=== PATIENT | female | born 1990 | race Caucasian/White ===

== ENCOUNTER 2018-06-29 00:25 | Inpatient (IN) | payer MEDICAID, OTHER ==
[~2018-06-29] VITALS: Ht 165.1 cm; Wt 89.4 kg
[~2018-06-29 00:25] MED LIST: BENZ2TAB10 PO; HALO1 PO; LEVO100T13 PO; METF500T PO; SITA100 PO
[2018-06-29 00:38] LABS: GLUCOSE,POINT OF CARE 195 MG/DL (70-110)
[2018-06-29 01:06] LABS: BASOPHILS % (AUTO) 0.9 % (0.0-2.0); EOSINOPHILS % (AUTO) 0.9 % (1.0-6.0); HEMATOCRIT 42.6 % (36-46); HEMOGLOBIN 14.4 g/dL (12.0-16.0); LYMPHOCYTES # (AUTO) 4.5 K/uL (1.0-4.8); LYMPHOCYTES % (AUTO) 31.1 % (22.0-44.0); MEAN CORPUSCULAR HEMOGLOBIN 28.8 pg (26.0-34.0); MEAN CORPUSCULAR HGB CONC 33.8 G/dL (31.0-37.0); MEAN CORPUSCULAR VOLUME 85 fL (80-100); MONOCYTES # (AUTO) 0.7 K/uL (0.1-1.0); MONOCYTES % (AUTO) 4.6 % (2.0-9.0); NEUTROPHILS # (AUTO) 9.1 K/uL (1.8-7.7); NEUTROPHILS % (AUTO) 62.5 % (40.0-70.0); PLATELET COUNT (AUTO) 230 K/uL (150-450); RED BLOOD CELL COUNT(AUTO) 4.99 MIL/uL (4.00-5.20); RED CELL DISTRIBUTION WIDTH 12.2 % (11.5-14.5)
[2018-06-29 01:15] LABS: ANION GAP 10 mmol/L (8-16); CALCIUM, TOTAL 9.4 mg/dL (8.8-10.5); CARBON DIOXIDE 27 mmol/L (22-29); CHLORIDE 99 mmol/L (98-107); CREATININE 0.62 mg/dL (0.60-1.30); GLOMERULAR FILTR. RATE CALC > 60 mL/min (>60); GLUCOSE,RANDOM 208 mg/dL (70-110); POTASSIUM 3.9 mmol/L (3.5-5.1); SODIUM SERUM 136 mmol/L (136-145); UREA NITROGEN, BLOOD 10 mg/dL (7-18)
[2018-06-29 01:21] LABS: ALANINE AMINOTRANSFERASE 59 U/L (12-78); ALBUMIN 3.5 g/dL (3.4-5.0); ALKALINE PHOSPHATASE 83 U/L (46-116); ASPARTATE AMINOTRANSFERASE 26 U/L (15-37); BILIRUBIN,TOTAL 0.3 mg/dL (0.1-1.0); TOTAL PROTEIN, SERUM 8.1 g/dL (6.4-8.2)
[2018-06-29] MEDS ORDERED: HALOPERIDOL 5 MG TABLET PO PRN (04:00)
[2018-06-29 05:47] VITALS: BP 111/79
[2018-06-29] MEDS ORDERED: MAGNESIUM HYDROXIDE SUSPENSION 30 ML UDCUP PO PRN (06:45)
[2018-06-29] MEDS ORDERED: ALBUTEROL SULFATE HFA 90 MCG/PUFF 8 GM INHALER IH PRN (06:45)
[2018-06-29] MEDS ORDERED: PETROLATUM,WHITE 71 GM JELLY TP PRN (06:45)
[2018-06-29] MEDS ORDERED: IBUPROFEN 400 MG TABLET PO PRN (06:45)
[2018-06-29] MEDS ORDERED: MAG HYDROX/AL HYDROX/SIMETH ES 30 ML SUSPENSION UDCUP PO PRN (06:45)
[2018-06-29] MEDS ORDERED: CloNIDine HCL 0.1 MG TABLET PO PRN (06:45)
[2018-06-29] MEDS ORDERED: DOCUSATE SODIUM 100 MG CAPSULE PO PRN (06:45)
[2018-06-29] MEDS ORDERED: ONDANSETRON HCL 4 MG TABLET PO PRN (06:45)
[2018-06-29] MEDS ORDERED: ACETAMINOPHEN 325 MG TABLET PO PRN (06:45)
[2018-06-29] MEDS ORDERED: LOPERAMIDE HCL 2 MG CAPSULE PO PRN (06:45)
[2018-06-29] MEDS: MetFORMIN HCL 500 MG TABLET PO SCH ×2 (07:08→18:10)
[2018-06-29] MEDS: LEVOTHYROXINE SODIUM 100 MCG TABLET PO SCH (07:08)
[2018-06-29 07:23] LABS: GLUCOMETER DEV NAME(LOC) PVLAB139; GLUCOSE,POINT OF CARE 156 MG/DL (70-110)
[2018-06-29 09:00] VITALS: BP 115/69
[2018-06-29] MEDS: SitaGLIPtin PHOSPHATE 100 MG TABLET PO SCH (09:21)
[2018-06-29] MEDS ORDERED: PNEUMOCOCCAL VACCINE POLYVALENT 0.5 ML VIAL [PPSV23] IM ONE (12:15)
[2018-06-29 17:18] LABS: GLUCOMETER DEV NAME(LOC) PVLAB139; GLUCOSE,POINT OF CARE 138 MG/DL (70-110)
[2018-06-29] MEDS: BENZTROPINE MESYLATE 2 MG TABLET PO SCH (18:10)
[2018-06-29 19:38] VITALS: BP 119/77
[2018-06-29] MEDS: HALOPERIDOL 5 MG TABLET PO SCH (21:08)
[2018-06-30 05:44] LABS: GLUCOMETER DEV NAME(LOC) PVLAB139; GLUCOSE,POINT OF CARE 104 MG/DL (70-110)
[2018-06-30] MEDS: MetFORMIN HCL 500 MG TABLET PO SCH ×3 (06:35→17:13)
[2018-06-30] MEDS: LEVOTHYROXINE SODIUM 100 MCG TABLET PO SCH ×2 (06:35→06:58)
[2018-06-30 08:15] VITALS: BP 112/82
[2018-06-30 08:17] LABS: HEMOGLOBIN A1C 8.7 % (4.5-6.2)
[2018-06-30 08:33] LABS: ALANINE AMINOTRANSFERASE 69 U/L (12-78); ALBUMIN 3.4 g/dL (3.4-5.0); ALKALINE PHOSPHATASE 77 U/L (46-116); ANION GAP 11 mmol/L (8-16); ASPARTATE AMINOTRANSFERASE 44 U/L (15-37); BILIRUBIN,TOTAL 0.5 mg/dL (0.1-1.0); CALCIUM, TOTAL 8.8 mg/dL (8.8-10.5); CARBON DIOXIDE 26 mmol/L (22-29); CHLORIDE 102 mmol/L (98-107); CHOLESTEROL 149 mg/dL (131-200); GLOMERULAR FILTR. RATE CALC > 60 mL/min (>60); GLUCOSE,RANDOM 123 mg/dL (70-110); HDL CHOLESTEROL 25 mg/dL (40-60); LDL CHOL (CALC.) 99 mg/dL (0-130); POTASSIUM 4.2 mmol/L (3.5-5.1); SODIUM SERUM 139 mmol/L (136-145); THYROID STIMULATING HORMONE 3.96 uIU/mL (0.36-3.74); TOTAL PROTEIN, SERUM 6.8 g/dL (6.4-8.2); TRIGLYCERIDES 123 mg/dL (15-150); UREA NITROGEN, BLOOD 8 mg/dL (7-18)
[2018-06-30] MEDS: BENZTROPINE MESYLATE 2 MG TABLET PO SCH ×2 (08:41→17:13)
[2018-06-30] MEDS: SitaGLIPtin PHOSPHATE 100 MG TABLET PO SCH (08:41)
[2018-06-30 20:55] VITALS: BP 122/72
[2018-06-30] MEDS: HALOPERIDOL 5 MG TABLET PO SCH (21:11)
[2018-07-01 05:59] LABS: GLUCOMETER DEV NAME(LOC) PVLAB139; GLUCOSE,POINT OF CARE 136 MG/DL (70-110)
[2018-07-01] MEDS: MetFORMIN HCL 500 MG TABLET PO SCH ×2 (07:10→16:59)
[2018-07-01] MEDS: LEVOTHYROXINE SODIUM 100 MCG TABLET PO SCH (07:10)
[2018-07-01 08:30] VITALS: BP 124/68
[2018-07-01] MEDS: SitaGLIPtin PHOSPHATE 100 MG TABLET PO SCH (10:44)
[2018-07-01] MEDS: BENZTROPINE MESYLATE 2 MG TABLET PO SCH ×2 (10:44→16:59)
[2018-07-01 16:43] LABS: GLUCOMETER DEV NAME(LOC) 3EC; GLUCOSE,POINT OF CARE 176 MG/DL (70-110)
[2018-07-01 19:23] VITALS: BP 113/71
[2018-07-01] MEDS: HALOPERIDOL 10 MG TABLET PO SCH (20:23)
[2018-07-02 06:40] LABS: GLUCOMETER DEV NAME(LOC) 3EC; GLUCOSE,POINT OF CARE 195 MG/DL (70-110)
[2018-07-02] MEDS: MetFORMIN HCL 500 MG TABLET PO SCH ×2 (06:49→17:36)
[2018-07-02] MEDS: LEVOTHYROXINE SODIUM 100 MCG TABLET PO SCH (06:49)
[2018-07-02 08:39] VITALS: BP 108/75
[2018-07-02] MEDS: SitaGLIPtin PHOSPHATE 100 MG TABLET PO SCH (09:00)
[2018-07-02] MEDS: BENZTROPINE MESYLATE 2 MG TABLET PO SCH ×2 (09:00→17:36)
[2018-07-02 16:29] LABS: GLUCOMETER DEV NAME(LOC) 3EC; GLUCOSE,POINT OF CARE 129 MG/DL (70-110)
[2018-07-02 18:11] VITALS: BP 106/73
[2018-07-02] MEDS: HALOPERIDOL 10 MG TABLET PO SCH (21:09)
[2018-07-03 06:09] LABS: GLUCOMETER DEV NAME(LOC) 3EX 1; GLUCOSE,POINT OF CARE 125 MG/DL (70-110)
[2018-07-03 06:55] LABS: BASOPHILS % (AUTO) 0.3 % (0.0-2.0); EOSINOPHILS % (AUTO) 1.4 % (1.0-6.0); HEMATOCRIT 38.6 % (36-46); HEMOGLOBIN 13.1 g/dL (12.0-16.0); LYMPHOCYTES # (AUTO) 4.4 K/uL (1.0-4.8); LYMPHOCYTES % (AUTO) 33.2 % (22.0-44.0); MEAN CORPUSCULAR HGB CONC 33.9 G/dL (31.0-37.0); MEAN CORPUSCULAR VOLUME 86 fL (80-100); MONOCYTES # (AUTO) 0.7 K/uL (0.1-1.0); MONOCYTES % (AUTO) 4.9 % (2.0-9.0); NEUTROPHILS % (AUTO) 60.2 % (40.0-70.0); PLATELET COUNT (AUTO) 206 K/uL (150-450); RED BLOOD CELL COUNT(AUTO) 4.51 MIL/uL (4.00-5.20); RED CELL DISTRIBUTION WIDTH 12.4 % (11.5-14.5)
[2018-07-03] MEDS: LEVOTHYROXINE SODIUM 100 MCG TABLET PO SCH (07:00)
[2018-07-03] MEDS: MetFORMIN HCL 500 MG TABLET PO SCH ×2 (07:00→16:51)
[2018-07-03 08:30] VITALS: BP 110/59
[2018-07-03] MEDS: BENZTROPINE MESYLATE 2 MG TABLET PO SCH ×2 (09:00→16:51)
[2018-07-03] MEDS: SitaGLIPtin PHOSPHATE 100 MG TABLET PO SCH (09:00)
[2018-07-03] MEDS: LORazepam 2 MG TABLET PO PRN (12:46)
[2018-07-03 16:53] LABS: GLUCOMETER DEV NAME(LOC) 3EX 1; GLUCOSE,POINT OF CARE 179 MG/DL (70-110)
[2018-07-03 17:13] VITALS: BP 104/73
[2018-07-03] MEDS: HALOPERIDOL 10 MG TABLET PO SCH (20:42)
[2018-07-04] MEDS: ZOLPIDEM TARTRATE 10 MG TABLET PO PRN (00:35)
[2018-07-04 00:38] VITALS: BP 116/75
[2018-07-04] MEDS: LEVOTHYROXINE SODIUM 100 MCG TABLET PO SCH (06:39)
[2018-07-04] MEDS: MetFORMIN HCL 500 MG TABLET PO SCH ×2 (06:39→16:36)
[2018-07-04 08:30] VITALS: BP 104/46
[2018-07-04] MEDS: SitaGLIPtin PHOSPHATE 100 MG TABLET PO SCH (09:59)
[2018-07-04] MEDS: BENZTROPINE MESYLATE 2 MG TABLET PO SCH ×2 (09:59→16:36)
[2018-07-04 14:55] LABS: GLUCOMETER DEV NAME(LOC) 3EX 1; GLUCOSE,POINT OF CARE 149 MG/DL (70-110)
[2018-07-04 16:43] LABS: GLUCOMETER DEV NAME(LOC) 3EI C; GLUCOSE,POINT OF CARE 133 MG/DL (70-110)
[2018-07-04 20:01] VITALS: BP 106/68
[2018-07-04] MEDS: HALOPERIDOL 10 MG TABLET PO SCH (20:42)
[2018-07-05 05:39] LABS: GLUCOMETER DEV NAME(LOC) 3EI C; GLUCOSE,POINT OF CARE 100 MG/DL (70-110)
[2018-07-05] MEDS: LEVOTHYROXINE SODIUM 100 MCG TABLET PO SCH (06:58)
[2018-07-05] MEDS: MetFORMIN HCL 500 MG TABLET PO SCH ×2 (06:58→17:51)
[2018-07-05 08:05] VITALS: BP 108/73
[2018-07-05] MEDS: SitaGLIPtin PHOSPHATE 100 MG TABLET PO SCH (09:20)
[2018-07-05] MEDS: BENZTROPINE MESYLATE 2 MG TABLET PO SCH ×2 (09:20→16:16)
[2018-07-05 15:21] LABS: AMPHET/METH SCREEN,URINE NEGATIVE (NEGATIVE); BARBITURATE SCREEN, URINE NEGATIVE (NEGATIVE); BENZODIAZEPINES SCREEN,URINE NEGATIVE (NEGATIVE); CANNABINOID SCREEN,URINE NEGATIVE (NEGATIVE); COCAINE SCREEN,URINE NEGATIVE (NEGATIVE); METHADONE SCREEN, URINE NEGATIVE (NEGATIVE); OPIATE SCREEN,URINE NEGATIVE (NEGATIVE)
[2018-07-05 15:22] LABS: PHENCYCLIDINE SCREEN,URINE NEGATIVE (NEGATIVE)
[2018-07-05 16:23] LABS: GLUCOMETER DEV NAME(LOC) 3EI C; GLUCOSE,POINT OF CARE 131 MG/DL (70-110)
[2018-07-05 18:56] VITALS: BP 113/74
[2018-07-05] MEDS: HALOPERIDOL 10 MG TABLET PO SCH (20:29)
[2018-07-05] MEDS: ZOLPIDEM TARTRATE 10 MG TABLET PO PRN (22:31)
[2018-07-06 00:04] VITALS: BP 117/74
[2018-07-06] MEDS: LORazepam 2 MG TABLET PO PRN (00:08)
[2018-07-06 05:35] LABS: GLUCOMETER DEV NAME(LOC) 3EI C; GLUCOSE,POINT OF CARE 127 MG/DL (70-110)
[2018-07-06] MEDS: LEVOTHYROXINE SODIUM 100 MCG TABLET PO SCH (06:44)
[2018-07-06] MEDS: MetFORMIN HCL 500 MG TABLET PO SCH (06:44)
[2018-07-06 08:30] VITALS: BP 106/72
[2018-07-06] MEDS: SitaGLIPtin PHOSPHATE 100 MG TABLET PO SCH (09:05)
[2018-07-06] MEDS: BENZTROPINE MESYLATE 2 MG TABLET PO SCH (09:05)
[2018-07-06] MEDS ORDERED: HALO10 PO (12:14)
== END 2018-07-06 16:20 | disposition home or self-care (01) | DRG 750 ==
LOC: EMS 00:27 → 3EI 03:30
PROVIDERS: ADMIT Psychiatry & Neurology Psychiatry; ATTEND Psychiatry & Neurology Psychiatry
DX: F25.1 Schizoaffective disorder, depressive type (principal); R45.851 Suicidal ideations; E11.9 Type 2 diabetes mellitus without complications; F32.9 Major depressive disorder, single episode, unspecified; E03.9 Hypothyroidism, unspecified; D72.829 Elevated white blood cell count, unspecified; E78.5 Hyperlipidemia, unspecified; F41.9 Anxiety disorder, unspecified; E78.00 Pure hypercholesterolemia, unspecified; G47.00 Insomnia, unspecified; Z79.899 Other long term (current) drug therapy
CPT/HCPCS: 80307; 83036; 84439; 84443; 90471; 99285; G0480

== ENCOUNTER 2018-07-07 21:20 | Emergency (ER) | payer MEDICAID, OTHER ==
[~2018-07-07] VITALS: Ht 160 cm; Wt 100.0 kg
[~2018-07-07 21:20] MED LIST changes: +HALO10 PO
[2018-07-07 21:43] LABS: GLUCOSE,POINT OF CARE 202 MG/DL (70-110)
[2018-07-07] MEDS ORDERED: HYDROCODONE/ACETAMINOPHEN 5-325 MG TABLET PO ONE (22:15)
[2018-07-07 22:49] VITALS: BP 127/74
== END 2018-07-07 22:54 | disposition home or self-care (01) ==
LOC: EMS 21:21
DX: K01.1 Impacted teeth (principal); F25.9 Schizoaffective disorder, unspecified; E03.9 Hypothyroidism, unspecified; E78.00 Pure hypercholesterolemia, unspecified; E11.9 Type 2 diabetes mellitus without complications; F31.9 Bipolar disorder, unspecified; F41.9 Anxiety disorder, unspecified
CPT/HCPCS: 99283

== ENCOUNTER 2018-07-09 23:42 | Emergency (ER) | payer OTHER ==
[~2018-07-09] VITALS: Ht 165.1 cm; Wt 95.5 kg
[~2018-07-09 23:42] MED LIST changes: -HALO1 PO; -SITA100 PO
[2018-07-10 00:43] LABS: BASOPHILS % (AUTO) 0.6 % (0.0-2.0); EOSINOPHILS % (AUTO) 1.2 % (1.0-6.0); HEMATOCRIT 40.2 % (36-46); HEMOGLOBIN 13.6 g/dL (12.0-16.0); LYMPHOCYTES % (AUTO) 35.4 % (22.0-44.0); MEAN CORPUSCULAR HGB CONC 33.8 G/dL (31.0-37.0); MEAN CORPUSCULAR VOLUME 86 fL (80-100); MONOCYTES # (AUTO) 0.8 K/uL (0.1-1.0); MONOCYTES % (AUTO) 5.4 % (2.0-9.0); NEUTROPHILS # (AUTO) 8.1 K/uL (1.8-7.7); NEUTROPHILS % (AUTO) 57.4 % (40.0-70.0); PLATELET COUNT (AUTO) 249 K/uL (150-450); RED BLOOD CELL COUNT(AUTO) 4.69 MIL/uL (4.00-5.20); RED CELL DISTRIBUTION WIDTH 12.2 % (11.5-14.5)
[2018-07-10] MEDS ORDERED: LORazepam 2 MG TABLET PO ONE (00:45)
[2018-07-10 00:49] VITALS: BP 118/84
[2018-07-10 00:53] LABS: ANION GAP 9 mmol/L (8-16); CARBON DIOXIDE 27 mmol/L (22-29); CHLORIDE 102 mmol/L (98-107); CREATININE 0.55 mg/dL (0.60-1.30); GLOMERULAR FILTR. RATE CALC > 60 mL/min (>60); GLUCOSE,RANDOM 127 mg/dL (70-110); POTASSIUM 3.7 mmol/L (3.5-5.1); SODIUM SERUM 138 mmol/L (136-145); UREA NITROGEN, BLOOD 5 mg/dL (7-18)
[2018-07-10 00:59] LABS: ALANINE AMINOTRANSFERASE 72 U/L (12-78); ALBUMIN 3.6 g/dL (3.4-5.0); ALKALINE PHOSPHATASE 83 U/L (46-116); ASPARTATE AMINOTRANSFERASE 26 U/L (15-37); BILIRUBIN,TOTAL 0.2 mg/dL (0.1-1.0); TOTAL PROTEIN, SERUM 7.6 g/dL (6.4-8.2)
== END 2018-07-10 02:12 | disposition home or self-care (01) ==
LOC: EMS 23:43
DX: F41.9 Anxiety disorder, unspecified (principal); F25.9 Schizoaffective disorder, unspecified; K08.89 Other specified disorders of teeth and supporting structures; F31.9 Bipolar disorder, unspecified; E11.9 Type 2 diabetes mellitus without complications; E78.00 Pure hypercholesterolemia, unspecified; E03.9 Hypothyroidism, unspecified; Z79.84 Long term (current) use of oral hypoglycemic drugs
CPT/HCPCS: 36415; 80053; 82962; 84703; 85025; 99284; G0480

== ENCOUNTER 2018-07-11 21:32 | Emergency (ER) | payer OTHER | END 2018-07-11 22:00 | disposition left against medical advice (07) | LOC: EMS 21:32 | DX: F41.9 Anxiety disorder, unspecified (principal); Z53.21 Procedure and treatment not carried out due to patient leaving prior to being seen by health care provider ==

== ENCOUNTER 2018-07-11 22:36 | Emergency (ER) | payer OTHER ==
[~2018-07-11] VITALS: Ht 165.1 cm; Wt 95.5 kg
[2018-07-12 00:21] VITALS: BP 135/62
[2018-07-12] MEDS ORDERED: LORazepam 2 MG/ML VIAL IM ONE (00:30)
[2018-07-12] MEDS ORDERED: DiphenhydrAMINE HCL 50 MG/ML VIAL IM ONE (00:30)
[2018-07-13] MEDS ORDERED: AMOX1TAB15 PO (18:20)
[2018-07-13] MEDS ORDERED: TRAM50TA4 PO (18:20)
[2018-07-13] MEDS ORDERED: IBUP-2070 PO (18:20)
== END 2018-07-12 01:02 | disposition home or self-care (01) ==
LOC: EMS 22:38
DX: F41.9 Anxiety disorder, unspecified (principal); R51 Headache; E78.00 Pure hypercholesterolemia, unspecified; E03.9 Hypothyroidism, unspecified; E11.9 Type 2 diabetes mellitus without complications; F31.9 Bipolar disorder, unspecified; F20.9 Schizophrenia, unspecified; Z79.84 Long term (current) use of oral hypoglycemic drugs
CPT/HCPCS: 96372; 99284; J1200; J2060

== ENCOUNTER 2018-07-13 18:09 | Emergency (ER) | payer OTHER ==
[~2018-07-13] VITALS: Ht 170.2 cm; Wt 81.8 kg
[2018-07-13] MEDS ORDERED: TRAM50TA4 PO (18:20)
[2018-07-13] MEDS ORDERED: IBUP-2070 PO (18:20)
[2018-07-13] MEDS ORDERED: AMOX1TAB15 PO (18:20)
[2018-07-13 19:29] LABS: GLUCOSE,POINT OF CARE 112 MG/DL (70-110)
[2018-07-13 20:25] LABS: BASOPHILS % (AUTO) 0.9 % (0.0-2.0); EOSINOPHILS % (AUTO) 1.1 % (1.0-6.0); HEMATOCRIT 40.2 % (36-46); HEMOGLOBIN 13.5 g/dL (12.0-16.0); LYMPHOCYTES # (AUTO) 3.7 K/uL (1.0-4.8); LYMPHOCYTES % (AUTO) 25.9 % (22.0-44.0); MEAN CORPUSCULAR HEMOGLOBIN 28.9 pg (26.0-34.0); MEAN CORPUSCULAR HGB CONC 33.5 G/dL (31.0-37.0); MEAN CORPUSCULAR VOLUME 86 fL (80-100); MONOCYTES # (AUTO) 0.7 K/uL (0.1-1.0); MONOCYTES % (AUTO) 4.9 % (2.0-9.0); NEUTROPHILS # (AUTO) 9.6 K/uL (1.8-7.7); NEUTROPHILS % (AUTO) 67.2 % (40.0-70.0); PLATELET COUNT (AUTO) 250 K/uL (150-450); RED BLOOD CELL COUNT(AUTO) 4.67 MIL/uL (4.00-5.20); RED CELL DISTRIBUTION WIDTH 12.3 % (11.5-14.5)
[2018-07-13] MEDS ORDERED: LORazepam 1 MG TABLET PO ONE (20:30)
[2018-07-13 20:57] LABS: ANION GAP 15 mmol/L (8-16); CALCIUM, TOTAL 9.3 mg/dL (8.8-10.5); CARBON DIOXIDE 22 mmol/L (22-29); CHLORIDE 104 mmol/L (98-107); CREATININE 0.46 mg/dL (0.60-1.30); GLOMERULAR FILTR. RATE CALC > 60 mL/min (>60); GLUCOSE,RANDOM 121 mg/dL (70-110); POTASSIUM 3.7 mmol/L (3.5-5.1); SODIUM SERUM 141 mmol/L (136-145); UREA NITROGEN, BLOOD 7 mg/dL (7-18)
[2018-07-13 21:02] LABS: ALANINE AMINOTRANSFERASE 59 U/L (12-78); ALBUMIN 3.8 g/dL (3.4-5.0); ALKALINE PHOSPHATASE 79 U/L (46-116); ASPARTATE AMINOTRANSFERASE 28 U/L (15-37); BILIRUBIN,TOTAL 0.2 mg/dL (0.1-1.0); TOTAL PROTEIN, SERUM 7.6 g/dL (6.4-8.2)
[2018-07-13 21:17] VITALS: BP 139/82
== END 2018-07-13 21:05 | disposition home or self-care (01) ==
LOC: EMS 18:11
DX: F41.9 Anxiety disorder, unspecified (principal); F31.9 Bipolar disorder, unspecified; F20.9 Schizophrenia, unspecified; E11.9 Type 2 diabetes mellitus without complications; E03.9 Hypothyroidism, unspecified; E78.00 Pure hypercholesterolemia, unspecified; Z79.84 Long term (current) use of oral hypoglycemic drugs
CPT/HCPCS: 99284

== ENCOUNTER 2018-07-21 00:54 | Emergency (ER) | payer OTHER ==
[~2018-07-21] VITALS: Ht 165.1 cm; Wt 89.5 kg
[~2018-07-21 00:54] MED LIST changes: +AMOX1TAB15 PO; +IBUP-2070 PO; +TRAM50TA4 PO
[2018-07-21 01:47] LABS: BASOPHILS % (AUTO) 0.4 % (0.0-2.0); EOSINOPHILS % (AUTO) 1.3 % (1.0-6.0); HEMATOCRIT 40.3 % (36-46); HEMOGLOBIN 13.3 g/dL (12.0-16.0); LYMPHOCYTES # (AUTO) 4.7 K/uL (1.0-4.8); LYMPHOCYTES % (AUTO) 32.4 % (22.0-44.0); MEAN CORPUSCULAR HGB CONC 33.1 G/dL (31.0-37.0); MEAN CORPUSCULAR VOLUME 88 fL (80-100); MONOCYTES # (AUTO) 0.8 K/uL (0.1-1.0); MONOCYTES % (AUTO) 5.5 % (2.0-9.0); NEUTROPHILS # (AUTO) 8.8 K/uL (1.8-7.7); NEUTROPHILS % (AUTO) 60.4 % (40.0-70.0); PLATELET COUNT (AUTO) 227 K/uL (150-450); RED BLOOD CELL COUNT(AUTO) 4.61 MIL/uL (4.00-5.20); RED CELL DISTRIBUTION WIDTH 12.8 % (11.5-14.5)
[2018-07-21 02:00] LABS: ANION GAP 8 mmol/L (8-16); CALCIUM, TOTAL 8.7 mg/dL (8.8-10.5); CARBON DIOXIDE 28 mmol/L (22-29); CHLORIDE 102 mmol/L (98-107); CREATININE 0.56 mg/dL (0.60-1.30); GLOMERULAR FILTR. RATE CALC > 60 mL/min (>60); GLUCOSE,RANDOM 242 mg/dL (70-110); POTASSIUM 4.1 mmol/L (3.5-5.1); SODIUM SERUM 138 mmol/L (136-145); UREA NITROGEN, BLOOD 10 mg/dL (7-18)
[2018-07-21 02:08] LABS: ALANINE AMINOTRANSFERASE 50 U/L (12-78); ALBUMIN 3.5 g/dL (3.4-5.0); ALKALINE PHOSPHATASE 89 U/L (46-116); ASPARTATE AMINOTRANSFERASE 24 U/L (15-37); BILIRUBIN,TOTAL 0.2 mg/dL (0.1-1.0); TOTAL PROTEIN, SERUM 7.4 g/dL (6.4-8.2)
[2018-07-21 02:09] LABS: GLUCOSE,POINT OF CARE 224 MG/DL (70-110)
[2018-07-21 02:26] LABS: AMPHET/METH SCREEN,URINE NEGATIVE (NEGATIVE); BARBITURATE SCREEN, URINE NEGATIVE (NEGATIVE); BENZODIAZEPINES SCREEN,URINE NEGATIVE (NEGATIVE); CANNABINOID SCREEN,URINE NEGATIVE (NEGATIVE); COCAINE SCREEN,URINE NEGATIVE (NEGATIVE); METHADONE SCREEN, URINE NEGATIVE (NEGATIVE); OPIATE SCREEN,URINE NEGATIVE (NEGATIVE); PHENCYCLIDINE SCREEN,URINE NEGATIVE (NEGATIVE)
[2018-07-21] MEDS ORDERED: DiphenhydrAMINE HCL 25 MG CAPSULE PO ONE (02:45)
[2018-07-21] MEDS ORDERED: LORazepam 2 MG TABLET PO ONE (02:45)
[2018-07-21] MEDS ORDERED: QUEtiapine FUMARATE 100 MG TABLET PO ONE (02:45)
[2018-07-21 03:45] VITALS: BP 134/92
== END 2018-07-21 04:01 | disposition home or self-care (01) ==
LOC: EMS 00:54
DX: G47.00 Insomnia, unspecified (principal); E78.00 Pure hypercholesterolemia, unspecified; E03.9 Hypothyroidism, unspecified; E11.9 Type 2 diabetes mellitus without complications; F31.9 Bipolar disorder, unspecified; F41.9 Anxiety disorder, unspecified; F20.9 Schizophrenia, unspecified; Z79.84 Long term (current) use of oral hypoglycemic drugs
CPT/HCPCS: 36415; 80053; 80307; 82962; 84703; 85025; 99284; G0480

== ENCOUNTER 2019-06-14 09:59 | Inpatient (IN) | payer MEDICAID ==
[~2019-06-14] VITALS: Ht 162.6 cm; Wt 93.9 kg
[~2019-06-14 09:59] MED LIST changes: -AMOX1TAB15 PO; +FLUO-191 PO; -IBUP-2070 PO; +SITA100 PO; -TRAM50TA4 PO
[2019-06-14] MEDS: GABAPENTIN 300 MG CAPSULE PO SCH ×2 (14:22→16:57)
[2019-06-14 14:38] LABS: GLUCOMETER DEV NAME(LOC) BV2S.; GLUCOSE,POINT OF CARE 202 MG/DL (70-110)
[2019-06-14 14:39] VITALS: BP 105/70
[2019-06-14 16:30] VITALS: BP 114/78
[2019-06-14] MEDS: MetFORMIN HCL 500 MG TABLET PO SCH (16:57)
[2019-06-14] MEDS: ZIPRASIDONE HCL 20 MG CAPSULE PO SCH (16:57)
[2019-06-14] MEDS ORDERED: ONDANSETRON HCL 4 MG TABLET PO PRN ×2 (18:30→19:30)
[2019-06-14] MEDS ORDERED: DOCUSATE SODIUM 100 MG CAPSULE PO PRN (19:30)
[2019-06-14] MEDS ORDERED: LOPERAMIDE HCL 2 MG CAPSULE PO PRN (19:30)
[2019-06-14] MEDS ORDERED: MAGNESIUM HYDROXIDE SUSPENSION 30 ML UDCUP PO PRN (19:30)
[2019-06-14] MEDS ORDERED: CloNIDine HCL 0.1 MG TABLET PO PRN (19:30)
[2019-06-14] MEDS ORDERED: ALBUTEROL SULFATE HFA 90 MCG/PUFF 8 GM INHALER IH PRN (19:30)
[2019-06-14] MEDS ORDERED: ACETAMINOPHEN 325 MG TABLET PO PRN (19:30)
[2019-06-14] MEDS ORDERED: NICOTINE 14 MG/24 HOUR PATCH TD PRN (19:30)
[2019-06-14] MEDS ORDERED: MAG HYDROX/AL HYDROX/SIMETH ES 30 ML SUSPENSION UDCUP PO PRN (19:30)
[2019-06-14] MEDS ORDERED: PETROLATUM,WHITE 28 GM JELLY TP PRN (19:30)
[2019-06-14] MEDS ORDERED: GuaiFENesin/D-METHORPHAN [SUGAR-FREE] 200-20MG/10 ML SYRUP UDCUP PO PRN (19:30)
[2019-06-14] MEDS: HALOPERIDOL 5 MG TABLET PO PRN (22:35)
[2019-06-14] MEDS: LORazepam 2 MG TABLET PO PRN (22:35)
[2019-06-15 00:05] VITALS: BP 133/74
[2019-06-15] MEDS: ZIPRASIDONE HCL 20 MG CAPSULE PO SCH ×2 (06:23→16:47)
[2019-06-15] MEDS: LEVOTHYROXINE SODIUM 100 MCG TABLET PO SCH (06:23)
[2019-06-15] MEDS: MetFORMIN HCL 500 MG TABLET PO SCH ×2 (06:23→16:47)
[2019-06-15 08:19] VITALS: BP 122/66
[2019-06-15] MEDS: SitaGLIPtin PHOSPHATE 100 MG TABLET PO SCH (08:22)
[2019-06-15] MEDS: GABAPENTIN 300 MG CAPSULE PO SCH ×2 (08:22→16:47)
[2019-06-15 08:33] LABS: BASOPHILS % (AUTO) 0.5 % (0.0-2.0); EOSINOPHILS % (AUTO) 1.6 % (1.0-6.0); HEMATOCRIT 40.5 % (36-46); HEMOGLOBIN 13.1 g/dL (12.0-16.0); LYMPHOCYTES # (AUTO) 4.7 K/uL (1.0-4.8); LYMPHOCYTES % (AUTO) 35.6 % (22.0-44.0); MEAN CORPUSCULAR HEMOGLOBIN 28.5 pg (26.0-34.0); MEAN CORPUSCULAR HGB CONC 32.3 G/dL (31.0-37.0); MEAN CORPUSCULAR VOLUME 88 fL (80-100); MONOCYTES # (AUTO) 0.7 K/uL (0.1-1.0); MONOCYTES % (AUTO) 5.3 % (2.0-9.0); NEUTROPHILS # (AUTO) 7.5 K/uL (1.8-7.7); PLATELET COUNT (AUTO) 255 K/uL (150-450); RED BLOOD CELL COUNT(AUTO) 4.59 MIL/uL (4.00-5.20); RED CELL DISTRIBUTION WIDTH 13.2 % (11.5-14.5)
[2019-06-15 08:53] LABS: HEMOGLOBIN A1C 7.9 % (4.5-6.2)
[2019-06-15 09:20] LABS: ALANINE AMINOTRANSFERASE 37 U/L (12-78); ALBUMIN 3.4 g/dL (3.4-5.0); ALKALINE PHOSPHATASE 75 U/L (46-116); ANION GAP 12 mmol/L (8-16); ASPARTATE AMINOTRANSFERASE 24 U/L (15-37); BILIRUBIN,TOTAL 0.3 mg/dL (0.1-1.0); CALCIUM, TOTAL 9.6 mg/dL (8.8-10.5); CARBON DIOXIDE 25 mmol/L (22-29); CHLORIDE 100 mmol/L (98-107); CHOL/HDL RATIO 4.7 (3.9-5.7); CHOLESTEROL 155 mg/dL (131-200); CREATININE 0.54 mg/dL (0.60-1.30); FREE T4 (FREE THYROXINE) 1.14 ng/dL (0.76-1.46); GLOMERULAR FILTR. RATE CALC > 60 mL/min (>60); GLUCOSE,RANDOM 141 mg/dL (70-110); HCG,QUANTITATIVE < 1 mIU/mL (0-6); HDL CHOLESTEROL 33 mg/dL (40-60); LDL CHOL (CALC.) 102 mg/dL (0-130); POTASSIUM 4.3 mmol/L (3.5-5.1); SODIUM SERUM 137 mmol/L (136-145); THYROID STIMULATING HORMONE 5.57 uIU/mL (0.36-3.74); TOTAL PROTEIN, SERUM 7.1 g/dL (6.4-8.2); TRIGLYCERIDES 98 mg/dL (15-150); UREA NITROGEN, BLOOD 12 mg/dL (7-18)
[2019-06-15 16:13] VITALS: BP 106/61
[2019-06-16 05:08] VITALS: BP 112/65
[2019-06-16] MEDS: LEVOTHYROXINE SODIUM 100 MCG TABLET PO SCH (06:29)
[2019-06-16] MEDS: ZIPRASIDONE HCL 20 MG CAPSULE PO SCH ×2 (06:55→17:05)
[2019-06-16] MEDS: MetFORMIN HCL 500 MG TABLET PO SCH ×2 (06:55→17:05)
[2019-06-16] MEDS: GABAPENTIN 300 MG CAPSULE PO SCH ×2 (08:19→17:05)
[2019-06-16] MEDS: SitaGLIPtin PHOSPHATE 100 MG TABLET PO SCH (08:19)
[2019-06-16 08:46] VITALS: BP 130/77
[2019-06-16] MEDS: LORazepam 2 MG TABLET PO PRN (12:29)
[2019-06-16 16:18] VITALS: BP 107/62
[2019-06-16 16:34] LABS: GLUCOMETER DEV NAME(LOC) BV2S.; GLUCOSE,POINT OF CARE 122 MG/DL (70-110)
[2019-06-17 06:14] LABS: GLUCOMETER DEV NAME(LOC) BV2S.; GLUCOSE,POINT OF CARE 166 MG/DL (70-110)
[2019-06-17] MEDS: LEVOTHYROXINE SODIUM 100 MCG TABLET PO SCH (06:28)
[2019-06-17 06:38] VITALS: BP 114/67
[2019-06-17] MEDS: ZIPRASIDONE HCL 20 MG CAPSULE PO SCH ×2 (06:42→17:11)
[2019-06-17] MEDS: MetFORMIN HCL 500 MG TABLET PO SCH ×2 (06:42→17:11)
[2019-06-17 08:34] VITALS: BP 102/60
[2019-06-17] MEDS: GABAPENTIN 300 MG CAPSULE PO SCH ×2 (08:34→17:11)
[2019-06-17] MEDS: SitaGLIPtin PHOSPHATE 100 MG TABLET PO SCH (08:34)
[2019-06-17 16:22] VITALS: BP 110/72
[2019-06-17 16:40] LABS: GLUCOMETER DEV NAME(LOC) BV2S.; GLUCOSE,POINT OF CARE 184 MG/DL (70-110)
[2019-06-17] MEDS: LORazepam 2 MG TABLET PO PRN (20:59)
[2019-06-18 05:53] VITALS: BP 112/80
[2019-06-18 06:20] LABS: GLUCOMETER DEV NAME(LOC) BV2S.; GLUCOSE,POINT OF CARE 125 MG/DL (70-110)
[2019-06-18] MEDS: LEVOTHYROXINE SODIUM 100 MCG TABLET PO SCH (06:33)
[2019-06-18] MEDS: MetFORMIN HCL 500 MG TABLET PO SCH ×2 (06:33→16:42)
[2019-06-18] MEDS: ZIPRASIDONE HCL 20 MG CAPSULE PO SCH (06:33)
[2019-06-18 09:09] VITALS: BP 126/76
[2019-06-18] MEDS: GABAPENTIN 300 MG CAPSULE PO SCH ×2 (09:17→16:42)
[2019-06-18] MEDS: SitaGLIPtin PHOSPHATE 100 MG TABLET PO SCH (09:17)
[2019-06-18 11:35] LABS: GLUCOMETER DEV NAME(LOC) BV2S.; GLUCOSE,POINT OF CARE 120 MG/DL (70-110)
[2019-06-18] MEDS: ZIPRASIDONE HCL 40 MG CAPSULE PO SCH (16:42)
[2019-06-18 16:46] VITALS: BP 110/65
[2019-06-18 17:25] LABS: GLUCOMETER DEV NAME(LOC) BV2S.; GLUCOSE,POINT OF CARE 174 MG/DL (70-110)
[2019-06-18] MEDS: IBUPROFEN 400 MG TABLET PO PRN (22:11)
[2019-06-19 01:13] VITALS: BP 115/73
[2019-06-19] MEDS: HALOPERIDOL 5 MG TABLET PO PRN ×2 (01:44→17:20)
[2019-06-19] MEDS: LORazepam 2 MG TABLET PO PRN ×3 (01:44→17:20)
[2019-06-19] MEDS: LEVOTHYROXINE SODIUM 100 MCG TABLET PO SCH (06:30)
[2019-06-19] MEDS: MetFORMIN HCL 500 MG TABLET PO SCH ×2 (07:00→16:37)
[2019-06-19] MEDS: ZIPRASIDONE HCL 40 MG CAPSULE PO SCH ×2 (07:00→16:38)
[2019-06-19] MEDS: SitaGLIPtin PHOSPHATE 100 MG TABLET PO SCH (09:18)
[2019-06-19] MEDS: GABAPENTIN 300 MG CAPSULE PO SCH ×2 (09:18→16:38)
[2019-06-19 16:33] VITALS: BP 145/53
[2019-06-20 05:26] VITALS: BP 106/56
[2019-06-20 06:30] LABS: GLUCOMETER DEV NAME(LOC) BV3S.; GLUCOSE,POINT OF CARE 115 MG/DL (70-110)
[2019-06-20] MEDS: LEVOTHYROXINE SODIUM 100 MCG TABLET PO SCH (06:32)
[2019-06-20] MEDS: ZIPRASIDONE HCL 40 MG CAPSULE PO SCH ×2 (06:42→16:06)
[2019-06-20] MEDS: MetFORMIN HCL 500 MG TABLET PO SCH ×2 (06:42→16:06)
[2019-06-20] MEDS: GABAPENTIN 300 MG CAPSULE PO SCH ×2 (08:10→16:06)
[2019-06-20] MEDS: SitaGLIPtin PHOSPHATE 100 MG TABLET PO SCH (08:10)
[2019-06-20 08:19] VITALS: BP 111/64
[2019-06-20] MEDS: LORazepam 2 MG TABLET PO PRN ×3 (08:19→20:55)
[2019-06-20] MEDS: HALOPERIDOL 5 MG TABLET PO PRN ×2 (12:29→16:31)
[2019-06-20 16:03] VITALS: BP 132/79
[2019-06-20 16:34] LABS: GLUCOMETER DEV NAME(LOC) BV3S.; GLUCOSE,POINT OF CARE 211 MG/DL (70-110)
[2019-06-21] MEDS: LORazepam 2 MG TABLET PO PRN ×2 (03:30→08:53)
[2019-06-21 03:31] VITALS: BP 127/77
[2019-06-21] MEDS: IBUPROFEN 400 MG TABLET PO PRN (03:31)
[2019-06-21 06:59] LABS: GLUCOMETER DEV NAME(LOC) BV3S.; GLUCOSE,POINT OF CARE 143 MG/DL (70-110)
[2019-06-21] MEDS: MetFORMIN HCL 500 MG TABLET PO SCH (07:06)
[2019-06-21] MEDS: LEVOTHYROXINE SODIUM 100 MCG TABLET PO SCH (07:06)
[2019-06-21] MEDS: ZIPRASIDONE HCL 40 MG CAPSULE PO SCH (07:06)
[2019-06-21] MEDS: GABAPENTIN 300 MG CAPSULE PO SCH (08:52)
[2019-06-21] MEDS: SitaGLIPtin PHOSPHATE 100 MG TABLET PO SCH (08:52)
[2019-06-21] MEDS ORDERED: ZIPR40CA2 PO (09:56)
[2019-06-21] MEDS ORDERED: GABA-531 PO (09:56)
[2019-06-22] MEDS ORDERED: DIPH25 PO (23:58)
[2019-06-22] MEDS ORDERED: PIOG15TA6 PO (23:58)
[2019-06-22] MEDS ORDERED: LURA40 PO (23:58)
[2019-06-22] MEDS ORDERED: LORA10TA7 PO (23:58)
[2019-06-22] MEDS ORDERED: QUET25TA PO (23:58)
== END 2019-06-21 13:20 | disposition home or self-care (01) | DRG 750 ==
LOC: B2S 13:56 → B3A 06-19 12:54
PROVIDERS: ADMIT Psychiatry & Neurology Psychiatry; ATTEND Psychiatry & Neurology Psychiatry
DX: F25.1 Schizoaffective disorder, depressive type (principal); E11.9 Type 2 diabetes mellitus without complications; D72.829 Elevated white blood cell count, unspecified; E78.5 Hyperlipidemia, unspecified; I10 Essential (primary) hypertension; E03.9 Hypothyroidism, unspecified; F25.0 Schizoaffective disorder, bipolar type; Z79.82 Long term (current) use of aspirin; Z79.899 Other long term (current) drug therapy; Z79.890 Hormone replacement therapy
CPT/HCPCS: 83036; 84436; 84439; 84443; Q0162

== ENCOUNTER 2023-03-17 18:13 | Inpatient (IN) | payer MEDICAID, OTHER ==
[~2023-03-17] VITALS: Ht 157.5 cm; Wt 92.3 kg
[~2023-03-17 18:13] MED LIST changes: -BENZ2TAB10 PO; -FLUO-191 PO; +GABA-1181 PO; -HALO10 PO; +LEVO100 PO; -LEVO100T13 PO; +METF-1211 PO; -METF500T PO; +PIOG15TA6 PO; +ZIPR80CA2 PO
[2023-03-17 19:03] LABS: BASOPHILS % (AUTO) 0.6 % (0.0-2.0); EOSINOPHILS % (AUTO) 2.4 % (1.0-6.0); HEMATOCRIT 44.8 % (36-46); HEMOGLOBIN 14.6 g/dL (12.0-16.0); LYMPHOCYTES # (AUTO) 3.1 K/uL (1.0-4.8); MEAN CORPUSCULAR HEMOGLOBIN 28.2 pg (26.0-34.0); MEAN CORPUSCULAR HGB CONC 32.6 G/dL (31.0-37.0); MEAN CORPUSCULAR VOLUME 86 fL (80-100); MONOCYTES # (AUTO) 0.8 K/uL (0.1-1.0); NEUTROPHILS # (AUTO) 9.3 K/uL (1.8-7.7); PLATELET COUNT (AUTO) 193 K/uL (150-450); RED BLOOD CELL COUNT(AUTO) 5.18 MIL/uL (4.00-5.20); RED CELL DISTRIBUTION WIDTH 13.5 % (11.5-14.5)
[2023-03-17 19:10] LABS: ANION GAP 11 mmol/L (8-16); CALCIUM, TOTAL 9.3 mg/dL (8.8-10.5); CARBON DIOXIDE 27 mmol/L (22-29); CHLORIDE 101 mmol/L (98-107); GLOMERULAR FILTR. RATE CALC > 60 mL/min (>60); GLUCOSE,RANDOM 135 mg/dL (70-110); POTASSIUM 3.7 mmol/L (3.5-5.1); SODIUM SERUM 139 mmol/L (136-145)
[2023-03-17 19:17] LABS: ALANINE AMINOTRANSFERASE 46 U/L (12-78); ALKALINE PHOSPHATASE 100 U/L (46-116); ASPARTATE AMINOTRANSFERASE 22 U/L (15-37); BILIRUBIN,TOTAL 0.2 mg/dL (0.1-1.0); TOTAL PROTEIN, SERUM 8.4 g/dL (6.4-8.2)
[2023-03-17 20:20] LABS: AMPHET/METH SCREEN,URINE NEGATIVE (NEGATIVE); BARBITURATE SCREEN, URINE NEGATIVE (NEGATIVE); BENZODIAZEPINES SCREEN,URINE NEGATIVE (NEGATIVE); CANNABINOID SCREEN,URINE NEGATIVE (NEGATIVE); COCAINE SCREEN,URINE NEGATIVE (NEGATIVE); METHADONE SCREEN, URINE NEGATIVE (NEGATIVE); OPIATE SCREEN,URINE NEGATIVE (NEGATIVE); PHENCYCLIDINE SCREEN,URINE NEGATIVE (NEGATIVE)
[2023-03-17 20:35] LABS: COVID AG,FIA SOURCE NASOPHARYNGEAL
[2023-03-17] MEDS ORDERED: ZOLPIDEM TARTRATE 10 MG TABLET PO PRN (21:30)
[2023-03-17] MEDS ORDERED: LORazepam 2 MG TABLET PO PRN (21:30)
[2023-03-17 23:01] LABS: GLUCOMETER DEV NAME(LOC) BV2S.; GLUCOSE,POINT OF CARE 128 MG/DL (70-110)
[2023-03-18 08:08] LABS: HEMOGLOBIN A1C 7.8 % (3.8-5.6)
[2023-03-18 08:26] LABS: CHOL/HDL RATIO 4.9 (3.9-5.7); FREE T4 (FREE THYROXINE) 1.1 ng/dL (0.76-1.46); THYROID STIMULATING HORMONE 4.91 uIU/mL (0.36-3.74)
[2023-03-18 08:38] VITALS: BP 112/69
[2023-03-18] MEDS ORDERED: GLUCAGON,HUMAN RECOMBINANT 1 MG VIAL IM PRN (11:30)
[2023-03-18] MEDS ORDERED: ACETAMINOPHEN 325 MG TABLET PO PRN (11:45)
[2023-03-18] MEDS ORDERED: DOCUSATE SODIUM 100 MG CAPSULE PO PRN (11:45)
[2023-03-18] MEDS ORDERED: ONDANSETRON HCL 4 MG TABLET PO PRN (11:45)
[2023-03-18] MEDS ORDERED: ALBUTEROL SULFATE HFA 90 MCG/PUFF 8 GM INHALER IH PRN (11:45)
[2023-03-18] MEDS ORDERED: PETROLATUM,WHITE 28 GM JELLY TP PRN (11:45)
[2023-03-18] MEDS ORDERED: IBUPROFEN 400 MG TABLET PO PRN (11:45)
[2023-03-18] MEDS ORDERED: LOPERAMIDE HCL 2 MG CAPSULE PO PRN (11:45)
[2023-03-18] MEDS ORDERED: MAGNESIUM HYDROXIDE SUSPENSION 30 ML UDCUP PO PRN (11:45)
[2023-03-18] MEDS ORDERED: GuaiFENesin/D-METHORPHAN [SUGAR-FREE] 200-20MG/10 ML SYRUP UDCUP PO PRN (11:45)
[2023-03-18] MEDS ORDERED: MAG HYDROX/AL HYDROX/SIMETH ES 30 ML SUSPENSION UDCUP PO PRN (11:45)
[2023-03-18] MEDS ORDERED: NICOTINE 14 MG/24 HOUR PATCH TD PRN (11:45)
[2023-03-18] MEDS ORDERED: CloNIDine HCL 0.1 MG TABLET PO PRN (11:45)
[2023-03-18 11:56] LABS: GLUCOMETER DEV NAME(LOC) BV2S.; GLUCOSE,POINT OF CARE 133 MG/DL (70-110)
[2023-03-18] MEDS ORDERED: QUET25TA36 PO (13:00)
[2023-03-18] MEDS ORDERED: SERT-439 PO (13:00)
[2023-03-18] MEDS: SERTRALINE HCL 50 MG TABLET PO SCH (13:10)
[2023-03-18 16:46] LABS: GLUCOMETER DEV NAME(LOC) BV2S.; GLUCOSE,POINT OF CARE 110 MG/DL (70-110)
[2023-03-18 20:25] LABS: GLUCOMETER DEV NAME(LOC) BV2S.; GLUCOSE,POINT OF CARE 236 MG/DL (70-110)
[2023-03-18] MEDS: INSULIN LISPRO 100 UNITS/ML SQ PRN (20:30)
[2023-03-18] MEDS: QUEtiapine FUMARATE 25 MG TABLET PO SCH (20:31)
[2023-03-18 20:53] VITALS: BP 104/70
[2023-03-19 07:06] LABS: GLUCOMETER DEV NAME(LOC) BV2S.; GLUCOSE,POINT OF CARE 133 MG/DL (70-110)
[2023-03-19 07:44] LABS: HEMOGLOBIN A1C 7.8 % (3.8-5.6)
[2023-03-19 07:48] LABS: ALANINE AMINOTRANSFERASE 42 U/L (12-78); ALBUMIN 3.5 g/dL (3.4-5.0); ALKALINE PHOSPHATASE 80 U/L (46-116); ANION GAP 8 mmol/L (8-16); ASPARTATE AMINOTRANSFERASE 22 U/L (15-37); BILIRUBIN,TOTAL 0.4 mg/dL (0.1-1.0); CALCIUM, TOTAL 8.9 mg/dL (8.8-10.5); CARBON DIOXIDE 25 mmol/L (22-29); CHLORIDE 103 mmol/L (98-107); CHOL/HDL RATIO 5.5 (3.9-5.7); CHOLESTEROL 170 mg/dL (131-200); CREATININE 0.43 mg/dL (0.60-1.30); GLOMERULAR FILTR. RATE CALC > 60 mL/min (>60); GLUCOSE,RANDOM 129 mg/dL (70-110); HDL CHOLESTEROL 31 mg/dL (40-60); LDL CHOL (CALC.) 116 mg/dL (0-130); POTASSIUM 3.7 mmol/L (3.5-5.1); SODIUM SERUM 136 mmol/L (136-145); THYROID STIMULATING HORMONE 2.66 uIU/mL (0.36-3.74); TOTAL PROTEIN, SERUM 7.5 g/dL (6.4-8.2); TRIGLYCERIDES 116 mg/dL (15-150)
[2023-03-19 08:20] VITALS: BP 109/69
[2023-03-19] MEDS: SERTRALINE HCL 50 MG TABLET PO SCH (09:27)
[2023-03-19] MEDS: INSULIN LISPRO 100 UNITS/ML SQ PRN ×2 (11:22→20:41)
[2023-03-19 11:31] LABS: GLUCOMETER DEV NAME(LOC) BV2S.; GLUCOSE,POINT OF CARE 197 MG/DL (70-110)
[2023-03-19] MEDS ORDERED: EMPA25TA3 PO (12:05)
[2023-03-19 16:30] LABS: GLUCOMETER DEV NAME(LOC) BV2S.; GLUCOSE,POINT OF CARE 117 MG/DL (70-110)
[2023-03-19 20:09] VITALS: BP 110/69
[2023-03-19 20:26] LABS: GLUCOMETER DEV NAME(LOC) BV2S.; GLUCOSE,POINT OF CARE 155 MG/DL (70-110)
[2023-03-19] MEDS: QUEtiapine FUMARATE 25 MG TABLET PO SCH (20:31)
[2023-03-20 06:42] LABS: GLUCOMETER DEV NAME(LOC) BV2S.; GLUCOSE,POINT OF CARE 127 MG/DL (70-110)
[2023-03-20 08:44] VITALS: BP 116/72
[2023-03-20] MEDS: SERTRALINE HCL 50 MG TABLET PO SCH (08:51)
[2023-03-20] MEDS: INSULIN LISPRO 100 UNITS/ML SQ PRN ×3 (11:31→20:37)
[2023-03-20 15:56] LABS: GLUCOMETER DEV NAME(LOC) BV2S.; GLUCOSE,POINT OF CARE 162 MG/DL (70-110)
[2023-03-20 16:36] LABS: GLUCOMETER DEV NAME(LOC) BV2S.; GLUCOSE,POINT OF CARE 145 MG/DL (70-110)
[2023-03-20 20:26] LABS: GLUCOMETER DEV NAME(LOC) BV2S.; GLUCOSE,POINT OF CARE 180 MG/DL (70-110)
[2023-03-20 20:28] VITALS: BP 107/76
[2023-03-20] MEDS: QUEtiapine FUMARATE 25 MG TABLET PO SCH (20:30)
[2023-03-21 06:21] LABS: GLUCOMETER DEV NAME(LOC) BV2S.; GLUCOSE,POINT OF CARE 143 MG/DL (70-110)
[2023-03-21] MEDS: INSULIN LISPRO 100 UNITS/ML SQ PRN ×4 (06:33→20:27)
[2023-03-21 07:28] LABS: BASOPHILS % (AUTO) 0.3 % (0.0-2.0); EOSINOPHILS % (AUTO) 1.5 % (1.0-6.0); HEMATOCRIT 40.9 % (36-46); HEMOGLOBIN 13.5 g/dL (12.0-16.0); LYMPHOCYTES # (AUTO) 3.2 K/uL (1.0-4.8); LYMPHOCYTES % (AUTO) 26.9 % (22.0-44.0); MEAN CORPUSCULAR HEMOGLOBIN 28.5 pg (26.0-34.0); MEAN CORPUSCULAR VOLUME 87 fL (80-100); MONOCYTES # (AUTO) 0.7 K/uL (0.1-1.0); MONOCYTES % (AUTO) 5.6 % (2.0-9.0); NEUTROPHILS # (AUTO) 7.9 K/uL (1.8-7.7); NEUTROPHILS % (AUTO) 65.7 % (40.0-70.0); PLATELET COUNT (AUTO) 178 K/uL (150-450); RED BLOOD CELL COUNT(AUTO) 4.73 MIL/uL (4.00-5.20); RED CELL DISTRIBUTION WIDTH 13.3 % (11.5-14.5)
[2023-03-21 08:37] VITALS: BP 130/70
[2023-03-21] MEDS: SERTRALINE HCL 50 MG TABLET PO SCH (09:00)
[2023-03-21 11:21] LABS: GLUCOMETER DEV NAME(LOC) BV2S.; GLUCOSE,POINT OF CARE 147 MG/DL (70-110)
[2023-03-21 17:56] LABS: GLUCOMETER DEV NAME(LOC) BV2S.; GLUCOSE,POINT OF CARE 154 MG/DL (70-110)
[2023-03-21] MEDS: QUEtiapine FUMARATE 25 MG TABLET PO SCH (20:22)
[2023-03-21 20:27] VITALS: BP 107/72
[2023-03-21 20:41] LABS: GLUCOMETER DEV NAME(LOC) BV2S.; GLUCOSE,POINT OF CARE 194 MG/DL (70-110)
[2023-03-22] MEDS: INSULIN LISPRO 100 UNITS/ML SQ PRN ×4 (06:37→22:17)
[2023-03-22] MEDS: SERTRALINE HCL 50 MG TABLET PO SCH (08:21)
[2023-03-22 08:35] VITALS: BP 109/56
[2023-03-22 09:21] LABS: GLUCOMETER DEV NAME(LOC) BV2S.; GLUCOSE,POINT OF CARE 210 MG/DL (70-110)
[2023-03-22 09:21] LABS: GLUCOMETER DEV NAME(LOC) BV2S.; GLUCOSE,POINT OF CARE 186 MG/DL (70-110)
[2023-03-22 11:21] LABS: GLUCOMETER DEV NAME(LOC) BV2S.; GLUCOSE,POINT OF CARE 162 MG/DL (70-110)
[2023-03-22] MEDS: QUEtiapine FUMARATE 25 MG TABLET PO SCH (20:13)
[2023-03-22 20:16] LABS: GLUCOMETER DEV NAME(LOC) BV2S.; GLUCOSE,POINT OF CARE 232 MG/DL (70-110)
[2023-03-22 20:41] LABS: GLUCOMETER DEV NAME(LOC) BV2S.; GLUCOSE,POINT OF CARE 160 MG/DL (70-110)
[2023-03-22 20:44] VITALS: BP 106/72
[2023-03-23 06:42] LABS: GLUCOMETER DEV NAME(LOC) BV2S.; GLUCOSE,POINT OF CARE 124 MG/DL (70-110)
[2023-03-23] MEDS: SERTRALINE HCL 50 MG TABLET PO SCH (08:27)
[2023-03-23 08:49] VITALS: BP 116/72
[2023-03-23] MEDS: INSULIN LISPRO 100 UNITS/ML SQ PRN ×3 (11:16→20:30)
[2023-03-23 11:41] LABS: GLUCOMETER DEV NAME(LOC) BV2S.; GLUCOSE,POINT OF CARE 265 MG/DL (70-110)
[2023-03-23 16:11] LABS: GLUCOMETER DEV NAME(LOC) POC.BV
[2023-03-23 17:01] LABS: GLUCOMETER DEV NAME(LOC) BV2S.; GLUCOSE,POINT OF CARE 175 MG/DL (70-110)
[2023-03-23 20:19] VITALS: BP 128/99
[2023-03-23] MEDS: QUEtiapine FUMARATE 25 MG TABLET PO SCH (20:25)
[2023-03-23 20:31] LABS: GLUCOMETER DEV NAME(LOC) BV2S.; GLUCOSE,POINT OF CARE 201 MG/DL (70-110)
[2023-03-24 06:27] LABS: GLUCOMETER DEV NAME(LOC) BV2S.; GLUCOSE,POINT OF CARE 127 MG/DL (70-110)
[2023-03-24 08:18] LABS: BASOPHILS % (AUTO) 0.4 % (0.0-2.0); EOSINOPHILS % (AUTO) 2.1 % (1.0-6.0); HEMATOCRIT 39.9 % (36-46); HEMOGLOBIN 12.8 g/dL (12.0-16.0); LYMPHOCYTES # (AUTO) 3.4 K/uL (1.0-4.8); LYMPHOCYTES % (AUTO) 28.2 % (22.0-44.0); MEAN CORPUSCULAR HEMOGLOBIN 27.7 pg (26.0-34.0); MEAN CORPUSCULAR HGB CONC 32.1 G/dL (31.0-37.0); MEAN CORPUSCULAR VOLUME 86 fL (80-100); MONOCYTES # (AUTO) 0.7 K/uL (0.1-1.0); MONOCYTES % (AUTO) 5.8 % (2.0-9.0); NEUTROPHILS # (AUTO) 7.7 K/uL (1.8-7.7); NEUTROPHILS % (AUTO) 63.5 % (40.0-70.0); PLATELET COUNT (AUTO) 193 K/uL (150-450); RED BLOOD CELL COUNT(AUTO) 4.62 MIL/uL (4.00-5.20); RED CELL DISTRIBUTION WIDTH 13.1 % (11.5-14.5)
[2023-03-24 08:27] VITALS: BP 129/81
[2023-03-24] MEDS: SERTRALINE HCL 50 MG TABLET PO SCH (10:04)
[2023-03-24] MEDS: INSULIN LISPRO 100 UNITS/ML SQ PRN ×3 (11:29→20:52)
[2023-03-24 11:41] LABS: GLUCOMETER DEV NAME(LOC) BV2S.; GLUCOSE,POINT OF CARE 155 MG/DL (70-110)
[2023-03-24 16:31] LABS: GLUCOMETER DEV NAME(LOC) BV2S.; GLUCOSE,POINT OF CARE 221 MG/DL (70-110)
[2023-03-24 20:30] VITALS: BP 118/78
[2023-03-24] MEDS: QUEtiapine FUMARATE 25 MG TABLET PO SCH (20:45)
[2023-03-24 20:56] LABS: GLUCOMETER DEV NAME(LOC) BV2S.; GLUCOSE,POINT OF CARE 177 MG/DL (70-110)
[2023-03-25 06:11] LABS: GLUCOMETER DEV NAME(LOC) BV2S.; GLUCOSE,POINT OF CARE 124 MG/DL (70-110)
[2023-03-25 08:18] VITALS: BP 109/64
[2023-03-25] MEDS: SERTRALINE HCL 50 MG TABLET PO SCH (08:37)
[2023-03-25] MEDS: QUEtiapine FUMARATE 200 MG TABLET PO SCH ×2 (08:38→20:16)
[2023-03-25 11:21] LABS: GLUCOMETER DEV NAME(LOC) BV2S.; GLUCOSE,POINT OF CARE 139 MG/DL (70-110)
[2023-03-25 16:51] LABS: GLUCOMETER DEV NAME(LOC) BV2S.; GLUCOSE,POINT OF CARE 190 MG/DL (70-110)
[2023-03-25] MEDS: INSULIN LISPRO 100 UNITS/ML SQ PRN ×2 (16:58→21:12)
[2023-03-25 20:16] VITALS: BP 114/66
[2023-03-26 04:21] LABS: GLUCOMETER DEV NAME(LOC) BV2S.; GLUCOSE,POINT OF CARE 248 MG/DL (70-110)
[2023-03-26 06:31] LABS: GLUCOMETER DEV NAME(LOC) BV2S.; GLUCOSE,POINT OF CARE 133 MG/DL (70-110)
[2023-03-26] MEDS: QUEtiapine FUMARATE 200 MG TABLET PO SCH ×2 (08:13→20:11)
[2023-03-26] MEDS: SERTRALINE HCL 50 MG TABLET PO SCH (08:13)
[2023-03-26 08:17] VITALS: BP 106/65
[2023-03-26 11:36] LABS: GLUCOMETER DEV NAME(LOC) BV2S.; GLUCOSE,POINT OF CARE 139 MG/DL (70-110)
[2023-03-26] MEDS: INSULIN LISPRO 100 UNITS/ML SQ PRN ×2 (16:36→20:18)
[2023-03-26 16:46] LABS: GLUCOMETER DEV NAME(LOC) BV2S.; GLUCOSE,POINT OF CARE 191 MG/DL (70-110)
[2023-03-26 20:31] LABS: GLUCOMETER DEV NAME(LOC) BV2S.; GLUCOSE,POINT OF CARE 234 MG/DL (70-110)
[2023-03-27] MEDS: HALOPERIDOL 5 MG TABLET PO PRN (01:28)
[2023-03-27] MEDS: INSULIN LISPRO 100 UNITS/ML SQ PRN (06:25)
[2023-03-27 06:36] LABS: GLUCOMETER DEV NAME(LOC) BV2S.; GLUCOSE,POINT OF CARE 100 MG/DL (70-110)
[2023-03-27 08:17] VITALS: BP 108/60
[2023-03-27] MEDS: SERTRALINE HCL 50 MG TABLET PO SCH (08:21)
[2023-03-27] MEDS: QUEtiapine FUMARATE 200 MG TABLET PO SCH ×2 (08:21→20:09)
[2023-03-27 11:56] LABS: GLUCOMETER DEV NAME(LOC) BV2S.; GLUCOSE,POINT OF CARE 123 MG/DL (70-110)
[2023-03-27 16:46] LABS: GLUCOMETER DEV NAME(LOC) BV2S.; GLUCOSE,POINT OF CARE 102 MG/DL (70-110)
[2023-03-27 20:31] LABS: GLUCOMETER DEV NAME(LOC) BV2S.; GLUCOSE,POINT OF CARE 125 MG/DL (70-110)
[2023-03-27 20:38] VITALS: BP 110/62
[2023-03-28 06:21] LABS: GLUCOMETER DEV NAME(LOC) BV2S.; GLUCOSE,POINT OF CARE 126 MG/DL (70-110)
[2023-03-28 08:24] VITALS: BP 118/70
[2023-03-28] MEDS: QUEtiapine FUMARATE 200 MG TABLET PO SCH ×2 (09:16→20:38)
[2023-03-28] MEDS: SERTRALINE HCL 50 MG TABLET PO SCH (09:17)
[2023-03-28 11:31] LABS: GLUCOMETER DEV NAME(LOC) BV2S.; GLUCOSE,POINT OF CARE 117 MG/DL (70-110)
[2023-03-28 16:26] LABS: GLUCOMETER DEV NAME(LOC) BV2S.; GLUCOSE,POINT OF CARE 201 MG/DL (70-110)
[2023-03-28] MEDS: INSULIN LISPRO 100 UNITS/ML SQ PRN ×2 (17:05→21:08)
[2023-03-28] MEDS: HALOPERIDOL 5 MG TABLET PO PRN (18:17)
[2023-03-28 20:23] VITALS: BP 101/60
[2023-03-28 21:01] LABS: GLUCOMETER DEV NAME(LOC) BV2S.; GLUCOSE,POINT OF CARE 242 MG/DL (70-110)
[2023-03-29 06:31] LABS: GLUCOMETER DEV NAME(LOC) BV2S.; GLUCOSE,POINT OF CARE 143 MG/DL (70-110)
[2023-03-29] MEDS: INSULIN LISPRO 100 UNITS/ML SQ PRN ×2 (06:44→21:01)
[2023-03-29 08:29] VITALS: BP 100/62
[2023-03-29] MEDS: SERTRALINE HCL 50 MG TABLET PO SCH (08:41)
[2023-03-29] MEDS: QUEtiapine FUMARATE 200 MG TABLET PO SCH ×2 (08:41→21:04)
[2023-03-29 11:26] LABS: GLUCOMETER DEV NAME(LOC) BV2S.; GLUCOSE,POINT OF CARE 103 MG/DL (70-110)
[2023-03-29 16:47] LABS: GLUCOMETER DEV NAME(LOC) BV2S.; GLUCOSE,POINT OF CARE 124 MG/DL (70-110)
[2023-03-29 20:28] VITALS: BP 104/69
[2023-03-29 21:11] LABS: GLUCOMETER DEV NAME(LOC) BV2S.; GLUCOSE,POINT OF CARE 199 MG/DL (70-110)
[2023-03-30 08:20] VITALS: BP 105/56
[2023-03-30] MEDS: QUEtiapine FUMARATE 200 MG TABLET PO SCH ×2 (09:19→20:36)
[2023-03-30] MEDS: SERTRALINE HCL 50 MG TABLET PO SCH (09:19)
[2023-03-30] MEDS: INSULIN LISPRO 100 UNITS/ML SQ PRN ×2 (11:23→20:47)
[2023-03-30 16:00] LABS: GLUCOMETER DEV NAME(LOC) BV2S.; GLUCOSE,POINT OF CARE 146 MG/DL (70-110)
[2023-03-30 16:00] LABS: GLUCOMETER DEV NAME(LOC) BV2S.; GLUCOSE,POINT OF CARE 132 MG/DL (70-110)
[2023-03-30 16:26] LABS: GLUCOMETER DEV NAME(LOC) BV2S.; GLUCOSE,POINT OF CARE 111 MG/DL (70-110)
[2023-03-30 20:25] VITALS: BP 104/68
[2023-03-30 20:36] LABS: GLUCOMETER DEV NAME(LOC) BV2S.; GLUCOSE,POINT OF CARE 159 MG/DL (70-110)
[2023-03-30 23:21] LABS: GLUCOMETER DEV NAME(LOC) POC.BV
[2023-03-31 05:32] LABS: GLUCOMETER DEV NAME(LOC) BV2S.; GLUCOSE,POINT OF CARE 115 MG/DL (70-110)
[2023-03-31 08:29] VITALS: BP 107/58
[2023-03-31] MEDS: SERTRALINE HCL 50 MG TABLET PO SCH (09:29)
[2023-03-31] MEDS: QUEtiapine FUMARATE 200 MG TABLET PO SCH ×2 (09:29→21:21)
[2023-03-31 17:11] LABS: GLUCOMETER DEV NAME(LOC) BV2S.; GLUCOSE,POINT OF CARE 112 MG/DL (70-110)
[2023-03-31 17:11] LABS: GLUCOMETER DEV NAME(LOC) BV2S.; GLUCOSE,POINT OF CARE 133 MG/DL (70-110)
[2023-03-31 20:20] VITALS: BP 104/66
[2023-03-31 21:11] LABS: GLUCOMETER DEV NAME(LOC) BV2S.; GLUCOSE,POINT OF CARE 183 MG/DL (70-110)
[2023-03-31] MEDS: INSULIN LISPRO 100 UNITS/ML SQ PRN ×3 (21:21→21:28)
[2023-04-01 06:16] LABS: GLUCOMETER DEV NAME(LOC) BV2S.; GLUCOSE,POINT OF CARE 136 MG/DL (70-110)
[2023-04-01] MEDS: QUEtiapine FUMARATE 200 MG TABLET PO SCH ×2 (08:10→20:12)
[2023-04-01] MEDS: SERTRALINE HCL 50 MG TABLET PO SCH (08:10)
[2023-04-01 08:18] VITALS: BP 99/62
[2023-04-01 11:35] LABS: GLUCOMETER DEV NAME(LOC) BV2S.; GLUCOSE,POINT OF CARE 134 MG/DL (70-110)
[2023-04-01 16:55] LABS: GLUCOMETER DEV NAME(LOC) BV2S.; GLUCOSE,POINT OF CARE 99 MG/DL (70-110)
[2023-04-01] MEDS: INSULIN LISPRO 100 UNITS/ML SQ PRN (20:25)
[2023-04-01 20:46] LABS: GLUCOMETER DEV NAME(LOC) BV2S.; GLUCOSE,POINT OF CARE 225 MG/DL (70-110)
[2023-04-02 06:26] LABS: GLUCOMETER DEV NAME(LOC) BV2S.; GLUCOSE,POINT OF CARE 160 MG/DL (70-110)
[2023-04-02] MEDS: INSULIN LISPRO 100 UNITS/ML SQ PRN ×4 (06:43→20:45)
[2023-04-02] MEDS: SERTRALINE HCL 50 MG TABLET PO SCH (09:28)
[2023-04-02] MEDS: QUEtiapine FUMARATE 200 MG TABLET PO SCH ×2 (09:28→20:22)
[2023-04-02 11:56] LABS: GLUCOMETER DEV NAME(LOC) BV2S.; GLUCOSE,POINT OF CARE 208 MG/DL (70-110)
[2023-04-02 17:12] LABS: GLUCOMETER DEV NAME(LOC) BV2S.; GLUCOSE,POINT OF CARE 213 MG/DL (70-110)
[2023-04-02 20:21] VITALS: BP 107/64
[2023-04-02 22:16] LABS: GLUCOMETER DEV NAME(LOC) BV2S.; GLUCOSE,POINT OF CARE 211 MG/DL (70-110)
[2023-04-03 06:56] LABS: GLUCOMETER DEV NAME(LOC) BV2S.; GLUCOSE,POINT OF CARE 155 MG/DL (70-110)
[2023-04-03] MEDS: INSULIN LISPRO 100 UNITS/ML SQ PRN ×2 (07:51→20:58)
[2023-04-03 08:52] VITALS: BP 120/80
[2023-04-03] MEDS: QUEtiapine FUMARATE 200 MG TABLET PO SCH ×2 (09:20→20:51)
[2023-04-03] MEDS: SERTRALINE HCL 50 MG TABLET PO SCH (09:20)
[2023-04-03 11:32] LABS: GLUCOMETER DEV NAME(LOC) BV2S.; GLUCOSE,POINT OF CARE 139 MG/DL (70-110)
[2023-04-03 16:51] LABS: GLUCOMETER DEV NAME(LOC) BV2S.; GLUCOSE,POINT OF CARE 120 MG/DL (70-110)
[2023-04-03 20:11] VITALS: BP 103/55
[2023-04-03 20:36] LABS: GLUCOMETER DEV NAME(LOC) BV2S.; GLUCOSE,POINT OF CARE 235 MG/DL (70-110)
[2023-04-04 07:11] LABS: GLUCOMETER DEV NAME(LOC) BV2S.; GLUCOSE,POINT OF CARE 121 MG/DL (70-110)
[2023-04-04] MEDS: QUEtiapine FUMARATE 200 MG TABLET PO SCH ×2 (08:28→20:02)
[2023-04-04] MEDS: SERTRALINE HCL 50 MG TABLET PO SCH (08:28)
[2023-04-04 08:36] VITALS: BP 107/64
[2023-04-04 11:25] LABS: GLUCOMETER DEV NAME(LOC) BV2S.; GLUCOSE,POINT OF CARE 208 MG/DL (70-110)
[2023-04-04] MEDS: INSULIN LISPRO 100 UNITS/ML SQ PRN ×3 (11:28→20:13)
[2023-04-04 16:46] LABS: GLUCOMETER DEV NAME(LOC) BV2S.; GLUCOSE,POINT OF CARE 202 MG/DL (70-110)
[2023-04-04 20:10] VITALS: BP 104/58
[2023-04-04 20:51] LABS: GLUCOMETER DEV NAME(LOC) BV2S.; GLUCOSE,POINT OF CARE 185 MG/DL (70-110)
[2023-04-05 06:06] LABS: GLUCOMETER DEV NAME(LOC) BV2S.; GLUCOSE,POINT OF CARE 140 MG/DL (70-110)
[2023-04-05 08:20] VITALS: BP 104/60
[2023-04-05] MEDS: QUEtiapine FUMARATE 200 MG TABLET PO SCH ×2 (08:22→20:22)
[2023-04-05] MEDS: SERTRALINE HCL 50 MG TABLET PO SCH (08:22)
[2023-04-05 11:20] LABS: GLUCOMETER DEV NAME(LOC) BV2S.; GLUCOSE,POINT OF CARE 127 MG/DL (70-110)
[2023-04-05 16:55] LABS: GLUCOMETER DEV NAME(LOC) BV2S.; GLUCOSE,POINT OF CARE 135 MG/DL (70-110)
[2023-04-05 20:00] VITALS: BP 106/68
[2023-04-05] MEDS: INSULIN LISPRO 100 UNITS/ML SQ PRN (20:40)
[2023-04-05 21:12] LABS: GLUCOMETER DEV NAME(LOC) BV2S.; GLUCOSE,POINT OF CARE 231 MG/DL (70-110)
[2023-04-06] MEDS: SERTRALINE HCL 50 MG TABLET PO SCH (08:32)
[2023-04-06] MEDS: QUEtiapine FUMARATE 200 MG TABLET PO SCH (08:32)
[2023-04-06 08:34] VITALS: BP 106/73
[2023-04-06 11:21] LABS: GLUCOMETER DEV NAME(LOC) BV2S.; GLUCOSE,POINT OF CARE 118 MG/DL (70-110)
[2023-04-06] MEDS: INSULIN LISPRO 100 UNITS/ML SQ PRN ×2 (16:29→20:37)
[2023-04-06 16:51] LABS: GLUCOMETER DEV NAME(LOC) BV2S.; GLUCOSE,POINT OF CARE 174 MG/DL (70-110)
[2023-04-06] MEDS: QUEtiapine FUMARATE 300 MG TABLET PO SCH (20:09)
[2023-04-06 20:47] VITALS: BP 103/75
[2023-04-06 21:36] LABS: GLUCOMETER DEV NAME(LOC) BV2S.; GLUCOSE,POINT OF CARE 215 MG/DL (70-110)
[2023-04-07 06:21] LABS: GLUCOMETER DEV NAME(LOC) BV2S.; GLUCOSE,POINT OF CARE 147 MG/DL (70-110)
[2023-04-07] MEDS: INSULIN LISPRO 100 UNITS/ML SQ PRN ×4 (06:38→20:44)
[2023-04-07] MEDS: SERTRALINE HCL 50 MG TABLET PO SCH (08:28)
[2023-04-07] MEDS: QUEtiapine FUMARATE 300 MG TABLET PO SCH ×2 (08:28→20:21)
[2023-04-07 11:41] LABS: GLUCOMETER DEV NAME(LOC) BV2S.; GLUCOSE,POINT OF CARE 154 MG/DL (70-110)
[2023-04-07 17:17] LABS: GLUCOMETER DEV NAME(LOC) BV2S.; GLUCOSE,POINT OF CARE 167 MG/DL (70-110)
[2023-04-07 20:36] VITALS: BP 110/64
[2023-04-07 20:41] LABS: GLUCOMETER DEV NAME(LOC) BV2S.; GLUCOSE,POINT OF CARE 323 MG/DL (70-110)
[2023-04-08 06:21] LABS: GLUCOMETER DEV NAME(LOC) BV2S.; GLUCOSE,POINT OF CARE 164 MG/DL (70-110)
[2023-04-08] MEDS: INSULIN LISPRO 100 UNITS/ML SQ PRN ×2 (06:42→16:50)
[2023-04-08 08:37] VITALS: BP 106/59
[2023-04-08] MEDS: QUEtiapine FUMARATE 300 MG TABLET PO SCH ×2 (10:34→20:18)
[2023-04-08] MEDS: SERTRALINE HCL 50 MG TABLET PO SCH (10:34)
[2023-04-08 16:16] LABS: GLUCOMETER DEV NAME(LOC) BV2S.; GLUCOSE,POINT OF CARE 154 MG/DL (70-110)
[2023-04-08 20:26] LABS: GLUCOMETER DEV NAME(LOC) BV2S.; GLUCOSE,POINT OF CARE 129 MG/DL (70-110)
[2023-04-09 06:31] LABS: GLUCOMETER DEV NAME(LOC) BV2S.; GLUCOSE,POINT OF CARE 160 MG/DL (70-110)
[2023-04-09] MEDS: INSULIN LISPRO 100 UNITS/ML SQ PRN ×4 (06:44→20:37)
[2023-04-09 08:29] VITALS: BP 113/72
[2023-04-09] MEDS: SERTRALINE HCL 50 MG TABLET PO SCH (08:48)
[2023-04-09] MEDS: QUEtiapine FUMARATE 300 MG TABLET PO SCH ×2 (08:48→20:02)
[2023-04-09 11:56] LABS: GLUCOMETER DEV NAME(LOC) BV2S.; GLUCOSE,POINT OF CARE 156 MG/DL (70-110)
[2023-04-09 17:11] LABS: GLUCOMETER DEV NAME(LOC) BV2S.; GLUCOSE,POINT OF CARE 257 MG/DL (70-110)
[2023-04-09 20:25] VITALS: BP 101/62
[2023-04-09 21:16] LABS: GLUCOMETER DEV NAME(LOC) BV2S.; GLUCOSE,POINT OF CARE 238 MG/DL (70-110)
[2023-04-10] MEDS: INSULIN LISPRO 100 UNITS/ML SQ PRN ×3 (06:26→20:51)
[2023-04-10] MEDS: SERTRALINE HCL 50 MG TABLET PO SCH (08:17)
[2023-04-10] MEDS: QUEtiapine FUMARATE 300 MG TABLET PO SCH ×2 (08:17→20:19)
[2023-04-10 08:21] VITALS: BP 99/61
[2023-04-10 09:16] LABS: GLUCOMETER DEV NAME(LOC) BV2S.; GLUCOSE,POINT OF CARE 164 MG/DL (70-110)
[2023-04-10 11:30] LABS: GLUCOMETER DEV NAME(LOC) BV2S.; GLUCOSE,POINT OF CARE 158 MG/DL (70-110)
[2023-04-10 16:56] LABS: GLUCOMETER DEV NAME(LOC) BV2S.; GLUCOSE,POINT OF CARE 128 MG/DL (70-110)
[2023-04-10 21:17] LABS: GLUCOMETER DEV NAME(LOC) BV2S.; GLUCOSE,POINT OF CARE 326 MG/DL (70-110)
[2023-04-11 06:36] LABS: GLUCOMETER DEV NAME(LOC) BV2S.; GLUCOSE,POINT OF CARE 187 MG/DL (70-110)
[2023-04-11] MEDS: INSULIN LISPRO 100 UNITS/ML SQ PRN ×4 (06:43→20:38)
[2023-04-11] MEDS: QUEtiapine FUMARATE 300 MG TABLET PO SCH ×2 (08:23→20:11)
[2023-04-11] MEDS: SERTRALINE HCL 50 MG TABLET PO SCH (08:23)
[2023-04-11 11:25] LABS: GLUCOMETER DEV NAME(LOC) BV2S.; GLUCOSE,POINT OF CARE 265 MG/DL (70-110)
[2023-04-11 16:41] LABS: GLUCOMETER DEV NAME(LOC) BV2S.; GLUCOSE,POINT OF CARE 205 MG/DL (70-110)
[2023-04-11 20:41] VITALS: BP 108/72
[2023-04-11 20:41] LABS: GLUCOMETER DEV NAME(LOC) BV2S.; GLUCOSE,POINT OF CARE 310 MG/DL (70-110)
[2023-04-12] MEDS: INSULIN LISPRO 100 UNITS/ML SQ PRN ×3 (06:29→20:45)
[2023-04-12 06:51] LABS: GLUCOMETER DEV NAME(LOC) BV2S.; GLUCOSE,POINT OF CARE 148 MG/DL (70-110)
[2023-04-12 08:35] VITALS: BP 113/68
[2023-04-12] MEDS: SERTRALINE HCL 50 MG TABLET PO SCH (09:34)
[2023-04-12] MEDS: QUEtiapine FUMARATE 300 MG TABLET PO SCH ×2 (09:34→20:05)
[2023-04-12 11:21] LABS: GLUCOMETER DEV NAME(LOC) BV2S.; GLUCOSE,POINT OF CARE 132 MG/DL (70-110)
[2023-04-12 16:52] LABS: GLUCOMETER DEV NAME(LOC) BV2S.; GLUCOSE,POINT OF CARE 267 MG/DL (70-110)
[2023-04-12 20:18] VITALS: BP 126/75
[2023-04-12 22:06] LABS: GLUCOMETER DEV NAME(LOC) BV2S.; GLUCOSE,POINT OF CARE 169 MG/DL (70-110)
[2023-04-13] MEDS: INSULIN LISPRO 100 UNITS/ML SQ PRN ×3 (06:43→21:19)
[2023-04-13 06:46] LABS: GLUCOMETER DEV NAME(LOC) BV2S.; GLUCOSE,POINT OF CARE 148 MG/DL (70-110)
[2023-04-13] MEDS: QUEtiapine FUMARATE 300 MG TABLET PO SCH ×2 (09:03→20:26)
[2023-04-13] MEDS: SERTRALINE HCL 50 MG TABLET PO SCH (09:03)
[2023-04-13 11:46] LABS: GLUCOMETER DEV NAME(LOC) BV2S.; GLUCOSE,POINT OF CARE 154 MG/DL (70-110)
[2023-04-13 16:47] LABS: GLUCOMETER DEV NAME(LOC) BV2S.; GLUCOSE,POINT OF CARE 120 MG/DL (70-110)
[2023-04-13 22:01] LABS: GLUCOMETER DEV NAME(LOC) BV2S.; GLUCOSE,POINT OF CARE 240 MG/DL (70-110)
[2023-04-14 06:27] LABS: GLUCOMETER DEV NAME(LOC) BV2S.; GLUCOSE,POINT OF CARE 130 MG/DL (70-110)
[2023-04-14 08:20] VITALS: BP 113/67
[2023-04-14] MEDS: QUEtiapine FUMARATE 300 MG TABLET PO SCH ×2 (08:56→20:10)
[2023-04-14] MEDS: SERTRALINE HCL 50 MG TABLET PO SCH (08:56)
[2023-04-14 11:31] LABS: GLUCOMETER DEV NAME(LOC) BV2S.; GLUCOSE,POINT OF CARE 136 MG/DL (70-110)
[2023-04-14] MEDS: INSULIN LISPRO 100 UNITS/ML SQ PRN ×2 (16:26→20:39)
[2023-04-14] MEDS: HALOPERIDOL 5 MG TABLET PO PRN (16:29)
[2023-04-14 16:46] LABS: GLUCOMETER DEV NAME(LOC) BV2S.; GLUCOSE,POINT OF CARE 260 MG/DL (70-110)
[2023-04-14 20:29] VITALS: BP 122/73
[2023-04-14 21:01] LABS: GLUCOMETER DEV NAME(LOC) BV2S.; GLUCOSE,POINT OF CARE 224 MG/DL (70-110)
[2023-04-15 06:21] LABS: GLUCOMETER DEV NAME(LOC) BV2S.; GLUCOSE,POINT OF CARE 133 MG/DL (70-110)
[2023-04-15] MEDS: SERTRALINE HCL 50 MG TABLET PO SCH (08:26)
[2023-04-15] MEDS: QUEtiapine FUMARATE 300 MG TABLET PO SCH ×2 (08:26→20:15)
[2023-04-15 08:30] VITALS: BP 112/64
[2023-04-15] MEDS: INSULIN LISPRO 100 UNITS/ML SQ PRN ×3 (11:20→20:24)
[2023-04-15 11:37] LABS: GLUCOMETER DEV NAME(LOC) BV2S.; GLUCOSE,POINT OF CARE 199 MG/DL (70-110)
[2023-04-15 16:40] LABS: GLUCOMETER DEV NAME(LOC) BV2S.; GLUCOSE,POINT OF CARE 301 MG/DL (70-110)
[2023-04-15 20:40] LABS: GLUCOMETER DEV NAME(LOC) BV2S.; GLUCOSE,POINT OF CARE 300 MG/DL (70-110)
[2023-04-16 06:22] LABS: GLUCOMETER DEV NAME(LOC) BV2S.; GLUCOSE,POINT OF CARE 201 MG/DL (70-110)
[2023-04-16] MEDS: INSULIN LISPRO 100 UNITS/ML SQ PRN ×4 (06:42→20:55)
[2023-04-16] MEDS: QUEtiapine FUMARATE 300 MG TABLET PO SCH ×2 (08:12→20:37)
[2023-04-16] MEDS: SERTRALINE HCL 50 MG TABLET PO SCH (08:12)
[2023-04-16 08:22] VITALS: BP 110/66
[2023-04-16 11:26] LABS: GLUCOMETER DEV NAME(LOC) BV2S.; GLUCOSE,POINT OF CARE 278 MG/DL (70-110)
[2023-04-16 16:12] VITALS: BP 96/62
[2023-04-16 17:02] LABS: GLUCOMETER DEV NAME(LOC) BV2S.; GLUCOSE,POINT OF CARE 249 MG/DL (70-110)
[2023-04-16 20:33] LABS: GLUCOMETER DEV NAME(LOC) BV2S.; GLUCOSE,POINT OF CARE 255 MG/DL (70-110)
[2023-04-17 06:21] LABS: GLUCOMETER DEV NAME(LOC) BV2S.; GLUCOSE,POINT OF CARE 156 MG/DL (70-110)
[2023-04-17] MEDS: INSULIN LISPRO 100 UNITS/ML SQ PRN ×2 (06:29→22:23)
[2023-04-17 07:02] VITALS: BP 118/68
[2023-04-17] MEDS: QUEtiapine FUMARATE 300 MG TABLET PO SCH ×2 (09:27→21:26)
[2023-04-17] MEDS: SERTRALINE HCL 50 MG TABLET PO SCH (09:27)
[2023-04-17 11:26] LABS: GLUCOMETER DEV NAME(LOC) BV2S.; GLUCOSE,POINT OF CARE 138 MG/DL (70-110)
[2023-04-17 16:11] VITALS: BP 103/74
[2023-04-17 17:11] LABS: GLUCOMETER DEV NAME(LOC) BV2S.; GLUCOSE,POINT OF CARE 159 MG/DL (70-110)
[2023-04-17 22:21] LABS: GLUCOMETER DEV NAME(LOC) BV2S.; GLUCOSE,POINT OF CARE 234 MG/DL (70-110)
[2023-04-18 01:14] VITALS: BP 108/73
[2023-04-18 06:31] LABS: GLUCOMETER DEV NAME(LOC) BV2S.; GLUCOSE,POINT OF CARE 222 MG/DL (70-110)
[2023-04-18] MEDS: INSULIN LISPRO 100 UNITS/ML SQ PRN ×4 (06:45→20:43)
[2023-04-18] MEDS: QUEtiapine FUMARATE 300 MG TABLET PO SCH ×2 (08:30→20:02)
[2023-04-18] MEDS: SERTRALINE HCL 50 MG TABLET PO SCH (08:30)
[2023-04-18 11:56] LABS: GLUCOMETER DEV NAME(LOC) BV2S.; GLUCOSE,POINT OF CARE 207 MG/DL (70-110)
[2023-04-18 16:51] LABS: GLUCOMETER DEV NAME(LOC) BV2S.; GLUCOSE,POINT OF CARE 321 MG/DL (70-110)
[2023-04-18 21:10] LABS: GLUCOMETER DEV NAME(LOC) BV2S.; GLUCOSE,POINT OF CARE 240 MG/DL (70-110)
[2023-04-19 00:23] VITALS: BP 123/86
[2023-04-19 06:36] LABS: GLUCOMETER DEV NAME(LOC) BV2S.; GLUCOSE,POINT OF CARE 148 MG/DL (70-110)
[2023-04-19] MEDS: INSULIN LISPRO 100 UNITS/ML SQ PRN ×4 (06:39→20:24)
[2023-04-19] MEDS: QUEtiapine FUMARATE 300 MG TABLET PO SCH ×2 (08:24→20:40)
[2023-04-19] MEDS: SERTRALINE HCL 50 MG TABLET PO SCH (08:24)
[2023-04-19 10:18] VITALS: BP 115/80
[2023-04-19 11:31] LABS: GLUCOMETER DEV NAME(LOC) BV2S.; GLUCOSE,POINT OF CARE 184 MG/DL (70-110)
[2023-04-19 16:31] LABS: GLUCOMETER DEV NAME(LOC) BV2S.; GLUCOSE,POINT OF CARE 265 MG/DL (70-110)
[2023-04-19 20:31] LABS: GLUCOMETER DEV NAME(LOC) BV2S.; GLUCOSE,POINT OF CARE 235 MG/DL (70-110)
[2023-04-20 00:37] VITALS: BP 123/86
[2023-04-20 06:21] LABS: GLUCOMETER DEV NAME(LOC) BV2S.; GLUCOSE,POINT OF CARE 180 MG/DL (70-110)
[2023-04-20] MEDS: INSULIN LISPRO 100 UNITS/ML SQ PRN ×4 (06:38→20:39)
[2023-04-20] MEDS: QUEtiapine FUMARATE 300 MG TABLET PO SCH ×2 (08:31→20:22)
[2023-04-20] MEDS: SERTRALINE HCL 50 MG TABLET PO SCH (08:31)
[2023-04-20 11:35] LABS: GLUCOMETER DEV NAME(LOC) BV2S.; GLUCOSE,POINT OF CARE 168 MG/DL (70-110)
[2023-04-20 16:19] VITALS: BP 120/80
[2023-04-20 16:41] LABS: GLUCOMETER DEV NAME(LOC) BV2S.; GLUCOSE,POINT OF CARE 247 MG/DL (70-110)
[2023-04-20 20:36] LABS: GLUCOMETER DEV NAME(LOC) BV2S.; GLUCOSE,POINT OF CARE 293 MG/DL (70-110)
[2023-04-21] MEDS: INSULIN LISPRO 100 UNITS/ML SQ PRN ×4 (06:26→20:45)
[2023-04-21] MEDS: QUEtiapine FUMARATE 300 MG TABLET PO SCH ×2 (08:18→20:42)
[2023-04-21] MEDS: SERTRALINE HCL 50 MG TABLET PO SCH (08:18)
[2023-04-21 09:01] LABS: GLUCOMETER DEV NAME(LOC) BV2S.; GLUCOSE,POINT OF CARE 228 MG/DL (70-110)
[2023-04-21 11:41] LABS: GLUCOMETER DEV NAME(LOC) BV2S.; GLUCOSE,POINT OF CARE 197 MG/DL (70-110)
[2023-04-21 17:01] LABS: GLUCOMETER DEV NAME(LOC) BV2S.; GLUCOSE,POINT OF CARE 218 MG/DL (70-110)
[2023-04-21 20:41] LABS: GLUCOMETER DEV NAME(LOC) BV2S.; GLUCOSE,POINT OF CARE 212 MG/DL (70-110)
[2023-04-22 06:06] LABS: GLUCOMETER DEV NAME(LOC) BV2S.; GLUCOSE,POINT OF CARE 148 MG/DL (70-110)
[2023-04-22] MEDS: INSULIN LISPRO 100 UNITS/ML SQ PRN ×4 (06:27→20:31)
[2023-04-22] MEDS: SERTRALINE HCL 50 MG TABLET PO SCH (08:20)
[2023-04-22] MEDS: QUEtiapine FUMARATE 300 MG TABLET PO SCH ×2 (08:20→20:14)
[2023-04-22 08:30] VITALS: BP 109/66
[2023-04-22 11:25] LABS: GLUCOMETER DEV NAME(LOC) BV2S.; GLUCOSE,POINT OF CARE 161 MG/DL (70-110)
[2023-04-22 16:36] LABS: GLUCOMETER DEV NAME(LOC) BV2S.; GLUCOSE,POINT OF CARE 238 MG/DL (70-110)
[2023-04-22 20:26] LABS: GLUCOMETER DEV NAME(LOC) BV2S.; GLUCOSE,POINT OF CARE 283 MG/DL (70-110)
[2023-04-23 00:26] VITALS: BP 116/76
[2023-04-23 06:21] LABS: GLUCOMETER DEV NAME(LOC) BV2S.; GLUCOSE,POINT OF CARE 223 MG/DL (70-110)
[2023-04-23] MEDS: INSULIN LISPRO 100 UNITS/ML SQ PRN ×4 (06:30→20:40)
[2023-04-23] MEDS: SERTRALINE HCL 50 MG TABLET PO SCH (08:14)
[2023-04-23] MEDS: QUEtiapine FUMARATE 300 MG TABLET PO SCH ×2 (08:14→20:24)
[2023-04-23 11:31] LABS: GLUCOMETER DEV NAME(LOC) BV2S.; GLUCOSE,POINT OF CARE 263 MG/DL (70-110)
[2023-04-23 16:36] LABS: GLUCOMETER DEV NAME(LOC) BV2S.; GLUCOSE,POINT OF CARE 269 MG/DL (70-110)
[2023-04-23 20:26] LABS: GLUCOMETER DEV NAME(LOC) BV2S.; GLUCOSE,POINT OF CARE 282 MG/DL (70-110)
[2023-04-24 04:46] VITALS: BP 118/78
[2023-04-24 06:36] LABS: GLUCOMETER DEV NAME(LOC) BV2S.; GLUCOSE,POINT OF CARE 178 MG/DL (70-110)
[2023-04-24] MEDS: INSULIN LISPRO 100 UNITS/ML SQ PRN ×3 (06:49→20:34)
[2023-04-24 08:06] VITALS: BP 103/64
[2023-04-24] MEDS: SERTRALINE HCL 50 MG TABLET PO SCH (08:21)
[2023-04-24] MEDS: QUEtiapine FUMARATE 300 MG TABLET PO SCH ×2 (08:21→20:27)
[2023-04-24 11:41] LABS: GLUCOMETER DEV NAME(LOC) BV2S.; GLUCOSE,POINT OF CARE 175 MG/DL (70-110)
[2023-04-24 17:36] LABS: GLUCOMETER DEV NAME(LOC) BV2S.; GLUCOSE,POINT OF CARE 137 MG/DL (70-110)
[2023-04-24 20:21] LABS: GLUCOMETER DEV NAME(LOC) BV2S.; GLUCOSE,POINT OF CARE 266 MG/DL (70-110)
[2023-04-25 00:40] VITALS: BP 129/76
[2023-04-25 06:21] LABS: GLUCOMETER DEV NAME(LOC) BV2S.; GLUCOSE,POINT OF CARE 197 MG/DL (70-110)
[2023-04-25] MEDS: INSULIN LISPRO 100 UNITS/ML SQ PRN ×4 (06:38→20:45)
[2023-04-25] MEDS: QUEtiapine FUMARATE 300 MG TABLET PO SCH ×2 (08:24→20:34)
[2023-04-25] MEDS: SERTRALINE HCL 50 MG TABLET PO SCH (08:24)
[2023-04-25] MEDS ORDERED: SERTRALINE HCL 50 MG TABLET PO ONE (11:00)
[2023-04-25 11:16] LABS: GLUCOMETER DEV NAME(LOC) BV2S.; GLUCOSE,POINT OF CARE 300 MG/DL (70-110)
[2023-04-25 16:41] LABS: GLUCOMETER DEV NAME(LOC) BV2S.; GLUCOSE,POINT OF CARE 293 MG/DL (70-110)
[2023-04-25 20:36] VITALS: BP 124/68
[2023-04-25 20:36] LABS: GLUCOMETER DEV NAME(LOC) BV2S.; GLUCOSE,POINT OF CARE 264 MG/DL (70-110)
[2023-04-26 06:16] LABS: GLUCOMETER DEV NAME(LOC) BV2S.; GLUCOSE,POINT OF CARE 201 MG/DL (70-110)
[2023-04-26] MEDS: INSULIN LISPRO 100 UNITS/ML SQ PRN ×4 (06:44→20:56)
[2023-04-26] MEDS: QUEtiapine FUMARATE 300 MG TABLET PO SCH ×2 (08:57→21:37)
[2023-04-26] MEDS: SERTRALINE HCL 50 MG TABLET PO SCH (08:57)
[2023-04-26 11:11] LABS: GLUCOMETER DEV NAME(LOC) BV2S.; GLUCOSE,POINT OF CARE 322 MG/DL (70-110)
[2023-04-26 16:40] LABS: GLUCOMETER DEV NAME(LOC) BV2S.; GLUCOSE,POINT OF CARE 319 MG/DL (70-110)
[2023-04-26 20:23] VITALS: BP 139/83
[2023-04-26 20:35] LABS: GLUCOMETER DEV NAME(LOC) BV2S.; GLUCOSE,POINT OF CARE 257 MG/DL (70-110)
[2023-04-27 06:21] LABS: GLUCOMETER DEV NAME(LOC) BV2S.; GLUCOSE,POINT OF CARE 180 MG/DL (70-110)
[2023-04-27] MEDS: INSULIN LISPRO 100 UNITS/ML SQ PRN ×4 (06:45→20:52)
[2023-04-27] MEDS: QUEtiapine FUMARATE 300 MG TABLET PO SCH ×2 (08:37→20:35)
[2023-04-27] MEDS: SERTRALINE HCL 50 MG TABLET PO SCH (08:37)
[2023-04-27 11:51] LABS: GLUCOMETER DEV NAME(LOC) BV2S.; GLUCOSE,POINT OF CARE 188 MG/DL (70-110)
[2023-04-27 16:32] LABS: GLUCOMETER DEV NAME(LOC) BV2S.; GLUCOSE,POINT OF CARE 227 MG/DL (70-110)
[2023-04-27 20:45] LABS: GLUCOMETER DEV NAME(LOC) BV2S.; GLUCOSE,POINT OF CARE 239 MG/DL (70-110)
[2023-04-27 20:57] VITALS: BP 108/69
[2023-04-28 06:27] LABS: GLUCOMETER DEV NAME(LOC) BV2S.; GLUCOSE,POINT OF CARE 163 MG/DL (70-110)
[2023-04-28] MEDS: INSULIN LISPRO 100 UNITS/ML SQ PRN ×4 (06:54→21:25)
[2023-04-28] MEDS: QUEtiapine FUMARATE 300 MG TABLET PO SCH ×2 (08:13→21:12)
[2023-04-28] MEDS: SERTRALINE HCL 50 MG TABLET PO SCH (08:14)
[2023-04-28 11:20] LABS: GLUCOMETER DEV NAME(LOC) BV2S.; GLUCOSE,POINT OF CARE 268 MG/DL (70-110)
[2023-04-28 16:36] LABS: GLUCOMETER DEV NAME(LOC) BV2S.; GLUCOSE,POINT OF CARE 243 MG/DL (70-110)
[2023-04-28 20:15] VITALS: BP 120/75
[2023-04-28 21:31] LABS: GLUCOMETER DEV NAME(LOC) BV2S.; GLUCOSE,POINT OF CARE 217 MG/DL (70-110)
[2023-04-28] MEDS: HALOPERIDOL 5 MG TABLET PO PRN (23:03)
[2023-04-29] MEDS: SERTRALINE HCL 50 MG TABLET PO SCH (08:24)
[2023-04-29] MEDS: QUEtiapine FUMARATE 300 MG TABLET PO SCH ×2 (08:24→20:09)
[2023-04-29] MEDS: INSULIN LISPRO 100 UNITS/ML SQ PRN ×3 (11:18→20:13)
[2023-04-29 11:30] LABS: GLUCOMETER DEV NAME(LOC) BV2S.; GLUCOSE,POINT OF CARE 262 MG/DL (70-110)
[2023-04-29 16:26] LABS: GLUCOMETER DEV NAME(LOC) BV2S.; GLUCOSE,POINT OF CARE 290 MG/DL (70-110)
[2023-04-29 20:13] VITALS: BP 106/69
[2023-04-29 20:26] LABS: GLUCOMETER DEV NAME(LOC) BV2S.; GLUCOSE,POINT OF CARE 224 MG/DL (70-110)
[2023-04-30 06:22] LABS: GLUCOMETER DEV NAME(LOC) BV2S.; GLUCOSE,POINT OF CARE 209 MG/DL (70-110)
[2023-04-30] MEDS: INSULIN LISPRO 100 UNITS/ML SQ PRN ×4 (06:24→20:30)
[2023-04-30] MEDS: QUEtiapine FUMARATE 300 MG TABLET PO SCH ×2 (08:53→20:20)
[2023-04-30] MEDS: SERTRALINE HCL 50 MG TABLET PO SCH (08:53)
[2023-04-30 10:14] VITALS: BP 102/61
[2023-04-30 11:21] LABS: GLUCOMETER DEV NAME(LOC) BV2S.; GLUCOSE,POINT OF CARE 158 MG/DL (70-110)
[2023-04-30 16:41] LABS: GLUCOMETER DEV NAME(LOC) BV2S.; GLUCOSE,POINT OF CARE 197 MG/DL (70-110)
[2023-04-30 20:11] VITALS: BP 107/64
[2023-04-30 20:41] LABS: GLUCOMETER DEV NAME(LOC) BV2S.; GLUCOSE,POINT OF CARE 248 MG/DL (70-110)
[2023-05-01] MEDS: INSULIN LISPRO 100 UNITS/ML SQ PRN ×4 (06:13→20:14)
[2023-05-01 06:16] LABS: GLUCOMETER DEV NAME(LOC) BV2S.; GLUCOSE,POINT OF CARE 251 MG/DL (70-110)
[2023-05-01] MEDS: QUEtiapine FUMARATE 300 MG TABLET PO SCH ×2 (08:49→20:11)
[2023-05-01] MEDS: SERTRALINE HCL 50 MG TABLET PO SCH (08:49)
[2023-05-01 11:17] LABS: GLUCOMETER DEV NAME(LOC) BV2S.; GLUCOSE,POINT OF CARE 322 MG/DL (70-110)
[2023-05-01 16:36] LABS: GLUCOMETER DEV NAME(LOC) BV2S.; GLUCOSE,POINT OF CARE 187 MG/DL (70-110)
[2023-05-01 20:11] VITALS: BP 109/69
[2023-05-01 20:22] LABS: GLUCOMETER DEV NAME(LOC) BV2S.; GLUCOSE,POINT OF CARE 281 MG/DL (70-110)
[2023-05-02] MEDS: INSULIN LISPRO 100 UNITS/ML SQ PRN ×4 (06:45→20:40)
[2023-05-02 06:56] LABS: GLUCOMETER DEV NAME(LOC) BV2S.; GLUCOSE,POINT OF CARE 202 MG/DL (70-110)
[2023-05-02] MEDS: SERTRALINE HCL 50 MG TABLET PO SCH (08:56)
[2023-05-02] MEDS: QUEtiapine FUMARATE 300 MG TABLET PO SCH ×2 (08:57→20:31)
[2023-05-02 11:16] LABS: GLUCOMETER DEV NAME(LOC) BV2S.; GLUCOSE,POINT OF CARE 179 MG/DL (70-110)
[2023-05-02 20:21] LABS: GLUCOMETER DEV NAME(LOC) BV2S.; GLUCOSE,POINT OF CARE 284 MG/DL (70-110)
[2023-05-02 22:29] VITALS: BP 116/76
[2023-05-03 06:31] LABS: GLUCOMETER DEV NAME(LOC) BV2S.; GLUCOSE,POINT OF CARE 215 MG/DL (70-110)
[2023-05-03] MEDS: INSULIN LISPRO 100 UNITS/ML SQ PRN ×4 (06:40→20:40)
[2023-05-03 08:18] VITALS: BP 105/72
[2023-05-03] MEDS: QUEtiapine FUMARATE 300 MG TABLET PO SCH ×2 (08:58→20:31)
[2023-05-03] MEDS: SERTRALINE HCL 50 MG TABLET PO SCH (08:58)
[2023-05-03 16:36] LABS: GLUCOMETER DEV NAME(LOC) BV2S.; GLUCOSE,POINT OF CARE 232 MG/DL (70-110)
[2023-05-03 20:25] LABS: GLUCOMETER DEV NAME(LOC) BV2S.; GLUCOSE,POINT OF CARE 300 MG/DL (70-110)
[2023-05-03 20:32] VITALS: BP 122/82
[2023-05-04 06:26] LABS: GLUCOMETER DEV NAME(LOC) BV2S.; GLUCOSE,POINT OF CARE 193 MG/DL (70-110)
[2023-05-04] MEDS: INSULIN LISPRO 100 UNITS/ML SQ PRN ×2 (06:30→12:25)
[2023-05-04 08:13] VITALS: BP 113/60
[2023-05-04] MEDS: SERTRALINE HCL 50 MG TABLET PO SCH (09:52)
[2023-05-04] MEDS: QUEtiapine FUMARATE 300 MG TABLET PO SCH (09:52)
[2023-05-04] MEDS ORDERED: QUET300T19 PO (13:48)
[2023-05-04] MEDS ORDERED: SERT-439 PO (13:48)
== END 2023-05-04 16:30 | disposition home or self-care (01) | DRG 750 ==
LOC: EMS 18:28 → B2S 21:21
PROVIDERS: ADMIT Psychiatry & Neurology Psychiatry; ATTEND Psychiatry & Neurology Psychiatry
DX: F20.0 Paranoid schizophrenia (principal); R45.851 Suicidal ideations; E11.9 Type 2 diabetes mellitus without complications; D72.829 Elevated white blood cell count, unspecified; E03.9 Hypothyroidism, unspecified; E66.9 Obesity, unspecified; Z20.822 Contact with and (suspected) exposure to COVID-19; E78.00 Pure hypercholesterolemia, unspecified; F41.9 Anxiety disorder, unspecified; F10.10 Alcohol abuse, uncomplicated; F31.9 Bipolar disorder, unspecified; I10 Essential (primary) hypertension; K59.00 Constipation, unspecified; Z79.899 Other long term (current) drug therapy; Z68.37 Body mass index [BMI] 37.0-37.9, adult
CPT/HCPCS: 80053; 80061; 80307; 82962; 83036; 84439; 84443; 84703; 85025; 87081; 99285; G0480

== ENCOUNTER 2023-07-07 18:52 | Inpatient (IN) | payer MEDICAID, OTHER ==
[~2023-07-07] VITALS: Ht 165.1 cm; Wt 101.3 kg
[~2023-07-07 18:52] MED LIST changes: -GABA-1181 PO; -LEVO100 PO; -PIOG15TA6 PO; +QUET300T19 PO; +SERT-439 PO; -SITA100 PO; -ZIPR80CA2 PO
[2023-07-07] MEDS ORDERED: LORazepam 2 MG/ML VIAL ONE (19:14)
[2023-07-07] MEDS ORDERED: DiphenhydrAMINE HCL 50 MG/ML VIAL ONE (19:14)
[2023-07-07] MEDS ORDERED: DiphenhydrAMINE HCL 50 MG/ML VIAL IM ONE (19:15)
[2023-07-07] MEDS ORDERED: LORazepam 2 MG/ML VIAL IM ONE (19:15)
[2023-07-07] MEDS ORDERED: HALOPERIDOL LACTATE 5 MG/ML VIAL ONE (19:15)
[2023-07-07] MEDS ORDERED: HALOPERIDOL LACTATE 5 MG/ML VIAL IM ONE (19:15)
[2023-07-07] MEDS ORDERED: EMPA25TA3 PO (19:33)
[2023-07-07] MEDS ORDERED: SERT-440 PO (19:33)
[2023-07-07] MEDS ORDERED: LEVO112T7 PO (19:33)
[2023-07-07] MEDS ORDERED: LORA-999 PO (19:33)
[2023-07-07] MEDS ORDERED: QUET400T54 PO (19:33)
[2023-07-07] MEDS ORDERED: SITA100 PO (19:33)
[2023-07-07 20:22] LABS: COVID AG,FIA SOURCE NASAL SWAB
[2023-07-07 20:44] LABS: BASOPHILS % (AUTO) 0.3 % (0.0-2.0); EOSINOPHILS % (AUTO) 0.6 % (1.0-6.0); HEMATOCRIT 41.5 % (36-46); HEMOGLOBIN 13.8 g/dL (12.0-16.0); LYMPHOCYTES # (AUTO) 2.2 K/uL (1.0-4.8); LYMPHOCYTES % (AUTO) 12.4 % (22.0-44.0); MEAN CORPUSCULAR HEMOGLOBIN 28.2 pg (26.0-34.0); MEAN CORPUSCULAR HGB CONC 33.3 G/dL (31.0-37.0); MEAN CORPUSCULAR VOLUME 85 fL (80-100); MONOCYTES # (AUTO) 0.7 K/uL (0.1-1.0); MONOCYTES % (AUTO) 4.1 % (2.0-9.0); NEUTROPHILS # (AUTO) 14.3 K/uL (1.8-7.7); NEUTROPHILS % (AUTO) 82.6 % (40.0-70.0); PLATELET COUNT (AUTO) 211 K/uL (150-450); RED CELL DISTRIBUTION WIDTH 13.5 % (11.5-14.5); WHITE BLOOD COUNT (AUTO) 17.3 K/uL (4.5-11.0)
[2023-07-07 20:50] LABS: ANION GAP 14 mmol/L (8-16); CALCIUM, TOTAL 8.8 mg/dL (8.8-10.5); CARBON DIOXIDE 20 mmol/L (22-29); CHLORIDE 101 mmol/L (98-107); CREATININE 0.59 mg/dL (0.60-1.30); GLOMERULAR FILTR. RATE CALC > 60 mL/min (>60); GLUCOSE,RANDOM 260 mg/dL (70-110); POTASSIUM 3.9 mmol/L (3.5-5.1); SODIUM SERUM 135 mmol/L (136-145); UREA NITROGEN, BLOOD 15 mg/dL (7-18)
[2023-07-07 20:55] LABS: ALANINE AMINOTRANSFERASE 57 U/L (12-78); ALBUMIN 3.6 g/dL (3.4-5.0); ALKALINE PHOSPHATASE 132 U/L (46-116); ASPARTATE AMINOTRANSFERASE 29 U/L (15-37); BILIRUBIN,TOTAL 0.2 mg/dL (0.1-1.0); TOTAL PROTEIN, SERUM 7.4 g/dL (6.4-8.2)
[2023-07-07 20:57] LABS: ALCOHOL, BLOOD (SERUM) < 3 mg/dL (0-10)
[2023-07-07 21:01] LABS: SARS-COV2 (COVID) ANTIGEN,FIA Negative (Negative)
[2023-07-08 04:30] LABS: APPEARANCE,URINE CLEAR (CLEAR); BILIRUBIN,URINE NEGATIVE (NEGATIVE); COLOR,URINE LIGHT YELLOW (YELLOW); GLUCOSE, URINE (UA) >=1000 mg/dL (NEGATIVE); LEUKOCYTE ESTERASE ,URINE NEGATIVE (NEGATIVE); NITRATE,URINE NEGATIVE (NEGATIVE); OCCULT BLOOD,URINE LARGE (NEGATIVE); PROTEIN,URINE NEGATIVE (NEGATIVE); SPECIFIC GRAVITIY, URINE 1.045 (1.003-1.030); UROBILINOGEN,URINE <=1.0 mg/dL (<=1.0)
[2023-07-08 04:58] LABS: ALCOHOL, URINE DRUG SCREEN NEGATIVE (NEGATIVE); AMPHET/METH SCREEN,URINE NEGATIVE (NEGATIVE); BARBITURATE SCREEN, URINE NEGATIVE (NEGATIVE); BENZODIAZEPINES SCREEN,URINE NEGATIVE (NEGATIVE); CANNABINOID SCREEN,URINE NEGATIVE (NEGATIVE); COCAINE SCREEN,URINE NEGATIVE (NEGATIVE); METHADONE SCREEN, URINE NEGATIVE (NEGATIVE); OPIATE SCREEN,URINE NEGATIVE (NEGATIVE); PHENCYCLIDINE SCREEN,URINE NEGATIVE (NEGATIVE)
[2023-07-08 05:05] LABS: BACTERIA,URINE None Seen /HPF (None Seen); WBC,URINE 0-2 /HPF (0-5)
[2023-07-08 05:30] VITALS: BP 102/70; PULSE 98; RESP 18; TEMP 98.2
[2023-07-08 05:36] LABS: GLUCOMETER DEV NAME(LOC) BV3S.; GLUCOSE,POINT OF CARE 191 MG/DL (70-110)
[2023-07-08] MEDS ORDERED: GLUCAGON,HUMAN RECOMBINANT 1 MG VIAL IM PRN (05:45)
[2023-07-08] MEDS: INSULIN LISPRO 100 UNITS/ML SQ PRN ×3 (06:47→20:50)
[2023-07-08] MEDS ORDERED: ALBUTEROL SULFATE HFA 90 MCG/PUFF 8 GM INHALER IH PRN (07:00)
[2023-07-08] MEDS ORDERED: CloNIDine HCL 0.1 MG TABLET PO PRN (07:00)
[2023-07-08] MEDS ORDERED: ONDANSETRON HCL 4 MG TABLET PO PRN (07:00)
[2023-07-08] MEDS ORDERED: DOCUSATE SODIUM 100 MG CAPSULE PO PRN (07:00)
[2023-07-08] MEDS ORDERED: NICOTINE 14 MG/24 HOUR PATCH TD PRN (07:00)
[2023-07-08] MEDS ORDERED: PETROLATUM,WHITE 28 GM JELLY TP PRN (07:00)
[2023-07-08] MEDS ORDERED: IBUPROFEN 400 MG TABLET PO PRN (07:00)
[2023-07-08] MEDS ORDERED: MAG HYDROX/ALUMINUM HYD/SIMETH ES 30 ML SUSPENSION UDCUP PO PRN (07:00)
[2023-07-08] MEDS ORDERED: LOPERAMIDE HCL 2 MG CAPSULE PO PRN (07:00)
[2023-07-08] MEDS ORDERED: GuaiFENesin/D-METHORPHAN [SUGAR-FREE] 200-20MG/10 ML SYRUP UDCUP PO PRN (07:00)
[2023-07-08] MEDS ORDERED: MAGNESIUM HYDROXIDE SUSPENSION 30 ML UDCUP PO PRN (07:00)
[2023-07-08 08:11] VITALS: RESP 18
[2023-07-08] MEDS: SitaGLIPtin PHOSPHATE 100 MG TABLET PO SCH (08:14)
[2023-07-08] MEDS: EMPAGLIFLOZIN 25 MG TABLET PO SCH (09:00)
[2023-07-08] MEDS ORDERED: LEVOTHYROXINE SODIUM 112 MCG TABLET PO SCH (09:00)
[2023-07-08] MEDS: SERTRALINE HCL 100 MG TABLET PO SCH (10:45)
[2023-07-08] MEDS: QUEtiapine FUMARATE 200 MG TABLET PO SCH ×2 (10:46→20:07)
[2023-07-08 17:05] LABS: GLUCOMETER DEV NAME(LOC) BV3S.; GLUCOSE,POINT OF CARE 237 MG/DL (70-110)
[2023-07-08 20:03] VITALS: BP 132/78; PULSE 88; RESP 18; TEMP 97.8; O2SAT 98
[2023-07-08] MEDS: ZOLPIDEM TARTRATE 10 MG TABLET PO PRN (20:07)
[2023-07-08 20:31] LABS: GLUCOMETER DEV NAME(LOC) BV3S.; GLUCOSE,POINT OF CARE 255 MG/DL (70-110)
[2023-07-09] MEDS: LEVOTHYROXINE SODIUM 112 MCG TABLET PO SCH (05:59)
[2023-07-09 06:31] LABS: GLUCOMETER DEV NAME(LOC) BV3S.; GLUCOSE,POINT OF CARE 220 MG/DL (70-110)
[2023-07-09] MEDS: INSULIN LISPRO 100 UNITS/ML SQ PRN ×4 (06:31→20:30)
[2023-07-09 07:52] LABS: HEMOGLOBIN A1C 8.8 % (3.8-5.6)
[2023-07-09 08:02] LABS: CHOL/HDL RATIO 5.7 (3.9-5.7); THYROID STIMULATING HORMONE 4.64 uIU/mL (0.36-3.74)
[2023-07-09] MEDS: EMPAGLIFLOZIN 25 MG TABLET PO SCH (08:07)
[2023-07-09] MEDS: SitaGLIPtin PHOSPHATE 100 MG TABLET PO SCH (08:08)
[2023-07-09] MEDS: THIAMINE 100 MG TABLET PO SCH (08:08)
[2023-07-09] MEDS: FOLIC ACID 1 MG TABLET PO SCH (08:08)
[2023-07-09] MEDS: SERTRALINE HCL 100 MG TABLET PO SCH (08:08)
[2023-07-09] MEDS: MULTIVITAMINS WITH MINERALS, THERAPEUTIC TABLET PO SCH (08:08)
[2023-07-09] MEDS: QUEtiapine FUMARATE 200 MG TABLET PO SCH ×2 (08:08→20:05)
[2023-07-09 08:26] VITALS: RESP 18
[2023-07-09] MEDS ORDERED: MULTIVITAMINS, THERAPEUTIC TABLET PO SCH (09:00)
[2023-07-09 12:06] LABS: GLUCOMETER DEV NAME(LOC) BV3S.; GLUCOSE,POINT OF CARE 182 MG/DL (70-110)
[2023-07-09 16:41] LABS: GLUCOMETER DEV NAME(LOC) BV3S.; GLUCOSE,POINT OF CARE 294 MG/DL (70-110)
[2023-07-09 20:09] VITALS: BP 137/78; PULSE 91; RESP 16; TEMP 96.4; O2SAT 98
[2023-07-09 20:28] VITALS: RESP 16
[2023-07-09] MEDS: ACETAMINOPHEN 325 MG TABLET PO PRN (20:28)
[2023-07-09 20:51] LABS: GLUCOMETER DEV NAME(LOC) BV3S.; GLUCOSE,POINT OF CARE 305 MG/DL (70-110)
[2023-07-09 21:28] VITALS: RESP 17
[2023-07-10 06:21] LABS: GLUCOMETER DEV NAME(LOC) BV3S.; GLUCOSE,POINT OF CARE 195 MG/DL (70-110)
[2023-07-10] MEDS: INSULIN LISPRO 100 UNITS/ML SQ PRN ×4 (06:27→20:20)
[2023-07-10] MEDS: LEVOTHYROXINE SODIUM 112 MCG TABLET PO SCH (06:39)
[2023-07-10] MEDS: FOLIC ACID 1 MG TABLET PO SCH (08:19)
[2023-07-10] MEDS: SERTRALINE HCL 100 MG TABLET PO SCH (08:19)
[2023-07-10] MEDS: EMPAGLIFLOZIN 25 MG TABLET PO SCH (08:20)
[2023-07-10] MEDS: SitaGLIPtin PHOSPHATE 100 MG TABLET PO SCH (08:20)
[2023-07-10] MEDS: THIAMINE 100 MG TABLET PO SCH (08:20)
[2023-07-10] MEDS: QUEtiapine FUMARATE 200 MG TABLET PO SCH ×2 (08:20→20:15)
[2023-07-10] MEDS: MULTIVITAMINS WITH MINERALS, THERAPEUTIC TABLET PO SCH (08:30)
[2023-07-10 09:00] VITALS: RESP 18
[2023-07-10 10:28] VITALS: BP 128/77; PULSE 64; RESP 18; TEMP 97.7
[2023-07-10 11:32] LABS: GLUCOMETER DEV NAME(LOC) BV3S.; GLUCOSE,POINT OF CARE 178 MG/DL (70-110)
[2023-07-10 16:46] LABS: GLUCOMETER DEV NAME(LOC) BV3S.; GLUCOSE,POINT OF CARE 220 MG/DL (70-110)
[2023-07-10 20:22] VITALS: BP 129/72; PULSE 60; RESP 17; TEMP 97.8
[2023-07-10 20:31] LABS: GLUCOMETER DEV NAME(LOC) BV3S.; GLUCOSE,POINT OF CARE 269 MG/DL (70-110)
[2023-07-11] MEDS: INSULIN LISPRO 100 UNITS/ML SQ PRN ×4 (06:21→21:04)
[2023-07-11 06:26] LABS: GLUCOMETER DEV NAME(LOC) POC.BV; POC SARS-COV2 AG, FIA NEGATIVE (NEGATIVE)
[2023-07-11] MEDS: LEVOTHYROXINE SODIUM 112 MCG TABLET PO SCH ×2 (06:30→06:40)
[2023-07-11 06:31] LABS: GLUCOMETER DEV NAME(LOC) BV3S.; GLUCOSE,POINT OF CARE 160 MG/DL (70-110)
[2023-07-11] MEDS: FOLIC ACID 1 MG TABLET PO SCH (08:15)
[2023-07-11] MEDS: SitaGLIPtin PHOSPHATE 100 MG TABLET PO SCH (08:15)
[2023-07-11] MEDS: MULTIVITAMINS WITH MINERALS, THERAPEUTIC TABLET PO SCH (08:15)
[2023-07-11] MEDS: SERTRALINE HCL 100 MG TABLET PO SCH (08:15)
[2023-07-11] MEDS: THIAMINE 100 MG TABLET PO SCH (08:15)
[2023-07-11] MEDS: QUEtiapine FUMARATE 200 MG TABLET PO SCH ×2 (08:15→20:41)
[2023-07-11] MEDS: EMPAGLIFLOZIN 25 MG TABLET PO SCH (08:15)
[2023-07-11 08:19] VITALS: BP 119/73; PULSE 76; RESP 16; TEMP 97.9; O2SAT 98
[2023-07-11 11:26] LABS: GLUCOMETER DEV NAME(LOC) BV3S.; GLUCOSE,POINT OF CARE 201 MG/DL (70-110)
[2023-07-11] MEDS: LORazepam 2 MG TABLET PO PRN ×2 (16:30→20:41)
[2023-07-11 17:21] LABS: GLUCOMETER DEV NAME(LOC) BV3S.; GLUCOSE,POINT OF CARE 249 MG/DL (70-110)
[2023-07-11 20:00] VITALS: BP 116/72; PULSE 70; RESP 18; TEMP 98.1
[2023-07-11] MEDS: ZOLPIDEM TARTRATE 10 MG TABLET PO PRN (20:41)
[2023-07-11 20:51] LABS: GLUCOMETER DEV NAME(LOC) BV3S.; GLUCOSE,POINT OF CARE 216 MG/DL (70-110)
[2023-07-12] MEDS: LEVOTHYROXINE SODIUM 112 MCG TABLET PO SCH (06:35)
[2023-07-12] MEDS: INSULIN LISPRO 100 UNITS/ML SQ PRN ×2 (06:48→11:13)
[2023-07-12 06:57] LABS: GLUCOMETER DEV NAME(LOC) BV3S.; GLUCOSE,POINT OF CARE 187 MG/DL (70-110)
[2023-07-12] MEDS: SitaGLIPtin PHOSPHATE 100 MG TABLET PO SCH (08:12)
[2023-07-12] MEDS: EMPAGLIFLOZIN 25 MG TABLET PO SCH (08:12)
[2023-07-12] MEDS: SERTRALINE HCL 100 MG TABLET PO SCH (08:12)
[2023-07-12] MEDS: FOLIC ACID 1 MG TABLET PO SCH (08:12)
[2023-07-12] MEDS: QUEtiapine FUMARATE 200 MG TABLET PO SCH ×2 (08:12→21:00)
[2023-07-12] MEDS: THIAMINE 100 MG TABLET PO SCH (08:12)
[2023-07-12] MEDS: MULTIVITAMINS WITH MINERALS, THERAPEUTIC TABLET PO SCH (08:12)
[2023-07-12 11:00] VITALS: BP 90/58; PULSE 62; RESP 18; TEMP 97.4; O2SAT 97
[2023-07-12 11:25] LABS: GLUCOMETER DEV NAME(LOC) BV3S.; GLUCOSE,POINT OF CARE 179 MG/DL (70-110)
[2023-07-13 00:20] VITALS: RESP 18
[2023-07-13 04:08] VITALS: BP 120/78; PULSE 70; RESP 18; TEMP 98
[2023-07-13] MEDS: LEVOTHYROXINE SODIUM 112 MCG TABLET PO SCH (06:54)
[2023-07-13] MEDS: THIAMINE 100 MG TABLET PO SCH (08:07)
[2023-07-13] MEDS: EMPAGLIFLOZIN 25 MG TABLET PO SCH (08:07)
[2023-07-13] MEDS: SitaGLIPtin PHOSPHATE 100 MG TABLET PO SCH (08:07)
[2023-07-13] MEDS: FOLIC ACID 1 MG TABLET PO SCH (08:07)
[2023-07-13] MEDS: QUEtiapine FUMARATE 200 MG TABLET PO SCH ×2 (08:07→21:00)
[2023-07-13] MEDS: SERTRALINE HCL 100 MG TABLET PO SCH (08:07)
[2023-07-13] MEDS: MULTIVITAMINS WITH MINERALS, THERAPEUTIC TABLET PO SCH (08:07)
[2023-07-13 08:23] VITALS: RESP 18
[2023-07-13] MEDS: LORazepam 2 MG TABLET PO PRN (11:17)
[2023-07-13 16:54] VITALS: TEMP 98.6
[2023-07-13 20:09] VITALS: BP_SYST 110; BP_SYST 121; BP_DIAS 65; BP_DIAS 77; PULSE 102; RESP 17; TEMP 96.7; O2SAT 96
[2023-07-13 21:03] VITALS: TEMP 96.7
[2023-07-14] VITALS (8 sets, daily range): BP systolic 125; BP diastolic 82; PULSE 99; RESP 18–20; TEMP 97.5–98.2; O2SAT 97
[2023-07-14] MEDS: LEVOTHYROXINE SODIUM 112 MCG TABLET PO SCH (06:30)
[2023-07-14] MEDS: SERTRALINE HCL 100 MG TABLET PO SCH (07:57)
[2023-07-14] MEDS: THIAMINE 100 MG TABLET PO SCH (07:57)
[2023-07-14] MEDS: SitaGLIPtin PHOSPHATE 100 MG TABLET PO SCH (07:57)
[2023-07-14] MEDS: FOLIC ACID 1 MG TABLET PO SCH (07:57)
[2023-07-14] MEDS: QUEtiapine FUMARATE 200 MG TABLET PO SCH ×2 (07:57→20:19)
[2023-07-14] MEDS: EMPAGLIFLOZIN 25 MG TABLET PO SCH (07:57)
[2023-07-14] MEDS: MULTIVITAMINS WITH MINERALS, THERAPEUTIC TABLET PO SCH (07:57)
[2023-07-15 01:01] VITALS: TEMP 97.1
[2023-07-15] MEDS: LEVOTHYROXINE SODIUM 112 MCG TABLET PO SCH (06:19)
[2023-07-15 08:16] VITALS: RESP 16
[2023-07-15] MEDS: FOLIC ACID 1 MG TABLET PO SCH (09:57)
[2023-07-15] MEDS: EMPAGLIFLOZIN 25 MG TABLET PO SCH (09:57)
[2023-07-15] MEDS: THIAMINE 100 MG TABLET PO SCH (09:57)
[2023-07-15] MEDS: SERTRALINE HCL 100 MG TABLET PO SCH (09:57)
[2023-07-15] MEDS: QUEtiapine FUMARATE 200 MG TABLET PO SCH ×2 (09:57→20:31)
[2023-07-15] MEDS: SitaGLIPtin PHOSPHATE 100 MG TABLET PO SCH (09:57)
[2023-07-15] MEDS: MULTIVITAMINS WITH MINERALS, THERAPEUTIC TABLET PO SCH (09:59)
[2023-07-15] MEDS: INSULIN LISPRO 100 UNITS/ML SQ PRN ×2 (11:28→20:39)
[2023-07-15 11:36] LABS: GLUCOMETER DEV NAME(LOC) BV3S.; GLUCOSE,POINT OF CARE 192 MG/DL (70-110)
[2023-07-15 20:00] VITALS: BP 106/63; PULSE 89; RESP 18; TEMP 97.8; O2SAT 97
[2023-07-15 20:56] LABS: GLUCOMETER DEV NAME(LOC) BV3S.; GLUCOSE,POINT OF CARE 157 MG/DL (70-110)
[2023-07-16] MEDS: LEVOTHYROXINE SODIUM 112 MCG TABLET PO SCH (06:32)
[2023-07-16] MEDS: INSULIN LISPRO 100 UNITS/ML SQ PRN ×3 (06:46→20:55)
[2023-07-16 06:56] LABS: GLUCOMETER DEV NAME(LOC) BV3S.; GLUCOSE,POINT OF CARE 159 MG/DL (70-110)
[2023-07-16] MEDS: THIAMINE 100 MG TABLET PO SCH (09:00)
[2023-07-16] MEDS: MULTIVITAMINS WITH MINERALS, THERAPEUTIC TABLET PO SCH (09:00)
[2023-07-16] MEDS: QUEtiapine FUMARATE 200 MG TABLET PO SCH ×2 (09:00→20:16)
[2023-07-16] MEDS: EMPAGLIFLOZIN 25 MG TABLET PO SCH (09:00)
[2023-07-16] MEDS: SERTRALINE HCL 100 MG TABLET PO SCH (09:00)
[2023-07-16] MEDS: SitaGLIPtin PHOSPHATE 100 MG TABLET PO SCH (09:00)
[2023-07-16] MEDS: FOLIC ACID 1 MG TABLET PO SCH (09:00)
[2023-07-16 09:14] VITALS: RESP 20
[2023-07-16 17:46] LABS: GLUCOMETER DEV NAME(LOC) BV3S.; GLUCOSE,POINT OF CARE 188 MG/DL (70-110)
[2023-07-16 20:26] VITALS: RESP 19; TEMP 97.9
[2023-07-16 21:01] LABS: GLUCOMETER DEV NAME(LOC) BV3S.; GLUCOSE,POINT OF CARE 292 MG/DL (70-110)
[2023-07-17] MEDS: LEVOTHYROXINE SODIUM 112 MCG TABLET PO SCH (06:48)
[2023-07-17] MEDS: INSULIN LISPRO 100 UNITS/ML SQ PRN ×2 (06:59→11:34)
[2023-07-17 07:06] LABS: GLUCOMETER DEV NAME(LOC) BV3S.; GLUCOSE,POINT OF CARE 199 MG/DL (70-110)
[2023-07-17] MEDS: QUEtiapine FUMARATE 200 MG TABLET PO SCH ×2 (08:06→20:08)
[2023-07-17] MEDS: FOLIC ACID 1 MG TABLET PO SCH (08:06)
[2023-07-17] MEDS: MULTIVITAMINS WITH MINERALS, THERAPEUTIC TABLET PO SCH (08:06)
[2023-07-17] MEDS: THIAMINE 100 MG TABLET PO SCH (08:06)
[2023-07-17] MEDS: SitaGLIPtin PHOSPHATE 100 MG TABLET PO SCH (08:06)
[2023-07-17] MEDS: SERTRALINE HCL 100 MG TABLET PO SCH (08:06)
[2023-07-17] MEDS: EMPAGLIFLOZIN 25 MG TABLET PO SCH (08:08)
[2023-07-17] MEDS: LORazepam 2 MG TABLET PO PRN (09:07)
[2023-07-17 11:52] LABS: GLUCOMETER DEV NAME(LOC) BV3S.; GLUCOSE,POINT OF CARE 169 MG/DL (70-110)
[2023-07-17 12:44] VITALS: RESP 18
[2023-07-17 16:45] LABS: GLUCOMETER DEV NAME(LOC) BV3S.; GLUCOSE,POINT OF CARE 122 MG/DL (70-110)
[2023-07-17] MEDS: ZOLPIDEM TARTRATE 10 MG TABLET PO PRN (20:08)
[2023-07-18 02:28] VITALS: RESP 18
[2023-07-18] MEDS: LEVOTHYROXINE SODIUM 112 MCG TABLET PO SCH (06:09)
[2023-07-18] MEDS: INSULIN LISPRO 100 UNITS/ML SQ PRN ×3 (06:13→16:35)
[2023-07-18 06:16] LABS: GLUCOMETER DEV NAME(LOC) BV3S.; GLUCOSE,POINT OF CARE 182 MG/DL (70-110)
[2023-07-18] MEDS: SitaGLIPtin PHOSPHATE 100 MG TABLET PO SCH (08:18)
[2023-07-18] MEDS: SERTRALINE HCL 100 MG TABLET PO SCH (08:18)
[2023-07-18] MEDS: THIAMINE 100 MG TABLET PO SCH (08:18)
[2023-07-18] MEDS: EMPAGLIFLOZIN 25 MG TABLET PO SCH (08:18)
[2023-07-18] MEDS: FOLIC ACID 1 MG TABLET PO SCH (08:18)
[2023-07-18] MEDS: QUEtiapine FUMARATE 200 MG TABLET PO SCH ×2 (08:18→20:34)
[2023-07-18] MEDS: MULTIVITAMINS WITH MINERALS, THERAPEUTIC TABLET PO SCH (08:18)
[2023-07-18] MEDS: LORazepam 2 MG TABLET PO PRN (08:19)
[2023-07-18 08:33] VITALS: BP 119/78; PULSE 94; RESP 18; TEMP 98; O2SAT 98
[2023-07-18 12:36] LABS: GLUCOMETER DEV NAME(LOC) BV3S.; GLUCOSE,POINT OF CARE 169 MG/DL (70-110)
[2023-07-18 16:51] LABS: GLUCOMETER DEV NAME(LOC) BV3S.; GLUCOSE,POINT OF CARE 332 MG/DL (70-110)
[2023-07-18 20:04] VITALS: BP 105/72; PULSE 104; RESP 18; TEMP 98.3; O2SAT 97
[2023-07-19] MEDS: LEVOTHYROXINE SODIUM 112 MCG TABLET PO SCH (06:26)
[2023-07-19] MEDS: INSULIN LISPRO 100 UNITS/ML SQ PRN ×3 (06:29→16:51)
[2023-07-19 06:36] LABS: GLUCOMETER DEV NAME(LOC) BV3S.; GLUCOSE,POINT OF CARE 182 MG/DL (70-110)
[2023-07-19] MEDS: SitaGLIPtin PHOSPHATE 100 MG TABLET PO SCH (08:09)
[2023-07-19] MEDS: THIAMINE 100 MG TABLET PO SCH (08:09)
[2023-07-19] MEDS: QUEtiapine FUMARATE 200 MG TABLET PO SCH ×2 (08:09→20:30)
[2023-07-19] MEDS: MULTIVITAMINS WITH MINERALS, THERAPEUTIC TABLET PO SCH (08:09)
[2023-07-19] MEDS: EMPAGLIFLOZIN 25 MG TABLET PO SCH (08:09)
[2023-07-19] MEDS: SERTRALINE HCL 100 MG TABLET PO SCH (08:09)
[2023-07-19] MEDS: FOLIC ACID 1 MG TABLET PO SCH (08:09)
[2023-07-19 08:19] VITALS: BP 119/78; PULSE 82; RESP 16; TEMP 98; O2SAT 98
[2023-07-19 11:36] LABS: GLUCOMETER DEV NAME(LOC) BV3S.; GLUCOSE,POINT OF CARE 216 MG/DL (70-110)
[2023-07-19 17:01] LABS: GLUCOMETER DEV NAME(LOC) BV3S.; GLUCOSE,POINT OF CARE 260 MG/DL (70-110)
[2023-07-19 20:04] VITALS: BP 118/77; PULSE 101; RESP 18; TEMP 97.8; O2SAT 97
[2023-07-20] MEDS: LEVOTHYROXINE SODIUM 112 MCG TABLET PO SCH (06:59)
[2023-07-20] MEDS: FOLIC ACID 1 MG TABLET PO SCH (08:14)
[2023-07-20] MEDS: MULTIVITAMINS WITH MINERALS, THERAPEUTIC TABLET PO SCH (08:14)
[2023-07-20] MEDS: QUEtiapine FUMARATE 200 MG TABLET PO SCH ×2 (08:14→20:31)
[2023-07-20] MEDS: EMPAGLIFLOZIN 25 MG TABLET PO SCH (08:14)
[2023-07-20] MEDS: THIAMINE 100 MG TABLET PO SCH (08:15)
[2023-07-20] MEDS: SERTRALINE HCL 100 MG TABLET PO SCH (08:15)
[2023-07-20 08:23] VITALS: BP 119/78; PULSE 79; RESP 16; TEMP 98; O2SAT 98
[2023-07-20] MEDS: SitaGLIPtin PHOSPHATE 100 MG TABLET PO SCH (08:24)
[2023-07-20 11:21] LABS: GLUCOMETER DEV NAME(LOC) BV3S.; GLUCOSE,POINT OF CARE 194 MG/DL (70-110)
[2023-07-20] MEDS: INSULIN LISPRO 100 UNITS/ML SQ PRN (16:54)
[2023-07-20 17:26] LABS: GLUCOMETER DEV NAME(LOC) BV3S.; GLUCOSE,POINT OF CARE 237 MG/DL (70-110)
[2023-07-20] MEDS: LORazepam 2 MG TABLET PO PRN (20:31)
[2023-07-20] MEDS: ZOLPIDEM TARTRATE 10 MG TABLET PO PRN (20:31)
[2023-07-21] MEDS: LEVOTHYROXINE SODIUM 112 MCG TABLET PO SCH (06:32)
[2023-07-21] MEDS: FOLIC ACID 1 MG TABLET PO SCH (08:11)
[2023-07-21] MEDS: MULTIVITAMINS WITH MINERALS, THERAPEUTIC TABLET PO SCH (08:11)
[2023-07-21] MEDS: SitaGLIPtin PHOSPHATE 100 MG TABLET PO SCH (08:12)
[2023-07-21] MEDS: THIAMINE 100 MG TABLET PO SCH (08:12)
[2023-07-21] MEDS: QUEtiapine FUMARATE 200 MG TABLET PO SCH ×2 (08:12→20:29)
[2023-07-21] MEDS: SERTRALINE HCL 100 MG TABLET PO SCH (08:12)
[2023-07-21] MEDS: EMPAGLIFLOZIN 25 MG TABLET PO SCH (08:12)
[2023-07-21 08:25] VITALS: BP 118/73; PULSE 82; RESP 16; TEMP 97.9; O2SAT 98
[2023-07-21] MEDS: INSULIN LISPRO 100 UNITS/ML SQ PRN (11:36)
[2023-07-21 11:41] LABS: GLUCOMETER DEV NAME(LOC) BV3S.; GLUCOSE,POINT OF CARE 183 MG/DL (70-110)
[2023-07-21 20:09] VITALS: BP 100/63; PULSE 95; RESP 18; TEMP 97.6; O2SAT 95
[2023-07-21] MEDS: ZOLPIDEM TARTRATE 10 MG TABLET PO PRN (20:29)
[2023-07-22] MEDS: LEVOTHYROXINE SODIUM 112 MCG TABLET PO SCH (06:14)
[2023-07-22 06:36] LABS: GLUCOMETER DEV NAME(LOC) BV3S.; GLUCOSE,POINT OF CARE 140 MG/DL (70-110)
[2023-07-22] MEDS: THIAMINE 100 MG TABLET PO SCH (08:44)
[2023-07-22] MEDS: MULTIVITAMINS WITH MINERALS, THERAPEUTIC TABLET PO SCH (08:44)
[2023-07-22] MEDS: FOLIC ACID 1 MG TABLET PO SCH (08:44)
[2023-07-22] MEDS: SitaGLIPtin PHOSPHATE 100 MG TABLET PO SCH (08:44)
[2023-07-22] MEDS: EMPAGLIFLOZIN 25 MG TABLET PO SCH (08:44)
[2023-07-22] MEDS: SERTRALINE HCL 100 MG TABLET PO SCH (08:45)
[2023-07-22] MEDS: QUEtiapine FUMARATE 200 MG TABLET PO SCH ×2 (08:45→20:37)
[2023-07-22] MEDS: INSULIN LISPRO 100 UNITS/ML SQ PRN (20:46)
[2023-07-22 20:56] LABS: GLUCOMETER DEV NAME(LOC) BV3S.; GLUCOSE,POINT OF CARE 211 MG/DL (70-110)
[2023-07-22 22:59] VITALS: BP 125/79; PULSE 82; RESP 18; TEMP 98; O2SAT 97
[2023-07-23] MEDS: LEVOTHYROXINE SODIUM 112 MCG TABLET PO SCH (06:11)
[2023-07-23 08:19] VITALS: RESP 18
[2023-07-23] MEDS: FOLIC ACID 1 MG TABLET PO SCH (08:39)
[2023-07-23] MEDS: QUEtiapine FUMARATE 200 MG TABLET PO SCH ×2 (08:39→20:35)
[2023-07-23] MEDS: SitaGLIPtin PHOSPHATE 100 MG TABLET PO SCH (08:39)
[2023-07-23] MEDS: THIAMINE 100 MG TABLET PO SCH (08:39)
[2023-07-23] MEDS: MULTIVITAMINS WITH MINERALS, THERAPEUTIC TABLET PO SCH (08:39)
[2023-07-23] MEDS: EMPAGLIFLOZIN 25 MG TABLET PO SCH (08:39)
[2023-07-23] MEDS: SERTRALINE HCL 100 MG TABLET PO SCH (08:40)
[2023-07-23] MEDS: INSULIN LISPRO 100 UNITS/ML SQ PRN (16:37)
[2023-07-23 16:51] LABS: GLUCOMETER DEV NAME(LOC) BV3S.; GLUCOSE,POINT OF CARE 278 MG/DL (70-110)
[2023-07-23 23:21] VITALS: RESP 18; TEMP 97.9
[2023-07-24] MEDS: LEVOTHYROXINE SODIUM 112 MCG TABLET PO SCH (06:35)
[2023-07-24 08:13] VITALS: RESP 18
[2023-07-24] MEDS: SERTRALINE HCL 100 MG TABLET PO SCH (09:00)
[2023-07-24] MEDS: SitaGLIPtin PHOSPHATE 100 MG TABLET PO SCH (09:03)
[2023-07-24] MEDS: FOLIC ACID 1 MG TABLET PO SCH (09:04)
[2023-07-24] MEDS: EMPAGLIFLOZIN 25 MG TABLET PO SCH (09:04)
[2023-07-24] MEDS: MULTIVITAMINS WITH MINERALS, THERAPEUTIC TABLET PO SCH (09:04)
[2023-07-24] MEDS: QUEtiapine FUMARATE 200 MG TABLET PO SCH ×2 (09:04→20:35)
[2023-07-24] MEDS: THIAMINE 100 MG TABLET PO SCH (09:04)
[2023-07-24 20:31] VITALS: BP 104/66; PULSE 100; RESP 18; TEMP 98; O2SAT 97
[2023-07-24] MEDS: ZOLPIDEM TARTRATE 10 MG TABLET PO PRN (20:36)
[2023-07-24 21:26] LABS: GLUCOMETER DEV NAME(LOC) BV3S.; GLUCOSE,POINT OF CARE 240 MG/DL (70-110)
[2023-07-24] MEDS: INSULIN LISPRO 100 UNITS/ML SQ PRN (21:36)
[2023-07-25] MEDS: LEVOTHYROXINE SODIUM 112 MCG TABLET PO SCH (06:44)
[2023-07-25] MEDS: EMPAGLIFLOZIN 25 MG TABLET PO SCH (08:14)
[2023-07-25] MEDS: LORazepam 2 MG TABLET PO PRN (08:14)
[2023-07-25] MEDS: SERTRALINE HCL 100 MG TABLET PO SCH (08:15)
[2023-07-25] MEDS: MULTIVITAMINS WITH MINERALS, THERAPEUTIC TABLET PO SCH (08:15)
[2023-07-25] MEDS: FOLIC ACID 1 MG TABLET PO SCH (08:15)
[2023-07-25] MEDS: THIAMINE 100 MG TABLET PO SCH (08:15)
[2023-07-25] MEDS: QUEtiapine FUMARATE 200 MG TABLET PO SCH ×2 (08:15→20:03)
[2023-07-25] MEDS: SitaGLIPtin PHOSPHATE 100 MG TABLET PO SCH (08:15)
[2023-07-25 08:20] VITALS: RESP 18
[2023-07-25 11:22] LABS: GLUCOMETER DEV NAME(LOC) BV3S.; GLUCOSE,POINT OF CARE 167 MG/DL (70-110)
[2023-07-25] MEDS: INSULIN LISPRO 100 UNITS/ML SQ PRN ×2 (11:46→20:52)
[2023-07-25 20:28] VITALS: RESP 17
[2023-07-25 21:01] LABS: GLUCOMETER DEV NAME(LOC) BV3S.; GLUCOSE,POINT OF CARE 302 MG/DL (70-110)
[2023-07-26] MEDS: LEVOTHYROXINE SODIUM 112 MCG TABLET PO SCH (06:39)
[2023-07-26] MEDS: THIAMINE 100 MG TABLET PO SCH (08:15)
[2023-07-26] MEDS: MULTIVITAMINS WITH MINERALS, THERAPEUTIC TABLET PO SCH (08:15)
[2023-07-26] MEDS: SitaGLIPtin PHOSPHATE 100 MG TABLET PO SCH (08:15)
[2023-07-26] MEDS: EMPAGLIFLOZIN 25 MG TABLET PO SCH (08:15)
[2023-07-26] MEDS: SERTRALINE HCL 100 MG TABLET PO SCH (08:15)
[2023-07-26] MEDS: FOLIC ACID 1 MG TABLET PO SCH (08:15)
[2023-07-26] MEDS: QUEtiapine FUMARATE 200 MG TABLET PO SCH ×2 (08:15→20:06)
[2023-07-26] MEDS: HALOPERIDOL 5 MG TABLET PO PRN (08:16)
[2023-07-26 08:23] VITALS: BP 114/60; PULSE 90; RESP 18; TEMP 97.8; O2SAT 96
[2023-07-26] MEDS: INSULIN LISPRO 100 UNITS/ML SQ PRN ×2 (16:18→20:21)
[2023-07-26 16:26] LABS: GLUCOMETER DEV NAME(LOC) BV3S.; GLUCOSE,POINT OF CARE 235 MG/DL (70-110)
[2023-07-26 20:30] VITALS: BP 106/67; PULSE 100; RESP 18; TEMP 97.8; O2SAT 97
[2023-07-26 20:31] LABS: GLUCOMETER DEV NAME(LOC) BV3S.; GLUCOSE,POINT OF CARE 279 MG/DL (70-110)
[2023-07-27] MEDS: LEVOTHYROXINE SODIUM 112 MCG TABLET PO SCH (06:49)
[2023-07-27 08:20] VITALS: BP 110/69; PULSE 80; RESP 18; TEMP 98; O2SAT 98
[2023-07-27] MEDS: FOLIC ACID 1 MG TABLET PO SCH (08:53)
[2023-07-27] MEDS: MULTIVITAMINS WITH MINERALS, THERAPEUTIC TABLET PO SCH (08:53)
[2023-07-27] MEDS: THIAMINE 100 MG TABLET PO SCH (08:53)
[2023-07-27] MEDS: QUEtiapine FUMARATE 200 MG TABLET PO SCH ×2 (08:53→20:12)
[2023-07-27] MEDS: SitaGLIPtin PHOSPHATE 100 MG TABLET PO SCH (08:53)
[2023-07-27] MEDS: SERTRALINE HCL 100 MG TABLET PO SCH (08:53)
[2023-07-27] MEDS: EMPAGLIFLOZIN 25 MG TABLET PO SCH (08:53)
[2023-07-27 14:16] LABS: GLUCOMETER DEV NAME(LOC) POC.BV; POC SARS-COV2 AG, FIA NEGATIVE (NEGATIVE)
[2023-07-27] MEDS: INSULIN LISPRO 100 UNITS/ML SQ PRN ×2 (16:30→20:15)
[2023-07-27 16:42] LABS: GLUCOMETER DEV NAME(LOC) BV3S.; GLUCOSE,POINT OF CARE 219 MG/DL (70-110)
[2023-07-27 20:08] VITALS: RESP 18
[2023-07-27 20:41] LABS: GLUCOMETER DEV NAME(LOC) BV3S.; GLUCOSE,POINT OF CARE 171 MG/DL (70-110)
[2023-07-28] MEDS: LEVOTHYROXINE SODIUM 112 MCG TABLET PO SCH (06:17)
[2023-07-28 06:21] LABS: GLUCOMETER DEV NAME(LOC) BV3S.; GLUCOSE,POINT OF CARE 154 MG/DL (70-110)
[2023-07-28] MEDS: INSULIN LISPRO 100 UNITS/ML SQ PRN ×4 (06:25→21:39)
[2023-07-28 08:19] VITALS: BP 118/78; PULSE 83; RESP 18; TEMP 98; O2SAT 97
[2023-07-28] MEDS: QUEtiapine FUMARATE 200 MG TABLET PO SCH ×2 (08:33→21:29)
[2023-07-28] MEDS: EMPAGLIFLOZIN 25 MG TABLET PO SCH (08:33)
[2023-07-28] MEDS: THIAMINE 100 MG TABLET PO SCH (08:33)
[2023-07-28] MEDS: SERTRALINE HCL 100 MG TABLET PO SCH (08:33)
[2023-07-28] MEDS: SitaGLIPtin PHOSPHATE 100 MG TABLET PO SCH (08:33)
[2023-07-28] MEDS: FOLIC ACID 1 MG TABLET PO SCH (08:33)
[2023-07-28] MEDS: MULTIVITAMINS WITH MINERALS, THERAPEUTIC TABLET PO SCH (08:35)
[2023-07-28 12:16] LABS: GLUCOMETER DEV NAME(LOC) BV3S.; GLUCOSE,POINT OF CARE 185 MG/DL (70-110)
[2023-07-28] MEDS ORDERED: TUBERCULIN, PURIFIED PROTEIN DERIVATIVE 5 TU/0.1 ML SYRINGE ID ONE (13:30)
[2023-07-28 16:51] LABS: GLUCOMETER DEV NAME(LOC) BV3S.; GLUCOSE,POINT OF CARE 354 MG/DL (70-110)
[2023-07-28 20:52] VITALS: BP 130/72; PULSE 100; RESP 18; TEMP 97.9; O2SAT 98
[2023-07-28 22:06] LABS: GLUCOMETER DEV NAME(LOC) BV3S.; GLUCOSE,POINT OF CARE 332 MG/DL (70-110)
[2023-07-29] MEDS: LEVOTHYROXINE SODIUM 112 MCG TABLET PO SCH (06:27)
[2023-07-29 08:09] VITALS: RESP 18
[2023-07-29] MEDS: SitaGLIPtin PHOSPHATE 100 MG TABLET PO SCH (08:23)
[2023-07-29] MEDS: SERTRALINE HCL 100 MG TABLET PO SCH (08:23)
[2023-07-29] MEDS: EMPAGLIFLOZIN 25 MG TABLET PO SCH (08:24)
[2023-07-29] MEDS: FOLIC ACID 1 MG TABLET PO SCH (08:24)
[2023-07-29] MEDS: MULTIVITAMINS WITH MINERALS, THERAPEUTIC TABLET PO SCH (08:24)
[2023-07-29] MEDS: THIAMINE 100 MG TABLET PO SCH (08:24)
[2023-07-29] MEDS: QUEtiapine FUMARATE 200 MG TABLET PO SCH ×2 (08:24→20:31)
[2023-07-29] MEDS: HALOPERIDOL 5 MG TABLET PO PRN (08:25)
[2023-07-29 20:12] VITALS: BP 118/70; PULSE 100; RESP 18; TEMP 98.1; O2SAT 97
[2023-07-29] MEDS: INSULIN LISPRO 100 UNITS/ML SQ PRN (20:59)
[2023-07-29 21:01] LABS: GLUCOMETER DEV NAME(LOC) BV3S.; GLUCOSE,POINT OF CARE 192 MG/DL (70-110)
[2023-07-30] MEDS: LEVOTHYROXINE SODIUM 112 MCG TABLET PO SCH (06:45)
[2023-07-30] MEDS: INSULIN LISPRO 100 UNITS/ML SQ PRN ×2 (06:47→22:05)
[2023-07-30 07:01] LABS: GLUCOMETER DEV NAME(LOC) BV3S.; GLUCOSE,POINT OF CARE 172 MG/DL (70-110)
[2023-07-30] MEDS: EMPAGLIFLOZIN 25 MG TABLET PO SCH (08:01)
[2023-07-30] MEDS: MULTIVITAMINS WITH MINERALS, THERAPEUTIC TABLET PO SCH (08:01)
[2023-07-30] MEDS: THIAMINE 100 MG TABLET PO SCH (08:01)
[2023-07-30] MEDS: QUEtiapine FUMARATE 200 MG TABLET PO SCH ×2 (08:02→21:00)
[2023-07-30] MEDS: FOLIC ACID 1 MG TABLET PO SCH (08:02)
[2023-07-30] MEDS: SERTRALINE HCL 100 MG TABLET PO SCH (08:02)
[2023-07-30] MEDS: SitaGLIPtin PHOSPHATE 100 MG TABLET PO SCH (08:02)
[2023-07-30 09:20] VITALS: BP 116/64; PULSE 74; RESP 18; TEMP 97.9; O2SAT 96
[2023-07-30 20:00] VITALS: BP 112/56; PULSE 93; RESP 18; TEMP 97.6; O2SAT 96
[2023-07-30 22:26] LABS: GLUCOMETER DEV NAME(LOC) BV3S.; GLUCOSE,POINT OF CARE 281 MG/DL (70-110)
[2023-07-31] MEDS: LEVOTHYROXINE SODIUM 112 MCG TABLET PO SCH (06:36)
[2023-07-31] MEDS: SERTRALINE HCL 100 MG TABLET PO SCH (08:16)
[2023-07-31] MEDS: SitaGLIPtin PHOSPHATE 100 MG TABLET PO SCH (08:16)
[2023-07-31] MEDS: THIAMINE 100 MG TABLET PO SCH (08:16)
[2023-07-31] MEDS: MULTIVITAMINS WITH MINERALS, THERAPEUTIC TABLET PO SCH (08:16)
[2023-07-31] MEDS: QUEtiapine FUMARATE 200 MG TABLET PO SCH ×2 (08:16→20:13)
[2023-07-31] MEDS: FOLIC ACID 1 MG TABLET PO SCH (08:16)
[2023-07-31] MEDS: HALOPERIDOL 5 MG TABLET PO PRN (08:16)
[2023-07-31 08:19] VITALS: RESP 17
[2023-07-31] MEDS: EMPAGLIFLOZIN 25 MG TABLET PO SCH (08:21)
[2023-07-31 22:52] VITALS: RESP 18
[2023-08-01 06:21] LABS: GLUCOMETER DEV NAME(LOC) BV3S.; GLUCOSE,POINT OF CARE 161 MG/DL (70-110)
[2023-08-01] MEDS: LEVOTHYROXINE SODIUM 112 MCG TABLET PO SCH (06:38)
[2023-08-01] MEDS: INSULIN LISPRO 100 UNITS/ML SQ PRN (06:42)
[2023-08-01] MEDS: SitaGLIPtin PHOSPHATE 100 MG TABLET PO SCH (08:10)
[2023-08-01] MEDS: EMPAGLIFLOZIN 25 MG TABLET PO SCH (08:10)
[2023-08-01] MEDS: MULTIVITAMINS WITH MINERALS, THERAPEUTIC TABLET PO SCH (08:10)
[2023-08-01] MEDS: FOLIC ACID 1 MG TABLET PO SCH (08:10)
[2023-08-01] MEDS: QUEtiapine FUMARATE 200 MG TABLET PO SCH ×2 (08:10→20:07)
[2023-08-01] MEDS: SERTRALINE HCL 100 MG TABLET PO SCH (08:11)
[2023-08-01] MEDS: THIAMINE 100 MG TABLET PO SCH (08:12)
[2023-08-01 08:21] VITALS: RESP 18
[2023-08-01] MEDS ORDERED: DiphenhydrAMINE HCL 50 MG/ML VIAL IM ONE (10:00)
[2023-08-01] MEDS ORDERED: HALOPERIDOL LACTATE 5 MG/ML VIAL IM ONE (10:00)
[2023-08-01] MEDS ORDERED: LORazepam 2 MG/ML VIAL IM ONE (10:00)
[2023-08-01 20:37] VITALS: BP 118/77; PULSE 100; RESP 19; TEMP 97.9; O2SAT 97
[2023-08-02] MEDS: LEVOTHYROXINE SODIUM 112 MCG TABLET PO SCH (06:52)
[2023-08-02 08:10] VITALS: RESP 18
[2023-08-02] MEDS: THIAMINE 100 MG TABLET PO SCH (08:18)
[2023-08-02] MEDS: FOLIC ACID 1 MG TABLET PO SCH (08:18)
[2023-08-02] MEDS: EMPAGLIFLOZIN 25 MG TABLET PO SCH (08:18)
[2023-08-02] MEDS: QUEtiapine FUMARATE 200 MG TABLET PO SCH ×2 (08:18→21:06)
[2023-08-02] MEDS: SERTRALINE HCL 100 MG TABLET PO SCH (08:18)
[2023-08-02] MEDS: HALOPERIDOL 5 MG TABLET PO PRN (08:18)
[2023-08-02] MEDS: SitaGLIPtin PHOSPHATE 100 MG TABLET PO SCH (08:19)
[2023-08-02] MEDS: MULTIVITAMINS WITH MINERALS, THERAPEUTIC TABLET PO SCH (08:21)
[2023-08-02 17:01] LABS: GLUCOMETER DEV NAME(LOC) BV3S.; GLUCOSE,POINT OF CARE 306 MG/DL (70-110)
[2023-08-02] MEDS: INSULIN LISPRO 100 UNITS/ML SQ PRN (17:19)
[2023-08-02 20:00] VITALS: BP 130/77; PULSE 100; RESP 18; TEMP 98; O2SAT 96
[2023-08-03 06:25] LABS: GLUCOMETER DEV NAME(LOC) BV3S.; GLUCOSE,POINT OF CARE 226 MG/DL (70-110)
[2023-08-03] MEDS: INSULIN LISPRO 100 UNITS/ML SQ PRN ×2 (06:25→16:44)
[2023-08-03] MEDS: LEVOTHYROXINE SODIUM 112 MCG TABLET PO SCH (06:26)
[2023-08-03 08:09] VITALS: RESP 18; TEMP 98
[2023-08-03] MEDS: QUEtiapine FUMARATE 200 MG TABLET PO SCH ×2 (08:18→21:14)
[2023-08-03] MEDS: FOLIC ACID 1 MG TABLET PO SCH (08:19)
[2023-08-03] MEDS: SERTRALINE HCL 100 MG TABLET PO SCH (08:19)
[2023-08-03] MEDS: SitaGLIPtin PHOSPHATE 100 MG TABLET PO SCH (08:19)
[2023-08-03] MEDS: EMPAGLIFLOZIN 25 MG TABLET PO SCH (08:19)
[2023-08-03] MEDS: HALOPERIDOL 5 MG TABLET PO PRN (08:19)
[2023-08-03] MEDS: MULTIVITAMINS WITH MINERALS, THERAPEUTIC TABLET PO SCH (08:19)
[2023-08-03] MEDS: THIAMINE 100 MG TABLET PO SCH (08:19)
[2023-08-03 16:56] LABS: GLUCOMETER DEV NAME(LOC) BV3S.; GLUCOSE,POINT OF CARE 224 MG/DL (70-110)
[2023-08-03 23:54] VITALS: RESP 18; TEMP 97.6
[2023-08-04] MEDS: LEVOTHYROXINE SODIUM 112 MCG TABLET PO SCH (06:45)
[2023-08-04] MEDS: EMPAGLIFLOZIN 25 MG TABLET PO SCH (08:16)
[2023-08-04] MEDS: FOLIC ACID 1 MG TABLET PO SCH (08:16)
[2023-08-04] MEDS: QUEtiapine FUMARATE 200 MG TABLET PO SCH ×2 (08:16→20:47)
[2023-08-04] MEDS: SERTRALINE HCL 100 MG TABLET PO SCH (08:16)
[2023-08-04] MEDS: THIAMINE 100 MG TABLET PO SCH (08:16)
[2023-08-04] MEDS: SitaGLIPtin PHOSPHATE 100 MG TABLET PO SCH (08:16)
[2023-08-04] MEDS: HALOPERIDOL 5 MG TABLET PO PRN (08:16)
[2023-08-04] MEDS: MULTIVITAMINS WITH MINERALS, THERAPEUTIC TABLET PO SCH (08:16)
[2023-08-04 08:41] VITALS: RESP 18
[2023-08-04] MEDS ORDERED: TUBERCULIN, PURIFIED PROTEIN DERIVATIVE 5 TU/0.1 ML SYRINGE ID ONE (10:00)
[2023-08-04] MEDS: INSULIN LISPRO 100 UNITS/ML SQ PRN ×3 (11:31→21:04)
[2023-08-04 11:41] LABS: GLUCOMETER DEV NAME(LOC) BV3S.; GLUCOSE,POINT OF CARE 270 MG/DL (70-110)
[2023-08-04 17:26] LABS: GLUCOMETER DEV NAME(LOC) BV3S.; GLUCOSE,POINT OF CARE 315 MG/DL (70-110)
[2023-08-04 20:00] VITALS: BP 112/76; PULSE 100; RESP 18; TEMP 97.8; O2SAT 96
[2023-08-04 21:26] LABS: GLUCOMETER DEV NAME(LOC) BV3S.; GLUCOSE,POINT OF CARE 308 MG/DL (70-110)
[2023-08-05] MEDS: LEVOTHYROXINE SODIUM 112 MCG TABLET PO SCH (06:24)
[2023-08-05] MEDS: INSULIN LISPRO 100 UNITS/ML SQ PRN (06:34)
[2023-08-05 06:56] LABS: GLUCOMETER DEV NAME(LOC) BV3S.; GLUCOSE,POINT OF CARE 174 MG/DL (70-110)
[2023-08-05] MEDS: THIAMINE 100 MG TABLET PO SCH (08:10)
[2023-08-05] MEDS: FOLIC ACID 1 MG TABLET PO SCH (08:10)
[2023-08-05] MEDS: EMPAGLIFLOZIN 25 MG TABLET PO SCH (08:10)
[2023-08-05] MEDS: MULTIVITAMINS WITH MINERALS, THERAPEUTIC TABLET PO SCH (08:10)
[2023-08-05] MEDS: QUEtiapine FUMARATE 200 MG TABLET PO SCH ×2 (08:10→21:55)
[2023-08-05] MEDS: SitaGLIPtin PHOSPHATE 100 MG TABLET PO SCH (08:10)
[2023-08-05] MEDS: SERTRALINE HCL 100 MG TABLET PO SCH (08:31)
[2023-08-05 13:04] VITALS: BP 127/70; PULSE 88; RESP 17; TEMP 98; O2SAT 97
[2023-08-05 20:17] VITALS: BP 106/63; PULSE 96; RESP 19; TEMP 97.9; O2SAT 96
[2023-08-06] MEDS: LEVOTHYROXINE SODIUM 112 MCG TABLET PO SCH (06:37)
[2023-08-06 08:22] VITALS: BP 130/83; PULSE 96; RESP 16; TEMP 98.2; O2SAT 96
[2023-08-06] MEDS: MULTIVITAMINS WITH MINERALS, THERAPEUTIC TABLET PO SCH (08:30)
[2023-08-06] MEDS: QUEtiapine FUMARATE 200 MG TABLET PO SCH ×2 (08:30→20:31)
[2023-08-06] MEDS: THIAMINE 100 MG TABLET PO SCH (08:30)
[2023-08-06] MEDS: EMPAGLIFLOZIN 25 MG TABLET PO SCH (08:30)
[2023-08-06] MEDS: HALOPERIDOL 5 MG TABLET PO PRN (08:30)
[2023-08-06] MEDS: FOLIC ACID 1 MG TABLET PO SCH (08:30)
[2023-08-06] MEDS: SitaGLIPtin PHOSPHATE 100 MG TABLET PO SCH (08:30)
[2023-08-06] MEDS: SERTRALINE HCL 100 MG TABLET PO SCH (08:31)
[2023-08-06] MEDS ORDERED: DiphenhydrAMINE HCL 50 MG/ML VIAL ONE (08:56)
[2023-08-06] MEDS ORDERED: ARIPiprazole 10 MG TABLET ONE (08:56)
[2023-08-06] MEDS ORDERED: DiphenhydrAMINE HCL 50 MG/ML VIAL IM ONE (09:00)
[2023-08-06] MEDS ORDERED: HALOPERIDOL LACTATE 5 MG/ML VIAL IM ONE (09:00)
[2023-08-06] MEDS ORDERED: LORazepam 2 MG/ML VIAL IM ONE (09:00)
[2023-08-06] MEDS: INSULIN LISPRO 100 UNITS/ML SQ PRN ×3 (11:09→21:13)
[2023-08-06 11:16] LABS: GLUCOMETER DEV NAME(LOC) BV3S.; GLUCOSE,POINT OF CARE 217 MG/DL (70-110)
[2023-08-06 16:41] LABS: GLUCOMETER DEV NAME(LOC) BV3S.; GLUCOSE,POINT OF CARE 190 MG/DL (70-110)
[2023-08-06 20:07] VITALS: BP 104/60; PULSE 88; RESP 18; TEMP 97.9; O2SAT 98
[2023-08-06 20:36] LABS: GLUCOMETER DEV NAME(LOC) BV3S.; GLUCOSE,POINT OF CARE 191 MG/DL (70-110)
[2023-08-07] MEDS: LEVOTHYROXINE SODIUM 112 MCG TABLET PO SCH (06:29)
[2023-08-07 08:44] VITALS: RESP 16
[2023-08-07] MEDS: THIAMINE 100 MG TABLET PO SCH (09:49)
[2023-08-07] MEDS: QUEtiapine FUMARATE 200 MG TABLET PO SCH ×2 (09:49→20:50)
[2023-08-07] MEDS: EMPAGLIFLOZIN 25 MG TABLET PO SCH (09:49)
[2023-08-07] MEDS: MULTIVITAMINS WITH MINERALS, THERAPEUTIC TABLET PO SCH (09:49)
[2023-08-07] MEDS: SERTRALINE HCL 100 MG TABLET PO SCH (09:49)
[2023-08-07] MEDS: SitaGLIPtin PHOSPHATE 100 MG TABLET PO SCH (09:49)
[2023-08-07] MEDS: FOLIC ACID 1 MG TABLET PO SCH (09:49)
[2023-08-07 20:30] LABS: GLUCOMETER DEV NAME(LOC) BV3S.; GLUCOSE,POINT OF CARE 278 MG/DL (70-110)
[2023-08-07] MEDS: INSULIN LISPRO 100 UNITS/ML SQ PRN (21:01)
[2023-08-07 22:33] VITALS: BP 97/65; PULSE 54; RESP 16; TEMP 97.6; O2SAT 97
[2023-08-08] MEDS: LEVOTHYROXINE SODIUM 112 MCG TABLET PO SCH (06:41)
[2023-08-08] MEDS: SERTRALINE HCL 100 MG TABLET PO SCH (08:04)
[2023-08-08] MEDS: FOLIC ACID 1 MG TABLET PO SCH (08:04)
[2023-08-08] MEDS: EMPAGLIFLOZIN 25 MG TABLET PO SCH (08:04)
[2023-08-08] MEDS: THIAMINE 100 MG TABLET PO SCH (08:04)
[2023-08-08] MEDS: MULTIVITAMINS WITH MINERALS, THERAPEUTIC TABLET PO SCH (08:04)
[2023-08-08] MEDS: QUEtiapine FUMARATE 200 MG TABLET PO SCH ×2 (08:04→21:23)
[2023-08-08] MEDS: SitaGLIPtin PHOSPHATE 100 MG TABLET PO SCH (08:04)
[2023-08-08 08:20] VITALS: BP 105/69; PULSE 101; RESP 18; TEMP 97.7; O2SAT 97
[2023-08-08 20:26] VITALS: RESP 17; TEMP 97.8
[2023-08-09 06:11] LABS: GLUCOMETER DEV NAME(LOC) BV3S.; GLUCOSE,POINT OF CARE 181 MG/DL (70-110)
[2023-08-09] MEDS: LEVOTHYROXINE SODIUM 112 MCG TABLET PO SCH (06:35)
[2023-08-09] MEDS: INSULIN LISPRO 100 UNITS/ML SQ PRN ×4 (06:54→20:33)
[2023-08-09] MEDS: THIAMINE 100 MG TABLET PO SCH (08:05)
[2023-08-09] MEDS: QUEtiapine FUMARATE 200 MG TABLET PO SCH ×2 (08:05→20:10)
[2023-08-09] MEDS: EMPAGLIFLOZIN 25 MG TABLET PO SCH (08:05)
[2023-08-09] MEDS: MULTIVITAMINS WITH MINERALS, THERAPEUTIC TABLET PO SCH (08:05)
[2023-08-09] MEDS: SitaGLIPtin PHOSPHATE 100 MG TABLET PO SCH (08:05)
[2023-08-09] MEDS: FOLIC ACID 1 MG TABLET PO SCH (08:05)
[2023-08-09] MEDS: HALOPERIDOL 5 MG TABLET PO PRN (08:05)
[2023-08-09] MEDS: SERTRALINE HCL 100 MG TABLET PO SCH (08:05)
[2023-08-09] MEDS ORDERED: PEG 400/HYPROMELLOSE/GLYCERIN 15 ML OPHTHALMIC SOLUTION OU PRN (08:15)
[2023-08-09 11:22] LABS: GLUCOMETER DEV NAME(LOC) BV3S.; GLUCOSE,POINT OF CARE 242 MG/DL (70-110)
[2023-08-09 13:32] LABS: GLUCOMETER DEV NAME(LOC) POC.BV; POC SARS-COV2 AG, FIA NEGATIVE (NEGATIVE)
[2023-08-09 16:16] LABS: GLUCOMETER DEV NAME(LOC) BV3S.; GLUCOSE,POINT OF CARE 159 MG/DL (70-110)
[2023-08-09 17:16] LABS: GLUCOMETER DEV NAME(LOC) POC.BV; POC SARS-COV2 AG, FIA NEGATIVE (NEGATIVE)
[2023-08-09 20:41] LABS: GLUCOMETER DEV NAME(LOC) BV3S.; GLUCOSE,POINT OF CARE 203 MG/DL (70-110)
[2023-08-10] MEDS: LEVOTHYROXINE SODIUM 112 MCG TABLET PO SCH (06:26)
[2023-08-10 08:13] VITALS: BP 118/72; PULSE 82; RESP 16; TEMP 98; O2SAT 97
[2023-08-10] MEDS: FOLIC ACID 1 MG TABLET PO SCH (08:32)
[2023-08-10] MEDS: THIAMINE 100 MG TABLET PO SCH (08:33)
[2023-08-10] MEDS: SitaGLIPtin PHOSPHATE 100 MG TABLET PO SCH (08:33)
[2023-08-10] MEDS: EMPAGLIFLOZIN 25 MG TABLET PO SCH (08:33)
[2023-08-10] MEDS: QUEtiapine FUMARATE 200 MG TABLET PO SCH ×2 (08:33→20:31)
[2023-08-10] MEDS: SERTRALINE HCL 100 MG TABLET PO SCH (08:33)
[2023-08-10] MEDS: MULTIVITAMINS WITH MINERALS, THERAPEUTIC TABLET PO SCH (08:33)
[2023-08-10 11:26] LABS: GLUCOMETER DEV NAME(LOC) BV3S.; GLUCOSE,POINT OF CARE 198 MG/DL (70-110)
[2023-08-10] MEDS ORDERED: DiphenhydrAMINE HCL 50 MG/ML VIAL ONE (13:18)
[2023-08-10] MEDS ORDERED: HALOPERIDOL LACTATE 5 MG/ML VIAL ONE (13:18)
[2023-08-10] MEDS ORDERED: LORazepam 2 MG/ML VIAL ONE (13:18)
[2023-08-10] MEDS ORDERED: HALOPERIDOL LACTATE 5 MG/ML VIAL IM ONE (13:30)
[2023-08-10] MEDS ORDERED: LORazepam 2 MG/ML VIAL IM ONE (13:30)
[2023-08-10] MEDS ORDERED: DiphenhydrAMINE HCL 50 MG/ML VIAL IM ONE (13:30)
[2023-08-10] MEDS: INSULIN LISPRO 100 UNITS/ML SQ PRN ×2 (17:17→20:51)
[2023-08-10 17:36] LABS: GLUCOMETER DEV NAME(LOC) BV3S.; GLUCOSE,POINT OF CARE 184 MG/DL (70-110)
[2023-08-10 20:03] VITALS: BP 112/62; PULSE 78; RESP 17; TEMP 97.8; O2SAT 98
[2023-08-10 22:46] LABS: GLUCOMETER DEV NAME(LOC) BV3S.; GLUCOSE,POINT OF CARE 226 MG/DL (70-110)
[2023-08-11] MEDS: LEVOTHYROXINE SODIUM 112 MCG TABLET PO SCH (06:32)
[2023-08-11] MEDS: INSULIN LISPRO 100 UNITS/ML SQ PRN ×2 (06:45→20:21)
[2023-08-11 06:51] LABS: GLUCOMETER DEV NAME(LOC) BV3S.; GLUCOSE,POINT OF CARE 176 MG/DL (70-110)
[2023-08-11] MEDS: FOLIC ACID 1 MG TABLET PO SCH (08:20)
[2023-08-11] MEDS: EMPAGLIFLOZIN 25 MG TABLET PO SCH (08:20)
[2023-08-11] MEDS: THIAMINE 100 MG TABLET PO SCH (08:20)
[2023-08-11] MEDS: QUEtiapine FUMARATE 200 MG TABLET PO SCH ×2 (08:20→20:09)
[2023-08-11] MEDS: SERTRALINE HCL 100 MG TABLET PO SCH (08:20)
[2023-08-11] MEDS: SitaGLIPtin PHOSPHATE 100 MG TABLET PO SCH (08:20)
[2023-08-11] MEDS: MULTIVITAMINS WITH MINERALS, THERAPEUTIC TABLET PO SCH (08:20)
[2023-08-11] MEDS: HALOPERIDOL 5 MG TABLET PO PRN (08:21)
[2023-08-11 08:34] VITALS: BP 123/72; PULSE 84; RESP 16; TEMP 98.3; O2SAT 98
[2023-08-11 20:26] LABS: GLUCOMETER DEV NAME(LOC) BV3S.; GLUCOSE,POINT OF CARE 224 MG/DL (70-110)
[2023-08-11 22:27] VITALS: BP 108/72; PULSE 107; RESP 18; TEMP 97.7; O2SAT 97
[2023-08-12] MEDS: LEVOTHYROXINE SODIUM 112 MCG TABLET PO SCH (06:26)
[2023-08-12] MEDS: INSULIN LISPRO 100 UNITS/ML SQ PRN ×2 (06:36→17:12)
[2023-08-12 06:56] LABS: GLUCOMETER DEV NAME(LOC) BV3S.; GLUCOSE,POINT OF CARE 161 MG/DL (70-110)
[2023-08-12 08:10] VITALS: BP 164/93; PULSE 77; RESP 17; TEMP 97.7; O2SAT 95
[2023-08-12] MEDS: QUEtiapine FUMARATE 200 MG TABLET PO SCH ×2 (08:24→20:34)
[2023-08-12] MEDS: MULTIVITAMINS WITH MINERALS, THERAPEUTIC TABLET PO SCH (08:24)
[2023-08-12] MEDS: THIAMINE 100 MG TABLET PO SCH (08:24)
[2023-08-12] MEDS: SitaGLIPtin PHOSPHATE 100 MG TABLET PO SCH (08:24)
[2023-08-12] MEDS: FOLIC ACID 1 MG TABLET PO SCH (08:24)
[2023-08-12] MEDS: SERTRALINE HCL 100 MG TABLET PO SCH (08:24)
[2023-08-12] MEDS: EMPAGLIFLOZIN 25 MG TABLET PO SCH (08:24)
[2023-08-12 17:06] LABS: GLUCOMETER DEV NAME(LOC) BV3S.; GLUCOSE,POINT OF CARE 232 MG/DL (70-110)
[2023-08-12 21:08] VITALS: BP 103/68; PULSE 97; RESP 18; TEMP 98.2; O2SAT 99
[2023-08-13] MEDS: LEVOTHYROXINE SODIUM 112 MCG TABLET PO SCH (06:27)
[2023-08-13] MEDS: INSULIN LISPRO 100 UNITS/ML SQ PRN ×2 (06:39→20:49)
[2023-08-13 06:46] LABS: GLUCOMETER DEV NAME(LOC) BV3S.; GLUCOSE,POINT OF CARE 180 MG/DL (70-110)
[2023-08-13] MEDS: THIAMINE 100 MG TABLET PO SCH (08:12)
[2023-08-13] MEDS: FOLIC ACID 1 MG TABLET PO SCH (08:12)
[2023-08-13] MEDS: MULTIVITAMINS WITH MINERALS, THERAPEUTIC TABLET PO SCH (08:12)
[2023-08-13] MEDS: HALOPERIDOL 5 MG TABLET PO PRN (08:12)
[2023-08-13] MEDS: SitaGLIPtin PHOSPHATE 100 MG TABLET PO SCH (08:12)
[2023-08-13] MEDS: SERTRALINE HCL 100 MG TABLET PO SCH (08:12)
[2023-08-13] MEDS: EMPAGLIFLOZIN 25 MG TABLET PO SCH (08:12)
[2023-08-13] MEDS: QUEtiapine FUMARATE 200 MG TABLET PO SCH ×2 (08:13→20:42)
[2023-08-13 09:07] VITALS: BP 117/79; PULSE 98; RESP 18; TEMP 97.2; O2SAT 98
[2023-08-13 20:25] VITALS: BP 100/66; PULSE 100; RESP 18; TEMP 97.9; O2SAT 96
[2023-08-13 21:11] LABS: GLUCOMETER DEV NAME(LOC) BV3S.; GLUCOSE,POINT OF CARE 232 MG/DL (70-110)
[2023-08-14] MEDS: LEVOTHYROXINE SODIUM 112 MCG TABLET PO SCH (06:55)
[2023-08-14] MEDS: INSULIN LISPRO 100 UNITS/ML SQ PRN (07:13)
[2023-08-14 07:16] LABS: GLUCOMETER DEV NAME(LOC) BV3S.; GLUCOSE,POINT OF CARE 156 MG/DL (70-110)
[2023-08-14] MEDS: SERTRALINE HCL 100 MG TABLET PO SCH (08:37)
[2023-08-14] MEDS: THIAMINE 100 MG TABLET PO SCH (08:37)
[2023-08-14] MEDS: HALOPERIDOL 5 MG TABLET PO PRN (08:37)
[2023-08-14] MEDS: QUEtiapine FUMARATE 200 MG TABLET PO SCH ×2 (08:37→20:03)
[2023-08-14] MEDS: MULTIVITAMINS WITH MINERALS, THERAPEUTIC TABLET PO SCH (08:37)
[2023-08-14] MEDS: FOLIC ACID 1 MG TABLET PO SCH (08:37)
[2023-08-14] MEDS: SitaGLIPtin PHOSPHATE 100 MG TABLET PO SCH (08:37)
[2023-08-14] MEDS: EMPAGLIFLOZIN 25 MG TABLET PO SCH (08:38)
[2023-08-14 20:03] VITALS: BP 123/68; PULSE 98; RESP 18; TEMP 97.8; O2SAT 97
[2023-08-15] MEDS: LEVOTHYROXINE SODIUM 112 MCG TABLET PO SCH (06:37)
[2023-08-15] MEDS: QUEtiapine FUMARATE 200 MG TABLET PO SCH ×2 (08:27→20:28)
[2023-08-15] MEDS: EMPAGLIFLOZIN 25 MG TABLET PO SCH (08:27)
[2023-08-15] MEDS: MULTIVITAMINS WITH MINERALS, THERAPEUTIC TABLET PO SCH (08:27)
[2023-08-15] MEDS: THIAMINE 100 MG TABLET PO SCH (08:27)
[2023-08-15] MEDS: SERTRALINE HCL 100 MG TABLET PO SCH (08:27)
[2023-08-15] MEDS: SitaGLIPtin PHOSPHATE 100 MG TABLET PO SCH (08:27)
[2023-08-15 08:32] VITALS: BP 102/70; PULSE 100; RESP 17; TEMP 97.6; O2SAT 98
[2023-08-15] MEDS: HALOPERIDOL 5 MG TABLET PO PRN (08:57)
[2023-08-15] MEDS: FOLIC ACID 1 MG TABLET PO SCH (09:28)
[2023-08-15] MEDS: INSULIN LISPRO 100 UNITS/ML SQ PRN ×3 (11:51→20:55)
[2023-08-15 12:16] LABS: GLUCOMETER DEV NAME(LOC) BV3S.; GLUCOSE,POINT OF CARE 187 MG/DL (70-110)
[2023-08-15 17:11] LABS: GLUCOMETER DEV NAME(LOC) BV3S.; GLUCOSE,POINT OF CARE 190 MG/DL (70-110)
[2023-08-15 20:56] LABS: GLUCOMETER DEV NAME(LOC) BV3S.; GLUCOSE,POINT OF CARE 218 MG/DL (70-110)
[2023-08-16] MEDS: LEVOTHYROXINE SODIUM 112 MCG TABLET PO SCH (06:32)
[2023-08-16 08:37] VITALS: BP 109/75; PULSE 82; RESP 16; TEMP 98; O2SAT 98
[2023-08-16] MEDS: FOLIC ACID 1 MG TABLET PO SCH (08:55)
[2023-08-16] MEDS: EMPAGLIFLOZIN 25 MG TABLET PO SCH (08:55)
[2023-08-16] MEDS: QUEtiapine FUMARATE 200 MG TABLET PO SCH ×2 (08:56→20:59)
[2023-08-16] MEDS: MULTIVITAMINS WITH MINERALS, THERAPEUTIC TABLET PO SCH (08:58)
[2023-08-16] MEDS: THIAMINE 100 MG TABLET PO SCH (08:59)
[2023-08-16] MEDS: SERTRALINE HCL 100 MG TABLET PO SCH (09:00)
[2023-08-16] MEDS: SitaGLIPtin PHOSPHATE 100 MG TABLET PO SCH (09:02)
[2023-08-16 11:41] LABS: GLUCOMETER DEV NAME(LOC) BV3S.; GLUCOSE,POINT OF CARE 199 MG/DL (70-110)
[2023-08-16] MEDS: INSULIN LISPRO 100 UNITS/ML SQ PRN ×2 (17:09→20:54)
[2023-08-16 17:21] LABS: GLUCOMETER DEV NAME(LOC) BV3S.; GLUCOSE,POINT OF CARE 318 MG/DL (70-110)
[2023-08-16 20:26] LABS: GLUCOMETER DEV NAME(LOC) BV3S.; GLUCOSE,POINT OF CARE 186 MG/DL (70-110)
[2023-08-16 20:40] VITALS: BP 129/83; PULSE 93; RESP 18; TEMP 97.7; O2SAT 97
[2023-08-17] MEDS: LEVOTHYROXINE SODIUM 112 MCG TABLET PO SCH (06:33)
[2023-08-17 08:15] VITALS: BP 122/79; PULSE 82; RESP 18; TEMP 98
[2023-08-17] MEDS: EMPAGLIFLOZIN 25 MG TABLET PO SCH (08:17)
[2023-08-17] MEDS: QUEtiapine FUMARATE 200 MG TABLET PO SCH ×2 (08:17→20:04)
[2023-08-17] MEDS: SitaGLIPtin PHOSPHATE 100 MG TABLET PO SCH (08:17)
[2023-08-17] MEDS: FOLIC ACID 1 MG TABLET PO SCH (08:18)
[2023-08-17] MEDS: MULTIVITAMINS WITH MINERALS, THERAPEUTIC TABLET PO SCH (08:18)
[2023-08-17] MEDS: THIAMINE 100 MG TABLET PO SCH (08:18)
[2023-08-17] MEDS: SERTRALINE HCL 100 MG TABLET PO SCH (08:18)
[2023-08-17 20:03] VITALS: RESP 18
[2023-08-17] MEDS: INSULIN LISPRO 100 UNITS/ML SQ PRN (20:31)
[2023-08-17 20:56] LABS: GLUCOMETER DEV NAME(LOC) BV3S.; GLUCOSE,POINT OF CARE 236 MG/DL (70-110)
[2023-08-18 06:01] LABS: GLUCOMETER DEV NAME(LOC) BV3S.; GLUCOSE,POINT OF CARE 183 MG/DL (70-110)
[2023-08-18] MEDS: LEVOTHYROXINE SODIUM 112 MCG TABLET PO SCH (06:29)
[2023-08-18] MEDS: INSULIN LISPRO 100 UNITS/ML SQ PRN ×4 (06:35→21:03)
[2023-08-18 08:05] VITALS: BP 118/84; PULSE 83; RESP 16; TEMP 98; O2SAT 97
[2023-08-18] MEDS: SitaGLIPtin PHOSPHATE 100 MG TABLET PO SCH (09:30)
[2023-08-18] MEDS: QUEtiapine FUMARATE 200 MG TABLET PO SCH ×2 (09:30→20:20)
[2023-08-18] MEDS: FOLIC ACID 1 MG TABLET PO SCH (09:30)
[2023-08-18] MEDS: THIAMINE 100 MG TABLET PO SCH (09:30)
[2023-08-18] MEDS: MULTIVITAMINS WITH MINERALS, THERAPEUTIC TABLET PO SCH (09:30)
[2023-08-18] MEDS: SERTRALINE HCL 100 MG TABLET PO SCH (09:30)
[2023-08-18] MEDS: EMPAGLIFLOZIN 25 MG TABLET PO SCH (09:31)
[2023-08-18 11:51] LABS: GLUCOMETER DEV NAME(LOC) BV3S.; GLUCOSE,POINT OF CARE 157 MG/DL (70-110)
[2023-08-18 17:01] LABS: GLUCOMETER DEV NAME(LOC) BV3S.; GLUCOSE,POINT OF CARE 147 MG/DL (70-110)
[2023-08-18 20:00] VITALS: BP 112/84; PULSE 96; RESP 18; TEMP 97.5; O2SAT 98
[2023-08-18 21:11] LABS: GLUCOMETER DEV NAME(LOC) BV3S.; GLUCOSE,POINT OF CARE 202 MG/DL (70-110)
[2023-08-19] MEDS: LEVOTHYROXINE SODIUM 112 MCG TABLET PO SCH (06:26)
[2023-08-19] MEDS: INSULIN LISPRO 100 UNITS/ML SQ PRN ×4 (06:38→20:20)
[2023-08-19 06:46] LABS: GLUCOMETER DEV NAME(LOC) BV3S.; GLUCOSE,POINT OF CARE 191 MG/DL (70-110)
[2023-08-19 08:00] VITALS: BP 113/73; PULSE 96; RESP 16; TEMP 97.4; O2SAT 99
[2023-08-19] MEDS: SitaGLIPtin PHOSPHATE 100 MG TABLET PO SCH (08:30)
[2023-08-19] MEDS: SERTRALINE HCL 100 MG TABLET PO SCH (08:30)
[2023-08-19] MEDS: QUEtiapine FUMARATE 200 MG TABLET PO SCH ×2 (08:30→20:05)
[2023-08-19] MEDS: MULTIVITAMINS WITH MINERALS, THERAPEUTIC TABLET PO SCH (08:30)
[2023-08-19] MEDS: EMPAGLIFLOZIN 25 MG TABLET PO SCH (08:30)
[2023-08-19] MEDS: FOLIC ACID 1 MG TABLET PO SCH (08:30)
[2023-08-19] MEDS: THIAMINE 100 MG TABLET PO SCH (08:30)
[2023-08-19 11:36] LABS: GLUCOMETER DEV NAME(LOC) BV3S.; GLUCOSE,POINT OF CARE 173 MG/DL (70-110)
[2023-08-19 16:46] LABS: GLUCOMETER DEV NAME(LOC) BV3S.; GLUCOSE,POINT OF CARE 254 MG/DL (70-110)
[2023-08-19 20:26] LABS: GLUCOMETER DEV NAME(LOC) BV3S.; GLUCOSE,POINT OF CARE 180 MG/DL (70-110)
[2023-08-19 23:20] VITALS: BP 127/63; PULSE 71; RESP 18; TEMP 98; O2SAT 96
[2023-08-20] MEDS: LEVOTHYROXINE SODIUM 112 MCG TABLET PO SCH (06:32)
[2023-08-20 06:46] LABS: GLUCOMETER DEV NAME(LOC) BV3S.; GLUCOSE,POINT OF CARE 160 MG/DL (70-110)
[2023-08-20] MEDS: INSULIN LISPRO 100 UNITS/ML SQ PRN ×2 (06:53→20:59)
[2023-08-20 08:21] VITALS: RESP 16
[2023-08-20] MEDS: SitaGLIPtin PHOSPHATE 100 MG TABLET PO SCH (08:37)
[2023-08-20] MEDS: THIAMINE 100 MG TABLET PO SCH (08:37)
[2023-08-20] MEDS: MULTIVITAMINS WITH MINERALS, THERAPEUTIC TABLET PO SCH (08:37)
[2023-08-20] MEDS: EMPAGLIFLOZIN 25 MG TABLET PO SCH (08:37)
[2023-08-20] MEDS: QUEtiapine FUMARATE 200 MG TABLET PO SCH ×2 (08:38→20:26)
[2023-08-20] MEDS: FOLIC ACID 1 MG TABLET PO SCH (08:38)
[2023-08-20] MEDS: SERTRALINE HCL 100 MG TABLET PO SCH (08:38)
[2023-08-20 20:37] VITALS: BP 101/63; PULSE 95; RESP 17; TEMP 98; O2SAT 97
[2023-08-20 20:40] LABS: GLUCOMETER DEV NAME(LOC) BV3S.; GLUCOSE,POINT OF CARE 146 MG/DL (70-110)
[2023-08-21] MEDS: LEVOTHYROXINE SODIUM 112 MCG TABLET PO SCH (06:34)
[2023-08-21] MEDS: INSULIN LISPRO 100 UNITS/ML SQ PRN ×3 (06:42→16:34)
[2023-08-21 06:46] LABS: GLUCOMETER DEV NAME(LOC) BV3S.; GLUCOSE,POINT OF CARE 217 MG/DL (70-110)
[2023-08-21 08:08] VITALS: BP 118/93; PULSE 84; RESP 16; TEMP 97.9; O2SAT 99
[2023-08-21] MEDS: EMPAGLIFLOZIN 25 MG TABLET PO SCH (08:42)
[2023-08-21] MEDS: SitaGLIPtin PHOSPHATE 100 MG TABLET PO SCH (08:42)
[2023-08-21] MEDS: FOLIC ACID 1 MG TABLET PO SCH (08:42)
[2023-08-21] MEDS: MULTIVITAMINS WITH MINERALS, THERAPEUTIC TABLET PO SCH (08:42)
[2023-08-21] MEDS: THIAMINE 100 MG TABLET PO SCH (08:42)
[2023-08-21] MEDS: SERTRALINE HCL 100 MG TABLET PO SCH (08:42)
[2023-08-21] MEDS: QUEtiapine FUMARATE 200 MG TABLET PO SCH ×2 (08:42→20:39)
[2023-08-21 11:41] LABS: GLUCOMETER DEV NAME(LOC) BV3S.; GLUCOSE,POINT OF CARE 204 MG/DL (70-110)
[2023-08-21 16:31] LABS: GLUCOMETER DEV NAME(LOC) BV3S.; GLUCOSE,POINT OF CARE 306 MG/DL (70-110)
[2023-08-21 21:00] VITALS: RESP 18
[2023-08-22 01:38] VITALS: RESP 18
[2023-08-22] MEDS: LEVOTHYROXINE SODIUM 112 MCG TABLET PO SCH (06:30)
[2023-08-22 08:30] VITALS: BP 120/79; PULSE 78; RESP 18; TEMP 97.9; O2SAT 98
[2023-08-22] MEDS: SERTRALINE HCL 100 MG TABLET PO SCH (08:56)
[2023-08-22] MEDS: MULTIVITAMINS WITH MINERALS, THERAPEUTIC TABLET PO SCH (08:56)
[2023-08-22] MEDS: QUEtiapine FUMARATE 200 MG TABLET PO SCH ×2 (08:56→21:52)
[2023-08-22] MEDS: EMPAGLIFLOZIN 25 MG TABLET PO SCH (08:56)
[2023-08-22] MEDS: SitaGLIPtin PHOSPHATE 100 MG TABLET PO SCH (08:56)
[2023-08-22] MEDS: THIAMINE 100 MG TABLET PO SCH (08:57)
[2023-08-22] MEDS: FOLIC ACID 1 MG TABLET PO SCH (08:57)
[2023-08-22 11:41] LABS: GLUCOMETER DEV NAME(LOC) BV3S.; GLUCOSE,POINT OF CARE 195 MG/DL (70-110)
[2023-08-22] MEDS: INSULIN LISPRO 100 UNITS/ML SQ PRN ×3 (11:46→22:09)
[2023-08-22 17:51] LABS: GLUCOMETER DEV NAME(LOC) BV3S.; GLUCOSE,POINT OF CARE 286 MG/DL (70-110)
[2023-08-22 20:30] VITALS: BP 101/67; PULSE 99; RESP 17; TEMP 97.7; O2SAT 100
[2023-08-22 21:51] LABS: GLUCOMETER DEV NAME(LOC) BV3S.; GLUCOSE,POINT OF CARE 241 MG/DL (70-110)
[2023-08-23 07:01] LABS: GLUCOMETER DEV NAME(LOC) BV3S.; GLUCOSE,POINT OF CARE 189 MG/DL (70-110)
[2023-08-23] MEDS: INSULIN LISPRO 100 UNITS/ML SQ PRN ×3 (07:11→20:53)
[2023-08-23] MEDS: LEVOTHYROXINE SODIUM 112 MCG TABLET PO SCH (07:12)
[2023-08-23 08:05] VITALS: RESP 18
[2023-08-23] MEDS: SERTRALINE HCL 100 MG TABLET PO SCH (08:26)
[2023-08-23] MEDS: SitaGLIPtin PHOSPHATE 100 MG TABLET PO SCH (08:26)
[2023-08-23] MEDS: FOLIC ACID 1 MG TABLET PO SCH (08:26)
[2023-08-23] MEDS: MULTIVITAMINS WITH MINERALS, THERAPEUTIC TABLET PO SCH (08:26)
[2023-08-23] MEDS: THIAMINE 100 MG TABLET PO SCH (08:26)
[2023-08-23] MEDS: QUEtiapine FUMARATE 200 MG TABLET PO SCH ×2 (08:26→20:08)
[2023-08-23] MEDS: EMPAGLIFLOZIN 25 MG TABLET PO SCH (08:26)
[2023-08-23 16:41] LABS: GLUCOMETER DEV NAME(LOC) BV3S.; GLUCOSE,POINT OF CARE 170 MG/DL (70-110)
[2023-08-23] MEDS: HALOPERIDOL 5 MG TABLET PO PRN (20:08)
[2023-08-23 20:22] VITALS: BP 110/74; PULSE 110; RESP 18; TEMP 98; O2SAT 97
[2023-08-23 21:06] LABS: GLUCOMETER DEV NAME(LOC) BV3S.; GLUCOSE,POINT OF CARE 184 MG/DL (70-110)
[2023-08-24] MEDS: LEVOTHYROXINE SODIUM 112 MCG TABLET PO SCH (06:23)
[2023-08-24] MEDS: MULTIVITAMINS WITH MINERALS, THERAPEUTIC TABLET PO SCH (08:11)
[2023-08-24] MEDS: EMPAGLIFLOZIN 25 MG TABLET PO SCH (08:11)
[2023-08-24] MEDS: SERTRALINE HCL 100 MG TABLET PO SCH (08:11)
[2023-08-24] MEDS: THIAMINE 100 MG TABLET PO SCH (08:11)
[2023-08-24] MEDS: QUEtiapine FUMARATE 200 MG TABLET PO SCH ×2 (08:11→20:44)
[2023-08-24] MEDS: SitaGLIPtin PHOSPHATE 100 MG TABLET PO SCH (08:11)
[2023-08-24] MEDS: FOLIC ACID 1 MG TABLET PO SCH (08:12)
[2023-08-24 08:17] VITALS: BP 108/61; PULSE 93; RESP 18; TEMP 98; O2SAT 100
[2023-08-24 20:05] VITALS: BP 108/65; PULSE 98; RESP 18; TEMP 98.1; O2SAT 97
[2023-08-24] MEDS: INSULIN LISPRO 100 UNITS/ML SQ PRN (20:56)
[2023-08-24 21:16] LABS: GLUCOMETER DEV NAME(LOC) BV3S.; GLUCOSE,POINT OF CARE 236 MG/DL (70-110)
[2023-08-25] MEDS: LEVOTHYROXINE SODIUM 112 MCG TABLET PO SCH (06:19)
[2023-08-25] MEDS: INSULIN LISPRO 100 UNITS/ML SQ PRN ×3 (06:25→20:28)
[2023-08-25 06:31] LABS: GLUCOMETER DEV NAME(LOC) BV3S.; GLUCOSE,POINT OF CARE 174 MG/DL (70-110)
[2023-08-25] MEDS: MULTIVITAMINS WITH MINERALS, THERAPEUTIC TABLET PO SCH (08:15)
[2023-08-25] MEDS: EMPAGLIFLOZIN 25 MG TABLET PO SCH (08:15)
[2023-08-25] MEDS: SitaGLIPtin PHOSPHATE 100 MG TABLET PO SCH (08:15)
[2023-08-25] MEDS: THIAMINE 100 MG TABLET PO SCH (08:15)
[2023-08-25] MEDS: SERTRALINE HCL 100 MG TABLET PO SCH (08:15)
[2023-08-25] MEDS: FOLIC ACID 1 MG TABLET PO SCH (08:15)
[2023-08-25] MEDS: QUEtiapine FUMARATE 200 MG TABLET PO SCH ×2 (08:15→20:20)
[2023-08-25 11:36] LABS: GLUCOMETER DEV NAME(LOC) BV3S.; GLUCOSE,POINT OF CARE 155 MG/DL (70-110)
[2023-08-25 17:12] LABS: GLUCOMETER DEV NAME(LOC) BV3S.; GLUCOSE,POINT OF CARE 223 MG/DL (70-110)
[2023-08-25 20:41] LABS: GLUCOMETER DEV NAME(LOC) BV3S.; GLUCOSE,POINT OF CARE 237 MG/DL (70-110)
[2023-08-25 22:33] VITALS: BP 149/90; PULSE 103; RESP 18; TEMP 97.5; O2SAT 100
[2023-08-26 06:16] LABS: GLUCOMETER DEV NAME(LOC) BV3S.; GLUCOSE,POINT OF CARE 177 MG/DL (70-110)
[2023-08-26] MEDS: INSULIN LISPRO 100 UNITS/ML SQ PRN ×3 (06:29→16:43)
[2023-08-26] MEDS: LEVOTHYROXINE SODIUM 112 MCG TABLET PO SCH (06:32)
[2023-08-26 08:12] VITALS: BP 130/68; PULSE 98; RESP 18; TEMP 97.3; O2SAT 96
[2023-08-26] MEDS: MULTIVITAMINS WITH MINERALS, THERAPEUTIC TABLET PO SCH (08:33)
[2023-08-26] MEDS: EMPAGLIFLOZIN 25 MG TABLET PO SCH (08:33)
[2023-08-26] MEDS: SitaGLIPtin PHOSPHATE 100 MG TABLET PO SCH (08:33)
[2023-08-26] MEDS: THIAMINE 100 MG TABLET PO SCH (08:34)
[2023-08-26] MEDS: FOLIC ACID 1 MG TABLET PO SCH (08:34)
[2023-08-26] MEDS: QUEtiapine FUMARATE 200 MG TABLET PO SCH ×2 (08:34→20:27)
[2023-08-26] MEDS: SERTRALINE HCL 100 MG TABLET PO SCH (08:34)
[2023-08-26 11:26] LABS: GLUCOMETER DEV NAME(LOC) BV3S.; GLUCOSE,POINT OF CARE 164 MG/DL (70-110)
[2023-08-26 16:46] LABS: GLUCOMETER DEV NAME(LOC) BV3S.; GLUCOSE,POINT OF CARE 314 MG/DL (70-110)
[2023-08-26 20:14] VITALS: BP 102/71; PULSE 97; RESP 18; TEMP 97.8; O2SAT 97
[2023-08-27 06:11] LABS: GLUCOMETER DEV NAME(LOC) BV3S.; GLUCOSE,POINT OF CARE 147 MG/DL (70-110)
[2023-08-27] MEDS: LEVOTHYROXINE SODIUM 112 MCG TABLET PO SCH (07:05)
[2023-08-27] MEDS: INSULIN LISPRO 100 UNITS/ML SQ PRN ×2 (07:07→11:35)
[2023-08-27] MEDS: SERTRALINE HCL 100 MG TABLET PO SCH (08:08)
[2023-08-27] MEDS: THIAMINE 100 MG TABLET PO SCH (08:08)
[2023-08-27] MEDS: SitaGLIPtin PHOSPHATE 100 MG TABLET PO SCH (08:08)
[2023-08-27] MEDS: EMPAGLIFLOZIN 25 MG TABLET PO SCH (08:08)
[2023-08-27] MEDS: FOLIC ACID 1 MG TABLET PO SCH (08:08)
[2023-08-27] MEDS: MULTIVITAMINS WITH MINERALS, THERAPEUTIC TABLET PO SCH (08:08)
[2023-08-27] MEDS: QUEtiapine FUMARATE 200 MG TABLET PO SCH ×2 (08:10→20:11)
[2023-08-27 08:22] VITALS: RESP 18
[2023-08-27 11:46] LABS: GLUCOMETER DEV NAME(LOC) BV3S.; GLUCOSE,POINT OF CARE 211 MG/DL (70-110)
[2023-08-27 20:00] VITALS: BP 115/70; PULSE 86; RESP 18; TEMP 97.7; O2SAT 97
[2023-08-27 21:40] LABS: GLUCOMETER DEV NAME(LOC) BV3S.; GLUCOSE,POINT OF CARE 173 MG/DL (70-110)
[2023-08-28] MEDS: LEVOTHYROXINE SODIUM 112 MCG TABLET PO SCH (06:23)
[2023-08-28] MEDS: INSULIN LISPRO 100 UNITS/ML SQ PRN (06:30)
[2023-08-28 06:41] LABS: GLUCOMETER DEV NAME(LOC) BV3S.; GLUCOSE,POINT OF CARE 145 MG/DL (70-110)
[2023-08-28] MEDS: QUEtiapine FUMARATE 200 MG TABLET PO SCH ×2 (08:06→20:09)
[2023-08-28] MEDS: SitaGLIPtin PHOSPHATE 100 MG TABLET PO SCH (08:06)
[2023-08-28] MEDS: EMPAGLIFLOZIN 25 MG TABLET PO SCH (08:06)
[2023-08-28] MEDS: FOLIC ACID 1 MG TABLET PO SCH (08:06)
[2023-08-28] MEDS: SERTRALINE HCL 100 MG TABLET PO SCH (08:06)
[2023-08-28] MEDS: MULTIVITAMINS WITH MINERALS, THERAPEUTIC TABLET PO SCH (08:06)
[2023-08-28] MEDS: THIAMINE 100 MG TABLET PO SCH (08:06)
[2023-08-28 08:18] VITALS: BP 121/60; PULSE 87; RESP 20; TEMP 97.5; O2SAT 98
[2023-08-28] MEDS: HALOPERIDOL 5 MG TABLET PO PRN (19:03)
[2023-08-28 20:54] VITALS: BP 117/68; PULSE 107; RESP 19; TEMP 97.6; O2SAT 100
[2023-08-29 05:46] LABS: GLUCOMETER DEV NAME(LOC) BV3S.; GLUCOSE,POINT OF CARE 157 MG/DL (70-110)
[2023-08-29] MEDS: LEVOTHYROXINE SODIUM 112 MCG TABLET PO SCH (06:58)
[2023-08-29] MEDS: INSULIN LISPRO 100 UNITS/ML SQ PRN ×2 (07:06→11:32)
[2023-08-29] MEDS: EMPAGLIFLOZIN 25 MG TABLET PO SCH (08:25)
[2023-08-29] MEDS: FOLIC ACID 1 MG TABLET PO SCH (08:25)
[2023-08-29] MEDS: THIAMINE 100 MG TABLET PO SCH (08:25)
[2023-08-29] MEDS: QUEtiapine FUMARATE 200 MG TABLET PO SCH ×2 (08:25→21:25)
[2023-08-29] MEDS: MULTIVITAMINS WITH MINERALS, THERAPEUTIC TABLET PO SCH (08:25)
[2023-08-29] MEDS: SitaGLIPtin PHOSPHATE 100 MG TABLET PO SCH (08:25)
[2023-08-29] MEDS: SERTRALINE HCL 100 MG TABLET PO SCH (08:26)
[2023-08-29 08:57] VITALS: RESP 18
[2023-08-29] MEDS: HALOPERIDOL 5 MG TABLET PO PRN (09:10)
[2023-08-29 11:46] LABS: GLUCOMETER DEV NAME(LOC) BV3S.; GLUCOSE,POINT OF CARE 177 MG/DL (70-110)
[2023-08-29 21:54] VITALS: BP 120/84; PULSE 99; RESP 18; TEMP 98.5; O2SAT 95
[2023-08-30 06:11] LABS: GLUCOMETER DEV NAME(LOC) BV3S.; GLUCOSE,POINT OF CARE 205 MG/DL (70-110)
[2023-08-30] MEDS: INSULIN LISPRO 100 UNITS/ML SQ PRN ×2 (06:14→20:41)
[2023-08-30] MEDS: LEVOTHYROXINE SODIUM 112 MCG TABLET PO SCH (06:16)
[2023-08-30 08:00] VITALS: RESP 18
[2023-08-30] MEDS: SERTRALINE HCL 100 MG TABLET PO SCH (09:26)
[2023-08-30] MEDS: QUEtiapine FUMARATE 200 MG TABLET PO SCH ×2 (09:26→20:35)
[2023-08-30] MEDS: SitaGLIPtin PHOSPHATE 100 MG TABLET PO SCH (09:26)
[2023-08-30] MEDS: MULTIVITAMINS WITH MINERALS, THERAPEUTIC TABLET PO SCH (09:27)
[2023-08-30] MEDS: THIAMINE 100 MG TABLET PO SCH (09:27)
[2023-08-30] MEDS: EMPAGLIFLOZIN 25 MG TABLET PO SCH (09:27)
[2023-08-30] MEDS: FOLIC ACID 1 MG TABLET PO SCH (09:27)
[2023-08-30] MEDS: HALOPERIDOL 5 MG TABLET PO PRN (10:18)
[2023-08-30 20:56] LABS: GLUCOMETER DEV NAME(LOC) BV3S.; GLUCOSE,POINT OF CARE 214 MG/DL (70-110)
[2023-08-31 06:05] VITALS: RESP 16
[2023-08-31 06:51] LABS: GLUCOMETER DEV NAME(LOC) BV3S.; GLUCOSE,POINT OF CARE 176 MG/DL (70-110)
[2023-08-31] MEDS: LEVOTHYROXINE SODIUM 112 MCG TABLET PO SCH (06:59)
[2023-08-31] MEDS: INSULIN LISPRO 100 UNITS/ML SQ PRN ×3 (07:05→20:18)
[2023-08-31] MEDS: EMPAGLIFLOZIN 25 MG TABLET PO SCH (08:09)
[2023-08-31] MEDS: SERTRALINE HCL 100 MG TABLET PO SCH (08:09)
[2023-08-31] MEDS: SitaGLIPtin PHOSPHATE 100 MG TABLET PO SCH (08:09)
[2023-08-31] MEDS: THIAMINE 100 MG TABLET PO SCH (08:09)
[2023-08-31] MEDS: MULTIVITAMINS WITH MINERALS, THERAPEUTIC TABLET PO SCH (08:09)
[2023-08-31] MEDS: QUEtiapine FUMARATE 200 MG TABLET PO SCH ×2 (08:10→20:03)
[2023-08-31] MEDS: FOLIC ACID 1 MG TABLET PO SCH (08:10)
[2023-08-31 09:26] VITALS: RESP 18
[2023-08-31 11:51] LABS: GLUCOMETER DEV NAME(LOC) BV3S.; GLUCOSE,POINT OF CARE 157 MG/DL (70-110)
[2023-08-31 20:21] VITALS: BP 109/77; PULSE 83; RESP 17; TEMP 97.7; O2SAT 97
[2023-08-31 20:51] LABS: GLUCOMETER DEV NAME(LOC) BV3S.; GLUCOSE,POINT OF CARE 314 MG/DL (70-110)
[2023-09-01] MEDS: INSULIN LISPRO 100 UNITS/ML SQ PRN ×4 (06:38→20:25)
[2023-09-01] MEDS: LEVOTHYROXINE SODIUM 112 MCG TABLET PO SCH (06:40)
[2023-09-01 06:46] LABS: GLUCOMETER DEV NAME(LOC) BV3S.; GLUCOSE,POINT OF CARE 284 MG/DL (70-110)
[2023-09-01 08:04] VITALS: BP 114/60; PULSE 105; RESP 18; TEMP 97.5; O2SAT 97
[2023-09-01] MEDS: THIAMINE 100 MG TABLET PO SCH (08:10)
[2023-09-01] MEDS: MULTIVITAMINS WITH MINERALS, THERAPEUTIC TABLET PO SCH (08:10)
[2023-09-01] MEDS: SERTRALINE HCL 100 MG TABLET PO SCH (08:11)
[2023-09-01] MEDS: FOLIC ACID 1 MG TABLET PO SCH (08:11)
[2023-09-01] MEDS: EMPAGLIFLOZIN 25 MG TABLET PO SCH (08:11)
[2023-09-01] MEDS: QUEtiapine FUMARATE 200 MG TABLET PO SCH ×2 (08:12→20:19)
[2023-09-01] MEDS: SitaGLIPtin PHOSPHATE 100 MG TABLET PO SCH (08:12)
[2023-09-01] MEDS: HALOPERIDOL 5 MG TABLET PO PRN (08:12)
[2023-09-01 11:21] LABS: GLUCOMETER DEV NAME(LOC) BV3S.; GLUCOSE,POINT OF CARE 160 MG/DL (70-110)
[2023-09-01 16:51] LABS: GLUCOMETER DEV NAME(LOC) BV3S.; GLUCOSE,POINT OF CARE 290 MG/DL (70-110)
[2023-09-01 20:18] VITALS: BP 108/80; PULSE 94; RESP 17; TEMP 97.7; O2SAT 98
[2023-09-01 20:36] LABS: GLUCOMETER DEV NAME(LOC) BV3S.; GLUCOSE,POINT OF CARE 282 MG/DL (70-110)
[2023-09-02 06:21] LABS: GLUCOMETER DEV NAME(LOC) BV3S.; GLUCOSE,POINT OF CARE 230 MG/DL (70-110)
[2023-09-02] MEDS: LEVOTHYROXINE SODIUM 112 MCG TABLET PO SCH (06:24)
[2023-09-02] MEDS: INSULIN LISPRO 100 UNITS/ML SQ PRN ×4 (06:27→20:19)
[2023-09-02] MEDS: MULTIVITAMINS WITH MINERALS, THERAPEUTIC TABLET PO SCH (08:05)
[2023-09-02] MEDS: THIAMINE 100 MG TABLET PO SCH (08:05)
[2023-09-02] MEDS: EMPAGLIFLOZIN 25 MG TABLET PO SCH (08:05)
[2023-09-02] MEDS: SERTRALINE HCL 100 MG TABLET PO SCH (08:05)
[2023-09-02] MEDS: FOLIC ACID 1 MG TABLET PO SCH (08:08)
[2023-09-02] MEDS: QUEtiapine FUMARATE 200 MG TABLET PO SCH ×2 (08:08→20:02)
[2023-09-02] MEDS: SitaGLIPtin PHOSPHATE 100 MG TABLET PO SCH (08:08)
[2023-09-02 08:12] VITALS: BP 106/68; PULSE 98; RESP 18; TEMP 97.8; O2SAT 97
[2023-09-02 11:51] LABS: GLUCOMETER DEV NAME(LOC) BV3S.; GLUCOSE,POINT OF CARE 192 MG/DL (70-110)
[2023-09-02 16:41] LABS: GLUCOMETER DEV NAME(LOC) BV3S.; GLUCOSE,POINT OF CARE 265 MG/DL (70-110)
[2023-09-02 20:35] VITALS: BP 116/59; PULSE 89; RESP 17; TEMP 97.6
[2023-09-02 20:41] LABS: GLUCOMETER DEV NAME(LOC) BV3S.; GLUCOSE,POINT OF CARE 256 MG/DL (70-110)
[2023-09-03 05:01] LABS: GLUCOMETER DEV NAME(LOC) BV3S.; GLUCOSE,POINT OF CARE 166 MG/DL (70-110)
[2023-09-03] MEDS: LEVOTHYROXINE SODIUM 112 MCG TABLET PO SCH (06:36)
[2023-09-03] MEDS: INSULIN LISPRO 100 UNITS/ML SQ PRN ×4 (06:36→20:45)
[2023-09-03] MEDS: EMPAGLIFLOZIN 25 MG TABLET PO SCH (08:36)
[2023-09-03] MEDS: FOLIC ACID 1 MG TABLET PO SCH (08:36)
[2023-09-03] MEDS: QUEtiapine FUMARATE 200 MG TABLET PO SCH ×2 (08:36→20:30)
[2023-09-03] MEDS: THIAMINE 100 MG TABLET PO SCH (08:36)
[2023-09-03] MEDS: SERTRALINE HCL 100 MG TABLET PO SCH (08:37)
[2023-09-03] MEDS: HALOPERIDOL 5 MG TABLET PO PRN (08:37)
[2023-09-03] MEDS: SitaGLIPtin PHOSPHATE 100 MG TABLET PO SCH (08:37)
[2023-09-03] MEDS: MULTIVITAMINS WITH MINERALS, THERAPEUTIC TABLET PO SCH (08:37)
[2023-09-03 09:01] VITALS: BP 108/65; PULSE 92; RESP 2; TEMP 97.3; O2SAT 98
[2023-09-03 11:11] LABS: GLUCOMETER DEV NAME(LOC) BV3S.; GLUCOSE,POINT OF CARE 174 MG/DL (70-110)
[2023-09-03 16:36] LABS: GLUCOMETER DEV NAME(LOC) BV3S.; GLUCOSE,POINT OF CARE 174 MG/DL (70-110)
[2023-09-03 20:26] LABS: GLUCOMETER DEV NAME(LOC) BV3S.; GLUCOSE,POINT OF CARE 229 MG/DL (70-110)
[2023-09-03 21:23] VITALS: BP 124/80; PULSE 90; RESP 17; TEMP 98; O2SAT 98
[2023-09-04] MEDS: LEVOTHYROXINE SODIUM 112 MCG TABLET PO SCH (06:44)
[2023-09-04] MEDS: INSULIN LISPRO 100 UNITS/ML SQ PRN ×4 (07:06→20:20)
[2023-09-04 07:16] LABS: GLUCOMETER DEV NAME(LOC) BV3S.; GLUCOSE,POINT OF CARE 152 MG/DL (70-110)
[2023-09-04 08:00] VITALS: BP 115/75; PULSE 90; RESP 18; TEMP 97.8; O2SAT 96
[2023-09-04] MEDS: THIAMINE 100 MG TABLET PO SCH (08:07)
[2023-09-04] MEDS: QUEtiapine FUMARATE 200 MG TABLET PO SCH ×2 (08:07→20:14)
[2023-09-04] MEDS: SERTRALINE HCL 100 MG TABLET PO SCH (08:07)
[2023-09-04] MEDS: MULTIVITAMINS WITH MINERALS, THERAPEUTIC TABLET PO SCH (08:07)
[2023-09-04] MEDS: EMPAGLIFLOZIN 25 MG TABLET PO SCH (08:07)
[2023-09-04] MEDS: FOLIC ACID 1 MG TABLET PO SCH (08:07)
[2023-09-04] MEDS: SitaGLIPtin PHOSPHATE 100 MG TABLET PO SCH (08:07)
[2023-09-04] MEDS: HALOPERIDOL 5 MG TABLET PO PRN ×2 (09:07→14:23)
[2023-09-04 12:16] LABS: GLUCOMETER DEV NAME(LOC) BV3S.; GLUCOSE,POINT OF CARE 154 MG/DL (70-110)
[2023-09-04 17:17] LABS: GLUCOMETER DEV NAME(LOC) BV3S.; GLUCOSE,POINT OF CARE 151 MG/DL (70-110)
[2023-09-04 20:17] LABS: GLUCOMETER DEV NAME(LOC) BV3S.; GLUCOSE,POINT OF CARE 302 MG/DL (70-110)
[2023-09-04 20:44] VITALS: BP 121/78; PULSE 100; RESP 17; TEMP 97.1; O2SAT 97
[2023-09-05 06:33] LABS: GLUCOMETER DEV NAME(LOC) BV3S.; GLUCOSE,POINT OF CARE 142 MG/DL (70-110)
[2023-09-05] MEDS: LEVOTHYROXINE SODIUM 112 MCG TABLET PO SCH (06:42)
[2023-09-05] MEDS: INSULIN LISPRO 100 UNITS/ML SQ PRN (06:43)
[2023-09-05] MEDS: MULTIVITAMINS WITH MINERALS, THERAPEUTIC TABLET PO SCH (08:11)
[2023-09-05] MEDS: QUEtiapine FUMARATE 200 MG TABLET PO SCH ×2 (08:11→20:04)
[2023-09-05] MEDS: SERTRALINE HCL 100 MG TABLET PO SCH (08:11)
[2023-09-05] MEDS: THIAMINE 100 MG TABLET PO SCH (08:11)
[2023-09-05] MEDS: SitaGLIPtin PHOSPHATE 100 MG TABLET PO SCH (08:11)
[2023-09-05] MEDS: FOLIC ACID 1 MG TABLET PO SCH (08:11)
[2023-09-05] MEDS: EMPAGLIFLOZIN 25 MG TABLET PO SCH (08:12)
[2023-09-05 20:10] VITALS: BP 114/65; PULSE 100; RESP 18; TEMP 97.9; O2SAT 98
[2023-09-06] MEDS: LEVOTHYROXINE SODIUM 112 MCG TABLET PO SCH (06:55)
[2023-09-06] MEDS: QUEtiapine FUMARATE 200 MG TABLET PO SCH ×2 (08:04→20:10)
[2023-09-06] MEDS: SERTRALINE HCL 100 MG TABLET PO SCH (08:05)
[2023-09-06] MEDS: SitaGLIPtin PHOSPHATE 100 MG TABLET PO SCH (08:05)
[2023-09-06] MEDS: EMPAGLIFLOZIN 25 MG TABLET PO SCH (08:05)
[2023-09-06] MEDS: FOLIC ACID 1 MG TABLET PO SCH (08:05)
[2023-09-06] MEDS: MULTIVITAMINS WITH MINERALS, THERAPEUTIC TABLET PO SCH (08:05)
[2023-09-06] MEDS: THIAMINE 100 MG TABLET PO SCH (08:05)
[2023-09-06 08:27] VITALS: BP 128/76; PULSE 76; RESP 17; TEMP 98.2; O2SAT 99
[2023-09-06] MEDS: INSULIN LISPRO 100 UNITS/ML SQ PRN ×2 (11:39→20:06)
[2023-09-06 11:41] LABS: GLUCOMETER DEV NAME(LOC) BV3S.; GLUCOSE,POINT OF CARE 157 MG/DL (70-110)
[2023-09-06 16:21] LABS: GLUCOMETER DEV NAME(LOC) BV3S.; GLUCOSE,POINT OF CARE 117 MG/DL (70-110)
[2023-09-06 20:00] LABS: GLUCOMETER DEV NAME(LOC) BV3S.; GLUCOSE,POINT OF CARE 219 MG/DL (70-110)
[2023-09-06 20:05] VITALS: BP 119/85; PULSE 100; RESP 18; TEMP 97.7; O2SAT 98
[2023-09-07] MEDS: LEVOTHYROXINE SODIUM 112 MCG TABLET PO SCH (06:20)
[2023-09-07] MEDS: INSULIN LISPRO 100 UNITS/ML SQ PRN ×4 (06:40→21:23)
[2023-09-07 06:41] LABS: GLUCOMETER DEV NAME(LOC) BV3S.; GLUCOSE,POINT OF CARE 141 MG/DL (70-110)
[2023-09-07] MEDS: FOLIC ACID 1 MG TABLET PO SCH (08:03)
[2023-09-07] MEDS: SitaGLIPtin PHOSPHATE 100 MG TABLET PO SCH (08:03)
[2023-09-07] MEDS: MULTIVITAMINS WITH MINERALS, THERAPEUTIC TABLET PO SCH (08:03)
[2023-09-07] MEDS: SERTRALINE HCL 100 MG TABLET PO SCH (08:03)
[2023-09-07] MEDS: QUEtiapine FUMARATE 200 MG TABLET PO SCH ×2 (08:03→20:20)
[2023-09-07] MEDS: THIAMINE 100 MG TABLET PO SCH (08:03)
[2023-09-07] MEDS: EMPAGLIFLOZIN 25 MG TABLET PO SCH (08:04)
[2023-09-07 08:25] LABS: APPEARANCE,URINE CLEAR (CLEAR); BILIRUBIN,URINE NEGATIVE (NEGATIVE); COLOR,URINE LIGHT YELLOW (YELLOW); GLUCOSE, URINE (UA) >=1000 mg/dL (NEGATIVE); LEUKOCYTE ESTERASE ,URINE MODERATE (NEGATIVE); NITRATE,URINE NEGATIVE (NEGATIVE); OCCULT BLOOD,URINE NEGATIVE (NEGATIVE); PROTEIN,URINE NEGATIVE (NEGATIVE); SPECIFIC GRAVITIY, URINE 1.044 (1.003-1.030); UROBILINOGEN,URINE <=1.0 mg/dL (<=1.0)
[2023-09-07 08:40] LABS: BACTERIA,URINE Few /HPF (None Seen); RBC,URINE None Seen /HPF (0-2); SQUAMOUS EPITHELIAL CELL,UR Few /LPF (None Seen); YEAST,URINE Few /HPF (None Seen)
[2023-09-07 11:51] VITALS: BP 124/76; PULSE 89; RESP 18; TEMP 97.3; O2SAT 98
[2023-09-07 11:51] LABS: GLUCOMETER DEV NAME(LOC) BV3S.; GLUCOSE,POINT OF CARE 184 MG/DL (70-110)
[2023-09-07] MEDS ORDERED: FLUCONAZOLE 150 MG TABLET PO ONE (13:15)
[2023-09-07] MEDS: CEPHALEXIN MONOHYDRATE 500 MG CAPSULE PO SCH ×2 (13:22→16:06)
[2023-09-07 16:46] LABS: GLUCOMETER DEV NAME(LOC) BV3S.; GLUCOSE,POINT OF CARE 222 MG/DL (70-110)
[2023-09-07 20:14] VITALS: BP 109/85; PULSE 98; RESP 18; TEMP 97.9; O2SAT 99
[2023-09-07 21:16] LABS: GLUCOMETER DEV NAME(LOC) BV3S.; GLUCOSE,POINT OF CARE 230 MG/DL (70-110)
[2023-09-08] MEDS: LEVOTHYROXINE SODIUM 112 MCG TABLET PO SCH (06:13)
[2023-09-08] MEDS: INSULIN LISPRO 100 UNITS/ML SQ PRN ×3 (06:24→20:10)
[2023-09-08 06:37] LABS: GLUCOMETER DEV NAME(LOC) BV3S.; GLUCOSE,POINT OF CARE 192 MG/DL (70-110)
[2023-09-08] MEDS: QUEtiapine FUMARATE 200 MG TABLET PO SCH ×2 (08:44→20:00)
[2023-09-08] MEDS: SERTRALINE HCL 100 MG TABLET PO SCH (08:44)
[2023-09-08] MEDS: FOLIC ACID 1 MG TABLET PO SCH (08:44)
[2023-09-08] MEDS: SitaGLIPtin PHOSPHATE 100 MG TABLET PO SCH (08:44)
[2023-09-08] MEDS: EMPAGLIFLOZIN 25 MG TABLET PO SCH (08:44)
[2023-09-08] MEDS: THIAMINE 100 MG TABLET PO SCH (08:44)
[2023-09-08] MEDS: CEPHALEXIN MONOHYDRATE 500 MG CAPSULE PO SCH ×3 (08:45→16:31)
[2023-09-08] MEDS: MULTIVITAMINS WITH MINERALS, THERAPEUTIC TABLET PO SCH (08:45)
[2023-09-08 08:50] VITALS: BP 105/62; PULSE 96; RESP 18; TEMP 97.8; O2SAT 97
[2023-09-08 16:56] LABS: GLUCOMETER DEV NAME(LOC) BV3S.; GLUCOSE,POINT OF CARE 176 MG/DL (70-110)
[2023-09-08 20:21] LABS: GLUCOMETER DEV NAME(LOC) BV3S.; GLUCOSE,POINT OF CARE 215 MG/DL (70-110)
[2023-09-08 21:13] VITALS: BP 106/63; PULSE 89; RESP 18; TEMP 97.5; O2SAT 97
[2023-09-09] MEDS: LEVOTHYROXINE SODIUM 112 MCG TABLET PO SCH (06:39)
[2023-09-09] MEDS: INSULIN LISPRO 100 UNITS/ML SQ PRN ×3 (06:46→20:28)
[2023-09-09 06:56] LABS: GLUCOMETER DEV NAME(LOC) BV3S.; GLUCOSE,POINT OF CARE 144 MG/DL (70-110)
[2023-09-09] MEDS: FOLIC ACID 1 MG TABLET PO SCH (08:42)
[2023-09-09] MEDS: EMPAGLIFLOZIN 25 MG TABLET PO SCH (08:42)
[2023-09-09] MEDS: SitaGLIPtin PHOSPHATE 100 MG TABLET PO SCH (08:42)
[2023-09-09] MEDS: QUEtiapine FUMARATE 200 MG TABLET PO SCH ×2 (08:42→20:04)
[2023-09-09] MEDS: MULTIVITAMINS WITH MINERALS, THERAPEUTIC TABLET PO SCH (08:42)
[2023-09-09] MEDS: CEPHALEXIN MONOHYDRATE 500 MG CAPSULE PO SCH ×3 (08:42→16:20)
[2023-09-09] MEDS: THIAMINE 100 MG TABLET PO SCH (08:43)
[2023-09-09] MEDS: SERTRALINE HCL 100 MG TABLET PO SCH (09:26)
[2023-09-09 16:21] LABS: GLUCOMETER DEV NAME(LOC) BV3S.; GLUCOSE,POINT OF CARE 320 MG/DL (70-110)
[2023-09-09 17:00] VITALS: BP 122/81; PULSE 78; RESP 18; TEMP 97.8
[2023-09-09 20:03] VITALS: BP 125/77; PULSE 77; RESP 18; TEMP 97.7
[2023-09-09 20:36] LABS: GLUCOMETER DEV NAME(LOC) BV3S.; GLUCOSE,POINT OF CARE 265 MG/DL (70-110)
[2023-09-10] MEDS: INSULIN LISPRO 100 UNITS/ML SQ PRN ×2 (06:56→20:48)
[2023-09-10 07:06] LABS: GLUCOMETER DEV NAME(LOC) BV3S.; GLUCOSE,POINT OF CARE 175 MG/DL (70-110)
[2023-09-10] MEDS: THIAMINE 100 MG TABLET PO SCH (08:09)
[2023-09-10] MEDS: FOLIC ACID 1 MG TABLET PO SCH (08:09)
[2023-09-10] MEDS: CEPHALEXIN MONOHYDRATE 500 MG CAPSULE PO SCH ×3 (08:09→16:04)
[2023-09-10] MEDS: SitaGLIPtin PHOSPHATE 100 MG TABLET PO SCH (08:09)
[2023-09-10] MEDS: QUEtiapine FUMARATE 200 MG TABLET PO SCH ×2 (08:09→20:40)
[2023-09-10] MEDS: LEVOTHYROXINE SODIUM 112 MCG TABLET PO SCH (08:09)
[2023-09-10] MEDS: EMPAGLIFLOZIN 25 MG TABLET PO SCH (08:09)
[2023-09-10] MEDS: SERTRALINE HCL 100 MG TABLET PO SCH (08:10)
[2023-09-10] MEDS: MULTIVITAMINS WITH MINERALS, THERAPEUTIC TABLET PO SCH (08:10)
[2023-09-10 08:30] VITALS: BP 94/61; PULSE 90; RESP 18; TEMP 97.7
[2023-09-10 21:01] LABS: GLUCOMETER DEV NAME(LOC) BV3S.; GLUCOSE,POINT OF CARE 263 MG/DL (70-110)
[2023-09-10 22:06] VITALS: BP 129/72; PULSE 98; RESP 18; TEMP 98; O2SAT 97
[2023-09-11 06:21] LABS: GLUCOMETER DEV NAME(LOC) BV3S.; GLUCOSE,POINT OF CARE 168 MG/DL (70-110)
[2023-09-11] MEDS: INSULIN LISPRO 100 UNITS/ML SQ PRN (06:23)
[2023-09-11] MEDS: LEVOTHYROXINE SODIUM 112 MCG TABLET PO SCH (06:24)
[2023-09-11] MEDS: MULTIVITAMINS WITH MINERALS, THERAPEUTIC TABLET PO SCH (08:12)
[2023-09-11] MEDS: EMPAGLIFLOZIN 25 MG TABLET PO SCH (08:12)
[2023-09-11] MEDS: THIAMINE 100 MG TABLET PO SCH (08:13)
[2023-09-11] MEDS: CEPHALEXIN MONOHYDRATE 500 MG CAPSULE PO SCH ×3 (08:13→16:15)
[2023-09-11] MEDS: QUEtiapine FUMARATE 200 MG TABLET PO SCH ×2 (08:13→20:06)
[2023-09-11] MEDS: FOLIC ACID 1 MG TABLET PO SCH (08:13)
[2023-09-11] MEDS: SERTRALINE HCL 100 MG TABLET PO SCH (08:13)
[2023-09-11] MEDS: SitaGLIPtin PHOSPHATE 100 MG TABLET PO SCH (08:13)
[2023-09-11 10:09] VITALS: BP 124/75; PULSE 89; RESP 17; TEMP 97.8; O2SAT 98
[2023-09-11 21:59] VITALS: BP 118/71; PULSE 94; RESP 18; TEMP 97.7; O2SAT 95
[2023-09-12] MEDS: LEVOTHYROXINE SODIUM 112 MCG TABLET PO SCH (06:27)
[2023-09-12] MEDS: MULTIVITAMINS WITH MINERALS, THERAPEUTIC TABLET PO SCH (08:37)
[2023-09-12] MEDS: SitaGLIPtin PHOSPHATE 100 MG TABLET PO SCH (08:38)
[2023-09-12] MEDS: CEPHALEXIN MONOHYDRATE 500 MG CAPSULE PO SCH ×2 (08:38→12:47)
[2023-09-12] MEDS: THIAMINE 100 MG TABLET PO SCH (08:38)
[2023-09-12] MEDS: QUEtiapine FUMARATE 200 MG TABLET PO SCH ×2 (08:38→20:22)
[2023-09-12] MEDS: SERTRALINE HCL 100 MG TABLET PO SCH (08:38)
[2023-09-12] MEDS: FOLIC ACID 1 MG TABLET PO SCH (08:38)
[2023-09-12] MEDS: EMPAGLIFLOZIN 25 MG TABLET PO SCH (08:39)
[2023-09-12 09:40] VITALS: BP 128/74; PULSE 82; RESP 18; TEMP 97.5; O2SAT 97
[2023-09-12 17:21] LABS: GLUCOMETER DEV NAME(LOC) BV3S.; GLUCOSE,POINT OF CARE 254 MG/DL (70-110)
[2023-09-12] MEDS: INSULIN LISPRO 100 UNITS/ML SQ PRN ×2 (18:59→23:12)
[2023-09-12 20:41] VITALS: BP 128/75; PULSE 90; RESP 16; TEMP 97.3
[2023-09-12 23:16] LABS: GLUCOMETER DEV NAME(LOC) BV3S.; GLUCOSE,POINT OF CARE 186 MG/DL (70-110)
[2023-09-13] MEDS: LEVOTHYROXINE SODIUM 112 MCG TABLET PO SCH (06:35)
[2023-09-13] MEDS: INSULIN LISPRO 100 UNITS/ML SQ PRN ×2 (06:47→16:35)
[2023-09-13] MEDS: THIAMINE 100 MG TABLET PO SCH (08:23)
[2023-09-13] MEDS: MULTIVITAMINS WITH MINERALS, THERAPEUTIC TABLET PO SCH (08:23)
[2023-09-13] MEDS: SitaGLIPtin PHOSPHATE 100 MG TABLET PO SCH (08:23)
[2023-09-13] MEDS: QUEtiapine FUMARATE 200 MG TABLET PO SCH ×2 (08:23→21:39)
[2023-09-13] MEDS: FOLIC ACID 1 MG TABLET PO SCH (08:23)
[2023-09-13] MEDS: SERTRALINE HCL 100 MG TABLET PO SCH (08:24)
[2023-09-13] MEDS: EMPAGLIFLOZIN 25 MG TABLET PO SCH (08:24)
[2023-09-13 09:00] VITALS: BP 128/78; PULSE 82; RESP 18; TEMP 97.8; O2SAT 97
[2023-09-13 16:46] LABS: GLUCOMETER DEV NAME(LOC) BV3S.; GLUCOSE,POINT OF CARE 226 MG/DL (70-110)
[2023-09-13 21:25] VITALS: BP 120/75; PULSE 89; RESP 17; TEMP 97.8
[2023-09-14] MEDS: LEVOTHYROXINE SODIUM 112 MCG TABLET PO SCH (06:34)
[2023-09-14] MEDS: MULTIVITAMINS WITH MINERALS, THERAPEUTIC TABLET PO SCH (08:42)
[2023-09-14] MEDS: THIAMINE 100 MG TABLET PO SCH (08:42)
[2023-09-14] MEDS: QUEtiapine FUMARATE 200 MG TABLET PO SCH ×2 (08:42→20:26)
[2023-09-14] MEDS: FOLIC ACID 1 MG TABLET PO SCH (08:42)
[2023-09-14] MEDS: EMPAGLIFLOZIN 25 MG TABLET PO SCH (08:42)
[2023-09-14] MEDS: SitaGLIPtin PHOSPHATE 100 MG TABLET PO SCH (08:42)
[2023-09-14] MEDS: SERTRALINE HCL 100 MG TABLET PO SCH (08:43)
[2023-09-14 10:00] VITALS: BP 121/72; PULSE 77; RESP 16; TEMP 98; O2SAT 97
[2023-09-14] MEDS: INSULIN LISPRO 100 UNITS/ML SQ PRN ×2 (16:34→20:11)
[2023-09-14 16:56] LABS: GLUCOMETER DEV NAME(LOC) BV3S.; GLUCOSE,POINT OF CARE 202 MG/DL (70-110)
[2023-09-14 20:03] VITALS: BP 111/75; PULSE 79; RESP 17; TEMP 97.8; O2SAT 96
[2023-09-14 20:41] LABS: GLUCOMETER DEV NAME(LOC) BV3S.; GLUCOSE,POINT OF CARE 152 MG/DL (70-110)
[2023-09-15 06:01] LABS: GLUCOMETER DEV NAME(LOC) BV3S.; GLUCOSE,POINT OF CARE 195 MG/DL (70-110)
[2023-09-15] MEDS: INSULIN LISPRO 100 UNITS/ML SQ PRN ×3 (06:43→20:32)
[2023-09-15] MEDS: LEVOTHYROXINE SODIUM 112 MCG TABLET PO SCH (06:57)
[2023-09-15] MEDS: THIAMINE 100 MG TABLET PO SCH (08:16)
[2023-09-15] MEDS: MULTIVITAMINS WITH MINERALS, THERAPEUTIC TABLET PO SCH (08:16)
[2023-09-15] MEDS: SitaGLIPtin PHOSPHATE 100 MG TABLET PO SCH (08:16)
[2023-09-15] MEDS: QUEtiapine FUMARATE 200 MG TABLET PO SCH ×2 (08:16→20:03)
[2023-09-15] MEDS: FOLIC ACID 1 MG TABLET PO SCH (08:16)
[2023-09-15] MEDS: EMPAGLIFLOZIN 25 MG TABLET PO SCH (08:16)
[2023-09-15] MEDS: SERTRALINE HCL 100 MG TABLET PO SCH (08:17)
[2023-09-15 08:23] VITALS: RESP 16
[2023-09-15 16:57] LABS: GLUCOMETER DEV NAME(LOC) BV3S.; GLUCOSE,POINT OF CARE 151 MG/DL (70-110)
[2023-09-15 20:31] VITALS: BP 124/71; PULSE 76; RESP 18; TEMP 97.5
[2023-09-15 20:31] LABS: GLUCOMETER DEV NAME(LOC) BV3S.; GLUCOSE,POINT OF CARE 232 MG/DL (70-110)
[2023-09-16] MEDS: LEVOTHYROXINE SODIUM 112 MCG TABLET PO SCH (06:37)
[2023-09-16] MEDS: SitaGLIPtin PHOSPHATE 100 MG TABLET PO SCH (08:21)
[2023-09-16] MEDS: THIAMINE 100 MG TABLET PO SCH (08:21)
[2023-09-16] MEDS: FOLIC ACID 1 MG TABLET PO SCH (08:21)
[2023-09-16] MEDS: QUEtiapine FUMARATE 200 MG TABLET PO SCH ×2 (08:22→20:11)
[2023-09-16] MEDS: SERTRALINE HCL 100 MG TABLET PO SCH (08:22)
[2023-09-16] MEDS: MULTIVITAMINS WITH MINERALS, THERAPEUTIC TABLET PO SCH (08:22)
[2023-09-16] MEDS: EMPAGLIFLOZIN 25 MG TABLET PO SCH (08:22)
[2023-09-16] MEDS: INSULIN LISPRO 100 UNITS/ML SQ PRN ×3 (11:40→20:18)
[2023-09-16 11:41] LABS: GLUCOMETER DEV NAME(LOC) BV3S.; GLUCOSE,POINT OF CARE 157 MG/DL (70-110)
[2023-09-16 12:00] VITALS: RESP 18
[2023-09-16 16:46] LABS: GLUCOMETER DEV NAME(LOC) BV3S.; GLUCOSE,POINT OF CARE 149 MG/DL (70-110)
[2023-09-16 20:31] LABS: GLUCOMETER DEV NAME(LOC) BV3S.; GLUCOSE,POINT OF CARE 198 MG/DL (70-110)
[2023-09-17 00:23] VITALS: RESP 18; TEMP 97.8
[2023-09-17] MEDS: LEVOTHYROXINE SODIUM 112 MCG TABLET PO SCH (06:32)
[2023-09-17 08:26] VITALS: RESP 16
[2023-09-17] MEDS: QUEtiapine FUMARATE 200 MG TABLET PO SCH ×2 (09:21→20:04)
[2023-09-17] MEDS: EMPAGLIFLOZIN 25 MG TABLET PO SCH (09:22)
[2023-09-17] MEDS: FOLIC ACID 1 MG TABLET PO SCH (09:22)
[2023-09-17] MEDS: MULTIVITAMINS WITH MINERALS, THERAPEUTIC TABLET PO SCH (09:22)
[2023-09-17] MEDS: SERTRALINE HCL 100 MG TABLET PO SCH (09:22)
[2023-09-17] MEDS: SitaGLIPtin PHOSPHATE 100 MG TABLET PO SCH (09:22)
[2023-09-17] MEDS: THIAMINE 100 MG TABLET PO SCH (09:22)
[2023-09-17] MEDS: INSULIN LISPRO 100 UNITS/ML SQ PRN ×2 (11:26→17:25)
[2023-09-17 11:31] LABS: GLUCOMETER DEV NAME(LOC) BV3S.; GLUCOSE,POINT OF CARE 256 MG/DL (70-110)
[2023-09-17 17:11] LABS: GLUCOMETER DEV NAME(LOC) BV3S.; GLUCOSE,POINT OF CARE 160 MG/DL (70-110)
[2023-09-17 20:35] VITALS: RESP 18
[2023-09-18] MEDS: LEVOTHYROXINE SODIUM 112 MCG TABLET PO SCH (06:36)
[2023-09-18] MEDS: INSULIN LISPRO 100 UNITS/ML SQ PRN ×4 (06:45→20:42)
[2023-09-18 06:56] LABS: GLUCOMETER DEV NAME(LOC) BV3S.; GLUCOSE,POINT OF CARE 171 MG/DL (70-110)
[2023-09-18 08:09] VITALS: BP 135/70; PULSE 90; RESP 16; TEMP 97.9; O2SAT 97
[2023-09-18] MEDS: SitaGLIPtin PHOSPHATE 100 MG TABLET PO SCH (09:37)
[2023-09-18] MEDS: MULTIVITAMINS WITH MINERALS, THERAPEUTIC TABLET PO SCH (09:38)
[2023-09-18] MEDS: THIAMINE 100 MG TABLET PO SCH (09:38)
[2023-09-18] MEDS: FOLIC ACID 1 MG TABLET PO SCH (09:38)
[2023-09-18] MEDS: SERTRALINE HCL 100 MG TABLET PO SCH (09:38)
[2023-09-18] MEDS: QUEtiapine FUMARATE 200 MG TABLET PO SCH ×2 (09:40→20:28)
[2023-09-18] MEDS: EMPAGLIFLOZIN 25 MG TABLET PO SCH (09:46)
[2023-09-18 11:21] LABS: GLUCOMETER DEV NAME(LOC) BV3S.; GLUCOSE,POINT OF CARE 166 MG/DL (70-110)
[2023-09-18 17:01] LABS: GLUCOMETER DEV NAME(LOC) BV3S.; GLUCOSE,POINT OF CARE 259 MG/DL (70-110)
[2023-09-18 20:46] LABS: GLUCOMETER DEV NAME(LOC) BV3S.; GLUCOSE,POINT OF CARE 269 MG/DL (70-110)
[2023-09-18 22:50] VITALS: BP 118/78; PULSE 101; RESP 18; TEMP 97.7
[2023-09-19] MEDS: LEVOTHYROXINE SODIUM 112 MCG TABLET PO SCH (06:49)
[2023-09-19] MEDS: INSULIN LISPRO 100 UNITS/ML SQ PRN ×2 (06:58→12:05)
[2023-09-19 07:01] LABS: GLUCOMETER DEV NAME(LOC) BV3S.; GLUCOSE,POINT OF CARE 182 MG/DL (70-110)
[2023-09-19] MEDS: FOLIC ACID 1 MG TABLET PO SCH (08:27)
[2023-09-19] MEDS: MULTIVITAMINS WITH MINERALS, THERAPEUTIC TABLET PO SCH (08:27)
[2023-09-19] MEDS: THIAMINE 100 MG TABLET PO SCH (08:27)
[2023-09-19] MEDS: QUEtiapine FUMARATE 200 MG TABLET PO SCH ×2 (08:27→20:07)
[2023-09-19] MEDS: SERTRALINE HCL 100 MG TABLET PO SCH (08:27)
[2023-09-19] MEDS: EMPAGLIFLOZIN 25 MG TABLET PO SCH (08:27)
[2023-09-19] MEDS: SitaGLIPtin PHOSPHATE 100 MG TABLET PO SCH (08:27)
[2023-09-19 08:29] VITALS: BP 123/79; PULSE 88; RESP 18; TEMP 98; O2SAT 98
[2023-09-19 12:11] LABS: GLUCOMETER DEV NAME(LOC) BV3S.; GLUCOSE,POINT OF CARE 172 MG/DL (70-110)
[2023-09-19 20:34] VITALS: RESP 18
[2023-09-20] MEDS: LEVOTHYROXINE SODIUM 112 MCG TABLET PO SCH (06:50)
[2023-09-20] MEDS: INSULIN LISPRO 100 UNITS/ML SQ PRN ×3 (07:14→20:38)
[2023-09-20 07:21] LABS: GLUCOMETER DEV NAME(LOC) BV3S.; GLUCOSE,POINT OF CARE 166 MG/DL (70-110)
[2023-09-20] MEDS: EMPAGLIFLOZIN 25 MG TABLET PO SCH (08:12)
[2023-09-20] MEDS: THIAMINE 100 MG TABLET PO SCH (08:12)
[2023-09-20] MEDS: MULTIVITAMINS WITH MINERALS, THERAPEUTIC TABLET PO SCH (08:12)
[2023-09-20] MEDS: FOLIC ACID 1 MG TABLET PO SCH (08:13)
[2023-09-20] MEDS: SitaGLIPtin PHOSPHATE 100 MG TABLET PO SCH (08:13)
[2023-09-20] MEDS: QUEtiapine FUMARATE 200 MG TABLET PO SCH ×2 (08:13→20:06)
[2023-09-20] MEDS: SERTRALINE HCL 100 MG TABLET PO SCH (08:13)
[2023-09-20 11:26] LABS: GLUCOMETER DEV NAME(LOC) BV3S.; GLUCOSE,POINT OF CARE 139 MG/DL (70-110)
[2023-09-20 17:06] LABS: GLUCOMETER DEV NAME(LOC) BV3S.; GLUCOSE,POINT OF CARE 184 MG/DL (70-110)
[2023-09-20 20:46] LABS: GLUCOMETER DEV NAME(LOC) BV3S.; GLUCOSE,POINT OF CARE 219 MG/DL (70-110)
[2023-09-20 21:08] VITALS: BP 103/52; PULSE 96; RESP 18; TEMP 98; O2SAT 98
[2023-09-21 06:00] LABS: GLUCOMETER DEV NAME(LOC) BV3S.; GLUCOSE,POINT OF CARE 171 MG/DL (70-110)
[2023-09-21] MEDS: LEVOTHYROXINE SODIUM 112 MCG TABLET PO SCH (06:46)
[2023-09-21] MEDS: INSULIN LISPRO 100 UNITS/ML SQ PRN ×3 (06:53→21:09)
[2023-09-21 08:25] VITALS: BP 124/76; PULSE 84; RESP 16; TEMP 98; O2SAT 99
[2023-09-21] MEDS: THIAMINE 100 MG TABLET PO SCH (08:35)
[2023-09-21] MEDS: MULTIVITAMINS WITH MINERALS, THERAPEUTIC TABLET PO SCH (08:35)
[2023-09-21] MEDS: SitaGLIPtin PHOSPHATE 100 MG TABLET PO SCH (08:35)
[2023-09-21] MEDS: FOLIC ACID 1 MG TABLET PO SCH (08:35)
[2023-09-21] MEDS: SERTRALINE HCL 100 MG TABLET PO SCH (08:35)
[2023-09-21] MEDS: QUEtiapine FUMARATE 200 MG TABLET PO SCH ×2 (08:35→20:08)
[2023-09-21] MEDS: EMPAGLIFLOZIN 25 MG TABLET PO SCH (08:35)
[2023-09-21 17:16] LABS: GLUCOMETER DEV NAME(LOC) BV3S.; GLUCOSE,POINT OF CARE 282 MG/DL (70-110)
[2023-09-21 20:27] VITALS: BP 94/58; PULSE 97; RESP 18; TEMP 98.7; O2SAT 97
[2023-09-21 21:16] LABS: GLUCOMETER DEV NAME(LOC) BV3S.; GLUCOSE,POINT OF CARE 201 MG/DL (70-110)
[2023-09-22] MEDS: LEVOTHYROXINE SODIUM 112 MCG TABLET PO SCH (07:00)
[2023-09-22] MEDS: INSULIN LISPRO 100 UNITS/ML SQ PRN ×3 (07:01→16:44)
[2023-09-22 07:02] LABS: GLUCOMETER DEV NAME(LOC) BV3S.; GLUCOSE,POINT OF CARE 159 MG/DL (70-110)
[2023-09-22 08:21] VITALS: BP 116/69; PULSE 79; RESP 16; TEMP 98; O2SAT 97
[2023-09-22] MEDS: SitaGLIPtin PHOSPHATE 100 MG TABLET PO SCH (08:47)
[2023-09-22] MEDS: EMPAGLIFLOZIN 25 MG TABLET PO SCH (08:48)
[2023-09-22] MEDS: FOLIC ACID 1 MG TABLET PO SCH (08:48)
[2023-09-22] MEDS: SERTRALINE HCL 100 MG TABLET PO SCH (08:48)
[2023-09-22] MEDS: QUEtiapine FUMARATE 200 MG TABLET PO SCH ×2 (08:48→21:20)
[2023-09-22] MEDS: MULTIVITAMINS WITH MINERALS, THERAPEUTIC TABLET PO SCH (08:48)
[2023-09-22] MEDS: THIAMINE 100 MG TABLET PO SCH (08:48)
[2023-09-22 11:56] LABS: GLUCOMETER DEV NAME(LOC) BV3S.; GLUCOSE,POINT OF CARE 150 MG/DL (70-110)
[2023-09-22 16:31] LABS: GLUCOMETER DEV NAME(LOC) BV3S.; GLUCOSE,POINT OF CARE 155 MG/DL (70-110)
[2023-09-22 21:07] VITALS: BP 116/78; PULSE 89; RESP 17; TEMP 97.8; O2SAT 97
[2023-09-22 21:16] LABS: GLUCOMETER DEV NAME(LOC) BV3S.; GLUCOSE,POINT OF CARE 215 MG/DL (70-110)
[2023-09-23] MEDS: LEVOTHYROXINE SODIUM 112 MCG TABLET PO SCH (06:55)
[2023-09-23] MEDS: INSULIN LISPRO 100 UNITS/ML SQ PRN ×2 (06:56→20:34)
[2023-09-23 07:01] LABS: GLUCOMETER DEV NAME(LOC) BV3S.; GLUCOSE,POINT OF CARE 152 MG/DL (70-110)
[2023-09-23] MEDS: SitaGLIPtin PHOSPHATE 100 MG TABLET PO SCH (08:32)
[2023-09-23] MEDS: SERTRALINE HCL 100 MG TABLET PO SCH (08:32)
[2023-09-23] MEDS: THIAMINE 100 MG TABLET PO SCH (08:32)
[2023-09-23] MEDS: QUEtiapine FUMARATE 200 MG TABLET PO SCH ×2 (08:33→20:12)
[2023-09-23] MEDS: FOLIC ACID 1 MG TABLET PO SCH (08:33)
[2023-09-23 08:56] VITALS: BP 119/73; PULSE 84; RESP 18; TEMP 98.2; O2SAT 99
[2023-09-23] MEDS: EMPAGLIFLOZIN 25 MG TABLET PO SCH (09:06)
[2023-09-23] MEDS: MULTIVITAMINS WITH MINERALS, THERAPEUTIC TABLET PO SCH (13:08)
[2023-09-23 16:51] LABS: GLUCOMETER DEV NAME(LOC) BV3S.; GLUCOSE,POINT OF CARE 160 MG/DL (70-110)
[2023-09-23 20:46] LABS: GLUCOMETER DEV NAME(LOC) BV3S.; GLUCOSE,POINT OF CARE 220 MG/DL (70-110)
[2023-09-23 20:54] VITALS: BP 102/66; PULSE 93; RESP 18; TEMP 97.4; O2SAT 98
[2023-09-24 05:51] LABS: GLUCOMETER DEV NAME(LOC) BV3S.; GLUCOSE,POINT OF CARE 146 MG/DL (70-110)
[2023-09-24] MEDS: INSULIN LISPRO 100 UNITS/ML SQ PRN ×4 (06:20→20:56)
[2023-09-24] MEDS: LEVOTHYROXINE SODIUM 112 MCG TABLET PO SCH (06:28)
[2023-09-24] MEDS: MULTIVITAMINS WITH MINERALS, THERAPEUTIC TABLET PO SCH (08:01)
[2023-09-24] MEDS: QUEtiapine FUMARATE 200 MG TABLET PO SCH ×2 (08:01→20:46)
[2023-09-24] MEDS: SitaGLIPtin PHOSPHATE 100 MG TABLET PO SCH (08:01)
[2023-09-24] MEDS: FOLIC ACID 1 MG TABLET PO SCH (08:01)
[2023-09-24] MEDS: EMPAGLIFLOZIN 25 MG TABLET PO SCH (08:01)
[2023-09-24] MEDS: THIAMINE 100 MG TABLET PO SCH (08:01)
[2023-09-24] MEDS: SERTRALINE HCL 100 MG TABLET PO SCH (08:01)
[2023-09-24 08:21] VITALS: BP 105/65; PULSE 88; RESP 18; TEMP 97.8; O2SAT 98
[2023-09-24 11:36] LABS: GLUCOMETER DEV NAME(LOC) BV3S.; GLUCOSE,POINT OF CARE 263 MG/DL (70-110)
[2023-09-24 17:01] LABS: GLUCOMETER DEV NAME(LOC) BV3S.; GLUCOSE,POINT OF CARE 201 MG/DL (70-110)
[2023-09-24 20:34] VITALS: BP 143/85; PULSE 102; RESP 18; TEMP 97.4; O2SAT 95
[2023-09-24 21:06] LABS: GLUCOMETER DEV NAME(LOC) BV3S.; GLUCOSE,POINT OF CARE 246 MG/DL (70-110)
[2023-09-25] MEDS: LEVOTHYROXINE SODIUM 112 MCG TABLET PO SCH (06:24)
[2023-09-25] MEDS: INSULIN LISPRO 100 UNITS/ML SQ PRN ×2 (06:35→21:05)
[2023-09-25 06:46] LABS: GLUCOMETER DEV NAME(LOC) BV3S.; GLUCOSE,POINT OF CARE 169 MG/DL (70-110)
[2023-09-25 08:05] VITALS: BP 109/79; PULSE 88; RESP 18; TEMP 97.7; O2SAT 98
[2023-09-25] MEDS: EMPAGLIFLOZIN 25 MG TABLET PO SCH (08:12)
[2023-09-25] MEDS: SitaGLIPtin PHOSPHATE 100 MG TABLET PO SCH (08:12)
[2023-09-25] MEDS: THIAMINE 100 MG TABLET PO SCH (08:12)
[2023-09-25] MEDS: FOLIC ACID 1 MG TABLET PO SCH (08:12)
[2023-09-25] MEDS: QUEtiapine FUMARATE 200 MG TABLET PO SCH ×2 (08:12→20:10)
[2023-09-25] MEDS: MULTIVITAMINS WITH MINERALS, THERAPEUTIC TABLET PO SCH (08:12)
[2023-09-25] MEDS: SERTRALINE HCL 100 MG TABLET PO SCH (08:12)
[2023-09-25 11:45] LABS: GLUCOMETER DEV NAME(LOC) BV3S.; GLUCOSE,POINT OF CARE 137 MG/DL (70-110)
[2023-09-25 16:52] LABS: GLUCOMETER DEV NAME(LOC) BV3S.; GLUCOSE,POINT OF CARE 131 MG/DL (70-110)
[2023-09-25 20:49] VITALS: BP 103/68; PULSE 89; RESP 18; TEMP 97.8; O2SAT 96
[2023-09-25 21:16] LABS: GLUCOMETER DEV NAME(LOC) BV3S.; GLUCOSE,POINT OF CARE 294 MG/DL (70-110)
[2023-09-26] MEDS: LEVOTHYROXINE SODIUM 112 MCG TABLET PO SCH (06:53)
[2023-09-26 08:18] VITALS: BP 112/69; PULSE 95; RESP 17; TEMP 98; O2SAT 97
[2023-09-26] MEDS: FOLIC ACID 1 MG TABLET PO SCH (08:56)
[2023-09-26] MEDS: SitaGLIPtin PHOSPHATE 100 MG TABLET PO SCH (08:56)
[2023-09-26] MEDS: THIAMINE 100 MG TABLET PO SCH (08:56)
[2023-09-26] MEDS: QUEtiapine FUMARATE 200 MG TABLET PO SCH ×2 (08:56→20:10)
[2023-09-26] MEDS: MULTIVITAMINS WITH MINERALS, THERAPEUTIC TABLET PO SCH (08:56)
[2023-09-26] MEDS: SERTRALINE HCL 100 MG TABLET PO SCH (08:57)
[2023-09-26] MEDS: EMPAGLIFLOZIN 25 MG TABLET PO SCH (08:58)
[2023-09-26] MEDS: INSULIN LISPRO 100 UNITS/ML SQ PRN ×2 (11:35→16:50)
[2023-09-26 11:41] LABS: GLUCOMETER DEV NAME(LOC) BV3S.; GLUCOSE,POINT OF CARE 191 MG/DL (70-110)
[2023-09-26 17:06] LABS: GLUCOMETER DEV NAME(LOC) BV3S.; GLUCOSE,POINT OF CARE 257 MG/DL (70-110)
[2023-09-26 20:34] VITALS: BP 129/69; PULSE 75; RESP 18; TEMP 97.9; O2SAT 97
[2023-09-27] MEDS: LEVOTHYROXINE SODIUM 112 MCG TABLET PO SCH (06:19)
[2023-09-27 06:26] LABS: GLUCOMETER DEV NAME(LOC) BV3S.; GLUCOSE,POINT OF CARE 163 MG/DL (70-110)
[2023-09-27] MEDS: INSULIN LISPRO 100 UNITS/ML SQ PRN ×4 (06:41→20:14)
[2023-09-27] MEDS: SERTRALINE HCL 100 MG TABLET PO SCH (08:27)
[2023-09-27] MEDS: MULTIVITAMINS WITH MINERALS, THERAPEUTIC TABLET PO SCH (08:27)
[2023-09-27] MEDS: FOLIC ACID 1 MG TABLET PO SCH (08:27)
[2023-09-27] MEDS: SitaGLIPtin PHOSPHATE 100 MG TABLET PO SCH (08:28)
[2023-09-27] MEDS: THIAMINE 100 MG TABLET PO SCH (08:28)
[2023-09-27] MEDS: QUEtiapine FUMARATE 200 MG TABLET PO SCH ×2 (08:28→20:09)
[2023-09-27] MEDS: EMPAGLIFLOZIN 25 MG TABLET PO SCH (08:29)
[2023-09-27 08:43] VITALS: BP 121/74; PULSE 79; RESP 16; TEMP 98; O2SAT 99
[2023-09-27 11:52] LABS: GLUCOMETER DEV NAME(LOC) BV3S.; GLUCOSE,POINT OF CARE 179 MG/DL (70-110)
[2023-09-27 17:46] LABS: GLUCOMETER DEV NAME(LOC) BV3S.; GLUCOSE,POINT OF CARE 286 MG/DL (70-110)
[2023-09-27 20:00] VITALS: BP 121/87; PULSE 9; PULSE 94; RESP 18; TEMP 97.7
[2023-09-27 20:05] LABS: GLUCOMETER DEV NAME(LOC) BV3S.; GLUCOSE,POINT OF CARE 233 MG/DL (70-110)
[2023-09-28] MEDS: INSULIN LISPRO 100 UNITS/ML SQ PRN ×4 (06:43→20:22)
[2023-09-28 06:51] LABS: GLUCOMETER DEV NAME(LOC) BV3S.; GLUCOSE,POINT OF CARE 185 MG/DL (70-110)
[2023-09-28] MEDS: LEVOTHYROXINE SODIUM 112 MCG TABLET PO SCH (07:05)
[2023-09-28] MEDS: SitaGLIPtin PHOSPHATE 100 MG TABLET PO SCH (08:18)
[2023-09-28] MEDS: THIAMINE 100 MG TABLET PO SCH (08:19)
[2023-09-28] MEDS: MULTIVITAMINS WITH MINERALS, THERAPEUTIC TABLET PO SCH (08:19)
[2023-09-28] MEDS: QUEtiapine FUMARATE 200 MG TABLET PO SCH ×2 (08:19→21:00)
[2023-09-28] MEDS: SERTRALINE HCL 100 MG TABLET PO SCH (08:19)
[2023-09-28] MEDS: EMPAGLIFLOZIN 25 MG TABLET PO SCH (08:19)
[2023-09-28] MEDS: FOLIC ACID 1 MG TABLET PO SCH (08:19)
[2023-09-28 08:20] VITALS: RESP 18
[2023-09-28 11:42] LABS: GLUCOMETER DEV NAME(LOC) BV3S.; GLUCOSE,POINT OF CARE 151 MG/DL (70-110)
[2023-09-28 17:11] LABS: GLUCOMETER DEV NAME(LOC) BV3S.; GLUCOSE,POINT OF CARE 166 MG/DL (70-110)
[2023-09-28 20:32] LABS: GLUCOMETER DEV NAME(LOC) BV3S.; GLUCOSE,POINT OF CARE 278 MG/DL (70-110)
[2023-09-29 03:58] VITALS: BP 118/72; RESP 18; TEMP 97.6
[2023-09-29 06:46] LABS: GLUCOMETER DEV NAME(LOC) BV3S.; GLUCOSE,POINT OF CARE 150 MG/DL (70-110)
[2023-09-29] MEDS: INSULIN LISPRO 100 UNITS/ML SQ PRN ×4 (06:47→20:57)
[2023-09-29] MEDS: LEVOTHYROXINE SODIUM 112 MCG TABLET PO SCH (06:48)
[2023-09-29] MEDS: SERTRALINE HCL 100 MG TABLET PO SCH (08:12)
[2023-09-29] MEDS: FOLIC ACID 1 MG TABLET PO SCH (08:12)
[2023-09-29] MEDS: THIAMINE 100 MG TABLET PO SCH (08:12)
[2023-09-29] MEDS: QUEtiapine FUMARATE 200 MG TABLET PO SCH ×2 (08:12→20:05)
[2023-09-29] MEDS: SitaGLIPtin PHOSPHATE 100 MG TABLET PO SCH (08:12)
[2023-09-29] MEDS: MULTIVITAMINS WITH MINERALS, THERAPEUTIC TABLET PO SCH (08:14)
[2023-09-29] MEDS: EMPAGLIFLOZIN 25 MG TABLET PO SCH (08:16)
[2023-09-29 08:21] VITALS: RESP 16
[2023-09-29 11:36] LABS: GLUCOMETER DEV NAME(LOC) BV3S.; GLUCOSE,POINT OF CARE 158 MG/DL (70-110)
[2023-09-29 16:45] LABS: GLUCOMETER DEV NAME(LOC) BV3S.; GLUCOSE,POINT OF CARE 252 MG/DL (70-110)
[2023-09-29 20:16] VITALS: BP 108/69; PULSE 98; RESP 19; TEMP 97.6
[2023-09-29 21:06] LABS: GLUCOMETER DEV NAME(LOC) BV3S.; GLUCOSE,POINT OF CARE 233 MG/DL (70-110)
[2023-09-30] MEDS: INSULIN LISPRO 100 UNITS/ML SQ PRN ×3 (06:24→20:46)
[2023-09-30] MEDS: LEVOTHYROXINE SODIUM 112 MCG TABLET PO SCH (06:26)
[2023-09-30 06:36] LABS: GLUCOMETER DEV NAME(LOC) BV3S.; GLUCOSE,POINT OF CARE 154 MG/DL (70-110)
[2023-09-30 08:08] VITALS: BP 117/70; PULSE 98; RESP 16; TEMP 97.6; O2SAT 97
[2023-09-30] MEDS: SitaGLIPtin PHOSPHATE 100 MG TABLET PO SCH (08:26)
[2023-09-30] MEDS: MULTIVITAMINS WITH MINERALS, THERAPEUTIC TABLET PO SCH (08:26)
[2023-09-30] MEDS: FOLIC ACID 1 MG TABLET PO SCH (08:26)
[2023-09-30] MEDS: SERTRALINE HCL 100 MG TABLET PO SCH (08:26)
[2023-09-30] MEDS: THIAMINE 100 MG TABLET PO SCH (08:26)
[2023-09-30] MEDS: QUEtiapine FUMARATE 200 MG TABLET PO SCH ×2 (08:26→20:01)
[2023-09-30] MEDS: EMPAGLIFLOZIN 25 MG TABLET PO SCH (08:32)
[2023-09-30 11:36] LABS: GLUCOMETER DEV NAME(LOC) BV3S.; GLUCOSE,POINT OF CARE 128 MG/DL (70-110)
[2023-09-30 17:26] LABS: GLUCOMETER DEV NAME(LOC) BV3S.; GLUCOSE,POINT OF CARE 316 MG/DL (70-110)
[2023-09-30 20:09] VITALS: BP 104/69; PULSE 100; RESP 18; TEMP 97.6; O2SAT 98
[2023-09-30 21:11] LABS: GLUCOMETER DEV NAME(LOC) BV3S.; GLUCOSE,POINT OF CARE 316 MG/DL (70-110)
[2023-10-01] MEDS: LEVOTHYROXINE SODIUM 112 MCG TABLET PO SCH (06:28)
[2023-10-01] MEDS: INSULIN LISPRO 100 UNITS/ML SQ PRN ×4 (06:41→20:22)
[2023-10-01 06:51] LABS: GLUCOMETER DEV NAME(LOC) BV3S.; GLUCOSE,POINT OF CARE 191 MG/DL (70-110)
[2023-10-01] MEDS: THIAMINE 100 MG TABLET PO SCH (08:06)
[2023-10-01] MEDS: SitaGLIPtin PHOSPHATE 100 MG TABLET PO SCH (08:06)
[2023-10-01] MEDS: MULTIVITAMINS WITH MINERALS, THERAPEUTIC TABLET PO SCH (08:06)
[2023-10-01] MEDS: SERTRALINE HCL 100 MG TABLET PO SCH (08:06)
[2023-10-01] MEDS: FOLIC ACID 1 MG TABLET PO SCH (08:07)
[2023-10-01] MEDS: QUEtiapine FUMARATE 200 MG TABLET PO SCH ×2 (08:07→20:14)
[2023-10-01 08:13] VITALS: BP 104/61; PULSE 99; RESP 16; TEMP 98.7; O2SAT 96
[2023-10-01] MEDS: EMPAGLIFLOZIN 25 MG TABLET PO SCH (09:46)
[2023-10-01 11:56] LABS: GLUCOMETER DEV NAME(LOC) BV3S.; GLUCOSE,POINT OF CARE 167 MG/DL (70-110)
[2023-10-01 16:56] LABS: GLUCOMETER DEV NAME(LOC) BV3S.; GLUCOSE,POINT OF CARE 277 MG/DL (70-110)
[2023-10-01 16:59] VITALS: BP 115/72; PULSE 105; RESP 18; TEMP 97.7; O2SAT 95
[2023-10-01 19:56] LABS: GLUCOMETER DEV NAME(LOC) BV3S.; GLUCOSE,POINT OF CARE 251 MG/DL (70-110)
[2023-10-01 20:15] VITALS: BP 113/70; PULSE 95; RESP 18; TEMP 97.4; O2SAT 97
[2023-10-02] MEDS: LEVOTHYROXINE SODIUM 112 MCG TABLET PO SCH (06:38)
[2023-10-02] MEDS: INSULIN LISPRO 100 UNITS/ML SQ PRN ×4 (06:45→20:42)
[2023-10-02 06:46] LABS: GLUCOMETER DEV NAME(LOC) BV3S.; GLUCOSE,POINT OF CARE 174 MG/DL (70-110)
[2023-10-02] MEDS: SitaGLIPtin PHOSPHATE 100 MG TABLET PO SCH (08:20)
[2023-10-02] MEDS: SERTRALINE HCL 100 MG TABLET PO SCH (08:21)
[2023-10-02] MEDS: FOLIC ACID 1 MG TABLET PO SCH (08:21)
[2023-10-02] MEDS: QUEtiapine FUMARATE 200 MG TABLET PO SCH ×2 (08:21→20:39)
[2023-10-02] MEDS: MULTIVITAMINS WITH MINERALS, THERAPEUTIC TABLET PO SCH (08:21)
[2023-10-02] MEDS: THIAMINE 100 MG TABLET PO SCH (08:21)
[2023-10-02] MEDS: EMPAGLIFLOZIN 25 MG TABLET PO SCH (08:24)
[2023-10-02 11:36] LABS: GLUCOMETER DEV NAME(LOC) BV3S.; GLUCOSE,POINT OF CARE 169 MG/DL (70-110)
[2023-10-02 16:41] LABS: GLUCOMETER DEV NAME(LOC) BV3S.; GLUCOSE,POINT OF CARE 241 MG/DL (70-110)
[2023-10-02 20:07] VITALS: BP 123/82; PULSE 95; RESP 18; TEMP 96.7; O2SAT 97
[2023-10-02 20:41] LABS: GLUCOMETER DEV NAME(LOC) BV3S.; GLUCOSE,POINT OF CARE 193 MG/DL (70-110)
[2023-10-03 06:16] LABS: GLUCOMETER DEV NAME(LOC) BV3S.; GLUCOSE,POINT OF CARE 192 MG/DL (70-110)
[2023-10-03] MEDS: LEVOTHYROXINE SODIUM 112 MCG TABLET PO SCH (06:17)
[2023-10-03] MEDS: INSULIN LISPRO 100 UNITS/ML SQ PRN ×3 (06:19→21:50)
[2023-10-03 08:10] VITALS: BP 108/73; PULSE 100; RESP 16; TEMP 97.8; O2SAT 96
[2023-10-03] MEDS: QUEtiapine FUMARATE 200 MG TABLET PO SCH ×2 (08:11→20:16)
[2023-10-03] MEDS: SERTRALINE HCL 100 MG TABLET PO SCH (08:11)
[2023-10-03] MEDS: FOLIC ACID 1 MG TABLET PO SCH (08:11)
[2023-10-03] MEDS: EMPAGLIFLOZIN 25 MG TABLET PO SCH (08:11)
[2023-10-03] MEDS: SitaGLIPtin PHOSPHATE 100 MG TABLET PO SCH (08:11)
[2023-10-03] MEDS: THIAMINE 100 MG TABLET PO SCH (08:11)
[2023-10-03] MEDS: MULTIVITAMINS WITH MINERALS, THERAPEUTIC TABLET PO SCH (10:14)
[2023-10-03 17:06] LABS: GLUCOMETER DEV NAME(LOC) BV3S.; GLUCOSE,POINT OF CARE 202 MG/DL (70-110)
[2023-10-03 21:33] VITALS: BP 128/79; PULSE 106; RESP 17; TEMP 97.6; O2SAT 97
[2023-10-03 22:01] LABS: GLUCOMETER DEV NAME(LOC) BV3S.; GLUCOSE,POINT OF CARE 268 MG/DL (70-110)
[2023-10-04 06:36] LABS: GLUCOMETER DEV NAME(LOC) BV3S.; GLUCOSE,POINT OF CARE 245 MG/DL (70-110)
[2023-10-04] MEDS: LEVOTHYROXINE SODIUM 112 MCG TABLET PO SCH (06:36)
[2023-10-04] MEDS: INSULIN LISPRO 100 UNITS/ML SQ PRN ×4 (06:41→21:33)
[2023-10-04] MEDS: FOLIC ACID 1 MG TABLET PO SCH (08:29)
[2023-10-04] MEDS: EMPAGLIFLOZIN 25 MG TABLET PO SCH (08:30)
[2023-10-04] MEDS: QUEtiapine FUMARATE 200 MG TABLET PO SCH ×2 (08:30→20:19)
[2023-10-04] MEDS: SitaGLIPtin PHOSPHATE 100 MG TABLET PO SCH (08:30)
[2023-10-04] MEDS: MULTIVITAMINS WITH MINERALS, THERAPEUTIC TABLET PO SCH (08:30)
[2023-10-04] MEDS: SERTRALINE HCL 100 MG TABLET PO SCH (08:30)
[2023-10-04] MEDS: THIAMINE 100 MG TABLET PO SCH (08:30)
[2023-10-04 08:49] VITALS: BP 99/61; PULSE 100; RESP 17; TEMP 97.3; O2SAT 96
[2023-10-04 12:06] LABS: GLUCOMETER DEV NAME(LOC) BV3S.; GLUCOSE,POINT OF CARE 164 MG/DL (70-110)
[2023-10-04 16:46] LABS: GLUCOMETER DEV NAME(LOC) BV3S.; GLUCOSE,POINT OF CARE 288 MG/DL (70-110)
[2023-10-04 20:07] VITALS: BP 102/68; PULSE 90; RESP 18; TEMP 98.5; O2SAT 97
[2023-10-04 20:32] LABS: GLUCOMETER DEV NAME(LOC) BV3S.; GLUCOSE,POINT OF CARE 214 MG/DL (70-110)
[2023-10-05 06:02] LABS: GLUCOMETER DEV NAME(LOC) BV3S.; GLUCOSE,POINT OF CARE 181 MG/DL (70-110)
[2023-10-05] MEDS: INSULIN LISPRO 100 UNITS/ML SQ PRN ×4 (06:24→20:13)
[2023-10-05] MEDS: LEVOTHYROXINE SODIUM 112 MCG TABLET PO SCH (06:59)
[2023-10-05 07:55] LABS: PH,URINE DRUG SCREEN 6.5 (5.0-8.0)
[2023-10-05 08:02] LABS: ALCOHOL, URINE DRUG SCREEN NEGATIVE (NEGATIVE); AMPHET/METH SCREEN,URINE NEGATIVE (NEGATIVE); BARBITURATE SCREEN, URINE NEGATIVE (NEGATIVE); BENZODIAZEPINES SCREEN,URINE NEGATIVE (NEGATIVE); CANNABINOID SCREEN,URINE NEGATIVE (NEGATIVE); COCAINE SCREEN,URINE NEGATIVE (NEGATIVE); METHADONE SCREEN, URINE NEGATIVE (NEGATIVE); OPIATE SCREEN,URINE NEGATIVE (NEGATIVE); PHENCYCLIDINE SCREEN,URINE NEGATIVE (NEGATIVE)
[2023-10-05 08:28] VITALS: BP 123/81; PULSE 84; RESP 16; TEMP 98.2; O2SAT 97
[2023-10-05] MEDS: SitaGLIPtin PHOSPHATE 100 MG TABLET PO SCH (08:39)
[2023-10-05] MEDS: MULTIVITAMINS WITH MINERALS, THERAPEUTIC TABLET PO SCH (08:39)
[2023-10-05] MEDS: EMPAGLIFLOZIN 25 MG TABLET PO SCH (08:39)
[2023-10-05] MEDS: SERTRALINE HCL 100 MG TABLET PO SCH (08:39)
[2023-10-05] MEDS: QUEtiapine FUMARATE 200 MG TABLET PO SCH ×2 (08:39→20:30)
[2023-10-05] MEDS: THIAMINE 100 MG TABLET PO SCH (08:39)
[2023-10-05] MEDS: FOLIC ACID 1 MG TABLET PO SCH (08:39)
[2023-10-05 12:06] LABS: GLUCOMETER DEV NAME(LOC) BV3S.; GLUCOSE,POINT OF CARE 186 MG/DL (70-110)
[2023-10-05 17:01] LABS: GLUCOMETER DEV NAME(LOC) BV3S.; GLUCOSE,POINT OF CARE 232 MG/DL (70-110)
[2023-10-05] MEDS: HALOPERIDOL 5 MG TABLET PO PRN (17:42)
[2023-10-05 20:03] VITALS: BP 118/78; PULSE 89; RESP 17; TEMP 97.8
[2023-10-06] MEDS: LEVOTHYROXINE SODIUM 112 MCG TABLET PO SCH (06:18)
[2023-10-06] MEDS: INSULIN LISPRO 100 UNITS/ML SQ PRN ×4 (06:31→20:20)
[2023-10-06 06:36] LABS: GLUCOMETER DEV NAME(LOC) BV3S.; GLUCOSE,POINT OF CARE 238 MG/DL (70-110)
[2023-10-06] MEDS: SitaGLIPtin PHOSPHATE 100 MG TABLET PO SCH (08:10)
[2023-10-06] MEDS: QUEtiapine FUMARATE 200 MG TABLET PO SCH ×2 (08:10→20:11)
[2023-10-06] MEDS: EMPAGLIFLOZIN 25 MG TABLET PO SCH (08:10)
[2023-10-06] MEDS: THIAMINE 100 MG TABLET PO SCH (08:10)
[2023-10-06] MEDS: FOLIC ACID 1 MG TABLET PO SCH (08:10)
[2023-10-06] MEDS: MULTIVITAMINS WITH MINERALS, THERAPEUTIC TABLET PO SCH (08:10)
[2023-10-06] MEDS: SERTRALINE HCL 100 MG TABLET PO SCH (08:10)
[2023-10-06 10:09] VITALS: BP 120/79; PULSE 82; RESP 16; TEMP 98; O2SAT 98
[2023-10-06 11:36] LABS: GLUCOMETER DEV NAME(LOC) BV3S.; GLUCOSE,POINT OF CARE 196 MG/DL (70-110)
[2023-10-06 16:31] LABS: GLUCOMETER DEV NAME(LOC) BV3S.; GLUCOSE,POINT OF CARE 264 MG/DL (70-110)
[2023-10-06 20:25] VITALS: BP 128/84; PULSE 105; RESP 18; TEMP 97.6; O2SAT 97
[2023-10-06 20:32] LABS: GLUCOMETER DEV NAME(LOC) BV3S.; GLUCOSE,POINT OF CARE 221 MG/DL (70-110)
[2023-10-07] MEDS: LEVOTHYROXINE SODIUM 112 MCG TABLET PO SCH (06:26)
[2023-10-07 06:31] LABS: GLUCOMETER DEV NAME(LOC) BV3S.; GLUCOSE,POINT OF CARE 217 MG/DL (70-110)
[2023-10-07] MEDS: INSULIN LISPRO 100 UNITS/ML SQ PRN ×4 (06:35→20:30)
[2023-10-07] MEDS: SERTRALINE HCL 100 MG TABLET PO SCH (08:15)
[2023-10-07] MEDS: FOLIC ACID 1 MG TABLET PO SCH (08:15)
[2023-10-07] MEDS: THIAMINE 100 MG TABLET PO SCH (08:15)
[2023-10-07] MEDS: MULTIVITAMINS WITH MINERALS, THERAPEUTIC TABLET PO SCH (08:15)
[2023-10-07] MEDS: SitaGLIPtin PHOSPHATE 100 MG TABLET PO SCH (08:15)
[2023-10-07] MEDS: QUEtiapine FUMARATE 200 MG TABLET PO SCH ×2 (08:15→20:20)
[2023-10-07] MEDS: EMPAGLIFLOZIN 25 MG TABLET PO SCH (08:15)
[2023-10-07 08:32] VITALS: BP 123/78; PULSE 92; RESP 16; TEMP 98; O2SAT 98
[2023-10-07 11:46] LABS: GLUCOMETER DEV NAME(LOC) BV3S.; GLUCOSE,POINT OF CARE 182 MG/DL (70-110)
[2023-10-07 16:56] LABS: GLUCOMETER DEV NAME(LOC) BV3S.; GLUCOSE,POINT OF CARE 213 MG/DL (70-110)
[2023-10-07 20:00] VITALS: BP 123/79; PULSE 100; RESP 18; TEMP 97.6; O2SAT 98
[2023-10-07 20:41] LABS: GLUCOMETER DEV NAME(LOC) BV3S.; GLUCOSE,POINT OF CARE 213 MG/DL (70-110)
[2023-10-08] MEDS: LEVOTHYROXINE SODIUM 112 MCG TABLET PO SCH (06:43)
[2023-10-08] MEDS: INSULIN LISPRO 100 UNITS/ML SQ PRN ×4 (06:44→21:37)
[2023-10-08 07:26] LABS: GLUCOMETER DEV NAME(LOC) BV3S.; GLUCOSE,POINT OF CARE 185 MG/DL (70-110)
[2023-10-08] MEDS: SERTRALINE HCL 100 MG TABLET PO SCH (08:28)
[2023-10-08] MEDS: EMPAGLIFLOZIN 25 MG TABLET PO SCH (08:28)
[2023-10-08] MEDS: QUEtiapine FUMARATE 200 MG TABLET PO SCH ×2 (08:28→20:06)
[2023-10-08] MEDS: SitaGLIPtin PHOSPHATE 100 MG TABLET PO SCH (08:28)
[2023-10-08] MEDS: THIAMINE 100 MG TABLET PO SCH (08:28)
[2023-10-08] MEDS: FOLIC ACID 1 MG TABLET PO SCH (08:28)
[2023-10-08] MEDS: MULTIVITAMINS WITH MINERALS, THERAPEUTIC TABLET PO SCH (08:28)
[2023-10-08 08:38] VITALS: BP 123/81; PULSE 100; RESP 17; TEMP 97; O2SAT 97
[2023-10-08 11:36] LABS: GLUCOMETER DEV NAME(LOC) BV3S.; GLUCOSE,POINT OF CARE 280 MG/DL (70-110)
[2023-10-08 17:01] LABS: GLUCOMETER DEV NAME(LOC) BV3S.; GLUCOSE,POINT OF CARE 247 MG/DL (70-110)
[2023-10-08 20:30] VITALS: BP 100/64; PULSE 100; RESP 18; TEMP 97.7; O2SAT 98
[2023-10-08 21:36] LABS: GLUCOMETER DEV NAME(LOC) BV3S.; GLUCOSE,POINT OF CARE 194 MG/DL (70-110)
[2023-10-09] MEDS: LEVOTHYROXINE SODIUM 112 MCG TABLET PO SCH (06:27)
[2023-10-09 06:36] LABS: GLUCOMETER DEV NAME(LOC) BV3S.; GLUCOSE,POINT OF CARE 179 MG/DL (70-110)
[2023-10-09] MEDS: INSULIN LISPRO 100 UNITS/ML SQ PRN ×4 (06:40→21:46)
[2023-10-09] MEDS: QUEtiapine FUMARATE 200 MG TABLET PO SCH ×2 (08:27→20:09)
[2023-10-09] MEDS: THIAMINE 100 MG TABLET PO SCH (08:27)
[2023-10-09] MEDS: FOLIC ACID 1 MG TABLET PO SCH (08:27)
[2023-10-09] MEDS: EMPAGLIFLOZIN 25 MG TABLET PO SCH (08:27)
[2023-10-09] MEDS: SERTRALINE HCL 100 MG TABLET PO SCH (08:27)
[2023-10-09] MEDS: MULTIVITAMINS WITH MINERALS, THERAPEUTIC TABLET PO SCH (08:27)
[2023-10-09] MEDS: SitaGLIPtin PHOSPHATE 100 MG TABLET PO SCH (08:27)
[2023-10-09 08:58] VITALS: BP 131/93; PULSE 79; RESP 16; TEMP 97.5; O2SAT 96
[2023-10-09 12:16] LABS: GLUCOMETER DEV NAME(LOC) BV3S.; GLUCOSE,POINT OF CARE 144 MG/DL (70-110)
[2023-10-09 17:01] LABS: GLUCOMETER DEV NAME(LOC) BV3S.; GLUCOSE,POINT OF CARE 144 MG/DL (70-110)
[2023-10-09 20:15] VITALS: BP 117/80; PULSE 73; RESP 18; TEMP 97.2; O2SAT 99
[2023-10-09 21:56] LABS: GLUCOMETER DEV NAME(LOC) BV3S.; GLUCOSE,POINT OF CARE 316 MG/DL (70-110)
[2023-10-10] MEDS: LEVOTHYROXINE SODIUM 112 MCG TABLET PO SCH (06:22)
[2023-10-10 06:26] LABS: GLUCOMETER DEV NAME(LOC) BV3S.; GLUCOSE,POINT OF CARE 177 MG/DL (70-110)
[2023-10-10] MEDS: INSULIN LISPRO 100 UNITS/ML SQ PRN ×4 (06:34→20:34)
[2023-10-10 08:19] VITALS: BP 110/76; PULSE 86; RESP 16; TEMP 97.9; O2SAT 97
[2023-10-10 08:34] LABS: APPEARANCE,URINE CLEAR (CLEAR); BILIRUBIN,URINE NEGATIVE (NEGATIVE); COLOR,URINE LIGHT YELLOW (YELLOW); GLUCOSE, URINE (UA) >=1000 mg/dL (NEGATIVE); KETONES,URINE NEGATIVE (NEGATIVE); LEUKOCYTE ESTERASE ,URINE SMALL (NEGATIVE); NITRATE,URINE NEGATIVE (NEGATIVE); OCCULT BLOOD,URINE SMALL (NEGATIVE); PH,URINE 5.5 (5.0-8.0); PROTEIN,URINE NEGATIVE (NEGATIVE); SPECIFIC GRAVITIY, URINE 1.036 (1.003-1.030); UROBILINOGEN,URINE <=1.0 mg/dL (<=1.0)
[2023-10-10 08:56] LABS: BACTERIA,URINE None Seen /HPF (None Seen); SQUAMOUS EPITHELIAL CELL,UR Few /LPF (None Seen); WBC,URINE 0-2 /HPF (0-5)
[2023-10-10] MEDS: SERTRALINE HCL 100 MG TABLET PO SCH (10:42)
[2023-10-10] MEDS: FOLIC ACID 1 MG TABLET PO SCH (10:43)
[2023-10-10] MEDS: QUEtiapine FUMARATE 200 MG TABLET PO SCH ×2 (10:43→20:13)
[2023-10-10] MEDS: SitaGLIPtin PHOSPHATE 100 MG TABLET PO SCH (10:43)
[2023-10-10] MEDS: MULTIVITAMINS WITH MINERALS, THERAPEUTIC TABLET PO SCH (10:43)
[2023-10-10] MEDS: EMPAGLIFLOZIN 25 MG TABLET PO SCH (10:43)
[2023-10-10] MEDS: THIAMINE 100 MG TABLET PO SCH (10:43)
[2023-10-10 11:21] LABS: GLUCOMETER DEV NAME(LOC) BV3S.; GLUCOSE,POINT OF CARE 212 MG/DL (70-110)
[2023-10-10 17:06] LABS: GLUCOMETER DEV NAME(LOC) BV3S.; GLUCOSE,POINT OF CARE 299 MG/DL (70-110)
[2023-10-10 20:26] LABS: GLUCOMETER DEV NAME(LOC) BV3S.; GLUCOSE,POINT OF CARE 334 MG/DL (70-110)
[2023-10-10 22:25] VITALS: RESP 18; TEMP 98
[2023-10-11] MEDS: LEVOTHYROXINE SODIUM 112 MCG TABLET PO SCH (06:50)
[2023-10-11] MEDS: INSULIN LISPRO 100 UNITS/ML SQ PRN ×4 (06:53→20:56)
[2023-10-11 06:56] LABS: GLUCOMETER DEV NAME(LOC) BV3S.; GLUCOSE,POINT OF CARE 214 MG/DL (70-110)
[2023-10-11 08:17] VITALS: BP 137/89; PULSE 100; RESP 18; TEMP 98; O2SAT 96
[2023-10-11] MEDS: EMPAGLIFLOZIN 25 MG TABLET PO SCH (08:26)
[2023-10-11] MEDS: QUEtiapine FUMARATE 200 MG TABLET PO SCH ×2 (08:26→20:03)
[2023-10-11] MEDS: MULTIVITAMINS WITH MINERALS, THERAPEUTIC TABLET PO SCH (08:26)
[2023-10-11] MEDS: SitaGLIPtin PHOSPHATE 100 MG TABLET PO SCH (08:26)
[2023-10-11] MEDS: FOLIC ACID 1 MG TABLET PO SCH (08:26)
[2023-10-11] MEDS: THIAMINE 100 MG TABLET PO SCH (08:26)
[2023-10-11] MEDS: SERTRALINE HCL 100 MG TABLET PO SCH (08:26)
[2023-10-11 11:42] LABS: GLUCOMETER DEV NAME(LOC) BV3S.; GLUCOSE,POINT OF CARE 191 MG/DL (70-110)
[2023-10-11 16:26] LABS: GLUCOMETER DEV NAME(LOC) BV3S.; GLUCOSE,POINT OF CARE 255 MG/DL (70-110)
[2023-10-11 21:01] LABS: GLUCOMETER DEV NAME(LOC) BV3S.; GLUCOSE,POINT OF CARE 211 MG/DL (70-110)
[2023-10-11 22:11] VITALS: BP 107/66; PULSE 96; RESP 18; TEMP 97.8
[2023-10-12] MEDS: LEVOTHYROXINE SODIUM 112 MCG TABLET PO SCH (06:33)
[2023-10-12] MEDS: SitaGLIPtin PHOSPHATE 100 MG TABLET PO SCH (08:26)
[2023-10-12] MEDS: THIAMINE 100 MG TABLET PO SCH (08:27)
[2023-10-12] MEDS: MULTIVITAMINS WITH MINERALS, THERAPEUTIC TABLET PO SCH (08:27)
[2023-10-12] MEDS: SERTRALINE HCL 100 MG TABLET PO SCH (08:27)
[2023-10-12] MEDS: FOLIC ACID 1 MG TABLET PO SCH (08:27)
[2023-10-12] MEDS: QUEtiapine FUMARATE 200 MG TABLET PO SCH ×2 (08:27→20:54)
[2023-10-12 08:28] VITALS: BP 106/67; PULSE 96; RESP 17; TEMP 97.4; O2SAT 97
[2023-10-12] MEDS: EMPAGLIFLOZIN 25 MG TABLET PO SCH (08:29)
[2023-10-12] MEDS: INSULIN LISPRO 100 UNITS/ML SQ PRN ×3 (11:49→21:35)
[2023-10-12 11:55] LABS: GLUCOMETER DEV NAME(LOC) BV3S.; GLUCOSE,POINT OF CARE 264 MG/DL (70-110)
[2023-10-12 17:40] LABS: GLUCOMETER DEV NAME(LOC) BV3S.; GLUCOSE,POINT OF CARE 315 MG/DL (70-110)
[2023-10-12 20:46] VITALS: BP 102/53; PULSE 110; RESP 18; TEMP 97.7; O2SAT 96
[2023-10-12 21:41] LABS: GLUCOMETER DEV NAME(LOC) BV3S.; GLUCOSE,POINT OF CARE 209 MG/DL (70-110)
[2023-10-13] MEDS: LEVOTHYROXINE SODIUM 112 MCG TABLET PO SCH (06:52)
[2023-10-13] MEDS: INSULIN LISPRO 100 UNITS/ML SQ PRN ×4 (06:53→20:29)
[2023-10-13 07:06] LABS: GLUCOMETER DEV NAME(LOC) BV3S.; GLUCOSE,POINT OF CARE 186 MG/DL (70-110)
[2023-10-13] MEDS: FOLIC ACID 1 MG TABLET PO SCH (08:51)
[2023-10-13] MEDS: MULTIVITAMINS WITH MINERALS, THERAPEUTIC TABLET PO SCH (08:51)
[2023-10-13] MEDS: SERTRALINE HCL 100 MG TABLET PO SCH (08:51)
[2023-10-13] MEDS: THIAMINE 100 MG TABLET PO SCH (08:51)
[2023-10-13] MEDS: SitaGLIPtin PHOSPHATE 100 MG TABLET PO SCH (08:51)
[2023-10-13] MEDS: QUEtiapine FUMARATE 200 MG TABLET PO SCH ×2 (08:51→20:26)
[2023-10-13] MEDS: EMPAGLIFLOZIN 25 MG TABLET PO SCH (08:51)
[2023-10-13 11:51] LABS: GLUCOMETER DEV NAME(LOC) BV3S.; GLUCOSE,POINT OF CARE 171 MG/DL (70-110)
[2023-10-13] MEDS ORDERED: INFLUENZA VIRUS VACCINE QVS 2023-24 (6MO+)/PF 60 MCG/0.5 ML SYRINGE IM. ONE (14:00)
[2023-10-13 16:46] LABS: GLUCOMETER DEV NAME(LOC) BV3S.; GLUCOSE,POINT OF CARE 156 MG/DL (70-110)
[2023-10-13 20:11] LABS: GLUCOMETER DEV NAME(LOC) BV3S.; GLUCOSE,POINT OF CARE 232 MG/DL (70-110)
[2023-10-13 21:02] VITALS: BP 102/69; PULSE 100; RESP 18; TEMP 96.7; O2SAT 98
[2023-10-14] MEDS: LEVOTHYROXINE SODIUM 112 MCG TABLET PO SCH (06:23)
[2023-10-14 06:26] LABS: GLUCOMETER DEV NAME(LOC) BV3S.; GLUCOSE,POINT OF CARE 168 MG/DL (70-110)
[2023-10-14] MEDS: INSULIN LISPRO 100 UNITS/ML SQ PRN ×4 (06:28→20:21)
[2023-10-14] MEDS: SitaGLIPtin PHOSPHATE 100 MG TABLET PO SCH (07:56)
[2023-10-14] MEDS: THIAMINE 100 MG TABLET PO SCH (07:56)
[2023-10-14] MEDS: FOLIC ACID 1 MG TABLET PO SCH (07:56)
[2023-10-14] MEDS: EMPAGLIFLOZIN 25 MG TABLET PO SCH (07:56)
[2023-10-14] MEDS: MULTIVITAMINS WITH MINERALS, THERAPEUTIC TABLET PO SCH (07:58)
[2023-10-14] MEDS: SERTRALINE HCL 100 MG TABLET PO SCH (07:58)
[2023-10-14] MEDS: QUEtiapine FUMARATE 200 MG TABLET PO SCH ×2 (07:58→20:20)
[2023-10-14 08:06] VITALS: BP 101/67; PULSE 90; RESP 17; TEMP 97.6; O2SAT 97
[2023-10-14 11:22] LABS: GLUCOMETER DEV NAME(LOC) BV3S.; GLUCOSE,POINT OF CARE 192 MG/DL (70-110)
[2023-10-14 16:25] LABS: GLUCOMETER DEV NAME(LOC) BV3S.; GLUCOSE,POINT OF CARE 278 MG/DL (70-110)
[2023-10-14 20:32] VITALS: BP 133/88; PULSE 93; RESP 17; TEMP 97.9; O2SAT 95
[2023-10-14 20:36] LABS: GLUCOMETER DEV NAME(LOC) BV3S.; GLUCOSE,POINT OF CARE 190 MG/DL (70-110)
[2023-10-15] MEDS: INSULIN LISPRO 100 UNITS/ML SQ PRN ×4 (06:15→20:20)
[2023-10-15] MEDS: LEVOTHYROXINE SODIUM 112 MCG TABLET PO SCH (06:16)
[2023-10-15 06:21] LABS: GLUCOMETER DEV NAME(LOC) BV3S.; GLUCOSE,POINT OF CARE 165 MG/DL (70-110)
[2023-10-15 08:07] VITALS: BP 102/68; PULSE 84; RESP 18; TEMP 98; O2SAT 97
[2023-10-15] MEDS: SitaGLIPtin PHOSPHATE 100 MG TABLET PO SCH (08:18)
[2023-10-15] MEDS: MULTIVITAMINS WITH MINERALS, THERAPEUTIC TABLET PO SCH (08:18)
[2023-10-15] MEDS: FOLIC ACID 1 MG TABLET PO SCH (08:18)
[2023-10-15] MEDS: QUEtiapine FUMARATE 200 MG TABLET PO SCH ×2 (08:18→20:11)
[2023-10-15] MEDS: THIAMINE 100 MG TABLET PO SCH (08:19)
[2023-10-15] MEDS: SERTRALINE HCL 100 MG TABLET PO SCH (08:19)
[2023-10-15] MEDS: EMPAGLIFLOZIN 25 MG TABLET PO SCH (08:21)
[2023-10-15 11:46] LABS: GLUCOMETER DEV NAME(LOC) BV3S.; GLUCOSE,POINT OF CARE 151 MG/DL (70-110)
[2023-10-15 17:01] LABS: GLUCOMETER DEV NAME(LOC) BV3S.; GLUCOSE,POINT OF CARE 227 MG/DL (70-110)
[2023-10-15 20:00] VITALS: BP 109/70; PULSE 99; RESP 18; TEMP 97.5; O2SAT 97
[2023-10-15 20:31] LABS: GLUCOMETER DEV NAME(LOC) BV3S.; GLUCOSE,POINT OF CARE 181 MG/DL (70-110)
[2023-10-16] MEDS: LEVOTHYROXINE SODIUM 112 MCG TABLET PO SCH (06:01)
[2023-10-16] MEDS: INSULIN LISPRO 100 UNITS/ML SQ PRN ×4 (06:10→20:39)
[2023-10-16 06:21] LABS: GLUCOMETER DEV NAME(LOC) BV3S.; GLUCOSE,POINT OF CARE 182 MG/DL (70-110)
[2023-10-16] MEDS: QUEtiapine FUMARATE 200 MG TABLET PO SCH ×2 (08:05→20:32)
[2023-10-16] MEDS: FOLIC ACID 1 MG TABLET PO SCH (08:05)
[2023-10-16 08:06] VITALS: BP 100/65; PULSE 70; RESP 16; TEMP 98; O2SAT 96
[2023-10-16] MEDS: SERTRALINE HCL 100 MG TABLET PO SCH (08:06)
[2023-10-16] MEDS: SitaGLIPtin PHOSPHATE 100 MG TABLET PO SCH (08:06)
[2023-10-16] MEDS: EMPAGLIFLOZIN 25 MG TABLET PO SCH (08:06)
[2023-10-16] MEDS: MULTIVITAMINS WITH MINERALS, THERAPEUTIC TABLET PO SCH (08:09)
[2023-10-16] MEDS: THIAMINE 100 MG TABLET PO SCH (08:09)
[2023-10-16 11:16] LABS: GLUCOMETER DEV NAME(LOC) BV3S.; GLUCOSE,POINT OF CARE 200 MG/DL (70-110)
[2023-10-16 16:46] LABS: GLUCOMETER DEV NAME(LOC) BV3S.; GLUCOSE,POINT OF CARE 242 MG/DL (70-110)
[2023-10-16 20:27] LABS: GLUCOMETER DEV NAME(LOC) BV3S.; GLUCOSE,POINT OF CARE 184 MG/DL (70-110)
[2023-10-17 05:06] VITALS: RESP 18; TEMP 98
[2023-10-17] MEDS: LEVOTHYROXINE SODIUM 112 MCG TABLET PO SCH (06:39)
[2023-10-17 06:51] LABS: GLUCOMETER DEV NAME(LOC) BV3S.; GLUCOSE,POINT OF CARE 169 MG/DL (70-110)
[2023-10-17] MEDS: INSULIN LISPRO 100 UNITS/ML SQ PRN ×4 (06:51→20:29)
[2023-10-17 08:15] VITALS: BP 118/73; PULSE 84; RESP 16; TEMP 98; O2SAT 97
[2023-10-17] MEDS: QUEtiapine FUMARATE 200 MG TABLET PO SCH ×2 (08:37→20:13)
[2023-10-17] MEDS: SitaGLIPtin PHOSPHATE 100 MG TABLET PO SCH (08:37)
[2023-10-17] MEDS: MULTIVITAMINS WITH MINERALS, THERAPEUTIC TABLET PO SCH (08:37)
[2023-10-17] MEDS: SERTRALINE HCL 100 MG TABLET PO SCH (08:37)
[2023-10-17] MEDS: EMPAGLIFLOZIN 25 MG TABLET PO SCH (08:38)
[2023-10-17] MEDS: FOLIC ACID 1 MG TABLET PO SCH (08:38)
[2023-10-17] MEDS: THIAMINE 100 MG TABLET PO SCH (08:38)
[2023-10-17 11:36] LABS: GLUCOMETER DEV NAME(LOC) BV3S.; GLUCOSE,POINT OF CARE 251 MG/DL (70-110)
[2023-10-17 17:06] LABS: GLUCOMETER DEV NAME(LOC) BV3S.; GLUCOSE,POINT OF CARE 246 MG/DL (70-110)
[2023-10-17 20:03] VITALS: BP 116/67; PULSE 99; RESP 17; TEMP 98; O2SAT 98
[2023-10-17 23:11] LABS: GLUCOMETER DEV NAME(LOC) BV3S.; GLUCOSE,POINT OF CARE 279 MG/DL (70-110)
[2023-10-18] MEDS: LEVOTHYROXINE SODIUM 112 MCG TABLET PO SCH (06:19)
[2023-10-18 06:26] LABS: GLUCOMETER DEV NAME(LOC) BV3S.; GLUCOSE,POINT OF CARE 199 MG/DL (70-110)
[2023-10-18] MEDS: INSULIN LISPRO 100 UNITS/ML SQ PRN ×4 (06:33→21:32)
[2023-10-18] MEDS: SERTRALINE HCL 100 MG TABLET PO SCH (08:10)
[2023-10-18] MEDS: THIAMINE 100 MG TABLET PO SCH (08:10)
[2023-10-18] MEDS: QUEtiapine FUMARATE 200 MG TABLET PO SCH ×2 (08:10→20:02)
[2023-10-18] MEDS: SitaGLIPtin PHOSPHATE 100 MG TABLET PO SCH (08:10)
[2023-10-18] MEDS: EMPAGLIFLOZIN 25 MG TABLET PO SCH (08:10)
[2023-10-18] MEDS: FOLIC ACID 1 MG TABLET PO SCH (08:10)
[2023-10-18] MEDS: MULTIVITAMINS WITH MINERALS, THERAPEUTIC TABLET PO SCH (08:10)
[2023-10-18 09:11] VITALS: BP 115/71; PULSE 96; RESP 18; TEMP 97.6; O2SAT 97
[2023-10-18 11:41] LABS: GLUCOMETER DEV NAME(LOC) BV3S.; GLUCOSE,POINT OF CARE 226 MG/DL (70-110)
[2023-10-18 17:11] LABS: GLUCOMETER DEV NAME(LOC) BV3S.; GLUCOSE,POINT OF CARE 194 MG/DL (70-110)
[2023-10-18 20:18] VITALS: BP 115/71; PULSE 97; RESP 18; TEMP 98.4; O2SAT 97
[2023-10-18 22:01] LABS: GLUCOMETER DEV NAME(LOC) BV3S.; GLUCOSE,POINT OF CARE 303 MG/DL (70-110)
[2023-10-19 05:36] LABS: GLUCOMETER DEV NAME(LOC) BV3S.; GLUCOSE,POINT OF CARE 211 MG/DL (70-110)
[2023-10-19] MEDS: LEVOTHYROXINE SODIUM 112 MCG TABLET PO SCH (06:23)
[2023-10-19] MEDS: INSULIN LISPRO 100 UNITS/ML SQ PRN ×4 (06:48→20:17)
[2023-10-19 08:09] VITALS: BP 111/68; PULSE 100; RESP 18; TEMP 98; O2SAT 95
[2023-10-19 08:11] VITALS: BP 111/68; PULSE 100; RESP 18; TEMP 98; O2SAT 95
[2023-10-19] MEDS: FOLIC ACID 1 MG TABLET PO SCH (08:19)
[2023-10-19] MEDS: MULTIVITAMINS WITH MINERALS, THERAPEUTIC TABLET PO SCH (08:19)
[2023-10-19] MEDS: THIAMINE 100 MG TABLET PO SCH (08:19)
[2023-10-19] MEDS: QUEtiapine FUMARATE 200 MG TABLET PO SCH ×2 (08:19→20:36)
[2023-10-19] MEDS: SERTRALINE HCL 100 MG TABLET PO SCH (08:19)
[2023-10-19] MEDS: EMPAGLIFLOZIN 25 MG TABLET PO SCH (08:20)
[2023-10-19] MEDS: SitaGLIPtin PHOSPHATE 100 MG TABLET PO SCH (08:25)
[2023-10-19 11:36] LABS: GLUCOMETER DEV NAME(LOC) BV3S.; GLUCOSE,POINT OF CARE 232 MG/DL (70-110)
[2023-10-19 16:46] LABS: GLUCOMETER DEV NAME(LOC) BV3S.; GLUCOSE,POINT OF CARE 214 MG/DL (70-110)
[2023-10-19 20:21] LABS: GLUCOMETER DEV NAME(LOC) BV3S.; GLUCOSE,POINT OF CARE 229 MG/DL (70-110)
[2023-10-19 20:42] VITALS: BP 110/74; PULSE 102; RESP 18; TEMP 97.4; O2SAT 98
[2023-10-20] MEDS: LEVOTHYROXINE SODIUM 112 MCG TABLET PO SCH (06:29)
[2023-10-20 06:36] LABS: GLUCOMETER DEV NAME(LOC) BV3S.; GLUCOSE,POINT OF CARE 183 MG/DL (70-110)
[2023-10-20] MEDS: INSULIN LISPRO 100 UNITS/ML SQ PRN ×3 (06:40→20:40)
[2023-10-20] MEDS: SitaGLIPtin PHOSPHATE 100 MG TABLET PO SCH (08:13)
[2023-10-20] MEDS: THIAMINE 100 MG TABLET PO SCH (08:13)
[2023-10-20] MEDS: SERTRALINE HCL 100 MG TABLET PO SCH (08:13)
[2023-10-20] MEDS: MULTIVITAMINS WITH MINERALS, THERAPEUTIC TABLET PO SCH (08:13)
[2023-10-20] MEDS: FOLIC ACID 1 MG TABLET PO SCH (08:13)
[2023-10-20] MEDS: QUEtiapine FUMARATE 200 MG TABLET PO SCH ×2 (08:13→20:33)
[2023-10-20] MEDS: EMPAGLIFLOZIN 25 MG TABLET PO SCH (08:14)
[2023-10-20 08:23] VITALS: BP 111/67; PULSE 100; RESP 16; TEMP 98.3; O2SAT 96
[2023-10-20 11:56] LABS: GLUCOMETER DEV NAME(LOC) BV3S.; GLUCOSE,POINT OF CARE 183 MG/DL (70-110)
[2023-10-20 16:36] LABS: GLUCOMETER DEV NAME(LOC) BV3S.; GLUCOSE,POINT OF CARE 247 MG/DL (70-110)
[2023-10-20 20:05] VITALS: BP 136/84; PULSE 97; RESP 20; TEMP 98.2; O2SAT 95
[2023-10-20 20:31] LABS: GLUCOMETER DEV NAME(LOC) BV3S.; GLUCOSE,POINT OF CARE 226 MG/DL (70-110)
[2023-10-21 06:21] LABS: GLUCOMETER DEV NAME(LOC) BV3S.; GLUCOSE,POINT OF CARE 193 MG/DL (70-110)
[2023-10-21] MEDS: LEVOTHYROXINE SODIUM 112 MCG TABLET PO SCH (06:31)
[2023-10-21] MEDS: INSULIN LISPRO 100 UNITS/ML SQ PRN ×4 (06:35→20:47)
[2023-10-21] MEDS: MULTIVITAMINS WITH MINERALS, THERAPEUTIC TABLET PO SCH (08:12)
[2023-10-21] MEDS: SitaGLIPtin PHOSPHATE 100 MG TABLET PO SCH (08:12)
[2023-10-21] MEDS: FOLIC ACID 1 MG TABLET PO SCH (08:12)
[2023-10-21] MEDS: QUEtiapine FUMARATE 200 MG TABLET PO SCH ×2 (08:12→20:04)
[2023-10-21] MEDS: THIAMINE 100 MG TABLET PO SCH (08:12)
[2023-10-21] MEDS: SERTRALINE HCL 100 MG TABLET PO SCH (08:12)
[2023-10-21] MEDS: EMPAGLIFLOZIN 25 MG TABLET PO SCH (08:14)
[2023-10-21 08:17] VITALS: BP 101/67; PULSE 93; RESP 18; TEMP 96.2; O2SAT 95
[2023-10-21 12:01] LABS: GLUCOMETER DEV NAME(LOC) BV3S.; GLUCOSE,POINT OF CARE 289 MG/DL (70-110)
[2023-10-21 17:01] LABS: GLUCOMETER DEV NAME(LOC) BV3S.; GLUCOSE,POINT OF CARE 225 MG/DL (70-110)
[2023-10-21 20:16] VITALS: BP 133/67; PULSE 100; RESP 16; TEMP 98.3; O2SAT 98
[2023-10-21 20:51] LABS: GLUCOMETER DEV NAME(LOC) BV3S.; GLUCOSE,POINT OF CARE 273 MG/DL (70-110)
[2023-10-22] MEDS: LEVOTHYROXINE SODIUM 112 MCG TABLET PO SCH (05:50)
[2023-10-22 06:51] LABS: GLUCOMETER DEV NAME(LOC) BV3S.; GLUCOSE,POINT OF CARE 186 MG/DL (70-110)
[2023-10-22] MEDS: MULTIVITAMINS WITH MINERALS, THERAPEUTIC TABLET PO SCH (08:05)
[2023-10-22] MEDS: SERTRALINE HCL 100 MG TABLET PO SCH (08:05)
[2023-10-22] MEDS: SitaGLIPtin PHOSPHATE 100 MG TABLET PO SCH (08:05)
[2023-10-22] MEDS: THIAMINE 100 MG TABLET PO SCH (08:05)
[2023-10-22] MEDS: EMPAGLIFLOZIN 25 MG TABLET PO SCH (08:06)
[2023-10-22] MEDS: QUEtiapine FUMARATE 200 MG TABLET PO SCH ×2 (08:06→20:06)
[2023-10-22] MEDS: FOLIC ACID 1 MG TABLET PO SCH (08:06)
[2023-10-22 08:38] VITALS: BP 102/65; PULSE 86; RESP 16; TEMP 98.2; O2SAT 98
[2023-10-22] MEDS: INSULIN LISPRO 100 UNITS/ML SQ PRN ×3 (11:59→20:48)
[2023-10-22 12:06] LABS: GLUCOMETER DEV NAME(LOC) BV3S.; GLUCOSE,POINT OF CARE 228 MG/DL (70-110)
[2023-10-22 16:47] LABS: GLUCOMETER DEV NAME(LOC) BV3S.; GLUCOSE,POINT OF CARE 176 MG/DL (70-110)
[2023-10-22 20:03] VITALS: BP 110/74; PULSE 100; RESP 18; TEMP 97.9; O2SAT 98
[2023-10-22 21:01] LABS: GLUCOMETER DEV NAME(LOC) BV3S.; GLUCOSE,POINT OF CARE 307 MG/DL (70-110)
[2023-10-23 06:01] LABS: GLUCOMETER DEV NAME(LOC) BV3S.; GLUCOSE,POINT OF CARE 191 MG/DL (70-110)
[2023-10-23] MEDS: LEVOTHYROXINE SODIUM 112 MCG TABLET PO SCH (06:38)
[2023-10-23] MEDS: INSULIN LISPRO 100 UNITS/ML SQ PRN ×4 (06:48→21:02)
[2023-10-23 08:08] VITALS: BP 95/58; PULSE 88; RESP 16; TEMP 97.1; O2SAT 96
[2023-10-23] MEDS: SitaGLIPtin PHOSPHATE 100 MG TABLET PO SCH (08:08)
[2023-10-23] MEDS: SERTRALINE HCL 100 MG TABLET PO SCH (08:08)
[2023-10-23] MEDS: EMPAGLIFLOZIN 25 MG TABLET PO SCH (08:08)
[2023-10-23] MEDS: FOLIC ACID 1 MG TABLET PO SCH (08:08)
[2023-10-23] MEDS: QUEtiapine FUMARATE 200 MG TABLET PO SCH ×2 (08:08→20:09)
[2023-10-23] MEDS: THIAMINE 100 MG TABLET PO SCH (08:09)
[2023-10-23] MEDS: MULTIVITAMINS WITH MINERALS, THERAPEUTIC TABLET PO SCH (08:11)
[2023-10-23 12:21] LABS: GLUCOMETER DEV NAME(LOC) BV3S.; GLUCOSE,POINT OF CARE 161 MG/DL (70-110)
[2023-10-23 16:46] LABS: GLUCOMETER DEV NAME(LOC) BV3S.; GLUCOSE,POINT OF CARE 182 MG/DL (70-110)
[2023-10-23 21:06] LABS: GLUCOMETER DEV NAME(LOC) BV3S.; GLUCOSE,POINT OF CARE 258 MG/DL (70-110)
[2023-10-23 23:03] VITALS: BP 121/75; PULSE 99; RESP 18; TEMP 98; O2SAT 98
[2023-10-24] MEDS: LEVOTHYROXINE SODIUM 112 MCG TABLET PO SCH (06:40)
[2023-10-24 06:46] LABS: GLUCOMETER DEV NAME(LOC) BV3S.; GLUCOSE,POINT OF CARE 109 MG/DL (70-110)
[2023-10-24 08:15] VITALS: BP 111/73; PULSE 99; RESP 16; TEMP 98; O2SAT 97
[2023-10-24] MEDS: SitaGLIPtin PHOSPHATE 100 MG TABLET PO SCH (08:15)
[2023-10-24] MEDS: QUEtiapine FUMARATE 200 MG TABLET PO SCH ×2 (08:15→20:16)
[2023-10-24] MEDS: THIAMINE 100 MG TABLET PO SCH (08:15)
[2023-10-24] MEDS: FOLIC ACID 1 MG TABLET PO SCH (08:15)
[2023-10-24] MEDS: MULTIVITAMINS WITH MINERALS, THERAPEUTIC TABLET PO SCH (08:15)
[2023-10-24] MEDS: EMPAGLIFLOZIN 25 MG TABLET PO SCH (08:16)
[2023-10-24] MEDS: SERTRALINE HCL 100 MG TABLET PO SCH (08:32)
[2023-10-24] MEDS: INSULIN LISPRO 100 UNITS/ML SQ PRN ×3 (11:58→21:12)
[2023-10-24 12:11] LABS: GLUCOMETER DEV NAME(LOC) BV3S.; GLUCOSE,POINT OF CARE 147 MG/DL (70-110)
[2023-10-24 16:36] LABS: GLUCOMETER DEV NAME(LOC) BV3S.; GLUCOSE,POINT OF CARE 200 MG/DL (70-110)
[2023-10-24 21:10] VITALS: BP 123/85; PULSE 102; RESP 18; TEMP 98; O2SAT 100
[2023-10-24 21:21] LABS: GLUCOMETER DEV NAME(LOC) BV3S.; GLUCOSE,POINT OF CARE 214 MG/DL (70-110)
[2023-10-25] MEDS: LEVOTHYROXINE SODIUM 112 MCG TABLET PO SCH (05:40)
[2023-10-25] MEDS: INSULIN LISPRO 100 UNITS/ML SQ PRN ×3 (05:46→20:39)
[2023-10-25 05:51] LABS: GLUCOMETER DEV NAME(LOC) BV3S.; GLUCOSE,POINT OF CARE 170 MG/DL (70-110)
[2023-10-25] MEDS: SERTRALINE HCL 100 MG TABLET PO SCH (08:15)
[2023-10-25] MEDS: QUEtiapine FUMARATE 200 MG TABLET PO SCH ×2 (08:15→20:05)
[2023-10-25] MEDS: SitaGLIPtin PHOSPHATE 100 MG TABLET PO SCH (08:15)
[2023-10-25] MEDS: FOLIC ACID 1 MG TABLET PO SCH (08:15)
[2023-10-25] MEDS: EMPAGLIFLOZIN 25 MG TABLET PO SCH (08:16)
[2023-10-25] MEDS: MULTIVITAMINS WITH MINERALS, THERAPEUTIC TABLET PO SCH (08:17)
[2023-10-25] MEDS: THIAMINE 100 MG TABLET PO SCH (08:17)
[2023-10-25 08:32] VITALS: BP 132/83; PULSE 96; RESP 16; TEMP 98.6; O2SAT 95
[2023-10-25 12:11] LABS: GLUCOMETER DEV NAME(LOC) BV3S.; GLUCOSE,POINT OF CARE 134 MG/DL (70-110)
[2023-10-25 17:16] LABS: GLUCOMETER DEV NAME(LOC) BV3S.; GLUCOSE,POINT OF CARE 231 MG/DL (70-110)
[2023-10-25 21:01] LABS: GLUCOMETER DEV NAME(LOC) BV3S.; GLUCOSE,POINT OF CARE 262 MG/DL (70-110)
[2023-10-25 23:53] VITALS: BP 126/80; PULSE 106; RESP 18; TEMP 98.2; O2SAT 98
[2023-10-26] MEDS: LEVOTHYROXINE SODIUM 112 MCG TABLET PO SCH (05:45)
[2023-10-26] MEDS: INSULIN LISPRO 100 UNITS/ML SQ PRN ×4 (05:47→20:15)
[2023-10-26 06:16] LABS: GLUCOMETER DEV NAME(LOC) BV3S.; GLUCOSE,POINT OF CARE 219 MG/DL (70-110)
[2023-10-26 08:03] VITALS: BP 126/74; PULSE 99; RESP 17; TEMP 98; O2SAT 97
[2023-10-26] MEDS: THIAMINE 100 MG TABLET PO SCH (08:06)
[2023-10-26] MEDS: QUEtiapine FUMARATE 200 MG TABLET PO SCH ×2 (08:06→20:08)
[2023-10-26] MEDS: EMPAGLIFLOZIN 25 MG TABLET PO SCH (08:06)
[2023-10-26] MEDS: FOLIC ACID 1 MG TABLET PO SCH (08:07)
[2023-10-26] MEDS: MULTIVITAMINS WITH MINERALS, THERAPEUTIC TABLET PO SCH (08:07)
[2023-10-26] MEDS: SitaGLIPtin PHOSPHATE 100 MG TABLET PO SCH (08:07)
[2023-10-26] MEDS: SERTRALINE HCL 100 MG TABLET PO SCH (08:07)
[2023-10-26 11:56] LABS: GLUCOMETER DEV NAME(LOC) BV3S.; GLUCOSE,POINT OF CARE 196 MG/DL (70-110)
[2023-10-26 16:21] LABS: GLUCOMETER DEV NAME(LOC) BV3S.; GLUCOSE,POINT OF CARE 174 MG/DL (70-110)
[2023-10-26 20:51] LABS: GLUCOMETER DEV NAME(LOC) BV3S.; GLUCOSE,POINT OF CARE 349 MG/DL (70-110)
[2023-10-26 20:55] VITALS: BP 119/75; PULSE 71; RESP 18; TEMP 98; O2SAT 99
[2023-10-27] MEDS: LEVOTHYROXINE SODIUM 112 MCG TABLET PO SCH (06:02)
[2023-10-27] MEDS: INSULIN LISPRO 100 UNITS/ML SQ PRN ×3 (06:17→20:33)
[2023-10-27 06:31] LABS: GLUCOMETER DEV NAME(LOC) BV3S.; GLUCOSE,POINT OF CARE 193 MG/DL (70-110)
[2023-10-27] MEDS: FOLIC ACID 1 MG TABLET PO SCH (08:22)
[2023-10-27] MEDS: SitaGLIPtin PHOSPHATE 100 MG TABLET PO SCH (08:22)
[2023-10-27] MEDS: THIAMINE 100 MG TABLET PO SCH (08:22)
[2023-10-27] MEDS: MULTIVITAMINS WITH MINERALS, THERAPEUTIC TABLET PO SCH (08:22)
[2023-10-27] MEDS: SERTRALINE HCL 100 MG TABLET PO SCH (08:22)
[2023-10-27 08:23] VITALS: BP 109/70; PULSE 99; RESP 16; TEMP 98; O2SAT 96
[2023-10-27] MEDS: QUEtiapine FUMARATE 200 MG TABLET PO SCH ×2 (08:23→20:04)
[2023-10-27] MEDS: EMPAGLIFLOZIN 25 MG TABLET PO SCH (08:23)
[2023-10-27 11:51] LABS: GLUCOMETER DEV NAME(LOC) BV3S.; GLUCOSE,POINT OF CARE 299 MG/DL (70-110)
[2023-10-27 16:56] LABS: GLUCOMETER DEV NAME(LOC) BV3S.; GLUCOSE,POINT OF CARE 216 MG/DL (70-110)
[2023-10-27 21:21] LABS: GLUCOMETER DEV NAME(LOC) BV3S.; GLUCOSE,POINT OF CARE 303 MG/DL (70-110)
[2023-10-27 23:40] VITALS: BP 112/72; PULSE 78; RESP 18; TEMP 98; O2SAT 98
[2023-10-28 06:22] LABS: GLUCOMETER DEV NAME(LOC) BV3S.; GLUCOSE,POINT OF CARE 186 MG/DL (70-110)
[2023-10-28] MEDS: LEVOTHYROXINE SODIUM 112 MCG TABLET PO SCH (06:34)
[2023-10-28] MEDS: INSULIN LISPRO 100 UNITS/ML SQ PRN ×4 (06:41→20:22)
[2023-10-28] MEDS: MULTIVITAMINS WITH MINERALS, THERAPEUTIC TABLET PO SCH (08:02)
[2023-10-28] MEDS: FOLIC ACID 1 MG TABLET PO SCH (08:02)
[2023-10-28] MEDS: QUEtiapine FUMARATE 200 MG TABLET PO SCH ×2 (08:02→20:02)
[2023-10-28] MEDS: SitaGLIPtin PHOSPHATE 100 MG TABLET PO SCH (08:02)
[2023-10-28] MEDS: SERTRALINE HCL 100 MG TABLET PO SCH (08:02)
[2023-10-28] MEDS: EMPAGLIFLOZIN 25 MG TABLET PO SCH (08:02)
[2023-10-28] MEDS: THIAMINE 100 MG TABLET PO SCH (08:03)
[2023-10-28 08:09] VITALS: BP 100/65; PULSE 93; RESP 17; TEMP 97.6; O2SAT 96
[2023-10-28 12:16] LABS: GLUCOMETER DEV NAME(LOC) BV3S.; GLUCOSE,POINT OF CARE 226 MG/DL (70-110)
[2023-10-28 17:11] LABS: GLUCOMETER DEV NAME(LOC) BV3S.; GLUCOSE,POINT OF CARE 346 MG/DL (70-110)
[2023-10-28 20:01] VITALS: BP 111/74; PULSE 98; RESP 18; TEMP 97.3; O2SAT 98
[2023-10-28 20:41] LABS: GLUCOMETER DEV NAME(LOC) BV3S.; GLUCOSE,POINT OF CARE 251 MG/DL (70-110)
[2023-10-29] MEDS: LEVOTHYROXINE SODIUM 112 MCG TABLET PO SCH (06:16)
[2023-10-29] MEDS: INSULIN LISPRO 100 UNITS/ML SQ PRN ×4 (06:43→20:01)
[2023-10-29 06:51] LABS: GLUCOMETER DEV NAME(LOC) BV3S.; GLUCOSE,POINT OF CARE 197 MG/DL (70-110)
[2023-10-29] MEDS: MULTIVITAMINS WITH MINERALS, THERAPEUTIC TABLET PO SCH (08:08)
[2023-10-29] MEDS: THIAMINE 100 MG TABLET PO SCH (08:08)
[2023-10-29] MEDS: SitaGLIPtin PHOSPHATE 100 MG TABLET PO SCH (08:08)
[2023-10-29] MEDS: SERTRALINE HCL 100 MG TABLET PO SCH (08:08)
[2023-10-29] MEDS: FOLIC ACID 1 MG TABLET PO SCH (08:08)
[2023-10-29] MEDS: QUEtiapine FUMARATE 200 MG TABLET PO SCH ×2 (08:08→20:00)
[2023-10-29] MEDS: EMPAGLIFLOZIN 25 MG TABLET PO SCH (08:10)
[2023-10-29 08:14] VITALS: BP 100/62; PULSE 89; RESP 16; TEMP 98; O2SAT 98
[2023-10-29 12:12] LABS: GLUCOMETER DEV NAME(LOC) BV3S.; GLUCOSE,POINT OF CARE 192 MG/DL (70-110)
[2023-10-29] MEDS: HALOPERIDOL 5 MG TABLET PO PRN (13:49)
[2023-10-29 16:21] LABS: GLUCOMETER DEV NAME(LOC) BV3S.; GLUCOSE,POINT OF CARE 185 MG/DL (70-110)
[2023-10-29 20:16] LABS: GLUCOMETER DEV NAME(LOC) BV3S.; GLUCOSE,POINT OF CARE 290 MG/DL (70-110)
[2023-10-29 21:00] VITALS: BP 104/67; PULSE 99; RESP 18; TEMP 97; O2SAT 99
[2023-10-30] MEDS: LEVOTHYROXINE SODIUM 112 MCG TABLET PO SCH (05:44)
[2023-10-30] MEDS: INSULIN LISPRO 100 UNITS/ML SQ PRN ×4 (05:45→21:10)
[2023-10-30 05:51] LABS: GLUCOMETER DEV NAME(LOC) BV3S.; GLUCOSE,POINT OF CARE 182 MG/DL (70-110)
[2023-10-30] MEDS: THIAMINE 100 MG TABLET PO SCH (08:04)
[2023-10-30] MEDS: FOLIC ACID 1 MG TABLET PO SCH (08:04)
[2023-10-30] MEDS: QUEtiapine FUMARATE 200 MG TABLET PO SCH ×2 (08:05→20:46)
[2023-10-30] MEDS: SERTRALINE HCL 100 MG TABLET PO SCH (08:05)
[2023-10-30] MEDS: SitaGLIPtin PHOSPHATE 100 MG TABLET PO SCH (08:05)
[2023-10-30] MEDS: EMPAGLIFLOZIN 25 MG TABLET PO SCH (08:05)
[2023-10-30] MEDS: MULTIVITAMINS WITH MINERALS, THERAPEUTIC TABLET PO SCH (08:05)
[2023-10-30 08:41] VITALS: BP 121/79; PULSE 79; RESP 16; TEMP 98; O2SAT 99
[2023-10-30 11:21] LABS: GLUCOMETER DEV NAME(LOC) BV3S.; GLUCOSE,POINT OF CARE 176 MG/DL (70-110)
[2023-10-30 17:12] LABS: GLUCOMETER DEV NAME(LOC) BV3S.; GLUCOSE,POINT OF CARE 151 MG/DL (70-110)
[2023-10-30 21:01] LABS: GLUCOMETER DEV NAME(LOC) BV3S.; GLUCOSE,POINT OF CARE 141 MG/DL (70-110)
[2023-10-30 22:09] VITALS: BP 117/70; PULSE 100; RESP 18; TEMP 97.2
[2023-10-31] MEDS: LEVOTHYROXINE SODIUM 112 MCG TABLET PO SCH (05:57)
[2023-10-31] MEDS: INSULIN LISPRO 100 UNITS/ML SQ PRN ×4 (05:59→21:30)
[2023-10-31 06:01] LABS: GLUCOMETER DEV NAME(LOC) BV3S.; GLUCOSE,POINT OF CARE 206 MG/DL (70-110)
[2023-10-31 08:12] VITALS: BP 99/60; PULSE 96; RESP 18; TEMP 97.6; O2SAT 96
[2023-10-31] MEDS: EMPAGLIFLOZIN 25 MG TABLET PO SCH (08:16)
[2023-10-31] MEDS: SERTRALINE HCL 100 MG TABLET PO SCH (08:16)
[2023-10-31] MEDS: MULTIVITAMINS WITH MINERALS, THERAPEUTIC TABLET PO SCH (08:16)
[2023-10-31] MEDS: SitaGLIPtin PHOSPHATE 100 MG TABLET PO SCH (08:16)
[2023-10-31] MEDS: QUEtiapine FUMARATE 200 MG TABLET PO SCH ×2 (08:16→20:07)
[2023-10-31] MEDS: THIAMINE 100 MG TABLET PO SCH (08:16)
[2023-10-31] MEDS: FOLIC ACID 1 MG TABLET PO SCH (08:16)
[2023-10-31 11:36] LABS: GLUCOMETER DEV NAME(LOC) BV3S.; GLUCOSE,POINT OF CARE 180 MG/DL (70-110)
[2023-10-31 17:11] LABS: GLUCOMETER DEV NAME(LOC) BV3S.; GLUCOSE,POINT OF CARE 354 MG/DL (70-110)
[2023-10-31 21:41] LABS: GLUCOMETER DEV NAME(LOC) BV3S.; GLUCOSE,POINT OF CARE 194 MG/DL (70-110)
[2023-10-31 21:56] VITALS: BP 123/82; PULSE 97; RESP 18; TEMP 98.6; O2SAT 96
[2023-11-01] MEDS: LEVOTHYROXINE SODIUM 112 MCG TABLET PO SCH (06:22)
[2023-11-01 06:31] LABS: GLUCOMETER DEV NAME(LOC) BV3S.; GLUCOSE,POINT OF CARE 193 MG/DL (70-110)
[2023-11-01] MEDS: INSULIN LISPRO 100 UNITS/ML SQ PRN ×4 (06:31→20:23)
[2023-11-01 08:20] VITALS: BP 128/83; PULSE 100; RESP 18; TEMP 98; O2SAT 97
[2023-11-01] MEDS: FOLIC ACID 1 MG TABLET PO SCH (08:30)
[2023-11-01] MEDS: SitaGLIPtin PHOSPHATE 100 MG TABLET PO SCH (08:31)
[2023-11-01] MEDS: MULTIVITAMINS WITH MINERALS, THERAPEUTIC TABLET PO SCH (08:31)
[2023-11-01] MEDS: THIAMINE 100 MG TABLET PO SCH (08:31)
[2023-11-01] MEDS: SERTRALINE HCL 100 MG TABLET PO SCH (08:31)
[2023-11-01] MEDS: QUEtiapine FUMARATE 200 MG TABLET PO SCH ×2 (08:31→20:15)
[2023-11-01] MEDS: EMPAGLIFLOZIN 25 MG TABLET PO SCH (08:31)
[2023-11-01 12:06] LABS: GLUCOMETER DEV NAME(LOC) BV3S.; GLUCOSE,POINT OF CARE 272 MG/DL (70-110)
[2023-11-01 16:51] LABS: GLUCOMETER DEV NAME(LOC) BV3S.; GLUCOSE,POINT OF CARE 167 MG/DL (70-110)
[2023-11-01 20:01] VITALS: BP 116/71; PULSE 92; RESP 16; TEMP 97.8; O2SAT 96
[2023-11-01 20:41] LABS: GLUCOMETER DEV NAME(LOC) BV3S.; GLUCOSE,POINT OF CARE 260 MG/DL (70-110)
[2023-11-02] MEDS: LEVOTHYROXINE SODIUM 112 MCG TABLET PO SCH (06:21)
[2023-11-02 06:31] LABS: GLUCOMETER DEV NAME(LOC) BV3S.; GLUCOSE,POINT OF CARE 182 MG/DL (70-110)
[2023-11-02] MEDS: INSULIN LISPRO 100 UNITS/ML SQ PRN ×3 (06:33→16:20)
[2023-11-02] MEDS: SitaGLIPtin PHOSPHATE 100 MG TABLET PO SCH (08:09)
[2023-11-02] MEDS: FOLIC ACID 1 MG TABLET PO SCH (08:09)
[2023-11-02] MEDS: SERTRALINE HCL 100 MG TABLET PO SCH (08:09)
[2023-11-02] MEDS: MULTIVITAMINS WITH MINERALS, THERAPEUTIC TABLET PO SCH (08:09)
[2023-11-02] MEDS: QUEtiapine FUMARATE 200 MG TABLET PO SCH ×2 (08:09→20:05)
[2023-11-02] MEDS: THIAMINE 100 MG TABLET PO SCH (08:09)
[2023-11-02] MEDS: EMPAGLIFLOZIN 25 MG TABLET PO SCH (08:14)
[2023-11-02 08:30] VITALS: BP 112/70; PULSE 97; RESP 17; TEMP 97.7; O2SAT 98
[2023-11-02 11:06] LABS: GLUCOMETER DEV NAME(LOC) BV3S.; GLUCOSE,POINT OF CARE 198 MG/DL (70-110)
[2023-11-02 17:26] LABS: GLUCOMETER DEV NAME(LOC) BV3S.; GLUCOSE,POINT OF CARE 217 MG/DL (70-110)
[2023-11-02 20:20] LABS: GLUCOMETER DEV NAME(LOC) BV3S.; GLUCOSE,POINT OF CARE 96 MG/DL (70-110)
[2023-11-02 21:41] VITALS: BP 128/71; PULSE 81; RESP 18; TEMP 98; O2SAT 98
[2023-11-03] MEDS: LEVOTHYROXINE SODIUM 112 MCG TABLET PO SCH (06:20)
[2023-11-03 06:26] LABS: GLUCOMETER DEV NAME(LOC) BV3S.; GLUCOSE,POINT OF CARE 197 MG/DL (70-110)
[2023-11-03] MEDS: INSULIN LISPRO 100 UNITS/ML SQ PRN ×4 (06:38→20:16)
[2023-11-03] MEDS: THIAMINE 100 MG TABLET PO SCH (08:05)
[2023-11-03] MEDS: EMPAGLIFLOZIN 25 MG TABLET PO SCH (08:05)
[2023-11-03] MEDS: QUEtiapine FUMARATE 200 MG TABLET PO SCH ×2 (08:05→20:11)
[2023-11-03] MEDS: MULTIVITAMINS WITH MINERALS, THERAPEUTIC TABLET PO SCH (08:06)
[2023-11-03] MEDS: SitaGLIPtin PHOSPHATE 100 MG TABLET PO SCH (08:06)
[2023-11-03] MEDS: SERTRALINE HCL 100 MG TABLET PO SCH (08:06)
[2023-11-03] MEDS: FOLIC ACID 1 MG TABLET PO SCH (08:06)
[2023-11-03 08:08] VITALS: BP 108/65; PULSE 69; RESP 16; TEMP 97.6; O2SAT 95
[2023-11-03 11:36] LABS: GLUCOMETER DEV NAME(LOC) BV3S.; GLUCOSE,POINT OF CARE 182 MG/DL (70-110)
[2023-11-03 16:31] LABS: GLUCOMETER DEV NAME(LOC) BV3S.; GLUCOSE,POINT OF CARE 196 MG/DL (70-110)
[2023-11-03] MEDS ORDERED: FLUCONAZOLE 150 MG TABLET PO ONE (17:30)
[2023-11-03 20:31] LABS: GLUCOMETER DEV NAME(LOC) BV3S.; GLUCOSE,POINT OF CARE 226 MG/DL (70-110)
[2023-11-04 05:51] LABS: GLUCOMETER DEV NAME(LOC) BV3S.; GLUCOSE,POINT OF CARE 146 MG/DL (70-110)
[2023-11-04] MEDS: LEVOTHYROXINE SODIUM 112 MCG TABLET PO SCH (05:53)
[2023-11-04] MEDS: INSULIN LISPRO 100 UNITS/ML SQ PRN ×4 (06:01→21:31)
[2023-11-04 08:29] VITALS: BP 113/79; PULSE 83; RESP 16; TEMP 97.8; O2SAT 96
[2023-11-04] MEDS: SitaGLIPtin PHOSPHATE 100 MG TABLET PO SCH (08:33)
[2023-11-04] MEDS: EMPAGLIFLOZIN 25 MG TABLET PO SCH (08:33)
[2023-11-04] MEDS: MULTIVITAMINS WITH MINERALS, THERAPEUTIC TABLET PO SCH (08:33)
[2023-11-04] MEDS: SERTRALINE HCL 100 MG TABLET PO SCH (08:33)
[2023-11-04] MEDS: THIAMINE 100 MG TABLET PO SCH (08:33)
[2023-11-04] MEDS: FOLIC ACID 1 MG TABLET PO SCH (08:33)
[2023-11-04] MEDS: HALOPERIDOL 5 MG TABLET PO PRN (08:34)
[2023-11-04] MEDS: QUEtiapine FUMARATE 200 MG TABLET PO SCH ×2 (08:34→20:15)
[2023-11-04 11:46] LABS: GLUCOMETER DEV NAME(LOC) BV3S.; GLUCOSE,POINT OF CARE 280 MG/DL (70-110)
[2023-11-04 16:56] LABS: GLUCOMETER DEV NAME(LOC) BV3S.; GLUCOSE,POINT OF CARE 204 MG/DL (70-110)
[2023-11-04 20:52] VITALS: BP 114/73; PULSE 92; RESP 18; TEMP 97.3
[2023-11-04 21:42] LABS: GLUCOMETER DEV NAME(LOC) BV3S.; GLUCOSE,POINT OF CARE 172 MG/DL (70-110)
[2023-11-05] MEDS: LEVOTHYROXINE SODIUM 112 MCG TABLET PO SCH (05:39)
[2023-11-05] MEDS: INSULIN LISPRO 100 UNITS/ML SQ PRN ×4 (05:42→20:34)
[2023-11-05 06:12] LABS: GLUCOMETER DEV NAME(LOC) BV3S.; GLUCOSE,POINT OF CARE 169 MG/DL (70-110)
[2023-11-05] MEDS: QUEtiapine FUMARATE 200 MG TABLET PO SCH ×2 (08:05→20:40)
[2023-11-05] MEDS: HALOPERIDOL 5 MG TABLET PO PRN (08:05)
[2023-11-05] MEDS: FOLIC ACID 1 MG TABLET PO SCH (08:06)
[2023-11-05] MEDS: SERTRALINE HCL 100 MG TABLET PO SCH (08:06)
[2023-11-05] MEDS: MULTIVITAMINS WITH MINERALS, THERAPEUTIC TABLET PO SCH (08:06)
[2023-11-05] MEDS: SitaGLIPtin PHOSPHATE 100 MG TABLET PO SCH (08:06)
[2023-11-05] MEDS: THIAMINE 100 MG TABLET PO SCH (08:06)
[2023-11-05] MEDS: EMPAGLIFLOZIN 25 MG TABLET PO SCH (08:06)
[2023-11-05 08:47] VITALS: BP 101/64; PULSE 90; RESP 17; TEMP 97.6
[2023-11-05 12:06] LABS: GLUCOMETER DEV NAME(LOC) BV3S.; GLUCOSE,POINT OF CARE 193 MG/DL (70-110)
[2023-11-05 17:01] LABS: GLUCOMETER DEV NAME(LOC) BV3S.; GLUCOSE,POINT OF CARE 255 MG/DL (70-110)
[2023-11-05 20:20] LABS: GLUCOMETER DEV NAME(LOC) BV3S.; GLUCOSE,POINT OF CARE 262 MG/DL (70-110)
[2023-11-05 23:10] VITALS: BP 130/88; PULSE 96; RESP 18; TEMP 97.5
[2023-11-06] MEDS: LEVOTHYROXINE SODIUM 112 MCG TABLET PO SCH (06:35)
[2023-11-06 06:36] LABS: GLUCOMETER DEV NAME(LOC) BV3S.; GLUCOSE,POINT OF CARE 161 MG/DL (70-110)
[2023-11-06] MEDS: INSULIN LISPRO 100 UNITS/ML SQ PRN ×3 (06:47→22:55)
[2023-11-06] MEDS: FOLIC ACID 1 MG TABLET PO SCH (08:23)
[2023-11-06] MEDS: SERTRALINE HCL 100 MG TABLET PO SCH (08:23)
[2023-11-06] MEDS: SitaGLIPtin PHOSPHATE 100 MG TABLET PO SCH (08:23)
[2023-11-06] MEDS: QUEtiapine FUMARATE 200 MG TABLET PO SCH ×2 (08:23→20:05)
[2023-11-06] MEDS: THIAMINE 100 MG TABLET PO SCH (08:23)
[2023-11-06] MEDS: MULTIVITAMINS WITH MINERALS, THERAPEUTIC TABLET PO SCH (08:23)
[2023-11-06] MEDS: EMPAGLIFLOZIN 25 MG TABLET PO SCH (08:23)
[2023-11-06 08:41] VITALS: BP 134/91; PULSE 107; RESP 17; TEMP 97.3; O2SAT 96
[2023-11-06 11:57] LABS: GLUCOMETER DEV NAME(LOC) BV3S.; GLUCOSE,POINT OF CARE 156 MG/DL (70-110)
[2023-11-06 18:01] LABS: GLUCOMETER DEV NAME(LOC) BV3S.; GLUCOSE,POINT OF CARE 108 MG/DL (70-110)
[2023-11-06 22:21] LABS: GLUCOMETER DEV NAME(LOC) BV3S.; GLUCOSE,POINT OF CARE 157 MG/DL (70-110)
[2023-11-07] MEDS: LEVOTHYROXINE SODIUM 112 MCG TABLET PO SCH (06:23)
[2023-11-07 06:31] LABS: GLUCOMETER DEV NAME(LOC) BV3S.; GLUCOSE,POINT OF CARE 190 MG/DL (70-110)
[2023-11-07] MEDS: INSULIN LISPRO 100 UNITS/ML SQ PRN ×4 (06:40→21:19)
[2023-11-07 07:01] VITALS: BP 128/92; PULSE 96; TEMP 97.5; O2SAT 96
[2023-11-07] MEDS: QUEtiapine FUMARATE 200 MG TABLET PO SCH ×2 (08:26→21:20)
[2023-11-07] MEDS: THIAMINE 100 MG TABLET PO SCH (08:26)
[2023-11-07] MEDS: MULTIVITAMINS WITH MINERALS, THERAPEUTIC TABLET PO SCH (08:26)
[2023-11-07] MEDS: FOLIC ACID 1 MG TABLET PO SCH (08:26)
[2023-11-07] MEDS: EMPAGLIFLOZIN 25 MG TABLET PO SCH (08:26)
[2023-11-07] MEDS: SitaGLIPtin PHOSPHATE 100 MG TABLET PO SCH (08:26)
[2023-11-07] MEDS: SERTRALINE HCL 100 MG TABLET PO SCH (08:26)
[2023-11-07 08:52] VITALS: BP 106/62; PULSE 76; RESP 16; TEMP 97.9; O2SAT 97
[2023-11-07 11:56] LABS: GLUCOMETER DEV NAME(LOC) BV3S.; GLUCOSE,POINT OF CARE 243 MG/DL (70-110)
[2023-11-07 17:00] LABS: GLUCOMETER DEV NAME(LOC) BV3S.; GLUCOSE,POINT OF CARE 270 MG/DL (70-110)
[2023-11-07 20:25] VITALS: BP 128/80; PULSE 98; RESP 18; TEMP 97.5
[2023-11-07 21:26] LABS: GLUCOMETER DEV NAME(LOC) BV3S.; GLUCOSE,POINT OF CARE 205 MG/DL (70-110)
[2023-11-08] MEDS: LEVOTHYROXINE SODIUM 112 MCG TABLET PO SCH (05:50)
[2023-11-08 05:51] LABS: GLUCOMETER DEV NAME(LOC) BV3S.; GLUCOSE,POINT OF CARE 176 MG/DL (70-110)
[2023-11-08] MEDS: INSULIN LISPRO 100 UNITS/ML SQ PRN ×4 (05:52→20:26)
[2023-11-08] MEDS: THIAMINE 100 MG TABLET PO SCH (08:04)
[2023-11-08] MEDS: HALOPERIDOL 5 MG TABLET PO PRN (08:04)
[2023-11-08] MEDS: SitaGLIPtin PHOSPHATE 100 MG TABLET PO SCH (08:04)
[2023-11-08] MEDS: QUEtiapine FUMARATE 200 MG TABLET PO SCH ×2 (08:04→20:14)
[2023-11-08] MEDS: SERTRALINE HCL 100 MG TABLET PO SCH (08:04)
[2023-11-08] MEDS: FOLIC ACID 1 MG TABLET PO SCH (08:05)
[2023-11-08] MEDS: EMPAGLIFLOZIN 25 MG TABLET PO SCH (08:05)
[2023-11-08] MEDS: MULTIVITAMINS WITH MINERALS, THERAPEUTIC TABLET PO SCH (08:05)
[2023-11-08 11:32] LABS: GLUCOMETER DEV NAME(LOC) BV3S.; GLUCOSE,POINT OF CARE 155 MG/DL (70-110)
[2023-11-08 13:36] VITALS: BP 118/84; PULSE 81; RESP 18; TEMP 98; O2SAT 97
[2023-11-08 16:46] LABS: GLUCOMETER DEV NAME(LOC) BV3S.; GLUCOSE,POINT OF CARE 178 MG/DL (70-110)
[2023-11-08 20:45] LABS: GLUCOMETER DEV NAME(LOC) BV3S.; GLUCOSE,POINT OF CARE 282 MG/DL (70-110)
[2023-11-09] MEDS: INSULIN LISPRO 100 UNITS/ML SQ PRN ×4 (05:45→20:27)
[2023-11-09 05:46] LABS: GLUCOMETER DEV NAME(LOC) BV3S.; GLUCOSE,POINT OF CARE 246 MG/DL (70-110)
[2023-11-09] MEDS: LEVOTHYROXINE SODIUM 112 MCG TABLET PO SCH (05:49)
[2023-11-09 06:36] VITALS: BP 114/78; PULSE 83; RESP 18; TEMP 97.6
[2023-11-09] MEDS: MULTIVITAMINS WITH MINERALS, THERAPEUTIC TABLET PO SCH (08:04)
[2023-11-09] MEDS: SitaGLIPtin PHOSPHATE 100 MG TABLET PO SCH (08:05)
[2023-11-09] MEDS: QUEtiapine FUMARATE 200 MG TABLET PO SCH ×2 (08:05→20:23)
[2023-11-09] MEDS: SERTRALINE HCL 100 MG TABLET PO SCH (08:05)
[2023-11-09] MEDS: FOLIC ACID 1 MG TABLET PO SCH (08:05)
[2023-11-09] MEDS: THIAMINE 100 MG TABLET PO SCH (08:05)
[2023-11-09] MEDS: EMPAGLIFLOZIN 25 MG TABLET PO SCH (08:05)
[2023-11-09 08:47] VITALS: BP 123/70; PULSE 100; RESP 18; TEMP 97.3; O2SAT 98
[2023-11-09 11:37] LABS: GLUCOMETER DEV NAME(LOC) BV3S.; GLUCOSE,POINT OF CARE 207 MG/DL (70-110)
[2023-11-09 16:51] LABS: GLUCOMETER DEV NAME(LOC) BV3S.; GLUCOSE,POINT OF CARE 268 MG/DL (70-110)
[2023-11-09 20:05] VITALS: BP 132/84; PULSE 98; RESP 18; TEMP 97.7
[2023-11-09 21:01] LABS: GLUCOMETER DEV NAME(LOC) BV3S.; GLUCOSE,POINT OF CARE 161 MG/DL (70-110)
[2023-11-10] MEDS: LEVOTHYROXINE SODIUM 112 MCG TABLET PO SCH (05:30)
[2023-11-10] MEDS: INSULIN LISPRO 100 UNITS/ML SQ PRN ×3 (05:35→20:35)
[2023-11-10 05:52] LABS: GLUCOMETER DEV NAME(LOC) BV3S.; GLUCOSE,POINT OF CARE 165 MG/DL (70-110)
[2023-11-10] MEDS: THIAMINE 100 MG TABLET PO SCH (08:33)
[2023-11-10] MEDS: QUEtiapine FUMARATE 200 MG TABLET PO SCH ×2 (08:33→20:22)
[2023-11-10] MEDS: SitaGLIPtin PHOSPHATE 100 MG TABLET PO SCH (08:33)
[2023-11-10] MEDS: MULTIVITAMINS WITH MINERALS, THERAPEUTIC TABLET PO SCH (08:33)
[2023-11-10] MEDS: HALOPERIDOL 5 MG TABLET PO PRN (08:33)
[2023-11-10] MEDS: FOLIC ACID 1 MG TABLET PO SCH (08:33)
[2023-11-10] MEDS: SERTRALINE HCL 100 MG TABLET PO SCH (08:34)
[2023-11-10] MEDS: EMPAGLIFLOZIN 25 MG TABLET PO SCH (08:34)
[2023-11-10 09:38] VITALS: BP 102/65; PULSE 98; RESP 18; TEMP 98; O2SAT 97
[2023-11-10 11:57] LABS: GLUCOMETER DEV NAME(LOC) BV3S.; GLUCOSE,POINT OF CARE 170 MG/DL (70-110)
[2023-11-10 16:32] LABS: GLUCOMETER DEV NAME(LOC) BV3S.; GLUCOSE,POINT OF CARE 186 MG/DL (70-110)
[2023-11-10 20:36] LABS: GLUCOMETER DEV NAME(LOC) BV3S.; GLUCOSE,POINT OF CARE 231 MG/DL (70-110)
[2023-11-10 23:45] VITALS: BP 128/68; PULSE 97; RESP 18; TEMP 97.9
[2023-11-11 06:27] LABS: GLUCOMETER DEV NAME(LOC) BV3S.; GLUCOSE,POINT OF CARE 222 MG/DL (70-110)
[2023-11-11] MEDS: LEVOTHYROXINE SODIUM 112 MCG TABLET PO SCH (06:31)
[2023-11-11] MEDS: INSULIN LISPRO 100 UNITS/ML SQ PRN ×4 (06:42→20:19)
[2023-11-11] MEDS: SERTRALINE HCL 100 MG TABLET PO SCH (08:09)
[2023-11-11] MEDS: MULTIVITAMINS WITH MINERALS, THERAPEUTIC TABLET PO SCH (08:09)
[2023-11-11] MEDS: FOLIC ACID 1 MG TABLET PO SCH (08:09)
[2023-11-11] MEDS: QUEtiapine FUMARATE 200 MG TABLET PO SCH ×2 (08:10→20:01)
[2023-11-11] MEDS: SitaGLIPtin PHOSPHATE 100 MG TABLET PO SCH (08:10)
[2023-11-11] MEDS: EMPAGLIFLOZIN 25 MG TABLET PO SCH (08:10)
[2023-11-11] MEDS: THIAMINE 100 MG TABLET PO SCH (08:10)
[2023-11-11 09:00] VITALS: BP 127/83; PULSE 70; RESP 18; TEMP 97.8; O2SAT 97
[2023-11-11 12:01] LABS: GLUCOMETER DEV NAME(LOC) BV3S.; GLUCOSE,POINT OF CARE 242 MG/DL (70-110)
[2023-11-11 16:36] LABS: GLUCOMETER DEV NAME(LOC) BV3S.; GLUCOSE,POINT OF CARE 309 MG/DL (70-110)
[2023-11-11] MEDS: HALOPERIDOL 5 MG TABLET PO PRN (19:53)
[2023-11-11 20:50] VITALS: BP 122/84; PULSE 100; RESP 18; TEMP 98; O2SAT 99
[2023-11-11 22:26] LABS: GLUCOMETER DEV NAME(LOC) BV3S.; GLUCOSE,POINT OF CARE 219 MG/DL (70-110)
[2023-11-12 06:27] LABS: GLUCOMETER DEV NAME(LOC) BV3S.; GLUCOSE,POINT OF CARE 189 MG/DL (70-110)
[2023-11-12] MEDS: LEVOTHYROXINE SODIUM 112 MCG TABLET PO SCH (06:48)
[2023-11-12] MEDS: INSULIN LISPRO 100 UNITS/ML SQ PRN ×4 (06:49→21:20)
[2023-11-12 08:23] VITALS: BP 133/84; PULSE 97; RESP 18; TEMP 98.6; O2SAT 98
[2023-11-12] MEDS: FOLIC ACID 1 MG TABLET PO SCH (08:26)
[2023-11-12] MEDS: MULTIVITAMINS WITH MINERALS, THERAPEUTIC TABLET PO SCH (08:26)
[2023-11-12] MEDS: QUEtiapine FUMARATE 200 MG TABLET PO SCH ×2 (08:26→20:05)
[2023-11-12] MEDS: SERTRALINE HCL 100 MG TABLET PO SCH (08:27)
[2023-11-12] MEDS: EMPAGLIFLOZIN 25 MG TABLET PO SCH (08:27)
[2023-11-12] MEDS: SitaGLIPtin PHOSPHATE 100 MG TABLET PO SCH (08:27)
[2023-11-12] MEDS: THIAMINE 100 MG TABLET PO SCH (08:28)
[2023-11-12 12:01] LABS: GLUCOMETER DEV NAME(LOC) BV3S.; GLUCOSE,POINT OF CARE 172 MG/DL (70-110)
[2023-11-12 16:56] LABS: GLUCOMETER DEV NAME(LOC) BV3S.; GLUCOSE,POINT OF CARE 225 MG/DL (70-110)
[2023-11-12 20:00] VITALS: BP 106/72; PULSE 102; RESP 18; TEMP 97.8; O2SAT 99
[2023-11-12 21:31] LABS: GLUCOMETER DEV NAME(LOC) BV3S.; GLUCOSE,POINT OF CARE 213 MG/DL (70-110)
[2023-11-13] MEDS: LEVOTHYROXINE SODIUM 112 MCG TABLET PO SCH (05:38)
[2023-11-13] MEDS: INSULIN LISPRO 100 UNITS/ML SQ PRN ×4 (05:43→21:19)
[2023-11-13 05:51] LABS: GLUCOMETER DEV NAME(LOC) BV3S.; GLUCOSE,POINT OF CARE 287 MG/DL (70-110)
[2023-11-13 08:20] VITALS: BP 113/73; PULSE 97; RESP 18; TEMP 98; O2SAT 99
[2023-11-13] MEDS: EMPAGLIFLOZIN 25 MG TABLET PO SCH (08:52)
[2023-11-13] MEDS: THIAMINE 100 MG TABLET PO SCH (08:53)
[2023-11-13] MEDS: SERTRALINE HCL 100 MG TABLET PO SCH (08:53)
[2023-11-13] MEDS: FOLIC ACID 1 MG TABLET PO SCH (08:53)
[2023-11-13] MEDS: SitaGLIPtin PHOSPHATE 100 MG TABLET PO SCH (08:53)
[2023-11-13] MEDS: MULTIVITAMINS WITH MINERALS, THERAPEUTIC TABLET PO SCH (08:53)
[2023-11-13] MEDS: QUEtiapine FUMARATE 200 MG TABLET PO SCH ×2 (08:53→20:03)
[2023-11-13 11:51] LABS: GLUCOMETER DEV NAME(LOC) BV3S.; GLUCOSE,POINT OF CARE 165 MG/DL (70-110)
[2023-11-13 16:46] LABS: GLUCOMETER DEV NAME(LOC) BV3S.; GLUCOSE,POINT OF CARE 309 MG/DL (70-110)
[2023-11-13 21:27] LABS: GLUCOMETER DEV NAME(LOC) BV3S.; GLUCOSE,POINT OF CARE 259 MG/DL (70-110)
[2023-11-14 00:51] VITALS: BP 100/66; PULSE 99; RESP 18; TEMP 97.8; O2SAT 98
[2023-11-14] MEDS: LEVOTHYROXINE SODIUM 112 MCG TABLET PO SCH (06:08)
[2023-11-14] MEDS: INSULIN LISPRO 100 UNITS/ML SQ PRN ×4 (06:19→20:28)
[2023-11-14 06:31] LABS: GLUCOMETER DEV NAME(LOC) BV3S.; GLUCOSE,POINT OF CARE 198 MG/DL (70-110)
[2023-11-14 08:06] VITALS: BP 115/76; PULSE 100; RESP 16; TEMP 98; O2SAT 98
[2023-11-14] MEDS: EMPAGLIFLOZIN 25 MG TABLET PO SCH (08:32)
[2023-11-14] MEDS: SERTRALINE HCL 100 MG TABLET PO SCH (08:32)
[2023-11-14] MEDS: MULTIVITAMINS WITH MINERALS, THERAPEUTIC TABLET PO SCH (08:32)
[2023-11-14] MEDS: SitaGLIPtin PHOSPHATE 100 MG TABLET PO SCH (08:32)
[2023-11-14] MEDS: THIAMINE 100 MG TABLET PO SCH (08:32)
[2023-11-14] MEDS: QUEtiapine FUMARATE 200 MG TABLET PO SCH ×2 (08:33→20:16)
[2023-11-14] MEDS: FOLIC ACID 1 MG TABLET PO SCH (08:33)
[2023-11-14] MEDS: HALOPERIDOL 5 MG TABLET PO PRN (11:11)
[2023-11-14 12:07] LABS: GLUCOMETER DEV NAME(LOC) BV3S.; GLUCOSE,POINT OF CARE 200 MG/DL (70-110)
[2023-11-14 17:06] LABS: GLUCOMETER DEV NAME(LOC) BV3S.; GLUCOSE,POINT OF CARE 303 MG/DL (70-110)
[2023-11-14 20:46] LABS: GLUCOMETER DEV NAME(LOC) BV3S.; GLUCOSE,POINT OF CARE 294 MG/DL (70-110)
[2023-11-14 21:10] VITALS: BP 125/82; PULSE 90; RESP 18; TEMP 98.2; O2SAT 98
[2023-11-15] MEDS: LEVOTHYROXINE SODIUM 112 MCG TABLET PO SCH (06:32)
[2023-11-15] MEDS: INSULIN LISPRO 100 UNITS/ML SQ PRN ×4 (06:34→20:43)
[2023-11-15 06:41] LABS: GLUCOMETER DEV NAME(LOC) BV3S.; GLUCOSE,POINT OF CARE 203 MG/DL (70-110)
[2023-11-15 08:08] VITALS: BP 106/64; PULSE 100; RESP 18; TEMP 98.4; O2SAT 95
[2023-11-15] MEDS: MULTIVITAMINS WITH MINERALS, THERAPEUTIC TABLET PO SCH (08:41)
[2023-11-15] MEDS: FOLIC ACID 1 MG TABLET PO SCH (08:41)
[2023-11-15] MEDS: QUEtiapine FUMARATE 200 MG TABLET PO SCH ×2 (08:41→20:36)
[2023-11-15] MEDS: SitaGLIPtin PHOSPHATE 100 MG TABLET PO SCH (08:41)
[2023-11-15] MEDS: SERTRALINE HCL 100 MG TABLET PO SCH (08:41)
[2023-11-15] MEDS: THIAMINE 100 MG TABLET PO SCH (08:41)
[2023-11-15] MEDS: EMPAGLIFLOZIN 25 MG TABLET PO SCH (08:42)
[2023-11-15 11:56] LABS: GLUCOMETER DEV NAME(LOC) BV3S.; GLUCOSE,POINT OF CARE 172 MG/DL (70-110)
[2023-11-15 17:05] LABS: GLUCOMETER DEV NAME(LOC) BV3S.; GLUCOSE,POINT OF CARE 287 MG/DL (70-110)
[2023-11-15 20:56] LABS: GLUCOMETER DEV NAME(LOC) BV3S.; GLUCOSE,POINT OF CARE 277 MG/DL (70-110)
[2023-11-15 21:01] VITALS: BP 105/67; PULSE 95; RESP 17; TEMP 97.9; O2SAT 100
[2023-11-16] MEDS: LEVOTHYROXINE SODIUM 112 MCG TABLET PO SCH (05:38)
[2023-11-16 05:46] LABS: GLUCOMETER DEV NAME(LOC) BV3S.; GLUCOSE,POINT OF CARE 184 MG/DL (70-110)
[2023-11-16] MEDS: INSULIN LISPRO 100 UNITS/ML SQ PRN ×4 (05:46→21:55)
[2023-11-16] MEDS: FOLIC ACID 1 MG TABLET PO SCH (08:07)
[2023-11-16] MEDS: MULTIVITAMINS WITH MINERALS, THERAPEUTIC TABLET PO SCH (08:07)
[2023-11-16] MEDS: QUEtiapine FUMARATE 200 MG TABLET PO SCH ×2 (08:07→20:41)
[2023-11-16] MEDS: SitaGLIPtin PHOSPHATE 100 MG TABLET PO SCH (08:07)
[2023-11-16] MEDS: SERTRALINE HCL 100 MG TABLET PO SCH (08:07)
[2023-11-16] MEDS: THIAMINE 100 MG TABLET PO SCH (08:07)
[2023-11-16] MEDS: EMPAGLIFLOZIN 25 MG TABLET PO SCH (08:07)
[2023-11-16 08:19] VITALS: BP 121/73; PULSE 89; RESP 16; TEMP 97.6; O2SAT 98
[2023-11-16 12:01] LABS: GLUCOMETER DEV NAME(LOC) BV3S.; GLUCOSE,POINT OF CARE 261 MG/DL (70-110)
[2023-11-16 17:06] LABS: GLUCOMETER DEV NAME(LOC) BV3S.; GLUCOSE,POINT OF CARE 286 MG/DL (70-110)
[2023-11-16 20:44] VITALS: BP 105/75; PULSE 90; RESP 16; TEMP 96.8; O2SAT 95
[2023-11-16 22:06] LABS: GLUCOMETER DEV NAME(LOC) BV3S.; GLUCOSE,POINT OF CARE 210 MG/DL (70-110)
[2023-11-17] MEDS: LEVOTHYROXINE SODIUM 112 MCG TABLET PO SCH (05:33)
[2023-11-17] MEDS: INSULIN LISPRO 100 UNITS/ML SQ PRN ×4 (05:39→20:27)
[2023-11-17 05:46] LABS: GLUCOMETER DEV NAME(LOC) BV3S.; GLUCOSE,POINT OF CARE 159 MG/DL (70-110)
[2023-11-17] MEDS: QUEtiapine FUMARATE 200 MG TABLET PO SCH ×2 (08:08→20:19)
[2023-11-17] MEDS: SitaGLIPtin PHOSPHATE 100 MG TABLET PO SCH (08:08)
[2023-11-17] MEDS: MULTIVITAMINS WITH MINERALS, THERAPEUTIC TABLET PO SCH (08:08)
[2023-11-17] MEDS: EMPAGLIFLOZIN 25 MG TABLET PO SCH (08:08)
[2023-11-17] MEDS: FOLIC ACID 1 MG TABLET PO SCH (08:08)
[2023-11-17] MEDS: SERTRALINE HCL 100 MG TABLET PO SCH (08:08)
[2023-11-17] MEDS: THIAMINE 100 MG TABLET PO SCH (08:08)
[2023-11-17 08:12] VITALS: BP 100/62; PULSE 90; RESP 16; TEMP 98; O2SAT 96
[2023-11-17 12:05] LABS: GLUCOMETER DEV NAME(LOC) BV3S.; GLUCOSE,POINT OF CARE 259 MG/DL (70-110)
[2023-11-17 16:45] LABS: GLUCOMETER DEV NAME(LOC) BV3S.; GLUCOSE,POINT OF CARE 214 MG/DL (70-110)
[2023-11-17 20:36] LABS: GLUCOMETER DEV NAME(LOC) BV3S.; GLUCOSE,POINT OF CARE 291 MG/DL (70-110)
[2023-11-17 21:08] VITALS: BP 105/68; PULSE 92; RESP 18; TEMP 98.2; O2SAT 97
[2023-11-18] MEDS: LEVOTHYROXINE SODIUM 112 MCG TABLET PO SCH (05:34)
[2023-11-18] MEDS: INSULIN LISPRO 100 UNITS/ML SQ PRN ×4 (05:38→20:27)
[2023-11-18 05:46] LABS: GLUCOMETER DEV NAME(LOC) BV3S.; GLUCOSE,POINT OF CARE 179 MG/DL (70-110)
[2023-11-18] MEDS: THIAMINE 100 MG TABLET PO SCH (08:07)
[2023-11-18] MEDS: FOLIC ACID 1 MG TABLET PO SCH (08:07)
[2023-11-18] MEDS: EMPAGLIFLOZIN 25 MG TABLET PO SCH (08:07)
[2023-11-18] MEDS: MULTIVITAMINS WITH MINERALS, THERAPEUTIC TABLET PO SCH (08:07)
[2023-11-18] MEDS: QUEtiapine FUMARATE 200 MG TABLET PO SCH ×2 (08:07→20:20)
[2023-11-18] MEDS: SitaGLIPtin PHOSPHATE 100 MG TABLET PO SCH (08:07)
[2023-11-18] MEDS: SERTRALINE HCL 100 MG TABLET PO SCH (08:07)
[2023-11-18 09:03] VITALS: BP 103/76; PULSE 78; RESP 18; TEMP 97.6; O2SAT 97
[2023-11-18 11:32] LABS: GLUCOMETER DEV NAME(LOC) BV3S.; GLUCOSE,POINT OF CARE 181 MG/DL (70-110)
[2023-11-18 16:31] LABS: GLUCOMETER DEV NAME(LOC) BV3S.; GLUCOSE,POINT OF CARE 198 MG/DL (70-110)
[2023-11-18 20:21] VITALS: BP 128/60; PULSE 100; RESP 18; TEMP 97.5; O2SAT 98
[2023-11-18 20:36] LABS: GLUCOMETER DEV NAME(LOC) BV3S.; GLUCOSE,POINT OF CARE 191 MG/DL (70-110)
[2023-11-19] MEDS: LEVOTHYROXINE SODIUM 112 MCG TABLET PO SCH (05:34)
[2023-11-19] MEDS: INSULIN LISPRO 100 UNITS/ML SQ PRN ×4 (05:40→20:36)
[2023-11-19 05:46] LABS: GLUCOMETER DEV NAME(LOC) BV3S.; GLUCOSE,POINT OF CARE 258 MG/DL (70-110)
[2023-11-19] MEDS: SERTRALINE HCL 100 MG TABLET PO SCH (08:26)
[2023-11-19] MEDS: EMPAGLIFLOZIN 25 MG TABLET PO SCH (08:26)
[2023-11-19] MEDS: SitaGLIPtin PHOSPHATE 100 MG TABLET PO SCH (08:26)
[2023-11-19] MEDS: QUEtiapine FUMARATE 200 MG TABLET PO SCH ×2 (08:26→20:31)
[2023-11-19] MEDS: MULTIVITAMINS WITH MINERALS, THERAPEUTIC TABLET PO SCH (08:26)
[2023-11-19] MEDS: THIAMINE 100 MG TABLET PO SCH (08:26)
[2023-11-19] MEDS: FOLIC ACID 1 MG TABLET PO SCH (08:26)
[2023-11-19 08:36] VITALS: BP 129/77; PULSE 98; RESP 17; TEMP 97.6; O2SAT 97
[2023-11-19 11:31] LABS: GLUCOMETER DEV NAME(LOC) BV3S.; GLUCOSE,POINT OF CARE 183 MG/DL (70-110)
[2023-11-19 16:56] LABS: GLUCOMETER DEV NAME(LOC) BV3S.; GLUCOSE,POINT OF CARE 284 MG/DL (70-110)
[2023-11-19 20:41] LABS: GLUCOMETER DEV NAME(LOC) BV3S.; GLUCOSE,POINT OF CARE 305 MG/DL (70-110)
[2023-11-19 22:03] VITALS: BP 107/68; PULSE 97; RESP 17; TEMP 97.3; O2SAT 98
[2023-11-20 06:27] LABS: GLUCOMETER DEV NAME(LOC) BV3S.; GLUCOSE,POINT OF CARE 200 MG/DL (70-110)
[2023-11-20] MEDS: LEVOTHYROXINE SODIUM 112 MCG TABLET PO SCH (06:31)
[2023-11-20] MEDS: INSULIN LISPRO 100 UNITS/ML SQ PRN ×4 (06:37→20:44)
[2023-11-20 08:18] VITALS: BP 114/74; PULSE 87; RESP 20; TEMP 98; O2SAT 98
[2023-11-20] MEDS: FOLIC ACID 1 MG TABLET PO SCH (08:22)
[2023-11-20] MEDS: MULTIVITAMINS WITH MINERALS, THERAPEUTIC TABLET PO SCH (08:23)
[2023-11-20] MEDS: SERTRALINE HCL 100 MG TABLET PO SCH (08:23)
[2023-11-20] MEDS: THIAMINE 100 MG TABLET PO SCH (08:23)
[2023-11-20] MEDS: QUEtiapine FUMARATE 200 MG TABLET PO SCH ×2 (08:23→20:40)
[2023-11-20] MEDS: EMPAGLIFLOZIN 25 MG TABLET PO SCH (08:23)
[2023-11-20] MEDS: SitaGLIPtin PHOSPHATE 100 MG TABLET PO SCH (08:23)
[2023-11-20 12:01] LABS: GLUCOMETER DEV NAME(LOC) BV3S.; GLUCOSE,POINT OF CARE 169 MG/DL (70-110)
[2023-11-20 16:26] LABS: GLUCOMETER DEV NAME(LOC) BV3S.; GLUCOSE,POINT OF CARE 182 MG/DL (70-110)
[2023-11-20 20:51] LABS: GLUCOMETER DEV NAME(LOC) BV3S.; GLUCOSE,POINT OF CARE 302 MG/DL (70-110)
[2023-11-20 22:54] VITALS: BP 118/70; PULSE 83; RESP 18; TEMP 97.8; O2SAT 99
[2023-11-21] MEDS: LEVOTHYROXINE SODIUM 112 MCG TABLET PO SCH (05:34)
[2023-11-21] MEDS: INSULIN LISPRO 100 UNITS/ML SQ PRN ×4 (05:40→20:13)
[2023-11-21 05:46] LABS: GLUCOMETER DEV NAME(LOC) BV3S.; GLUCOSE,POINT OF CARE 255 MG/DL (70-110)
[2023-11-21] MEDS: SitaGLIPtin PHOSPHATE 100 MG TABLET PO SCH (08:06)
[2023-11-21] MEDS: EMPAGLIFLOZIN 25 MG TABLET PO SCH (08:07)
[2023-11-21] MEDS: MULTIVITAMINS WITH MINERALS, THERAPEUTIC TABLET PO SCH (08:07)
[2023-11-21] MEDS: FOLIC ACID 1 MG TABLET PO SCH (08:07)
[2023-11-21] MEDS: QUEtiapine FUMARATE 200 MG TABLET PO SCH ×2 (08:07→20:06)
[2023-11-21] MEDS: THIAMINE 100 MG TABLET PO SCH (08:07)
[2023-11-21] MEDS: SERTRALINE HCL 100 MG TABLET PO SCH (08:07)
[2023-11-21 08:14] VITALS: BP 124/76; PULSE 100; RESP 18; TEMP 97.9; O2SAT 99
[2023-11-21 12:16] LABS: GLUCOMETER DEV NAME(LOC) BV3S.; GLUCOSE,POINT OF CARE 183 MG/DL (70-110)
[2023-11-21 16:36] LABS: GLUCOMETER DEV NAME(LOC) BV3S.; GLUCOSE,POINT OF CARE 168 MG/DL (70-110)
[2023-11-21 20:26] LABS: GLUCOMETER DEV NAME(LOC) BV3S.; GLUCOSE,POINT OF CARE 270 MG/DL (70-110)
[2023-11-21 22:10] VITALS: BP 105/63; PULSE 85; RESP 18; TEMP 97.5; O2SAT 98
[2023-11-22] MEDS: LEVOTHYROXINE SODIUM 112 MCG TABLET PO SCH (06:23)
[2023-11-22 06:26] LABS: GLUCOMETER DEV NAME(LOC) BV3S.; GLUCOSE,POINT OF CARE 204 MG/DL (70-110)
[2023-11-22] MEDS: INSULIN LISPRO 100 UNITS/ML SQ PRN ×4 (06:27→20:23)
[2023-11-22 08:05] VITALS: BP 129/82; PULSE 99; RESP 16; TEMP 98; O2SAT 98
[2023-11-22] MEDS: EMPAGLIFLOZIN 25 MG TABLET PO SCH (08:11)
[2023-11-22] MEDS: THIAMINE 100 MG TABLET PO SCH (08:11)
[2023-11-22] MEDS: SitaGLIPtin PHOSPHATE 100 MG TABLET PO SCH (08:11)
[2023-11-22] MEDS: SERTRALINE HCL 100 MG TABLET PO SCH (08:11)
[2023-11-22] MEDS: QUEtiapine FUMARATE 200 MG TABLET PO SCH ×2 (08:11→20:18)
[2023-11-22] MEDS: FOLIC ACID 1 MG TABLET PO SCH (08:11)
[2023-11-22] MEDS: MULTIVITAMINS WITH MINERALS, THERAPEUTIC TABLET PO SCH (08:12)
[2023-11-22 11:51] LABS: GLUCOMETER DEV NAME(LOC) BV3S.; GLUCOSE,POINT OF CARE 184 MG/DL (70-110)
[2023-11-22 17:00] LABS: GLUCOMETER DEV NAME(LOC) BV3S.; GLUCOSE,POINT OF CARE 248 MG/DL (70-110)
[2023-11-22 20:11] VITALS: BP 128/91; PULSE 102; RESP 18; TEMP 98.7; O2SAT 96
[2023-11-22 20:46] LABS: GLUCOMETER DEV NAME(LOC) BV3S.; GLUCOSE,POINT OF CARE 242 MG/DL (70-110)
[2023-11-23] MEDS: LEVOTHYROXINE SODIUM 112 MCG TABLET PO SCH (05:34)
[2023-11-23] MEDS: INSULIN LISPRO 100 UNITS/ML SQ PRN ×4 (05:43→21:51)
[2023-11-23 05:46] LABS: GLUCOMETER DEV NAME(LOC) BV3S.; GLUCOSE,POINT OF CARE 189 MG/DL (70-110)
[2023-11-23] MEDS: THIAMINE 100 MG TABLET PO SCH (08:31)
[2023-11-23] MEDS: QUEtiapine FUMARATE 200 MG TABLET PO SCH ×2 (08:31→20:27)
[2023-11-23] MEDS: SERTRALINE HCL 100 MG TABLET PO SCH (08:31)
[2023-11-23] MEDS: FOLIC ACID 1 MG TABLET PO SCH (08:31)
[2023-11-23] MEDS: EMPAGLIFLOZIN 25 MG TABLET PO SCH (08:31)
[2023-11-23] MEDS: SitaGLIPtin PHOSPHATE 100 MG TABLET PO SCH (08:32)
[2023-11-23] MEDS: MULTIVITAMINS WITH MINERALS, THERAPEUTIC TABLET PO SCH (08:32)
[2023-11-23 08:37] VITALS: BP 122/69; PULSE 79; RESP 16; TEMP 97.8; O2SAT 96
[2023-11-23 11:27] LABS: GLUCOMETER DEV NAME(LOC) BV3S.; GLUCOSE,POINT OF CARE 287 MG/DL (70-110)
[2023-11-23 17:47] LABS: GLUCOMETER DEV NAME(LOC) BV3S.; GLUCOSE,POINT OF CARE 288 MG/DL (70-110)
[2023-11-23 20:05] VITALS: BP 132/70; PULSE 83; RESP 18; TEMP 97.8; O2SAT 97
[2023-11-23 22:06] LABS: GLUCOMETER DEV NAME(LOC) BV3S.; GLUCOSE,POINT OF CARE 296 MG/DL (70-110)
[2023-11-24] MEDS: LEVOTHYROXINE SODIUM 112 MCG TABLET PO SCH (05:35)
[2023-11-24] MEDS: INSULIN LISPRO 100 UNITS/ML SQ PRN ×4 (05:41→20:50)
[2023-11-24 05:47] LABS: GLUCOMETER DEV NAME(LOC) BV3S.; GLUCOSE,POINT OF CARE 185 MG/DL (70-110)
[2023-11-24] MEDS: FOLIC ACID 1 MG TABLET PO SCH (08:17)
[2023-11-24] MEDS: SERTRALINE HCL 100 MG TABLET PO SCH (08:17)
[2023-11-24] MEDS: EMPAGLIFLOZIN 25 MG TABLET PO SCH (08:17)
[2023-11-24] MEDS: SitaGLIPtin PHOSPHATE 100 MG TABLET PO SCH (08:17)
[2023-11-24] MEDS: MULTIVITAMINS WITH MINERALS, THERAPEUTIC TABLET PO SCH (08:17)
[2023-11-24] MEDS: QUEtiapine FUMARATE 200 MG TABLET PO SCH ×2 (08:17→20:39)
[2023-11-24] MEDS: THIAMINE 100 MG TABLET PO SCH (08:19)
[2023-11-24 08:28] VITALS: BP 103/64; PULSE 102; RESP 18; TEMP 96.9; O2SAT 97
[2023-11-24 11:27] LABS: GLUCOMETER DEV NAME(LOC) BV3S.; GLUCOSE,POINT OF CARE 316 MG/DL (70-110)
[2023-11-24 17:06] LABS: GLUCOMETER DEV NAME(LOC) BV3S.; GLUCOSE,POINT OF CARE 257 MG/DL (70-110)
[2023-11-24 20:55] LABS: GLUCOMETER DEV NAME(LOC) BV3S.; GLUCOSE,POINT OF CARE 250 MG/DL (70-110)
[2023-11-24 23:20] VITALS: BP 116/62; PULSE 96; RESP 17; TEMP 97.7; O2SAT 97
[2023-11-25] MEDS: LEVOTHYROXINE SODIUM 112 MCG TABLET PO SCH (06:16)
[2023-11-25 06:26] LABS: GLUCOMETER DEV NAME(LOC) BV3S.; GLUCOSE,POINT OF CARE 232 MG/DL (70-110)
[2023-11-25] MEDS: INSULIN LISPRO 100 UNITS/ML SQ PRN ×4 (06:37→20:17)
[2023-11-25] MEDS: EMPAGLIFLOZIN 25 MG TABLET PO SCH (08:03)
[2023-11-25] MEDS: FOLIC ACID 1 MG TABLET PO SCH (08:04)
[2023-11-25] MEDS: MULTIVITAMINS WITH MINERALS, THERAPEUTIC TABLET PO SCH (08:04)
[2023-11-25] MEDS: SitaGLIPtin PHOSPHATE 100 MG TABLET PO SCH (08:04)
[2023-11-25] MEDS: QUEtiapine FUMARATE 200 MG TABLET PO SCH ×2 (08:04→20:02)
[2023-11-25] MEDS: THIAMINE 100 MG TABLET PO SCH (08:04)
[2023-11-25] MEDS: SERTRALINE HCL 100 MG TABLET PO SCH (08:04)
[2023-11-25 08:51] VITALS: BP 130/79; PULSE 99; RESP 19; TEMP 97.3; O2SAT 98
[2023-11-25 11:57] LABS: GLUCOMETER DEV NAME(LOC) BV3S.; GLUCOSE,POINT OF CARE 292 MG/DL (70-110)
[2023-11-25 18:01] LABS: GLUCOMETER DEV NAME(LOC) BV3S.; GLUCOSE,POINT OF CARE 268 MG/DL (70-110)
[2023-11-25 20:31] LABS: GLUCOMETER DEV NAME(LOC) BV3S.; GLUCOSE,POINT OF CARE 282 MG/DL (70-110)
[2023-11-25 22:53] VITALS: BP 120/74; PULSE 100; RESP 18; TEMP 97.7; O2SAT 96
[2023-11-26] MEDS: LEVOTHYROXINE SODIUM 112 MCG TABLET PO SCH (06:11)
[2023-11-26 06:41] LABS: GLUCOMETER DEV NAME(LOC) BV3S.; GLUCOSE,POINT OF CARE 191 MG/DL (70-110)
[2023-11-26] MEDS: INSULIN LISPRO 100 UNITS/ML SQ PRN ×3 (06:42→16:43)
[2023-11-26] MEDS: EMPAGLIFLOZIN 25 MG TABLET PO SCH (08:06)
[2023-11-26] MEDS: THIAMINE 100 MG TABLET PO SCH (08:06)
[2023-11-26] MEDS: QUEtiapine FUMARATE 200 MG TABLET PO SCH ×2 (08:06→20:10)
[2023-11-26] MEDS: FOLIC ACID 1 MG TABLET PO SCH (08:06)
[2023-11-26] MEDS: SitaGLIPtin PHOSPHATE 100 MG TABLET PO SCH (08:07)
[2023-11-26] MEDS: MULTIVITAMINS WITH MINERALS, THERAPEUTIC TABLET PO SCH (08:07)
[2023-11-26 08:08] VITALS: BP 100/65; PULSE 98; RESP 16; TEMP 98.7; O2SAT 97
[2023-11-26] MEDS: SERTRALINE HCL 100 MG TABLET PO SCH (08:21)
[2023-11-26 11:51] LABS: GLUCOMETER DEV NAME(LOC) BV3S.; GLUCOSE,POINT OF CARE 157 MG/DL (70-110)
[2023-11-26 16:56] LABS: GLUCOMETER DEV NAME(LOC) BV3S.; GLUCOSE,POINT OF CARE 209 MG/DL (70-110)
[2023-11-26 21:52] VITALS: BP 105/63; PULSE 89; RESP 17; TEMP 98.5; O2SAT 98
[2023-11-27] MEDS: INSULIN LISPRO 100 UNITS/ML SQ PRN ×4 (05:36→20:39)
[2023-11-27 05:46] LABS: GLUCOMETER DEV NAME(LOC) BV3S.; GLUCOSE,POINT OF CARE 201 MG/DL (70-110)
[2023-11-27] MEDS: LEVOTHYROXINE SODIUM 112 MCG TABLET PO SCH (06:04)
[2023-11-27] MEDS: SERTRALINE HCL 100 MG TABLET PO SCH (08:27)
[2023-11-27] MEDS: MULTIVITAMINS WITH MINERALS, THERAPEUTIC TABLET PO SCH (08:27)
[2023-11-27] MEDS: FOLIC ACID 1 MG TABLET PO SCH (08:27)
[2023-11-27] MEDS: EMPAGLIFLOZIN 25 MG TABLET PO SCH (08:27)
[2023-11-27] MEDS: THIAMINE 100 MG TABLET PO SCH (08:27)
[2023-11-27] MEDS: SitaGLIPtin PHOSPHATE 100 MG TABLET PO SCH (08:27)
[2023-11-27] MEDS: QUEtiapine FUMARATE 200 MG TABLET PO SCH ×2 (08:27→20:40)
[2023-11-27 08:54] VITALS: BP 148/83; PULSE 89; RESP 17; TEMP 97.1; O2SAT 98
[2023-11-27 17:21] LABS: GLUCOMETER DEV NAME(LOC) BV3S.; GLUCOSE,POINT OF CARE 214 MG/DL (70-110)
[2023-11-27 20:31] LABS: GLUCOMETER DEV NAME(LOC) BV3S.; GLUCOSE,POINT OF CARE 310 MG/DL (70-110)
[2023-11-27 20:55] VITALS: BP 113/72; PULSE 103; RESP 18; TEMP 97.7; O2SAT 96
[2023-11-28] MEDS: LEVOTHYROXINE SODIUM 112 MCG TABLET PO SCH (05:36)
[2023-11-28 05:46] LABS: GLUCOMETER DEV NAME(LOC) BV3S.; GLUCOSE,POINT OF CARE 237 MG/DL (70-110)
[2023-11-28] MEDS: INSULIN LISPRO 100 UNITS/ML SQ PRN ×4 (05:50→20:47)
[2023-11-28] MEDS: MULTIVITAMINS WITH MINERALS, THERAPEUTIC TABLET PO SCH (08:05)
[2023-11-28] MEDS: THIAMINE 100 MG TABLET PO SCH (08:05)
[2023-11-28] MEDS: FOLIC ACID 1 MG TABLET PO SCH (08:05)
[2023-11-28] MEDS: QUEtiapine FUMARATE 200 MG TABLET PO SCH ×2 (08:05→20:07)
[2023-11-28] MEDS: SitaGLIPtin PHOSPHATE 100 MG TABLET PO SCH (08:05)
[2023-11-28] MEDS: SERTRALINE HCL 100 MG TABLET PO SCH (08:05)
[2023-11-28] MEDS: EMPAGLIFLOZIN 25 MG TABLET PO SCH (08:05)
[2023-11-28 08:34] VITALS: BP 108/72; PULSE 91; RESP 17; TEMP 97; O2SAT 98
[2023-11-28 11:56] LABS: GLUCOMETER DEV NAME(LOC) BV3S.; GLUCOSE,POINT OF CARE 277 MG/DL (70-110)
[2023-11-28 16:41] LABS: GLUCOMETER DEV NAME(LOC) BV3S.; GLUCOSE,POINT OF CARE 279 MG/DL (70-110)
[2023-11-28 20:57] VITALS: BP 130/80; PULSE 97; RESP 18; TEMP 97.7; O2SAT 97
[2023-11-28 21:06] LABS: GLUCOMETER DEV NAME(LOC) BV3S.; GLUCOSE,POINT OF CARE 174 MG/DL (70-110)
[2023-11-29 06:21] LABS: GLUCOMETER DEV NAME(LOC) BV3S.; GLUCOSE,POINT OF CARE 204 MG/DL (70-110)
[2023-11-29] MEDS: LEVOTHYROXINE SODIUM 112 MCG TABLET PO SCH (06:35)
[2023-11-29] MEDS: INSULIN LISPRO 100 UNITS/ML SQ PRN ×3 (06:44→20:18)
[2023-11-29] MEDS: SitaGLIPtin PHOSPHATE 100 MG TABLET PO SCH (08:22)
[2023-11-29] MEDS: MULTIVITAMINS WITH MINERALS, THERAPEUTIC TABLET PO SCH (08:22)
[2023-11-29] MEDS: SERTRALINE HCL 100 MG TABLET PO SCH (08:22)
[2023-11-29] MEDS: THIAMINE 100 MG TABLET PO SCH (08:22)
[2023-11-29] MEDS: FOLIC ACID 1 MG TABLET PO SCH (08:22)
[2023-11-29] MEDS: QUEtiapine FUMARATE 200 MG TABLET PO SCH ×2 (08:22→20:06)
[2023-11-29] MEDS: EMPAGLIFLOZIN 25 MG TABLET PO SCH (08:25)
[2023-11-29 10:39] VITALS: BP 113/60; PULSE 97; RESP 18; TEMP 97.6; O2SAT 95
[2023-11-29 12:56] LABS: GLUCOMETER DEV NAME(LOC) BV3S.; GLUCOSE,POINT OF CARE 193 MG/DL (70-110)
[2023-11-29 16:51] LABS: GLUCOMETER DEV NAME(LOC) BV3S.; GLUCOSE,POINT OF CARE 122 MG/DL (70-110)
[2023-11-29 20:06] VITALS: BP 108/72; PULSE 98; RESP 18; TEMP 97.8
[2023-11-29 20:31] LABS: GLUCOMETER DEV NAME(LOC) BV3S.; GLUCOSE,POINT OF CARE 208 MG/DL (70-110)
[2023-11-30] MEDS: LEVOTHYROXINE SODIUM 112 MCG TABLET PO SCH (06:18)
[2023-11-30 06:21] LABS: GLUCOMETER DEV NAME(LOC) BV3S.; GLUCOSE,POINT OF CARE 216 MG/DL (70-110)
[2023-11-30] MEDS: INSULIN LISPRO 100 UNITS/ML SQ PRN ×4 (06:26→21:02)
[2023-11-30] MEDS: SitaGLIPtin PHOSPHATE 100 MG TABLET PO SCH (08:25)
[2023-11-30] MEDS: SERTRALINE HCL 100 MG TABLET PO SCH (08:26)
[2023-11-30] MEDS: MULTIVITAMINS WITH MINERALS, THERAPEUTIC TABLET PO SCH (08:26)
[2023-11-30] MEDS: THIAMINE 100 MG TABLET PO SCH (08:26)
[2023-11-30] MEDS: EMPAGLIFLOZIN 25 MG TABLET PO SCH (08:26)
[2023-11-30] MEDS: FOLIC ACID 1 MG TABLET PO SCH (08:26)
[2023-11-30] MEDS: QUEtiapine FUMARATE 200 MG TABLET PO SCH ×2 (08:26→21:04)
[2023-11-30 08:28] VITALS: BP 111/70; PULSE 100; RESP 16; TEMP 97; O2SAT 97
[2023-11-30 11:51] LABS: GLUCOMETER DEV NAME(LOC) BV3S.; GLUCOSE,POINT OF CARE 176 MG/DL (70-110)
[2023-11-30 17:26] LABS: GLUCOMETER DEV NAME(LOC) BV3S.; GLUCOSE,POINT OF CARE 253 MG/DL (70-110)
[2023-11-30 20:02] VITALS: BP 113/68; PULSE 92; RESP 18; TEMP 97.6; O2SAT 97
[2023-11-30 21:01] LABS: GLUCOMETER DEV NAME(LOC) BV3S.; GLUCOSE,POINT OF CARE 164 MG/DL (70-110)
[2023-12-01 00:07] VITALS: BP 113/68; PULSE 92; RESP 16; TEMP 97.8; O2SAT 98
[2023-12-01 06:17] LABS: GLUCOMETER DEV NAME(LOC) BV3S.; GLUCOSE,POINT OF CARE 190 MG/DL (70-110)
[2023-12-01] MEDS: INSULIN LISPRO 100 UNITS/ML SQ PRN ×4 (06:22→20:17)
[2023-12-01] MEDS: LEVOTHYROXINE SODIUM 112 MCG TABLET PO SCH (06:24)
[2023-12-01 08:09] VITALS: RESP 16
[2023-12-01] MEDS: QUEtiapine FUMARATE 200 MG TABLET PO SCH ×2 (08:17→20:08)
[2023-12-01] MEDS: SitaGLIPtin PHOSPHATE 100 MG TABLET PO SCH (08:17)
[2023-12-01] MEDS: MULTIVITAMINS WITH MINERALS, THERAPEUTIC TABLET PO SCH (08:17)
[2023-12-01] MEDS: EMPAGLIFLOZIN 25 MG TABLET PO SCH (08:17)
[2023-12-01] MEDS: SERTRALINE HCL 100 MG TABLET PO SCH (08:17)
[2023-12-01] MEDS: THIAMINE 100 MG TABLET PO SCH (08:17)
[2023-12-01] MEDS: FOLIC ACID 1 MG TABLET PO SCH (08:17)
[2023-12-01 12:01] LABS: GLUCOMETER DEV NAME(LOC) BV3S.; GLUCOSE,POINT OF CARE 179 MG/DL (70-110)
[2023-12-01 17:01] LABS: GLUCOMETER DEV NAME(LOC) BV3S.; GLUCOSE,POINT OF CARE 317 MG/DL (70-110)
[2023-12-01 20:26] LABS: GLUCOMETER DEV NAME(LOC) BV3S.; GLUCOSE,POINT OF CARE 258 MG/DL (70-110)
[2023-12-01 21:31] VITALS: BP 108/77; PULSE 99; TEMP 98.6; O2SAT 99
[2023-12-02] MEDS: LEVOTHYROXINE SODIUM 112 MCG TABLET PO SCH (06:21)
[2023-12-02] MEDS: INSULIN LISPRO 100 UNITS/ML SQ PRN ×4 (06:29→20:43)
[2023-12-02 06:51] LABS: GLUCOMETER DEV NAME(LOC) BV3S.; GLUCOSE,POINT OF CARE 208 MG/DL (70-110)
[2023-12-02 08:14] VITALS: RESP 16
[2023-12-02] MEDS: FOLIC ACID 1 MG TABLET PO SCH (08:51)
[2023-12-02] MEDS: SERTRALINE HCL 100 MG TABLET PO SCH (08:51)
[2023-12-02] MEDS: MULTIVITAMINS WITH MINERALS, THERAPEUTIC TABLET PO SCH (08:51)
[2023-12-02] MEDS: THIAMINE 100 MG TABLET PO SCH (08:51)
[2023-12-02] MEDS: SitaGLIPtin PHOSPHATE 100 MG TABLET PO SCH (08:51)
[2023-12-02] MEDS: QUEtiapine FUMARATE 200 MG TABLET PO SCH ×2 (08:51→20:30)
[2023-12-02] MEDS: EMPAGLIFLOZIN 25 MG TABLET PO SCH (09:16)
[2023-12-02 11:26] LABS: GLUCOMETER DEV NAME(LOC) BV3S.; GLUCOSE,POINT OF CARE 202 MG/DL (70-110)
[2023-12-02 17:01] LABS: GLUCOMETER DEV NAME(LOC) BV3S.; GLUCOSE,POINT OF CARE 237 MG/DL (70-110)
[2023-12-02 20:00] VITALS: RESP 18
[2023-12-02 20:51] LABS: GLUCOMETER DEV NAME(LOC) BV3S.; GLUCOSE,POINT OF CARE 294 MG/DL (70-110)
[2023-12-03] MEDS: LEVOTHYROXINE SODIUM 112 MCG TABLET PO SCH (06:05)
[2023-12-03] MEDS: INSULIN LISPRO 100 UNITS/ML SQ PRN ×4 (06:09→21:13)
[2023-12-03 06:11] LABS: GLUCOMETER DEV NAME(LOC) BV3S.; GLUCOSE,POINT OF CARE 268 MG/DL (70-110)
[2023-12-03] MEDS: THIAMINE 100 MG TABLET PO SCH (08:13)
[2023-12-03] MEDS: SitaGLIPtin PHOSPHATE 100 MG TABLET PO SCH (08:13)
[2023-12-03] MEDS: MULTIVITAMINS WITH MINERALS, THERAPEUTIC TABLET PO SCH (08:13)
[2023-12-03] MEDS: QUEtiapine FUMARATE 200 MG TABLET PO SCH ×2 (08:13→20:17)
[2023-12-03] MEDS: EMPAGLIFLOZIN 25 MG TABLET PO SCH (08:14)
[2023-12-03] MEDS: FOLIC ACID 1 MG TABLET PO SCH (08:14)
[2023-12-03] MEDS: SERTRALINE HCL 100 MG TABLET PO SCH (08:14)
[2023-12-03 08:33] VITALS: BP 115/69; PULSE 109; RESP 18; TEMP 97.8
[2023-12-03 11:26] LABS: GLUCOMETER DEV NAME(LOC) BV3S.; GLUCOSE,POINT OF CARE 211 MG/DL (70-110)
[2023-12-03 16:16] LABS: GLUCOMETER DEV NAME(LOC) BV3S.; GLUCOSE,POINT OF CARE 304 MG/DL (70-110)
[2023-12-03 21:16] VITALS: BP 133/91; PULSE 98; RESP 18; TEMP 97.3
[2023-12-03 21:21] LABS: GLUCOMETER DEV NAME(LOC) BV3S.; GLUCOSE,POINT OF CARE 191 MG/DL (70-110)
[2023-12-04] MEDS: LEVOTHYROXINE SODIUM 112 MCG TABLET PO SCH (06:08)
[2023-12-04] MEDS: INSULIN LISPRO 100 UNITS/ML SQ PRN ×4 (06:13→20:28)
[2023-12-04 06:16] LABS: GLUCOMETER DEV NAME(LOC) BV3S.; GLUCOSE,POINT OF CARE 213 MG/DL (70-110)
[2023-12-04] MEDS: MULTIVITAMINS WITH MINERALS, THERAPEUTIC TABLET PO SCH (08:25)
[2023-12-04] MEDS: THIAMINE 100 MG TABLET PO SCH (08:25)
[2023-12-04] MEDS: SitaGLIPtin PHOSPHATE 100 MG TABLET PO SCH (08:25)
[2023-12-04] MEDS: QUEtiapine FUMARATE 200 MG TABLET PO SCH ×2 (08:25→20:06)
[2023-12-04] MEDS: EMPAGLIFLOZIN 25 MG TABLET PO SCH (08:25)
[2023-12-04] MEDS: FOLIC ACID 1 MG TABLET PO SCH (08:25)
[2023-12-04] MEDS: SERTRALINE HCL 100 MG TABLET PO SCH (08:25)
[2023-12-04 08:56] VITALS: BP 128/78; PULSE 95; RESP 20; TEMP 98
[2023-12-04 11:21] LABS: GLUCOMETER DEV NAME(LOC) BV3S.; GLUCOSE,POINT OF CARE 203 MG/DL (70-110)
[2023-12-04 16:46] LABS: GLUCOMETER DEV NAME(LOC) BV3S.; GLUCOSE,POINT OF CARE 160 MG/DL (70-110)
[2023-12-04 20:51] LABS: GLUCOMETER DEV NAME(LOC) BV3S.; GLUCOSE,POINT OF CARE 194 MG/DL (70-110)
[2023-12-04] MEDS: ACETAMINOPHEN 325 MG TABLET PO PRN (22:50)
[2023-12-04 23:16] VITALS: RESP 18
[2023-12-05] MEDS: LEVOTHYROXINE SODIUM 112 MCG TABLET PO SCH (06:21)
[2023-12-05 06:31] LABS: GLUCOMETER DEV NAME(LOC) BV3S.; GLUCOSE,POINT OF CARE 201 MG/DL (70-110)
[2023-12-05] MEDS: INSULIN LISPRO 100 UNITS/ML SQ PRN ×4 (06:33→20:37)
[2023-12-05] MEDS: SitaGLIPtin PHOSPHATE 100 MG TABLET PO SCH (08:04)
[2023-12-05] MEDS: LEVOFLOXACIN 500 MG TABLET PO SCH (08:04)
[2023-12-05] MEDS: THIAMINE 100 MG TABLET PO SCH (08:04)
[2023-12-05] MEDS: MULTIVITAMINS WITH MINERALS, THERAPEUTIC TABLET PO SCH (08:04)
[2023-12-05] MEDS: FOLIC ACID 1 MG TABLET PO SCH (08:04)
[2023-12-05] MEDS: EMPAGLIFLOZIN 25 MG TABLET PO SCH (08:05)
[2023-12-05] MEDS: QUEtiapine FUMARATE 200 MG TABLET PO SCH ×2 (08:05→20:28)
[2023-12-05] MEDS: BACITRACIN 28 GM OINTMENT TP SCH ×2 (08:05→16:06)
[2023-12-05] MEDS: SERTRALINE HCL 100 MG TABLET PO SCH (08:05)
[2023-12-05 08:13] VITALS: BP 115/65; PULSE 94; RESP 16; TEMP 97.9; O2SAT 96
[2023-12-05 11:36] LABS: GLUCOMETER DEV NAME(LOC) BV3S.; GLUCOSE,POINT OF CARE 170 MG/DL (70-110)
[2023-12-05 16:41] LABS: GLUCOMETER DEV NAME(LOC) BV3S.; GLUCOSE,POINT OF CARE 197 MG/DL (70-110)
[2023-12-05 20:28] VITALS: BP 94/60; PULSE 105; RESP 18; TEMP 98; O2SAT 98
[2023-12-05 20:46] LABS: GLUCOMETER DEV NAME(LOC) BV3S.; GLUCOSE,POINT OF CARE 223 MG/DL (70-110)
[2023-12-06 06:16] LABS: GLUCOMETER DEV NAME(LOC) BV3S.; GLUCOSE,POINT OF CARE 169 MG/DL (70-110)
[2023-12-06] MEDS: LEVOTHYROXINE SODIUM 112 MCG TABLET PO SCH (06:22)
[2023-12-06] MEDS: INSULIN LISPRO 100 UNITS/ML SQ PRN ×4 (06:31→20:22)
[2023-12-06 08:17] VITALS: BP 118/70; PULSE 93; RESP 16; TEMP 98; O2SAT 97
[2023-12-06] MEDS: MULTIVITAMINS WITH MINERALS, THERAPEUTIC TABLET PO SCH (08:28)
[2023-12-06] MEDS: QUEtiapine FUMARATE 200 MG TABLET PO SCH ×2 (08:28→20:13)
[2023-12-06] MEDS: THIAMINE 100 MG TABLET PO SCH (08:28)
[2023-12-06] MEDS: LEVOFLOXACIN 500 MG TABLET PO SCH (08:28)
[2023-12-06] MEDS: SitaGLIPtin PHOSPHATE 100 MG TABLET PO SCH (08:28)
[2023-12-06] MEDS: POVIDONE-IODINE 10% 120 ML SOLUTION TP SCH (08:29)
[2023-12-06] MEDS: FOLIC ACID 1 MG TABLET PO SCH (08:29)
[2023-12-06] MEDS: EMPAGLIFLOZIN 25 MG TABLET PO SCH (08:29)
[2023-12-06] MEDS: SERTRALINE HCL 100 MG TABLET PO SCH (08:39)
[2023-12-06] MEDS: BACITRACIN 28 GM OINTMENT TP SCH (09:00)
[2023-12-06 11:42] LABS: GLUCOMETER DEV NAME(LOC) BV3S.; GLUCOSE,POINT OF CARE 178 MG/DL (70-110)
[2023-12-06 16:41] LABS: GLUCOMETER DEV NAME(LOC) BV3S.; GLUCOSE,POINT OF CARE 269 MG/DL (70-110)
[2023-12-06 20:30] VITALS: BP 139/91; PULSE 101; RESP 18; TEMP 98.1; O2SAT 97
[2023-12-06 20:41] LABS: GLUCOMETER DEV NAME(LOC) BV3S.; GLUCOSE,POINT OF CARE 227 MG/DL (70-110)
[2023-12-07] MEDS: LEVOTHYROXINE SODIUM 112 MCG TABLET PO SCH (05:39)
[2023-12-07] MEDS: INSULIN LISPRO 100 UNITS/ML SQ PRN ×4 (05:47→20:57)
[2023-12-07 05:51] LABS: GLUCOMETER DEV NAME(LOC) BV3S.; GLUCOSE,POINT OF CARE 206 MG/DL (70-110)
[2023-12-07] MEDS: MULTIVITAMINS WITH MINERALS, THERAPEUTIC TABLET PO SCH (08:09)
[2023-12-07] MEDS: THIAMINE 100 MG TABLET PO SCH (08:09)
[2023-12-07] MEDS: QUEtiapine FUMARATE 200 MG TABLET PO SCH ×2 (08:09→20:14)
[2023-12-07] MEDS: FOLIC ACID 1 MG TABLET PO SCH (08:09)
[2023-12-07] MEDS: EMPAGLIFLOZIN 25 MG TABLET PO SCH (08:09)
[2023-12-07] MEDS: SitaGLIPtin PHOSPHATE 100 MG TABLET PO SCH (08:09)
[2023-12-07] MEDS: SERTRALINE HCL 100 MG TABLET PO SCH (08:09)
[2023-12-07] MEDS: LEVOFLOXACIN 500 MG TABLET PO SCH (08:09)
[2023-12-07] MEDS: POVIDONE-IODINE 10% 120 ML SOLUTION TP SCH (08:11)
[2023-12-07] MEDS: BACITRACIN 28 GM OINTMENT TP SCH (08:17)
[2023-12-07 08:19] VITALS: BP 134/70; PULSE 89; RESP 16; TEMP 97.8; O2SAT 97
[2023-12-07 11:56] LABS: GLUCOMETER DEV NAME(LOC) BV3S.; GLUCOSE,POINT OF CARE 163 MG/DL (70-110)
[2023-12-07 16:51] LABS: GLUCOMETER DEV NAME(LOC) BV3S.; GLUCOSE,POINT OF CARE 353 MG/DL (70-110)
[2023-12-07 20:08] VITALS: BP 121/68; PULSE 103; RESP 20; TEMP 98.5; O2SAT 97
[2023-12-07 21:01] LABS: GLUCOMETER DEV NAME(LOC) BV3S.; GLUCOSE,POINT OF CARE 209 MG/DL (70-110)
[2023-12-08] MEDS: LEVOTHYROXINE SODIUM 112 MCG TABLET PO SCH (05:41)
[2023-12-08] MEDS: INSULIN LISPRO 100 UNITS/ML SQ PRN ×4 (05:48→20:08)
[2023-12-08 05:51] LABS: GLUCOMETER DEV NAME(LOC) BV3S.; GLUCOSE,POINT OF CARE 216 MG/DL (70-110)
[2023-12-08 08:09] VITALS: BP 121/77; PULSE 100; RESP 18; TEMP 97.9; O2SAT 97
[2023-12-08] MEDS: SitaGLIPtin PHOSPHATE 100 MG TABLET PO SCH (08:10)
[2023-12-08] MEDS: QUEtiapine FUMARATE 200 MG TABLET PO SCH ×2 (08:10→19:48)
[2023-12-08] MEDS: BACITRACIN 28 GM OINTMENT TP SCH (08:10)
[2023-12-08] MEDS: FOLIC ACID 1 MG TABLET PO SCH (08:10)
[2023-12-08] MEDS: THIAMINE 100 MG TABLET PO SCH (08:10)
[2023-12-08] MEDS: LEVOFLOXACIN 500 MG TABLET PO SCH (08:10)
[2023-12-08] MEDS: EMPAGLIFLOZIN 25 MG TABLET PO SCH (08:10)
[2023-12-08] MEDS: MULTIVITAMINS WITH MINERALS, THERAPEUTIC TABLET PO SCH (08:10)
[2023-12-08] MEDS: SERTRALINE HCL 100 MG TABLET PO SCH (08:10)
[2023-12-08] MEDS: POVIDONE-IODINE 10% 120 ML SOLUTION TP SCH (08:11)
[2023-12-08 11:41] LABS: GLUCOMETER DEV NAME(LOC) BV3S.; GLUCOSE,POINT OF CARE 180 MG/DL (70-110)
[2023-12-08 16:36] LABS: GLUCOMETER DEV NAME(LOC) BV3S.; GLUCOSE,POINT OF CARE 280 MG/DL (70-110)
[2023-12-08 19:54] VITALS: BP 108/71; PULSE 102; RESP 18; TEMP 97.5; O2SAT 97
[2023-12-08 20:21] LABS: GLUCOMETER DEV NAME(LOC) BV3S.; GLUCOSE,POINT OF CARE 228 MG/DL (70-110)
[2023-12-08 22:11] VITALS: BP 108/71; PULSE 102; RESP 18; TEMP 97.5; O2SAT 97
[2023-12-09 06:36] LABS: GLUCOMETER DEV NAME(LOC) BV3S.; GLUCOSE,POINT OF CARE 167 MG/DL (70-110)
[2023-12-09] MEDS: LEVOTHYROXINE SODIUM 112 MCG TABLET PO SCH (06:40)
[2023-12-09] MEDS: INSULIN LISPRO 100 UNITS/ML SQ PRN ×3 (06:44→20:33)
[2023-12-09] MEDS: QUEtiapine FUMARATE 200 MG TABLET PO SCH ×2 (08:52→20:22)
[2023-12-09] MEDS: SERTRALINE HCL 100 MG TABLET PO SCH (08:52)
[2023-12-09] MEDS: FOLIC ACID 1 MG TABLET PO SCH (08:52)
[2023-12-09] MEDS: MULTIVITAMINS WITH MINERALS, THERAPEUTIC TABLET PO SCH (08:52)
[2023-12-09] MEDS: SitaGLIPtin PHOSPHATE 100 MG TABLET PO SCH (08:52)
[2023-12-09] MEDS: LEVOFLOXACIN 500 MG TABLET PO SCH (08:52)
[2023-12-09] MEDS: THIAMINE 100 MG TABLET PO SCH (08:52)
[2023-12-09] MEDS: EMPAGLIFLOZIN 25 MG TABLET PO SCH (08:53)
[2023-12-09] MEDS: BACITRACIN 28 GM OINTMENT TP SCH (08:54)
[2023-12-09] MEDS: POVIDONE-IODINE 10% 120 ML SOLUTION TP SCH (08:54)
[2023-12-09 11:56] LABS: GLUCOMETER DEV NAME(LOC) BV3S.; GLUCOSE,POINT OF CARE 165 MG/DL (70-110)
[2023-12-09] MEDS ORDERED: TUBERCULIN, PURIFIED PROTEIN DERIVATIVE 5 TU/0.1 ML SYRINGE ID ONE (12:45)
[2023-12-09 15:22] VITALS: BP 104/64; PULSE 86; RESP 17; TEMP 97.4; O2SAT 98
[2023-12-09 17:36] LABS: GLUCOMETER DEV NAME(LOC) BV3S.; GLUCOSE,POINT OF CARE 353 MG/DL (70-110)
[2023-12-09 20:00] VITALS: BP 106/75; PULSE 108; RESP 18; TEMP 97.7; O2SAT 95
[2023-12-09 20:41] LABS: GLUCOMETER DEV NAME(LOC) BV3S.; GLUCOSE,POINT OF CARE 262 MG/DL (70-110)
[2023-12-10] MEDS: LEVOTHYROXINE SODIUM 112 MCG TABLET PO SCH (06:23)
[2023-12-10 06:45] LABS: GLUCOMETER DEV NAME(LOC) BV3S.; GLUCOSE,POINT OF CARE 187 MG/DL (70-110)
[2023-12-10] MEDS: INSULIN LISPRO 100 UNITS/ML SQ PRN ×3 (06:45→16:31)
[2023-12-10] MEDS: SitaGLIPtin PHOSPHATE 100 MG TABLET PO SCH (08:17)
[2023-12-10] MEDS: THIAMINE 100 MG TABLET PO SCH (08:17)
[2023-12-10] MEDS: FOLIC ACID 1 MG TABLET PO SCH (08:17)
[2023-12-10] MEDS: MULTIVITAMINS WITH MINERALS, THERAPEUTIC TABLET PO SCH (08:17)
[2023-12-10] MEDS: QUEtiapine FUMARATE 200 MG TABLET PO SCH ×2 (08:17→20:10)
[2023-12-10] MEDS: BACITRACIN 28 GM OINTMENT TP SCH (08:18)
[2023-12-10] MEDS: EMPAGLIFLOZIN 25 MG TABLET PO SCH (08:18)
[2023-12-10 08:19] VITALS: BP 109/70; PULSE 85; RESP 16; TEMP 97.9; O2SAT 96
[2023-12-10] MEDS: POVIDONE-IODINE 10% 120 ML SOLUTION TP SCH (08:19)
[2023-12-10] MEDS: LEVOFLOXACIN 500 MG TABLET PO SCH (08:23)
[2023-12-10] MEDS: SERTRALINE HCL 100 MG TABLET PO SCH (08:28)
[2023-12-10 11:41] LABS: GLUCOMETER DEV NAME(LOC) BV3S.; GLUCOSE,POINT OF CARE 182 MG/DL (70-110)
[2023-12-10 16:41] LABS: GLUCOMETER DEV NAME(LOC) BV3S.; GLUCOSE,POINT OF CARE 317 MG/DL (70-110)
[2023-12-10 20:14] VITALS: BP 127/78; PULSE 91; RESP 16; TEMP 97.7; O2SAT 98
[2023-12-10 21:01] LABS: GLUCOMETER DEV NAME(LOC) BV3S.; GLUCOSE,POINT OF CARE 178 MG/DL (70-110)
[2023-12-11] MEDS: LEVOTHYROXINE SODIUM 112 MCG TABLET PO SCH (05:45)
[2023-12-11 05:51] LABS: GLUCOMETER DEV NAME(LOC) BV3S.; GLUCOSE,POINT OF CARE 178 MG/DL (70-110)
[2023-12-11] MEDS: INSULIN LISPRO 100 UNITS/ML SQ PRN ×4 (05:53→21:31)
[2023-12-11 08:08] VITALS: BP 114/65; PULSE 94; RESP 16; TEMP 98; O2SAT 98
[2023-12-11] MEDS: EMPAGLIFLOZIN 25 MG TABLET PO SCH (08:14)
[2023-12-11] MEDS: SitaGLIPtin PHOSPHATE 100 MG TABLET PO SCH (08:14)
[2023-12-11] MEDS: LEVOFLOXACIN 500 MG TABLET PO SCH (08:14)
[2023-12-11] MEDS: QUEtiapine FUMARATE 200 MG TABLET PO SCH ×2 (08:14→21:20)
[2023-12-11] MEDS: SERTRALINE HCL 100 MG TABLET PO SCH (08:14)
[2023-12-11] MEDS: FOLIC ACID 1 MG TABLET PO SCH (08:14)
[2023-12-11] MEDS: MULTIVITAMINS WITH MINERALS, THERAPEUTIC TABLET PO SCH (08:14)
[2023-12-11] MEDS: POVIDONE-IODINE 10% 120 ML SOLUTION TP SCH (08:17)
[2023-12-11] MEDS: BACITRACIN 28 GM OINTMENT TP SCH (08:17)
[2023-12-11] MEDS: THIAMINE 100 MG TABLET PO SCH (08:19)
[2023-12-11 12:06] LABS: GLUCOMETER DEV NAME(LOC) BV3S.; GLUCOSE,POINT OF CARE 205 MG/DL (70-110)
[2023-12-11 18:11] LABS: GLUCOMETER DEV NAME(LOC) POC.BV; POC SARS-COV2 AG, FIA NEGATIVE (NEGATIVE)
[2023-12-11 18:16] LABS: GLUCOMETER DEV NAME(LOC) BV3S.; GLUCOSE,POINT OF CARE 247 MG/DL (70-110)
[2023-12-11 21:01] LABS: GLUCOMETER DEV NAME(LOC) BV3S.; GLUCOSE,POINT OF CARE 280 MG/DL (70-110)
[2023-12-11 21:33] VITALS: BP 141/80; PULSE 100; RESP 18; TEMP 97.8; O2SAT 98
[2023-12-12] MEDS: LEVOTHYROXINE SODIUM 112 MCG TABLET PO SCH (05:44)
[2023-12-12 05:52] LABS: GLUCOMETER DEV NAME(LOC) BV3S.; GLUCOSE,POINT OF CARE 195 MG/DL (70-110)
[2023-12-12] MEDS: INSULIN LISPRO 100 UNITS/ML SQ PRN ×4 (05:52→21:44)
[2023-12-12] MEDS: QUEtiapine FUMARATE 200 MG TABLET PO SCH ×2 (08:30→21:34)
[2023-12-12] MEDS: FOLIC ACID 1 MG TABLET PO SCH (08:30)
[2023-12-12] MEDS: EMPAGLIFLOZIN 25 MG TABLET PO SCH (08:30)
[2023-12-12] MEDS: THIAMINE 100 MG TABLET PO SCH (08:30)
[2023-12-12 08:32] VITALS: BP 132/66; PULSE 79; RESP 16; TEMP 97.7; O2SAT 95
[2023-12-12] MEDS: SERTRALINE HCL 100 MG TABLET PO SCH (08:32)
[2023-12-12] MEDS: MULTIVITAMINS WITH MINERALS, THERAPEUTIC TABLET PO SCH (08:32)
[2023-12-12] MEDS: SitaGLIPtin PHOSPHATE 100 MG TABLET PO SCH (08:32)
[2023-12-12] MEDS: BACITRACIN 28 GM OINTMENT TP SCH (08:33)
[2023-12-12] MEDS: POVIDONE-IODINE 10% 120 ML SOLUTION TP SCH (08:33)
[2023-12-12 11:31] LABS: GLUCOMETER DEV NAME(LOC) BV3S.; GLUCOSE,POINT OF CARE 190 MG/DL (70-110)
[2023-12-12 17:16] LABS: GLUCOMETER DEV NAME(LOC) BV3S.; GLUCOSE,POINT OF CARE 331 MG/DL (70-110)
[2023-12-12 20:03] VITALS: BP 138/71; PULSE 98; RESP 18; TEMP 97.5
[2023-12-12 21:26] LABS: GLUCOMETER DEV NAME(LOC) BV3S.; GLUCOSE,POINT OF CARE 260 MG/DL (70-110)
[2023-12-13 06:07] LABS: GLUCOMETER DEV NAME(LOC) BV3S.; GLUCOSE,POINT OF CARE 220 MG/DL (70-110)
[2023-12-13] MEDS: LEVOTHYROXINE SODIUM 112 MCG TABLET PO SCH (06:21)
[2023-12-13] MEDS: INSULIN LISPRO 100 UNITS/ML SQ PRN ×2 (06:31→11:20)
[2023-12-13 08:17] VITALS: BP 140/69; PULSE 100; RESP 17; TEMP 97.6; O2SAT 95
[2023-12-13] MEDS: BACITRACIN 28 GM OINTMENT TP SCH (08:19)
[2023-12-13] MEDS: POVIDONE-IODINE 10% 120 ML SOLUTION TP SCH (08:19)
[2023-12-13] MEDS: EMPAGLIFLOZIN 25 MG TABLET PO SCH (08:19)
[2023-12-13 08:20] VITALS: BP 140/69; PULSE 100; RESP 17; TEMP 97.6; O2SAT 95
[2023-12-13] MEDS: THIAMINE 100 MG TABLET PO SCH (08:20)
[2023-12-13] MEDS: SitaGLIPtin PHOSPHATE 100 MG TABLET PO SCH (08:20)
[2023-12-13] MEDS: QUEtiapine FUMARATE 200 MG TABLET PO SCH (08:20)
[2023-12-13] MEDS: MULTIVITAMINS WITH MINERALS, THERAPEUTIC TABLET PO SCH (08:20)
[2023-12-13] MEDS: SERTRALINE HCL 100 MG TABLET PO SCH (08:20)
[2023-12-13] MEDS: FOLIC ACID 1 MG TABLET PO SCH (08:20)
[2023-12-13] MEDS ORDERED: SERT-440 PO (11:13)
[2023-12-13] MEDS ORDERED: QUET200T30 PO (11:13)
[2023-12-13 11:27] LABS: GLUCOMETER DEV NAME(LOC) BV3S.; GLUCOSE,POINT OF CARE 267 MG/DL (70-110)
[2023-12-13] MEDS ORDERED: QUET400T5 PO (11:38)
== END 2023-12-13 12:55 | DRG 750 ==
LOC: EMS 18:54 → B3A 07-08 02:57
PROVIDERS: ADMIT Psychiatry & Neurology Psychiatry; ATTEND Psychiatry & Neurology Psychiatry
PROC: GZHZZZZ Group Psychotherapy (ICD-10-PCS; principal; 2023-07-08)
PROC: GZ51ZZZ Individual Psychotherapy, Behavioral (ICD-10-PCS; 2023-07-08)
DX: F25.0 Schizoaffective disorder, bipolar type (principal); E11.9 Type 2 diabetes mellitus without complications; D72.829 Elevated white blood cell count, unspecified; E03.9 Hypothyroidism, unspecified; E78.00 Pure hypercholesterolemia, unspecified; F31.9 Bipolar disorder, unspecified; I10 Essential (primary) hypertension; F41.9 Anxiety disorder, unspecified; Y92.238 Other place in hospital as the place of occurrence of the external cause; Y04.0XXA Assault by unarmed brawl or fight, initial encounter; Y93.89 Activity, other specified; Y99.8 Other external cause status; Z79.899 Other long term (current) drug therapy; Z59.00 Homelessness unspecified
CPT/HCPCS: 80053; 80061; 80307; 81001; 82962; 83036; 84443; 84702; 85025; 87081; 87086; 87186; 99285; G0480; J1200; J1630; J2060; J3535; Q9967

== ENCOUNTER 2025-06-22 21:00 | Emergency (ER) | payer MEDICAID, OTHER ==
[~2025-06-22] VITALS: Ht 162.6 cm; Wt 86.4 kg
[~2025-06-22 21:00] MED LIST changes: +EMPA25TA3 PO; +LEVO112T7 PO; -METF-1211 PO; +QUET200T30 PO; -QUET300T19 PO; -SERT-439 PO; +SERT-440 PO; +SITA100 PO
[2025-06-22 21:07] VITALS: BP 138/76; PULSE 114; RESP 18; TEMP 98; O2SAT 96
== END 2025-06-23 00:09 | disposition home or self-care (01) ==
LOC: EMS 21:00
DX: T16.2XXA Foreign body in left ear, initial encounter (principal); E03.9 Hypothyroidism, unspecified; E11.9 Type 2 diabetes mellitus without complications; E78.00 Pure hypercholesterolemia, unspecified; F20.9 Schizophrenia, unspecified; F31.9 Bipolar disorder, unspecified; Z79.899 Other long term (current) drug therapy; W44.8XXA Other foreign body entering into or through a natural orifice, initial encounter
CPT/HCPCS: 99284; Z7502